=== PATIENT | female | born 1990 | race Caucasian/White ===

== ENCOUNTER 2017-02-12 23:14 | Emergency (ER) | payer OTHER, MEDICAID ==
[2017-02-12 23:24] VITALS: BP 128/87
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
[2017-02-12] MEDS ORDERED: Diphtheria,Pertussis(Acell),Tetanus Vaccine 0.5 ML SDV inactive IM ONE (23:58)
[2017-02-13] MEDS ORDERED: Acetaminophen/HYDROcodone 325-5 MG Tab PO ONE (00:57)
--- NOTE | 2017-02-13 07:22 | CT ---
Head CT Technique: Multiple axial sections through the brain were obtained. Intravenous contrast was not utilized. Comparison: No previous intracranial imaging is available. Findings: Ventricles along with basal cisterns and sulci over the convexities are within normal limits for the patient's age. Metallic piece of jewelry is seen within the left ear causing some artifact. No abnormal parenchymal densities are appreciated. No evidence of intracranial hemorrhage. No midline shift or mass effect is seen. Bone window settings were reviewed which show no discrete calvarial abnormality. Visualized sinuses are clear. Impression: 1. Mild artifact from left-sided jewelry. Within this limitation, no acute intracranial abnormality is identified. Diagnostic code #2 I agree with preliminary report issued by [facility] (preliminary report dictated on 02/13/17, 1:54 AM Central Time)
--- NOTE | 2017-02-13 09:55 | CT ---
CT cervical spine Technique: Multiple axial sections were obtained from above C1 inferiorly to the bottom of T1. Reconstructed sagittal and coronal images were reviewed. Findings: Visualized posterior skull base is intact. Vertebral body heights and disc spaces are maintained. Vertebral bodies and posterior arches are intact with no fracture being seen. No bony central or bony neural foraminal stenosis is seen. Mild kyphosis is present on the reconstructed sagittal images most likely positional. No abnormal subluxation is seen. Impression: 1. No acute abnormality is identified on CT study of the cervical spine. Diagnostic code #2 I agree with preliminary report issued by [facility] (preliminary report dictated on 02/13/17, 1:55 AM Central Time)
--- NOTE | 2017-02-13 09:55 | CR ---
Left shoulder: Three views of the left shoulder were obtained. Comparison: No previous study. Glenohumeral and acromioclavicular joint appears unremarkable. No fracture, dislocation or other bony abnormality is seen. Impression: 1. No abnormality is identified on three-view left shoulder exam. Diagnostic code #1
--- NOTE | 2017-02-13 09:55 | CR ---
Chest: Frontal view of the chest was obtained. Comparison: Previous chest x-ray of 11/25/16. Heart size and mediastinum are normal. Lungs are clear. Bony structures are grossly intact. Impression: 1. Nothing acute is identified on frontal chest x-ray. Diagnostic code #1
== END 2017-02-13 03:00 | disposition home or self-care (01) ==
LOC: JD.ED 23:14
DX: S09.8XXA Other specified injuries of head, initial encounter (principal); S80.12XA Contusion of left lower leg, initial encounter; S40.012A Contusion of left shoulder, initial encounter; V89.0XXA Person injured in unspecified motor-vehicle accident, nontraffic, initial encounter; Z88.0 Allergy status to penicillin; F17.200 Nicotine dependence, unspecified, uncomplicated
CPT/HCPCS: 70450; 71010; 72125; 73030; 81001; 81025; 90471; 99284; A9270; 90715

== ENCOUNTER 2017-05-24 23:32 | Emergency (ER) | payer MEDICAID ==
[2017-05-24 23:47] VITALS: BP 141/83
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
--- NOTE | 2017-05-26 07:53 | CR ---
Right wrist: Four views of the right wrist were obtained. Comparison: No previous right wrist exam Joint spaces are preserved. No fracture, dislocation or other bony abnormality is seen. Impression: 1. No abnormality is identified on right wrist exam. Diagnostic code #1
--- NOTE | 2017-05-26 07:53 | CR ---
Right hand: Three views of the right hand were obtained. Comparison: No previous study. Joint spaces are preserved. No fracture, dislocation or other bony abnormality is seen. Impression: 1. No abnormality is appreciated on right hand study. Diagnostic code #1
== END 2017-05-25 00:44 | disposition home or self-care (01) ==
LOC: JD.ED 23:32
DX: S63.501A Unspecified sprain of right wrist, initial encounter (principal); S60.221A Contusion of right hand, initial encounter; F17.210 Nicotine dependence, cigarettes, uncomplicated; Z88.0 Allergy status to penicillin; Z87.440 Personal history of urinary (tract) infections; Z86.2 Personal history of diseases of the blood and blood-forming organs and certain disorders involving the immune mechanism; W19.XXXA Unspecified fall, initial encounter
CPT/HCPCS: 73110-26-RT; 73110-RT; 73130-26-RT; 73130-RT; 99283; 99284

== ENCOUNTER 2017-07-14 22:29 | Emergency (ER) | payer MEDICAID ==
[2017-07-14 22:41] VITALS: BP 121/72
--- NOTE | 2017-07-14 22:53 | EDM.PDOC ---
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 Patient 8 weeks gestation developed cramping and spotting a couple hours prior to arrival. The spotting has been light she noticed it mostly when she wipes. She denies any burning or frequency with urination she has not had any abnormal vaginal discharge except for a little bit of clear discharge at times. Patient denies any fevers or chills denies any vomiting diarrhea or constipation she has some intermittent nausea. Patient is a 5 para 3 one miscarriage. Headache Pain Score (Numeric/FACES): 9 - Related Data Allergies Allergy/AdvReac Type Severity Reaction Status Date / Time Penicillins Allergy Hives Verified 05/24/17 23:38 Home Meds: Home Meds Pnv No.95/Ferrous Fum/Folic AC [ Multivitamin Tablet] 1 tab PO DAILY [History] Hydrocodone/Acetaminophen [[place] 5-325 Tablet] 1 - 2 each PO Q6H PRN #15 tablet 07/15/17 [Rx] Nitrofurantoin Monohyd/M-Cryst [Macrobid 100 mg Capsule] 100 mg PO Q12H #14 capsule 07/15/17 [Rx] Past Medical History HEENT History: Reports: None Cardiovascular History: Reports: None Respiratory History: Reports: None Genitourinary History: Reports: None, UTI, Recurrent SHADE CUTTER History: Reports: , 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 OB/BYN History: x4 Musculoskeletal History: Reports: None Other Musculoskeletal History: ankle sprain Psychiatric History: Reports: Anxiety, Depression Endocrine/Metabolic History: Reports: None Hematologic History: Reports: Anemia Dermatologic History: Reports: Other (See Below) Other Dermatologic History: Frequent abscess' to groin--MRSA swab negative x3 - Infectious Disease History 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: MRSA - Past Surgical History HEENT Surgical History: Reports: Oral Surgery Female Surgical History: Reports: Cervical Cryotherapy Social & Family History - Family History Family Medical History: Noncontributory Cardiac: Reports: [place] Endocrine/Metabolic: Reports: Diabetes, type II - Tobacco Use Smoking Status *Q: Current Every Day Smoker Years of Tobacco use: 11 Packs/Tins Daily: 0.5 Used Tobacco, but Quit: No Second Hand Smoke Exposure: Yes - Caffeine Use Caffeine Use: Reports: Soda - Alcohol Use Days Per Week of Alcohol Use: 0 Number of Drinks Per Day: 1 Total Drinks Per Week: 0 - Recreational Drug Use Recreational Drug Use: No ED ROS GENERAL - Review of Systems Review Of Systems: See Below Constitutional: Reports: No Symptoms HEENT: Reports: No Symptoms Respiratory: Reports: No Symptoms Cardiovascular: Reports: No Symptoms GI/Abdominal: Reports: Nausea. Denies: Constipation, Diarrhea, Vomiting : Reports: Pain. Denies: Discharge, Dysuria, Flank Pain, Frequency, Hematuria , Urgency ED EXAM - Physical Exam Exam: See Below Exam Limited By: No Limitations General Appearance: Alert, No Apparent Distress Respiratory/Chest: No Respiratory Distress, Lungs Clear, Normal Breath Sounds Cardiovascular: Regular Rate, Rhythm, No Edema, No Murmur GI/Abdominal Exam: Normal Bowel Sounds, Soft, Other (She has some lower abdominal suprapubic discomfort no rebound or guarding noted) (Female) Exam: Normal Bimanual Exam (This is perhaps more tender than one would expect), Normal External Exam, Other (No blood noted in the vaginal vault small amount of blood noted on the endocervical swab). No: Adnexal Mass (L), Adnexal Mass (R), Cervical Discharge, Cervical Fluid, Vaginal Bleeding Back Exam: Normal Inspection, CVA Tenderness (L). No: CVA Tenderness (R) Course - Vital Signs Last Recorded V/S: Last Vital Signs Temp 36.7 C 07/14/17 22:37 Pulse 92 07/14/17 22:37 Resp 16 07/14/17 22:37 BP 121/72 07/14/17 22:37 Pulse Ox 97 07/14/17 22:37 - Orders/Labs/Meds Orders: Active Orders 24 hr Category Date Time Status OB Transvaginal [US] Stat Exams 07/15/17 01:38 Taken CULTURE URINE [RM] Stat Lab 07/15/17 01:53 Ordered ROSINA PREP [MYC] Stat Lab 07/15/17 01:40 Results Labs: Laboratory Tests 07/14/17 07/14/17 07/14/17 Range/Units 23:27 23:41 23:41 WBC 12.79 H (3.98-10.04) K/mm3 RBC 3.94 L (3.98-5.22) M/mm3 Hgb 11.8 (11.2-15.7) gm/L Hct 35.4 (34.1-44.9) % MCV 89.8 (79.4-94.8) fl MCH 29.9 (25.6-32.2) pg MCHC 33.3 (32.2-35.5) g/dl RDW Std Deviation 47.8 H (36.4-46.3) fL Plt Count 360 (182-369) K/mm3 MPV 9.6 (9.4-12.3) fl Neutrophils % (Manual) 56 (40-60) % Band Neutrophils % 0 (0-10) % Lymphocytes % (Manual) 40 (20-40) % Atypical Lymphs % 0 % Monocytes % (Manual) 1 L (2-10) % Eosinophils % (Manual) 3 (0.7-5.8) % Basophils % (Manual) 0 L (0.1-1.2) Platelet Estimate Adequate RBC Morph Comment Normal Sodium 139 (136-145) mEq/L Potassium 3.6 (3.5-5.1) mEq/L Chloride 103 (98-107) mEq/L Carbon Dioxide 26 (21-32) mEq/L Anion Gap 13.6 (5-15) BUN 12 (7-18) mg/dL Creatinine 0.9 (0.55-1.02) mg/dL Est Cr Clr Drug Dosing 85.24 mL/min Estimated GFR (MDRD) > 60 (>60) mL/min BUN/Creatinine Ratio 13.3 L (14-18) Glucose 82 (74-106) mg/dL Calcium 9.4 (8.5-10.1) mg/dL Total Bilirubin 0.1 L (0.2-1.0) mg/dL AST 11 L (15-37) U/L ALT 22 (14-59) U/L Alkaline Phosphatase 42 L (46-116) U/L Total Protein 7.3 (6.4-8.2) g/dl Albumin 4.1 (3.4-5.0) g/dl Globulin 3.2 gm/dL Albumin/Globulin Ratio 1.3 (1-2) HCG, Quant 80313.0 mIU/mL Urine Color Yellow (Yellow) Urine Appearance Clear (Clear) Urine pH 6.5 (5.0-8.0) Ur Specific [place] 1.025 (1.005-1.030) Urine Protein Negative (Negative) Urine Glucose (UA) Negative (Negative) Urine Ketones Negative (Negative) Urine Occult Blood 2+ H (Negative) Urine Nitrite Negative (Negative) Urine Bilirubin Negative (Negative) Urine Urobilinogen 1.0 (0.2-1.0) Ur Leukocyte Esterase Negative (Negative) Urine RBC 30-40 H (0-5) /hpf Urine WBC 0-5 (0-5) /hpf Ur Epithelial Cells 10-20 H (0-5) /hpf Urine Bacteria Few (FEW) /hpf Urine Mucus Moderate H (FEW) /hpf C trachomatis DNA (PCR) N gonorrhoeae DNA (PCR) 07/15/17 Range/Units 01:40 WBC (3.98-10.04) K/mm3 RBC (3.98-5.22) M/mm3 Hgb (11.2-15.7) gm/L Hct (34.1-44.9) % MCV (79.4-94.8) fl MCH (25.6-32.2) pg MCHC (32.2-35.5) g/dl RDW Std Deviation (36.4-46.3) fL Plt Count (182-369) K/mm3 MPV (9.4-12.3) fl Neutrophils % (Manual) (40-60) % Band Neutrophils % (0-10) % Lymphocytes % (Manual) (20-40) % Atypical Lymphs % % Monocytes % (Manual) (2-10) % Eosinophils % (Manual) (0.7-5.8) % Basophils % (Manual) (0.1-1.2) Platelet Estimate RBC Morph Comment Sodium (136-145) mEq/L Potassium (3.5-5.1) mEq/L Chloride (98-107) mEq/L Carbon Dioxide (21-32) mEq/L Anion Gap (5-15) BUN (7-18) mg/dL Creatinine (0.55-1.02) mg/dL Est Cr Clr Drug Dosing mL/min Estimated GFR (MDRD) (>60) mL/min BUN/Creatinine Ratio (14-18) Glucose (74-106) mg/dL Calcium (8.5-10.1) mg/dL Total Bilirubin (0.2-1.0) mg/dL AST (15-37) U/L ALT (14-59) U/L Alkaline Phosphatase (46-116) U/L Total Protein (6.4-8.2) g/dl Albumin (3.4-5.0) g/dl Globulin gm/dL Albumin/Globulin Ratio (1-2) HCG, Quant mIU/mL Urine Color (Yellow) Urine Appearance (Clear) Urine pH (5.0-8.0) Ur Specific [place] (1.005-1.030) Urine Protein (Negative) Urine Glucose (UA) (Negative) Urine Ketones (Negative) Urine Occult Blood (Negative) Urine Nitrite (Negative) Urine Bilirubin (Negative) Urine Urobilinogen (0.2-1.0) Ur Leukocyte Esterase (Negative) Urine RBC (0-5) /hpf Urine WBC (0-5) /hpf Ur Epithelial Cells (0-5) /hpf Urine Bacteria (FEW) /hpf Urine Mucus (FEW) /hpf C trachomatis DNA (PCR) Not detected N gonorrhoeae DNA (PCR) Not detected Meds: Medications Discontinued Medications Generic Name Dose Route Start Last Admin Trade Name Freq PRN Reason Stop Dose Admin Fentanyl 50 mcg 07/15/17 01:11 07/15/17 01:22 Sublimaze IVPUSH 07/15/17 01:12 Not Given ONETIME ONE Fentanyl 50 mcg 07/15/17 01:13 07/15/17 01:21 Sublimaze IM 07/15/17 01:14 50 mcg ONETIME ONE Administration Fentanyl 50 mcg 07/15/17 02:09 07/15/17 02:21 Sublimaze IVPUSH 07/15/17 02:10 50 mcg ONETIME ONE Administration Nitrofurantoin Macrocrystals 100 mg 07/15/17 01:46 07/15/17 02:22 Macrobid PO 07/15/17 01:47 100 mg ONETIME ONE Administration Sodium Chloride 10 ml 07/15/17 02:10 07/15/17 02:26 Saline Flush FLUSH 07/15/17 02:11 10 ml ONETIME ONE Administration - Re-Assessments/Exams Free Text/Narrative Re-Assessment/Exam: 07/15/17 03:07 Labs reviewed she has microscopic hematuria in her urine. Interestingly minimal blood was found in the vaginal vault reasonable possibility of a hemorrhagic cystitis albeit negative for leukocyte esterase or nitrates urine culture has been set up and the patient has been started on Macrobid. Routine labs obtained in 2 including a quantitative hCG which is consistent with dates. ROSINA and wet mount normal awaiting GC and Chlamydia ultrasound obtained which shows a viable IUP with an age of 7 weeks 2 days blood type and screen in old records shows a negative antibody screen and the blood type of a positive on her most recent delivery in November of this year. Departure - Departure Time of Disposition: 03:23 Disposition: Home, Self-Care 01 Clinical Impression: Threatened - Discharge Information Prescriptions: Hydrocodone/Acetaminophen [[place]range 5-325 Tablet] 1 - 2 each PO Q6H PRN #15 tablet PRN Reason: Pain Nitrofurantoin Monohyd/M-Cryst [Macrobid 100 mg Capsule] 100 mg PO Q12H #14 capsule Referrals: Akin Burton MD [Primary Care Provider] - Forms: ED Department Discharge Additional Instructions: Return to the emergency room with any questions problems or worsening symptoms. Follow up with Dr. Burton on Friday, sooner if needed. You have been started on 2 medications. The first one is Lagrange, or hydrocodone take one or 2 every 6 hours as needed for discomfort. Allow 12 hours after using this medication before driving or returning to work. Second medication is Macrobid, this is an antibiotic for urinary tract infections take one twice daily until all gone. - My Orders Last 24 Hours: My Active Orders 07/15/17 01:38 OB Transvaginal [US] Stat 07/15/17 01:40 ROSINA PREP [MYC] Stat 07/15/17 01:53 CULTURE URINE [RM] Stat - Assessment/Plan Last 24 Hours: My Active Orders 07/15/17 01:38 OB Transvaginal [US] Stat 07/15/17 01:40 ROSINA PREP [MYC] Stat 07/15/17 01:53 CULTURE URINE [RM] Stat
[2017-07-15] MEDS ORDERED: fentaNYL 100 MCG/2 ML SDV IVPUSH ONE ×2 (01:11→02:09)
[2017-07-15] MEDS ORDERED: fentaNYL 100 MCG/2 ML SDV IM ONE (01:13)
[2017-07-15] MEDS ORDERED: Nitrofurantoin Monohydrate/Macrocrystalline 100 MG Cap PO ONE (01:46)
[2017-07-15] MEDS ORDERED: Sodium Chloride 0.9% 10 ML Syringe FLUSH ONE (02:10)
[2017-07-15 03:21] LABS: C. TRACHOMATIS BY PCR NOT DETECTED; N. GONORRHOEAE BY PCR NOT DETECTED
[2017-07-15] MEDS ORDERED: Acetaminophen/HYDROcodone 325-5 MG Tab PO ONE (03:32)
--- NOTE | 2017-07-15 07:19 | US ---
First trimester obstetrical ultrasound: Multiple real-time images were obtained transvaginally. Comparison: No previous study. Dates: LMP: ? Current ultrasound: ANKIT 03/01/18, gestational age 7 weeks 2 days Single intrauterine gestation is seen. Yolk sac and embryo are identified. No subchorionic hemorrhage is seen. Incidental left adnexal varicosities seen. Right ovary shows a small corpus luteum cyst. Measurements: Gestational sac: 2.59 cm - 7 weeks 4 days Strong-rump length: 1.13 cm - 7 weeks 2 days Heart rate: 127 bpm Impression: 1. Single intrauterine gestation. Dates as noted above. 2. Incidental varicosities within the maternal left adnexa. No other complicating process is identified by ultrasound at this time. Diagnostic code #2 Agree with preliminary report issued by [employer] (preliminary [employer] report dictated on 07/06/1917, 3:42 AM Central Time)
== END 2017-07-15 03:50 | disposition home or self-care (01) ==
LOC: JD.ED 22:29
DX: O20.0 Threatened abortion (principal); O99.331 Smoking (tobacco) complicating pregnancy, first trimester; F17.210 Nicotine dependence, cigarettes, uncomplicated; Z86.2 Personal history of diseases of the blood and blood-forming organs and certain disorders involving the immune mechanism; Z87.440 Personal history of urinary (tract) infections; Z98.890 Other specified postprocedural states; Z88.0 Allergy status to penicillin; Z3A.08 8 weeks gestation of pregnancy
CPT/HCPCS: 36415; 76817; 80053; 81001; 84702; 85025; 87086; 87210; 87220; 87491; 87591; 87808; 96372; 96374; 99284; A9270; J3010; J7050

== ENCOUNTER 2017-07-15 21:49 | Emergency (ER) | payer MEDICAID ==
[2017-07-15 22:09] VITALS: BP 118/91
--- NOTE | 2017-07-15 22:21 | EDM.PDOC ---
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 The patient was seen here earlier this morning diagnosed with a threatened miscarriage. Ultrasound was consistent with a viable intrauterine at 7 weeks 3 days she is Rh+ antibody screen negative urinalysis was not really suggestive of infectious process but she had a fair amount of microscopic hematuria and there was really no blood found in the vaginal vault she was treated for potential UTI with Macrobid. The patient did not follow-up in the clinic today however did call and leave a message. The patient did not get her pain pills filled until late this afternoon her pain very much escalated during the course the day she took 1 pill followed by another pill in did not get satisfactory relief from this so she came into the emergency room during the course today she did pass a small clot maroon in color. Abdominal Pain Score (Numeric/FACES): 10 - Related Data Allergies Allergy/AdvReac Type Severity Reaction Status Date / Time Penicillins Allergy Hives Verified 05/24/17 23:38 Home Meds: Home Meds Pnv No.95/Ferrous Fum/Folic AC [ Multivitamin Tablet] 1 tab PO DAILY [History] Hydrocodone/Acetaminophen [[place] 5-325 Tablet] 1 - 2 each PO Q6H PRN #15 tablet 07/15/17 [Rx] Nitrofurantoin Monohyd/M-Cryst [Macrobid 100 mg Capsule] 100 mg PO Q12H #14 capsule 07/15/17 [Rx] Past Medical History HEENT History: Reports: None Cardiovascular History: Reports: None Respiratory History: Reports: None Genitourinary History: Reports: None, UTI, Recurrent, Other (See Below) Other Genitourinary History: miscarriage RN PERINATAL History: Reports: , 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 OB/BYN History: x4 Musculoskeletal History: Reports: None Other Musculoskeletal History: ankle sprain Neurological History: Reports: Other (See Below) Other Neuro History: depression Psychiatric History: Reports: Anxiety, Depression Endocrine/Metabolic History: Reports: None Hematologic History: Reports: Anemia Dermatologic History: Reports: Other (See Below) Other Dermatologic History: Frequent abscess' to groin--MRSA swab negative x3 - Infectious Disease History 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: MRSA - Past Surgical History HEENT Surgical History: Reports: Oral Surgery Female Surgical History: Reports: Cervical Cryotherapy Social & Family History - Family History Family Medical History: Noncontributory Cardiac: Reports: [place] Endocrine/Metabolic: Reports: Diabetes, type II - Tobacco Use Smoking Status *Q: Current Every Day Smoker Years of Tobacco use: 11 Packs/Tins Daily: 1 Used Tobacco, but Quit: No Second Hand Smoke Exposure: No - Caffeine Use Caffeine Use: Reports: Soda - Alcohol Use Days Per Week of Alcohol Use: 0 Number of Drinks Per Day: 1 Total Drinks Per Week: 0 - Recreational Drug Use Recreational Drug Use: No ED ROS GENERAL - Review of Systems Review Of Systems: See Below Constitutional: Reports: No Symptoms HEENT: Reports: No Symptoms Respiratory: Reports: No Symptoms Cardiovascular: Reports: No Symptoms GI/Abdominal: Reports: Other (Lower abdominal cramping) : Denies: Discharge, Dysuria, Flank Pain, Frequency, Hematuria ED EXAM - Physical Exam Exam: See Below Exam Limited By: No Limitations General Appearance: Alert, No Apparent Distress Respiratory/Chest: No Respiratory Distress, Lungs Clear, Normal Breath Sounds Cardiovascular: Regular Rate, Rhythm, No Edema, No Murmur GI/Abdominal Exam: Normal Bowel Sounds, Soft, Other (Mild to moderate discomfort over the fundus) Back Exam: Normal Inspection. No: CVA Tenderness (L), CVA Tenderness (R) Course - Vital Signs Last Recorded V/S: Last Vital Signs Temp 36.5 C 07/15/17 22:03 Pulse 100 07/15/17 22:03 Resp 14 07/15/17 22:03 BP 118/91 H 07/15/17 22:03 Pulse Ox 98 07/15/17 22:03 - Orders/Labs/Meds Meds: Medications Discontinued Medications Generic Name Dose Route Start Last Admin Trade Name Freq PRN Reason Stop Dose Admin Hydromorphone HCl 0.5 mg 07/15/17 23:37 Dilaudid IVPUSH 07/15/17 23:38 ONETIME ONE - Re-Assessments/Exams Free Text/Narrative Re-Assessment/Exam: 07/15/17 23:[address] Anderson no further evaluation this point the patient received 0.5 mg Dilaudid and after receiving the Dilaudid the patient is doing much better. We will discharge at this point Departure - Departure Time of Disposition: 23:48 Disposition: Home, Self-Care 01 Clinical Impression: Threatened - Discharge Information Referrals: Akin Burton MD [Primary Care Provider] - Forms: ED Department Discharge Additional Instructions: Return to the emergency room with any questions or problems. Return if completely saturating more than 2 pads an hour for 2 consecutive hours. Tomorrow you must follow-up with Dr. Burton you will need a follow-up blood test. Use your pain medication as we discussed. It is okay to use Zofran if needed.
[2017-07-15] MEDS ORDERED: HYDROmorphone 0.5 MG/0.5 ML Syringe IVPUSH ONE (23:37)
== END 2017-07-16 00:11 | disposition home or self-care (01) ==
LOC: JD.ED 21:49
DX: O20.0 Threatened abortion (principal); O99.331 Smoking (tobacco) complicating pregnancy, first trimester; F17.210 Nicotine dependence, cigarettes, uncomplicated; O99.341 Other mental disorders complicating pregnancy, first trimester; F32.9 Major depressive disorder, single episode, unspecified; Z86.2 Personal history of diseases of the blood and blood-forming organs and certain disorders involving the immune mechanism; Z87.440 Personal history of urinary (tract) infections; Z88.0 Allergy status to penicillin; Z3A.01 Less than 8 weeks gestation of pregnancy
CPT/HCPCS: 99284; J1170

== ENCOUNTER 2017-08-16 22:19 | Emergency (ER) | payer MEDICAID ==
[2017-08-16 22:31] VITALS: BP 101/74
--- NOTE | 2017-08-16 22:33 | EDM.PDOC ---
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 She passed for large clots about 1600 hrs. and since that time has soaked 3 pads in the last 3 hours. She feels lightheaded and dizzy. She is 5 para 3. Last ultrasound done July 15 revealed viability with a heart rate of 127. EDC has been set at March 01, 2018. Patient is also experiencing quite significant lower bowel cramping pain radiating into her back i.e. strongly menstrual-like cramps. She is nauseated due to the intensity of pain.patient is feeling quite anxious at this time as well. Probably because she ran out of her clonazepam 2 mg twice a day about 34 days ago and was unable to get refilled is Dr. Keith is out of office. She is feeling quite anxious of course about losing the . Of note she has had one previous miscarriage. 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 (feeling quite anxious about losing the .) Abdomen Pain Score (Numeric/FACES): 9 - Related Data Allergies Allergy/AdvReac Type Severity Reaction Status Date / Time Penicillins Allergy Hives Verified 05/24/17 23:38 Home Meds: Home Meds Pnv No.95/Ferrous Fum/Folic AC [ Multivitamin Tablet] 1 tab PO DAILY [History] ClonazePAM [KlonoPIN] 1 mg PO BID 08/16/17 [History] oxyCODONE HCl/Acetaminophen [Percocet 5-325 mg Tablet] 1 - 2 each PO Q4H PRN # 18 tablet 08/17/17 [Rx] Past Medical History HEENT History: Reports: None Cardiovascular History: Reports: None Respiratory History: Reports: None Genitourinary History: Reports: None, UTI, Recurrent, Other (See Below) Other Genitourinary History: miscarriage 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: , Spontaneous : 5 Para: 3 (1 previous miscarriage.) Other OB/BYN History: x4 Musculoskeletal History: Reports: None Other Musculoskeletal History: ankle sprain Neurological History: Reports: Other (See Below) Other Neuro History: depression Psychiatric History: Reports: Anxiety, Depression Endocrine/Metabolic History: Reports: None Hematologic History: Reports: Anemia Dermatologic History: Reports: Other (See Below) Other Dermatologic History: Frequent abscess' to groin--MRSA swab negative x3 - Infectious Disease History 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: MRSA - Past Surgical History HEENT Surgical History: Reports: Oral Surgery Female Surgical History: Reports: Cervical Cryotherapy Social & Family History - Family History Family Medical History: Noncontributory Cardiac: Reports: MA Endocrine/Metabolic: Reports: Diabetes, type II - Tobacco Use Smoking Status *Q: Current Every Day Smoker Years of Tobacco use: 11 Packs/Tins Daily: 1 Used Tobacco, but Quit: No Second Hand Smoke Exposure: No - Caffeine Use Caffeine Use: Reports: Soda - Alcohol Use Days Per Week of Alcohol Use: 0 Number of Drinks Per Day: 1 Total Drinks Per Week: 0 - Recreational Drug Use Recreational Drug Use: No - Living Situation & Occupation Living situation: Reports: Occupation: Employed ED ROS GENERAL - Review of Systems Review Of Systems: See Below Constitutional: Reports: Weakness, Fatigue, Other (dizzy and lightheaded at this time). Denies: Fever, Chills, Malaise HEENT: Reports: No Symptoms Respiratory: Reports: No Symptoms Cardiovascular: Reports: No Symptoms Endocrine: Reports: No Symptoms GI/Abdominal: Reports: Abdominal Pain (see history of present illness) : Reports: Other Musculoskeletal: Reports: No Symptoms Skin: Reports: No Symptoms Neurological: Reports: Dizziness Psychiatric: Reports: Anxiety Hematologic/Lymphatic: Reports: No Symptoms Immunologic: Reports: No Symptoms ED EXAM - Physical Exam Exam: See Below Exam Limited By: No Limitations General Appearance: Alert, WD/WN, Mild Distress Eye Exam: Bilateral Eye: Normal Inspection Throat/Mouth: Normal Inspection, Normal Lips, Normal Teeth, Normal Oropharynx Head: Atraumatic, Normocephalic Neck: Normal Inspection, Supple, Non-Tender, Full Range of Motion Respiratory/Chest: No Respiratory Distress, Lungs Clear, Normal Breath Sounds, No Accessory Muscle Use Cardiovascular: Normal Peripheral Pulses, Regular Rate, Rhythm, No Edema, No Gallop, No JVD, No Murmur GI/Abdominal Exam: Normal Bowel Sounds, Soft, Non-Tender, No Organomegaly Back Exam: Normal Inspection, Full Range of Motion. No: CVA Tenderness (L), CVA Tenderness (R) Extremities: Normal Inspection, Normal Range of Motion, Non-Tender, No Pedal Edema, Normal Capillary Refill Neurological: Alert, Oriented, CN II-XII Intact, Normal Cognition, Normal Gait, Normal Reflexes Psychiatric: Normal Affect, Normal Mood Skin Exam: Warm, Dry, Intact, Normal Color, Other (patient has had MRSA in the past and has numerous small palpable papules along her but talks nuchal cleft. She recently squeezed one on the right mid buttock to relieve the pain but was concerned that it might be have become secondarily infected on my inspection the wound appears to be healing satisfactorily.) Course - Vital Signs Last Recorded V/S: Last Vital Signs Temp 36.0 C 08/16/17 22:30 Pulse 130 H 08/16/17 22:30 Resp 20 08/16/17 22:30 BP 101/74 08/16/17 22:30 Pulse Ox 100 08/16/17 22:30 Orthostatic Blood Pressure [ 125/87 Standing] Orthostatic Blood Pressure [ 114/80 Sitting] Orthostatic Blood Pressure [ 106/73 Supine] - Orders/Labs/Meds Orders: Active Orders 24 hr Category Date Time Status Admission Status [Patient Status] [ADT] Routine ADT 08/17/17 00:50 Cancelled Orthostatic Vital Signs [RC] ASDIRECTED Care 08/16/17 22:32 Active OB 1st Tri Sgl 1st Gest [US] Stat Exams 08/16/17 23:03 Taken Sodium Chloride 0.9% [Normal Saline] 1,000 ml Med 08/16/17 22:45 Active IV ASDIRECTED Medication Orders Sodium Chloride (Normal Saline) 1,000 mls @ 150 mls/hr IV ASDIRECTED LJ Last Admin: 08/16/17 22:52 Dose: 150 mls/hr Labs: Laboratory Tests 08/16/17 08/16/17 08/16/17 Range/Units 22:55 22:55 22:55 WBC 13.51 H (3.98-10.04) K/mm3 RBC 3.96 L (3.98-5.22) M/mm3 Hgb 12.1 (11.2-15.7) gm/L Hct 35.4 (34.1-44.9) % MCV 89.4 (79.4-94.8) fl MCH 30.6 (25.6-32.2) pg MCHC 34.2 (32.2-35.5) g/dl RDW Std Deviation 50.3 H (36.4-46.3) fL Plt Count 349 (182-369) K/mm3 MPV 9.9 (9.4-12.3) fl Neutrophils % (Manual) 62 H (40-60) % Band Neutrophils % 0 (0-10) % Lymphocytes % (Manual) 25 (20-40) % Atypical Lymphs % 7 % Monocytes % (Manual) 4 (2-10) % Eosinophils % (Manual) 1 (0.7-5.8) % Basophils % (Manual) 1 (0.1-1.2) Platelet Estimate Adequate Plt Morphology Comment Normal Anisocytosis 1+ slight Microcytosis 1+ slight Macrocytosis 1+ slight RBC Morph Comment Abnormal Sodium 140 (136-145) mEq/L Potassium 3.6 (3.5-5.1) mEq/L Chloride 103 (98-107) mEq/L Carbon Dioxide 24 (21-32) mEq/L Anion Gap 16.6 H (5-15) BUN 10 (7-18) mg/dL Creatinine 0.7 (0.55-1.02) mg/dL Est Cr Clr Drug Dosing TNP Estimated GFR (MDRD) > 60 (>60) mL/min BUN/Creatinine Ratio 14.3 (14-18) Glucose 94 (74-106) mg/dL Calcium 8.8 (8.5-10.1) mg/dL Total Bilirubin 0.2 (0.2-1.0) mg/dL AST 10 L (15-37) U/L ALT 16 (14-59) U/L Alkaline Phosphatase 43 L (46-116) U/L Total Protein 7.4 (6.4-8.2) g/dl Albumin 3.7 (3.4-5.0) g/dl Globulin 3.7 gm/dL Albumin/Globulin Ratio 1.0 (1-2) HCG, Qual Positive H (NEGATIVE) HCG, Quant 70063.0 mIU/mL Urine Color (Yellow) Urine Appearance (Clear) Urine pH (5.0-8.0) Ur Specific [place] (1.005-1.030) Urine Protein (Negative) Urine Glucose (UA) (Negative) Urine Ketones (Negative) Urine Occult Blood (Negative) Urine Nitrite (Negative) Urine Bilirubin (Negative) Urine Urobilinogen (0.2-1.0) Ur Leukocyte Esterase (Negative) Urine RBC (0-5) /hpf Urine WBC (0-5) /hpf Ur Epithelial Cells (0-5) /hpf Urine Bacteria (FEW) /hpf Urine Mucus (FEW) /hpf Blood Type 08/16/17 08/17/17 Range/Units 22:55 00:05 WBC (3.98-10.04) K/mm3 RBC (3.98-5.22) M/mm3 Hgb (11.2-15.7) gm/L Hct (34.1-44.9) % MCV (79.4-94.8) fl MCH (25.6-32.2) pg MCHC (32.2-35.5) g/dl RDW Std Deviation (36.4-46.3) fL Plt Count (182-369) K/mm3 MPV (9.4-12.3) fl Neutrophils % (Manual) (40-60) % Band Neutrophils % (0-10) % Lymphocytes % (Manual) (20-40) % Atypical Lymphs % % Monocytes % (Manual) (2-10) % Eosinophils % (Manual) (0.7-5.8) % Basophils % (Manual) (0.1-1.2) Platelet Estimate Plt Morphology Comment Anisocytosis Microcytosis Macrocytosis RBC Morph Comment Sodium (136-145) mEq/L Potassium (3.5-5.1) mEq/L Chloride (98-107) mEq/L Carbon Dioxide (21-32) mEq/L Anion Gap (5-15) BUN (7-18) mg/dL Creatinine (0.55-1.02) mg/dL Est Cr Clr Drug Dosing Estimated GFR (MDRD) (>60) mL/min BUN/Creatinine Ratio (14-18) Glucose (74-106) mg/dL Calcium (8.5-10.1) mg/dL Total Bilirubin (0.2-1.0) mg/dL AST (15-37) U/L ALT (14-59) U/L Alkaline Phosphatase (46-116) U/L Total Protein (6.4-8.2) g/dl Albumin (3.4-5.0) g/dl Globulin gm/dL Albumin/Globulin Ratio (1-2) HCG, Qual (NEGATIVE) HCG, Quant mIU/mL Urine Color Yellow (Yellow) Urine Appearance Slt cloudy H (Clear) Urine pH 7.0 (5.0-8.0) Ur Specific [place] 1.025 (1.005-1.030) Urine Protein Trace H (Negative) Urine Glucose (UA) Negative (Negative) Urine Ketones Negative (Negative) Urine Occult Blood 3+ H (Negative) Urine Nitrite Negative (Negative) Urine Bilirubin Negative (Negative) Urine Urobilinogen 1.0 (0.2-1.0) Ur Leukocyte Esterase Negative (Negative) Urine RBC 5-10 H (0-5) /hpf Urine WBC 0-5 (0-5) /hpf Ur Epithelial Cells 0-5 (0-5) /hpf Urine Bacteria Few (FEW) /hpf Urine Mucus Moderate H (FEW) /hpf Blood Type A POSITIVE Meds: Medications Generic Name Dose Route Start Last Admin Trade Name Freq PRN Reason Stop Dose Admin Sodium Chloride 1,000 mls @ 150 mls/hr 08/16/17 22:45 08/16/17 22:52 Normal Saline IV 150 mls/hr ASDIRECTED LJ Administration Discontinued Medications Generic Name Dose Route Start Last Admin Trade Name Freq PRN Reason Stop Dose Admin Hydromorphone HCl 0.5 mg 08/16/17 22:54 08/16/17 23:05 Dilaudid IVPUSH 08/16/17 22:55 0.5 mg ONETIME ONE Administration Hydromorphone HCl 1 mg 08/16/17 23:56 08/17/17 00:06 Dilaudid IVPUSH 08/16/17 23:57 1 mg ONETIME ONE Administration Lorazepam 0.5 mg 08/16/17 22:56 08/16/17 23:06 Ativan IVPUSH 08/16/17 22:57 0.5 mg ONETIME ONE Administration Lorazepam 1 mg 08/17/17 00:33 08/17/17 00:49 Ativan IVPUSH 08/17/17 00:34 1 mg ONETIME ONE Administration Metoclopramide HCl 7.5 mg 08/16/17 22:54 08/17/17 00:08 Reglan IVPUSH 08/16/17 22:55 7.5 mg ONETIME ONE Administration - Radiology Interpretation Free Text/Narrative:: 27-year-old female presents to the ED with the bright red bleeding per vagina with associated strong menstrual cramping pain. Pain radiates into her back. She reports that she has soaked a pad per hour for the last 3 consecutive hours. Initially started with bright red blood with 4 large clots at 1600 hrs. today. She is 5 para 3 with with one previous miscarriage. She is mildly orthostatic with a heart rate of 1:30 on standing. Diffuse lower abdominal tenderness on examination.plan she will have a transabdominal ultrasound attempted however she may be have to be converted to a trans vaginal ultrasound.labs to be done to included a quantitative beta-hCG.hip and screen ordered.given Dilaudid 0.5 mg IV with Reglan 7.5 mg IV for pain and nausea relief. Since she is kind of withdrawing from her clonazepam that she has not had for 3 days also gave her Ativan 0.5 mg at her request for something for anxiety. - Re-Assessments/Exams Free Text/Narrative Re-Assessment/Exam: 08/16/17 23:12 patient declined the Reglan as she states she had taken a Zofran at home 2 hours before coming to the ED. Reglan was therefore canceled. 08/17/17 00:21pelvic ultrasound has been completed. I believe it was done transabdominally. It shows a active fetus at 12 weeks 0 days. heart rate is 1 167/m. No obvious source of bleeding is evident.pelvic examination reveals the cervix to be closed and is posterior in position. Uterus feels 12 weeks in position and is mildly tender to palpation. This was done after she was able to empty her bladder post transabdominal ultrasound. Plan tentatively she will be admitted to the hospital for observation status due to the large amount of bleeding and persistent abdominal cramping that she's experiencing i.e. threatened miscarriage. 08/17/17 00:26 lab work is back and reveals a white count of 13.51. Hemoglobin is 12.1 with hematocrit of 35.4. Lovastatin 49,000. Chemistries essentially normal. Quantitative beta-hCG is 59,572 blood type is A+. 08/17/17 00:34patient is requesting more medication for anxiety relief. Of note she has a very high tolerance to benzodiazepines and she takes clonazepam 2 mg twice a day usually. She's been out for 3 days and therefore is going through mild withdrawal as well. Will give Ativan 1 mg IV at this time. Awaiting the radiologists report on her obstetrical ultrasound. 08/17/17 00:45:radiologist report is unchanged from what I visualized. They did not comment on any significant subchorionic hemorrhage. I spoke with Dr. Hutchins with on-call OB physician in decision made to admit her to the hospital for observation. 08/17/17 01:00 patient has decided to try things at home versus come into the hospital. She really has no one to look after her 3 children. 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 Therefore she will be discharged to home as she lives in [place]. She is close to the hospital if she starts bleeding heavily. She therefore will be followed in the clinic Tentatively on Friday or Friday with Dr. Burton. Discharged home with Percocet tabs 1-2 Q 4hrs prn for pain relief( 18) through the [employer] machine. Departure - Departure Time of Disposition: 01:06 Disposition: Home, Self-Care 01 Condition: Fair Clinical Impression: Threatened in first trimester - Discharge Information Prescriptions: oxyCODONE HCl/Acetaminophen [Percocet 5-325 mg Tablet] 1 - 2 each PO Q4H PRN # 18 tablet PRN Reason: pain relief. Instructions: Threatened Miscarriage, [id number] Referrals: Akin Burton MD [Primary Care Provider] - Forms: ED Department Discharge Additional Instructions: aeration in the emergency room tonight in regards to sudden onset of bright red vaginal bleeding with associated clotting initially. Heavy flow reported was soaking a pad per hour for 3 consecutive hours prior to coming into the ED. Associated day diffuse lower abdominal cramping pain suggestive of uterine cramping. Ultrasound was carried out and reveals a viable fetus at 12 weeks and 1 day gestation. Her tones are 1 67/m. No obvious cause for the vaginal bleeding was identified. Examination revealed the cervix to be closed. Treatment is therefore bed rest as much as possible for the next 2-3 days. No lifting carrying pushing pulling etc. and nothing that would strain the tummy muscles to contract against the uterus to cause further percentile separation. At this stage it is called a threatened miscarriage. And he can go either way it 's 50-50 as to whether or not he going to miscarriage or things settle down and go on to a term gestation.suggest follow-up with Dr. laboy in clinic on Friday or Friday. May use Percocet tabs 03/19/25 one or 2 every 4-6 hours as needed for pain relief. Zofran 4 mg every 6 hours as necessary for relief of nausea. Return to the hospital if bleeding becomes heavy enough to soak a pad per hour for 2 consecutive hours as the bleeding in the hospital has seemed to settle down. It usually would be associated with increasing lower abdominal cramping pain characteristic of labor. - My Orders Last 24 Hours: My Active Orders 08/16/17 22:32 Orthostatic Vital Signs [RC] ASDIRECTED 08/16/17 22:45 Sodium Chloride 0.9% [Normal Saline] 1,000 ml IV ASDIRECTED 08/16/17 23:03 OB 1st Tri Sgl 1st Gest [US] Stat 08/17/17 00:50 Admission Status [Patient Status] [ADT] Routine (Cancelled) - Assessment/Plan Last 24 Hours: My Active Orders 08/16/17 22:32 Orthostatic Vital Signs [RC] ASDIRECTED 08/16/17 22:45 Sodium Chloride 0.9% [Normal Saline] 1,000 ml IV ASDIRECTED 08/16/17 23:03 OB 1st Tri Sgl 1st Gest [US] Stat 08/17/17 00:50 Admission Status [Patient Status] [ADT] Routine (Cancelled)
[2017-08-16] MEDS ORDERED: Sodium Chloride 0.9% 1,000 ML IV SCH (22:45)
[2017-08-16] MEDS ORDERED: HYDROmorphone 0.5 MG/0.5 ML Syringe IVPUSH ONE (22:54)
[2017-08-16] MEDS ORDERED: LORazepam 2 MG/ML MDV IVPUSH ONE (22:56)
[2017-08-16] MEDS: Metoclopramide 10 MG/2 ML SDV IVPUSH ONE (23:04)
[2017-08-16] MEDS ORDERED: HYDROmorphone 1 MG/ML Syringe IVPUSH ONE (23:56)
[2017-08-17] MEDS: Metoclopramide 10 MG/2 ML SDV IVPUSH ONE (00:08)
[2017-08-17] MEDS ORDERED: LORazepam 2 MG/ML MDV IVPUSH ONE (00:33)
[2017-08-17] MEDS ORDERED: Acetaminophen/oxyCODONE 325-5 MG Tab ONE (01:28)
--- NOTE | 2017-08-18 12:50 | US ---
First trimester obstetrical ultrasound: Multiple real-time images were obtained transabdominally. Comparison: Previous obstetrical ultrasound of 07/16/17. Dates: LMP:? Current ultrasound: ANKIT 02/27/18, gestational age 12 weeks 1 day Earliest ultrasound (07/15/17): ANKIT 03/01/18, gestational age 11 weeks 6 days Single intrauterine gestation is seen. Amniotic fluid volume is normal. Embryo is identified. No subchorionic hemorrhage is seen. Maternal left ovary not visualized, maternal right ovary is unremarkable. Measurements: [place]-rump length: 53.5 mm - 12 weeks 1 day Heart rate: 165 bpm Cervical length: 3.0 cm Impression: 1. Single intrauterine gestation. Dates as noted above. 2. No complicating process is seen by ultrasound at this time. Diagnostic code #1
== END 2017-08-17 01:15 | disposition home or self-care (01) ==
LOC: JD.ED 22:19
DX: O20.0 Threatened abortion (principal); F17.210 Nicotine dependence, cigarettes, uncomplicated; Z88.0 Allergy status to penicillin; Z3A.12 12 weeks gestation of pregnancy
CPT/HCPCS: 36415; 76801; 80053; 81001; 84702; 84703; 85025; 86900; 86901; 96361; 96374; 96375; 96376; 99284; A9270; J1170; J2060; J2765; J7040

== ENCOUNTER 2017-08-17 21:36 | Emergency (ER) | payer MEDICAID ==
[2017-08-17] MEDS ORDERED: HYDROmorphone 1 MG/ML Syringe IM ONE (22:08)
[2017-08-17] MEDS ORDERED: Metoclopramide 10 MG/2 ML SDV IVPUSH ONE (22:25)
[2017-08-17] MEDS ORDERED: Sodium Chloride 0.9% 1,000 ML IV STA (22:25)
[2017-08-17] MEDS ORDERED: Sodium Chloride 0.9% 10 ML Syringe FLUSH PRN (22:25)
[2017-08-18] MEDS ORDERED: HYDROmorphone 0.5 MG/0.5 ML Syringe IVPUSH ONE (00:38)
--- NOTE | 2017-08-18 00:40 | EDM.PDOC ---
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 This started yesterday and she was evaluated in the ER last night. She had labs and an US. She is 12 weeks gestation. The US did not show an abnormality but she was diagnosed with a threatened . She was to follow up with Dr Burton tomorrow. She comes in because she has more low back pain and RLQ abdominal pain. The bleeding is better. Onset: Gradual Duration: Day(s): (2) Location: Reports: Abdomen, Pelvis Quality: Reports: Sharp Severity: Severe Improves with: Reports: None Worsens with: Reports: None Associated Symptoms: Reports: Nausea/Vomiting. Denies: Chest Pain, Cough, Fever /Chills, Headaches, Seizure, Shortness of Breath Lower Abdomen Pain Score (Numeric/FACES): 10 - Related Data Allergies Allergy/AdvReac Type Severity Reaction Status Date / Time Penicillins Allergy Hives Verified 05/24/17 23:38 Home Meds: Home Meds Pnv No.95/Ferrous Fum/Folic AC [ Multivitamin Tablet] 1 tab PO DAILY [History] ClonazePAM [KlonoPIN] 1 mg PO BID 08/16/17 [History] oxyCODONE HCl/Acetaminophen [Percocet 5-325 mg Tablet] 1 - 2 each PO Q4H PRN # 18 tablet 08/17/17 [Rx] oxyCODONE HCl/Acetaminophen [Percocet 5-325 mg Tablet] 1 - 2 each PO Q4H PRN #5 tablet 08/17/17 [Rx] oxyCODONE HCl/Acetaminophen [Percocet 5-325 mg Tablet] 1 - 2 each PO Q6HR PRN # 5 tablet 08/18/17 [Rx] Past Medical History HEENT History: Reports: None Cardiovascular History: Reports: None Respiratory History: Reports: None Genitourinary History: Reports: None, UTI, Recurrent, Other (See Below) Other Genitourinary History: miscarriage 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: , 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 OB/BYN History: x4 Musculoskeletal History: Reports: None Other Musculoskeletal History: ankle sprain Neurological History: Reports: Other (See Below) Other Neuro History: depression Psychiatric History: Reports: Anxiety, Depression Endocrine/Metabolic History: Reports: None Hematologic History: Reports: Anemia Dermatologic History: Reports: Other (See Below) Other Dermatologic History: Frequent abscess' to groin--MRSA swab negative x3 - Infectious Disease History 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: MRSA - Past Surgical History HEENT Surgical History: Reports: Oral Surgery Female Surgical History: Reports: Cervical Cryotherapy Social & Family History - Family History Family Medical History: Noncontributory Cardiac: Reports: [place] Endocrine/Metabolic: Reports: Diabetes, type II - Tobacco Use Smoking Status *Q: Current Every Day Smoker Years of Tobacco use: 11 Packs/Tins Daily: 1 Used Tobacco, but Quit: No Second Hand Smoke Exposure: No - Caffeine Use Caffeine Use: Reports: Soda - Alcohol Use Days Per Week of Alcohol Use: 0 Number of Drinks Per Day: 1 Total Drinks Per Week: 0 - Recreational Drug Use Recreational Drug Use: No - Living Situation & Occupation Living situation: Reports: Occupation: Employed ED ROS GENERAL - Review of Systems Review Of Systems: See Below Constitutional: Reports: No Symptoms HEENT: Reports: No Symptoms Respiratory: Reports: No Symptoms Cardiovascular: Reports: No Symptoms Endocrine: Reports: No Symptoms GI/Abdominal: Reports: Abdominal Pain, Nausea, Vomiting : Reports: Other (Pelvic pain) Musculoskeletal: Reports: No Symptoms Skin: Reports: No Symptoms ED EXAM, GI/ABD - Physical Exam Exam: See Below Exam Limited By: No Limitations General Appearance: Alert, No Apparent Distress Ears: Normal External Exam Nose: Normal Inspection Throat/Mouth: Normal Inspection Head: Atraumatic, Normocephalic Neck: Normal Inspection Respiratory/Chest: No Respiratory Distress, Lungs Clear, Normal Breath Sounds Cardiovascular: Regular Rate, Rhythm, No Edema, No Murmur GI/Abdominal Exam: Soft, No Organomegaly, No Mass, Tender (Pain upon palpation to the RLQ with some reboung) Course - Vital Signs Last Recorded V/S: Last Vital Signs Temp 97.8 F 08/17/17 21:40 Pulse 106 H 08/17/17 21:40 Resp 16 08/17/17 21:40 BP 120/84 08/17/17 21:40 Pulse Ox 100 08/17/17 21:40 - Orders/Labs/Meds Orders: Active Orders 24 hr Category Date Time Status Peripheral IV Care [RC] . DIRECTED Care 08/17/17 22:26 Active Abdomen Ltd [US] Stat Exams 08/17/17 22:25 Taken Sodium Chloride 0.9% [Saline Flush] Med 08/17/17 22:25 Active 10 ml FLUSH ASDIRECTED PRN ED Antiemetic Medication Reflex [OM.PC] Stat Oth 08/17/17 22:25 Ordered Peripheral IV Insertion Adult [OM.PC] Stat Oth 08/17/17 22:25 Ordered Medication Orders Sodium Chloride (Saline Flush) 10 ml FLUSH ASDIRECTED PRN PRN Reason: Keep Vein Open Last Admin: 08/17/17 22:58 Dose: 10 ml Labs: Laboratory Tests 08/17/17 08/17/17 Range/Units 22:40 22:40 WBC 10.60 H (3.98-10.04) K/mm3 RBC 3.81 L (3.98-5.22) M/mm3 Hgb 11.4 (11.2-15.7) gm/L Hct 34.3 (34.1-44.9) % MCV 90.0 (79.4-94.8) fl MCH 29.9 (25.6-32.2) pg MCHC 33.2 (32.2-35.5) g/dl RDW Std Deviation 50.5 H (36.4-46.3) fL Plt Count 329 (182-369) K/mm3 MPV 10.1 (9.4-12.3) fl Neut % (Auto) 59.5 (34.0-71.1) % Lymph % (Auto) 29.4 (19.3-51.7) % Jerome % (Auto) 7.2 (4.7-12.5) % Eos % (Auto) 3.3 (0.7-5.8) Baso % (Auto) 0.3 (0.1-1.2) % Neut # (Auto) 6.31 H (1.56-6.13) K/mm3 Lymph # (Auto) 3.12 (1.18-3.74) K/mm3 Jerome # (Auto) 0.76 H (0.24-0.36) K/mm3 Eos # (Auto) 0.35 (0.04-0.36) K/mm3 Baso # (Auto) 0.03 (0.01-0.08) K/mm3 Sodium 140 (136-145) mEq/L Potassium 3.3 L (3.5-5.1) mEq/L Chloride 103 (98-107) mEq/L Carbon Dioxide 26 (21-32) mEq/L Anion Gap 14.3 (5-15) BUN 10 (7-18) mg/dL Creatinine 0.5 L (0.55-1.02) mg/dL Est Cr Clr Drug Dosing TNP Estimated GFR (MDRD) > 60 (>60) mL/min BUN/Creatinine Ratio 20.0 H (14-18) Glucose 87 (74-106) mg/dL Calcium 9.1 (8.5-10.1) mg/dL Total Bilirubin 0.1 L (0.2-1.0) mg/dL AST 10 L (15-37) U/L ALT 16 (14-59) U/L Alkaline Phosphatase 42 L (46-116) U/L Total Protein 7.0 (6.4-8.2) g/dl Albumin 3.5 (3.4-5.0) g/dl Globulin 3.5 gm/dL Albumin/Globulin Ratio 1.0 (1-2) Lipase 171 (73-393) U/L Meds: Medications Generic Name Dose Route Start Last Admin Trade Name Freq PRN Reason Stop Dose Admin Sodium Chloride 10 ml 08/17/17 22:25 08/17/17 22:58 Saline Flush FLUSH 10 ml ASDIRECTED PRN Administration Keep Vein Open Discontinued Medications Generic Name Dose Route Start Last Admin Trade Name Freq PRN Reason Stop Dose Admin Hydromorphone HCl 1 mg 08/17/17 22:08 08/17/17 22:20 Dilaudid IM 08/17/17 22:09 1 mg ONETIME ONE Administration Sodium Chloride 1,000 mls @ 1,000 mls/hr 08/17/17 22:25 08/17/17 22:57 Normal Saline IV 08/17/17 23:24 1,000 mls/hr .BOLUS STA Administration Metoclopramide HCl 10 mg 08/17/17 22:25 08/17/17 22:57 Reglan IVPUSH 08/17/17 22:26 10 mg ONETIME ONE Administration - Re-Assessments/Exams Free Text/Narrative Re-Assessment/Exam: 08/18/17 00:40 I ordered an IV NS 1L bolus, reglan 10mg IV, and dilaudid. I ordered an US that shows no sonographic evidence for appendicitis. Her WBC has come down to 10.6. I feel appendicitis is less likely. I will give her something more for pain and discharge. Departure - Departure Time of Disposition: 00:45 Disposition: Home, Self-Care 01 Condition: Good Clinical Impression: Threatened - Discharge Information Prescriptions: oxyCODONE HCl/Acetaminophen [Percocet 5-325 mg Tablet] 1 - 2 each PO Q6HR PRN # 5 tablet PRN Reason: Pain Referrals: Ricardo Cuellar MD [Primary Care Provider] - Additional Instructions: Follow up with Dr Burton tomorrow. Take your medication as prescribed. - My Orders Last 24 Hours: My Active Orders 08/17/17 22:25 Abdomen Ltd [US] Stat Sodium Chloride 0.9% [Saline Flush] 10 ml FLUSH ASDIRECTED PRN ED Antiemetic Medication Reflex [OM.PC] Stat Peripheral IV Insertion Adult [OM.PC] Stat 08/17/17 22:26 Peripheral IV Care [RC] . DIRECTED - Assessment/Plan Last 24 Hours: My Active Orders 08/17/17 22:25 Abdomen Ltd [US] Stat Sodium Chloride 0.9% [Saline Flush] 10 ml FLUSH ASDIRECTED PRN ED Antiemetic Medication Reflex [OM.PC] Stat Peripheral IV Insertion Adult [OM.PC] Stat 08/17/17 22:26 Peripheral IV Care [RC] . DIRECTED
[2017-08-18 01:06] VITALS: BP 124/74
--- NOTE | 2017-08-18 12:49 | US ---
Limited abdominal ultrasound: Multiple real-time images of the right lower abdomen were obtained. Appendix not definitely visualized. No free fluid is seen. Impression: 1. Appendix not definitely visualized. No ultrasound evidence to indicate appendicitis although as mentioned in the preliminary report, ultrasound for appendicitis has a relatively low sensitivity. Diagnostic code #1 I agree with preliminary report issued by [facility] ([facility] report finalized on 08/18/17, 1:25 AM Central Time)
== END 2017-08-18 00:58 | disposition home or self-care (01) ==
LOC: JD.ED 21:36
DX: O20.0 Threatened abortion (principal); F17.210 Nicotine dependence, cigarettes, uncomplicated; Z88.0 Allergy status to penicillin; Z3A.12 12 weeks gestation of pregnancy
CPT/HCPCS: 36415; 76705; 80053; 83690; 85025; 96361; 96372; 96374; 99284; J1170; J2765; J7040; J7050

== ENCOUNTER 2017-08-23 11:35 | Emergency (ER) | payer MEDICAID ==
[2017-08-23 11:46] VITALS: BP 114/73
--- NOTE | 2017-08-23 12:30 | EDM.PDOC ---
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 Reports that the symptoms have been going on for the last 2- 3 weeks. This is the patient's fifth visit to the ER for the same problem. She is proximally 13 weeks . She is a . She has had complete workup including labs and ultrasounds. Most recent OB ultrasound was on 08-17-17. No abnormalities were found on the OB ultrasound. Patient was then seen in the next day for worsening pain. She had an ultrasound of her right lower quadrant and appendix was found to be normal. She saw Ob on 08-19-17 and started on flagyl for BV. Blood type is A+. Records show she had GC/Chlamydia testing on which was negative. Patient reports at her Ob visit on 08-19-17 she was told she was severely dehydrated. No labs other than a UA were done. I reviewed the clinic record. No mention of dehydration. Consideration that the abdominal pain is from constipation and recommended trying milk of mag. Pelvic exam during clinic showed a closed cervical os. heart tones 157-162 bpm. Patient is currently complaining of bilateral pelvic and lower abdominal pain that radiates into her back. Reports the pain is a 10 out of 10. Reports she has gone through 4 panty liners today from spotting. Reports associated symptoms of nausea and dizziness. Sates she has been drinking plenty of gatorades but does not drink water. No vomiting or syncope. Reports she takes miralax daily and her last BM was today. Patient reports she has had a miscarriage in the past. She states she knows what this feels like and feels she is having another miscarriage today. Lower Pelvic Pain Score (Numeric/FACES): 10 - Related Data Allergies Allergy/AdvReac Type Severity Reaction Status Date / Time Penicillins Allergy Hives Verified 08/23/17 11:40 Home Meds: Home Meds Pnv No.95/Ferrous Fum/Folic AC [ Multivitamin Tablet] 1 tab PO DAILY [History] ClonazePAM [KlonoPIN] 1 mg PO BID 08/16/17 [History] Antibiotic? 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 OB/BYN History: x4 Musculoskeletal History: Reports: None Other Musculoskeletal History: ankle sprain Neurological History: Reports: Other (See Below) Other Neuro History: depression Psychiatric History: Reports: Anxiety, Depression Endocrine/Metabolic History: Reports: None Hematologic History: Reports: Anemia Dermatologic History: Reports: Other (See Below) Other Dermatologic History: Frequent abscess' to groin--MRSA swab negative x3 - Infectious Disease History 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: MRSA - Past Surgical History HEENT Surgical History: Reports: Oral Surgery Female Surgical History: Reports: Cervical Cryotherapy Social & Family History - Family History Family Medical History: Noncontributory Cardiac: Reports: [place] Endocrine/Metabolic: Reports: Diabetes, type II - Tobacco Use Smoking Status *Q: Current Every Day Smoker Years of Tobacco use: 11 Packs/Tins Daily: 0.2 Used Tobacco, but Quit: No Second Hand Smoke Exposure: No - Caffeine Use Caffeine Use: Reports: Soda - Alcohol Use Days Per Week of Alcohol Use: 0 Number of Drinks Per Day: 1 Total Drinks Per Week: 0 - Recreational Drug Use Recreational Drug Use: No - Living Situation & Occupation Living situation: Reports: Occupation: Employed ED ROS GENERAL - Review of Systems Review Of Systems: See Below GI/Abdominal: Reports: Abdominal Pain (bilateral lower abdominal and pelvic pain radiates into the back), Nausea. Denies: Vomiting : Reports: Other (reprots vaginal spotting) Musculoskeletal: Reports: Back Pain Neurological: Reports: Dizziness. Denies: Syncope ED EXAM - Physical Exam Exam: See Below Exam Limited By: No Limitations General Appearance: Alert, WD/WN, No Apparent Distress Respiratory/Chest: No Respiratory Distress, Lungs Clear, Normal Breath Sounds Cardiovascular: Normal Peripheral Pulses, Regular Rate, Rhythm, No Murmur GI/Abdominal Exam: Normal Bowel Sounds, Soft, Tender (lower abdomen; question if dramatizing during examination) (Female) Exam: Other (deferred as patient has had multiple pelvic exams recently) Heart Tones per Min: 161 Neurological: Alert, Oriented, Normal Cognition Psychiatric: Normal Affect, Normal Mood Skin Exam: Warm, Dry, Normal Color Course - Vital Signs Last Recorded V/S: Last Vital Signs Temp 36.8 C 08/23/17 11:41 Pulse 114 H 08/23/17 11:41 Resp BP 114/73 08/23/17 11:41 Pulse Ox 100 08/23/17 11:41 Orthostatic Blood Pressure [ 103/78 Standing] Orthostatic Blood Pressure [ 100/67 Sitting] Orthostatic Blood Pressure [ 100/64 Supine] - Orders/Labs/Meds Orders: Active Orders 24 hr Category Date Time Status Heart Tones [RC] ASDIRECTED Care 08/23/17 12:20 Active Orthostatic Vital Signs [RC] ASDIRECTED Care 08/23/17 12:20 Active - Re-Assessments/Exams Free Text/Narrative Re-Assessment/Exam: 08/23/17 13:26 heart tones are 161. The patient is not orthostatic. Given her recent ultrasounds, labs at her most recent visits, I do not feel more of a workup is needed at this point. I do feel like she is drug-seeking. She is asking repeatedly for pain medication and anxiety medication while in the ER. I searched the patient on the prescription drug registry. She has received 10 prescriptions from 6 different prescribers in the last year. Most recently she received 60 0.5 mg clonazepam 08-19-17. She also received 18 Percocet on 08-18-17 and 20 Lockhart on 08-19-17. She reports that she is now out of the Percocet. She states that she was not able to fill the Lockhart which Dr. Reis had prescribed for her. She was also unable to fill the clonazepam prescribed by Dr. Bertrand. Given that it is Friday at around 1330, [facility] pharmacy are both closed at this time. I encouraged her to contact her pharmacy if there is a discrepancy in her record but based on what I'm seeing today I cannot give her any pain medications or any medications for anxiety. She states that she did not receive the Lockhart and the clonazepam. I told her I will not be filling these today. Discharge instructions as documented. 08/23/17 13:34 The patient has now eloped prior to discharge instructions. 08/23/17 14:14 Clinic pharmacy called. Sarah is currently at their pharmacy trying to fill a prescription for norco 5-325 #5 ambulatory order which states is to be filled from ER stock. This was written on 08-17-17. Nursing staff was able to confirm this was an ambulatory order was filled from our ER stock. She should have not received this prescription. Clinic pharmacy would not fill the prescription and called other pharmacies to notify them as well. Departure - Departure Time of Disposition: 13:28 Disposition: Home, Self-Care 01 Condition: Good Clinical Impression: , Drug-seeking behavior - Discharge Information Referrals: Ricardo Cuellar MD [Primary Care Provider] - Aikn Burton MD [Physician] - Cuong Reis MD [Physician] - Forms: ED Department Discharge Additional Instructions: Take the pain medication and the anxiety medication you have been prescribed for ear pain and anxiety symptoms. Follow-up with OB this week for recheck of your symptoms. You may use over the counter medications from the list provided as needed for constipation and pain. make sure you are drinking plenty of fluids. Drink half your body weight in ounces daily. Please return to the ER if your symptoms change or worsen. - My Orders Last 24 Hours: My Active Orders 08/23/17 12:20 Heart Tones [RC] ASDIRECTED Orthostatic Vital Signs [RC] ASDIRECTED - Assessment/Plan Last 24 Hours: My Active Orders 08/23/17 12:20 Heart Tones [RC] ASDIRECTED Orthostatic Vital Signs [RC] ASDIRECTED
== END 2017-08-23 13:45 | disposition home or self-care (01) ==
LOC: JD.ED 11:35
DX: O99.89 Other specified diseases and conditions complicating pregnancy, childbirth and the puerperium (principal); R10.2 Pelvic and perineal pain; O99.331 Smoking (tobacco) complicating pregnancy, first trimester; F17.210 Nicotine dependence, cigarettes, uncomplicated; Z88.0 Allergy status to penicillin; Z76.5 Malingerer [conscious simulation]; Z3A.13 13 weeks gestation of pregnancy
CPT/HCPCS: 99284

== ENCOUNTER 2017-09-13 00:23 | Emergency (ER) | payer MEDICAID ==
[2017-09-13 00:42] VITALS: BP 104/70
--- NOTE | 2017-09-13 00:50 | EDM.PDOC ---
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 She is a 5 para 3 abortus 1 who is been seen in the ER multiple times for this . She is approximately 15 weeks and her due date is March 01, 2018. She states she had onset of some spotting from the vagina around 4 PM today and no sex occurred today. She also complains of pain in her lower abdomen all across the abdomen. She's been in the ER multiple times for spotting as well as pain in the lower abdomen with this she had received medications for anxiety and pain as well from her physicians as well as some of the ER physicians. Her OB doctor is Dr. Burton and Dr. Anderson. She denies any urinary symptoms she denies any fever or chills. She has had some nausea but I don't think she's had any vomiting. She does not appear to be in acute distress upon entering the room. Lower Abdominal Pain Score (Numeric/FACES): 8 - Related Data Allergies Allergy/AdvReac Type Severity Reaction Status Date / Time Penicillins Allergy Hives Verified 09/13/17 00:48 Home Meds: Home Meds Pnv No.95/Ferrous Fum/Folic AC [ Multivitamin Tablet] 1 tab PO DAILY [History] ClonazePAM [KlonoPIN] 1 mg PO BID 08/16/17 [History] Cephalexin [IJD: Cephalexin] 500 mg PO TID #15 cap 09/13/17 [Rx] Iron 1 tab PO DAILY 09/13/17 [History] Promethazine [Phenergan] 25 mg PO Q6H PRN #12 tablet 09/13/17 [Rx] Past Medical History HEENT History: Reports: None Cardiovascular History: Reports: None Respiratory History: Reports: None Genitourinary History: Reports: None, UTI, Recurrent, Other (See Below) Other Genitourinary History: miscarriage 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: , 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 OB/BYN History: x4 Musculoskeletal History: Reports: None Other Musculoskeletal History: ankle sprain Neurological History: Reports: Other (See Below) Other Neuro History: depression Psychiatric History: Reports: Anxiety, Depression Endocrine/Metabolic History: Reports: None Hematologic History: Reports: Anemia Dermatologic History: Reports: Other (See Below) Other Dermatologic History: Frequent abscess' to groin--MRSA swab negative x3 - Infectious Disease History 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: MRSA - Past Surgical History HEENT Surgical History: Reports: Oral Surgery Female Surgical History: Reports: Cervical Cryotherapy Social & Family History - Family History Family Medical History: Noncontributory Cardiac: Reports: [place] Endocrine/Metabolic: Reports: Diabetes, type II - Tobacco Use Smoking Status *Q: Current Every Day Smoker Years of Tobacco use: 11 Packs/Tins Daily: 0.2 Used Tobacco, but Quit: No Second Hand Smoke Exposure: No - Caffeine Use Caffeine Use: Reports: Soda - Alcohol Use Days Per Week of Alcohol Use: 0 Number of Drinks Per Day: 1 Total Drinks Per Week: 0 - Recreational Drug Use Recreational Drug Use: No - Living Situation & Occupation Living situation: Reports: Occupation: Employed ED ROS GENERAL - Review of Systems Review Of Systems: See Below Constitutional: Denies: Fever, Chills HEENT: Reports: No Symptoms Respiratory: Reports: No Symptoms Cardiovascular: Reports: No Symptoms Endocrine: Reports: No Symptoms GI/Abdominal: Reports: Abdominal Pain, Nausea. Denies: Vomiting : Reports: Other (Complains of vaginal spotting). Denies: Dysuria Musculoskeletal: Reports: No Symptoms Skin: Reports: No Symptoms Neurological: Reports: No Symptoms Psychiatric: Reports: No Symptoms Hematologic/Lymphatic: Reports: No Symptoms Immunologic: Reports: No Symptoms ED EXAM - Physical Exam Exam: See Below Exam Limited By: No Limitations General Appearance: Alert, WD/WN, No Apparent Distress Eye Exam: Bilateral Eye: Normal Inspection Ears: Normal External Exam Nose: Normal Inspection Throat/Mouth: Normal Inspection, Normal Lips, Normal Voice, No Airway Compromise Head: Normocephalic Neck: Supple Respiratory/Chest: No Respiratory Distress, Lungs Clear, Normal Breath Sounds Cardiovascular: Regular Rate, Rhythm, No Murmur GI/Abdominal Exam: Soft, Other (She has tenderness all along her lower abdomen but there is no masses no rebound or fundal height I believe I can feel it slightly just above the pelvis area) (Female) Exam: Other (Patient would prefer not to have a pelvic exam unless necessary) Back Exam: Full Range of Motion Extremities: Normal Inspection, Normal Range of Motion Neurological: Alert, Oriented Psychiatric: Normal Affect, Normal Mood Skin Exam: Warm, Dry Course - Vital Signs Last Recorded V/S: Last Vital Signs Temp 97.7 F 09/13/17 00:27 Pulse 98 09/13/17 00:27 Resp 16 09/13/17 00:27 BP 104/70 09/13/17 00:27 Pulse Ox 99 09/13/17 00:27 - Orders/Labs/Meds Orders: Active Orders 24 hr Category Date Time Status OB Ltd 1 or More Fetus [US] Stat Exams 09/13/17 00:46 Taken Labs: Laboratory Tests 09/13/17 09/13/17 09/13/17 Range/Units 00:40 01:15 01:15 WBC 11.15 H (3.98-10.04) K/mm3 RBC 3.32 L (3.98-5.22) M/mm3 Hgb 10.2 L (11.2-15.7) gm/L Hct 30.3 L (34.1-44.9) % MCV 91.3 (79.4-94.8) fl MCH 30.7 (25.6-32.2) pg MCHC 33.7 (32.2-35.5) g/dl RDW Std Deviation 48.0 H (36.4-46.3) fL Plt Count 299 (182-369) K/mm3 MPV 9.9 (9.4-12.3) fl Neut % (Auto) 56.0 (34.0-71.1) % Lymph % (Auto) 33.5 (19.3-51.7) % Milam % (Auto) 7.4 (4.7-12.5) % Eos % (Auto) 2.7 (0.7-5.8) Baso % (Auto) 0.3 (0.1-1.2) % Neut # (Auto) 6.25 H (1.56-6.13) K/mm3 Lymph # (Auto) 3.73 (1.18-3.74) K/mm3 Milam # (Auto) 0.83 H (0.24-0.36) K/mm3 Eos # (Auto) 0.30 (0.04-0.36) K/mm3 Baso # (Auto) 0.03 (0.01-0.08) K/mm3 HCG, Quant 48364.0 mIU/mL Urine Color Yellow (Yellow) Urine Appearance Slt cloudy H (Clear) Urine pH 6.5 (5.0-8.0) Ur Specific Ripley > or = 1.030 (1.005-1.030) Urine Protein 1+ H (Negative) Urine Glucose (UA) Negative (Negative) Urine Ketones Trace H (Negative) Urine Occult Blood 2+ H (Negative) Urine Nitrite Negative (Negative) Urine Bilirubin Negative (Negative) Urine Urobilinogen 1.0 (0.2-1.0) Ur Leukocyte Esterase Negative (Negative) Urine RBC 5-10 H (0-5) /hpf Urine WBC 0-5 (0-5) /hpf Ur Epithelial Cells 5-10 H (0-5) /hpf Urine Bacteria Many H (FEW) /hpf Urine Mucus Moderate H (FEW) /hpf Meds: Medications Discontinued Medications Generic Name Dose Route Start Last Admin Trade Name Freq PRN Reason Stop Dose Admin Ceftriaxone Sodium 1 gm 09/13/17 02:16 Rocephin IM 09/13/17 02:17 ONETIME ONE - Radiology Interpretation Free Text/Narrative:: Sounds of the baby shows a heart rate of 155 her estimated gestation is 16 weeks and there is no evidence of any complications. - Re-Assessments/Exams Free Text/Narrative Re-Assessment/Exam: 09/13/17 02:22 I spoke to the patient and her significant other regarding the ultrasound that the baby is fine. She does have a urinary tract infection at which time she informed me she is on Macrobid for a bladder infection but I don't think it is helping and is causing her to have some abdominal cramps or lower abdomen cramps from the infection. I will give her some Rocephin IV 1 g and placed her on some cephalexin for her to follow up with her OB doctor this week for recheck and reevaluation of urinary tract infection Departure - Departure Time of Disposition: 02:23 Disposition: Home, Self-Care 01 Condition: Good Clinical Impression: Second trimester , Bilateral lower abdominal cramping Urinary tract infection Qualifiers: Urinary tract infection type: acute cystitis Hematuria presence: without hematuria Qualified Code(s): N30.00 - Acute cystitis without hematuria - Discharge Information Prescriptions: Cephalexin [IJD: Cephalexin] 500 mg PO TID #15 cap Promethazine [Phenergan] 25 mg PO Q6H PRN #12 tablet PRN Reason: Nausea Referrals: Akin Burton MD [Primary Care Provider] - Forms: ED Department Discharge Additional Instructions: Continue to drink lots of water to help flush out her bladder, take the new antibiotics to cephalexin and stop the Macrobid because is not helping, take the medicine for nausea which also helps the lower belly cramps, follow-up with your OB doctor this week for recheck of your urine to make sure it's clearing up , return to the ER if needed - My Orders Last 24 Hours: My Active Orders 09/13/17 00:46 OB Ltd 1 or More Fetus [US] Stat - Assessment/Plan Last 24 Hours: My Active Orders 09/13/17 00:46 OB Ltd 1 or More Fetus [US] Stat
[2017-09-13] MEDS ORDERED: cefTRIAXone 1 GM Vial IM ONE (02:16)
[2017-09-13] MEDS ORDERED: cefTRIAXone 1 GM in Sodium Chloride 0.9% 100 ML IV ONE (02:24)
--- NOTE | 2017-09-14 15:08 | US ---
Limited obstetrical ultrasound: Multiple real-time images were obtained transabdominally. Comparison: Previous obstetrical ultrasounds are available, most recent exam is 08/16/17. Dates: LMP: ? Current ultrasound: ANKIT 02/28/18, gestational age 16 weeks 0 days Earliest ultrasound (07/15/17): ANKIT 03/01/18, gestational age 15 weeks 6 days presentation: Mobile Placenta: Anterior with no findings of placenta previa Amniotic fluid: ANGELIQUE 10.6 cm Maternal adnexa: Right ovary visualized, left ovary not visualized, left adnexa shows obscuring bowel. Measurements: BPD: 3.13 cm - 15 weeks 6 days Head circumference: 11.84 cm - 15 weeks 6 days Abdominal circumference: 9.84 cm - 16 weeks 0 days Femur length: 1.97 cm - 15 weeks 6 days Estimated weight: 138 g (0 lbs. 5 oz.), estimated weight at the 33rd percentile for age by current ultrasound Heart rate: 155 bpm Impression: 1. Single intrauterine fetus mobile in presentation. Dates as noted above. 2. No complicating process identified by ultrasound at this time. No etiology identified for the patient's bleeding. Diagnostic code #1 I agree with preliminary report issued by [facility] ([facility] report finalized on 09/13/17, 3:09 AM Central Time)
== END 2017-09-13 03:25 | disposition home or self-care (01) ==
LOC: JD.ED 00:23
DX: O23.12 Infections of bladder in pregnancy, second trimester (principal); O99.332 Smoking (tobacco) complicating pregnancy, second trimester; F17.210 Nicotine dependence, cigarettes, uncomplicated; Z86.2 Personal history of diseases of the blood and blood-forming organs and certain disorders involving the immune mechanism; Z88.0 Allergy status to penicillin; Z3A.15 15 weeks gestation of pregnancy
CPT/HCPCS: 36415; 76815; 81001; 84702; 85025; 96365; 99284; J0696; J7030

== ENCOUNTER 2018-02-26 15:16 | Inpatient (IN) | payer MEDICAID ==
[2018-02-26] MEDS ORDERED: Nalbuphine 20 MG/1 ML Amp IVPUSH PRN (15:28)
[2018-02-26] MEDS ORDERED: Sodium Chloride 0.9% 10 ML Syringe FLUSH PRN (15:28)
[2018-02-26] MEDS ORDERED: Lidocaine 1% 50 ML MDV INJECT ONE (15:28)
[2018-02-26] MEDS ORDERED: Ondansetron 4 MG/2 ML SDV IVPUSH PRN (15:28)
[2018-02-26] MEDS ORDERED: Oxytocin/Lactated Ringers 10 UNIT/1,000 ML BAG IV SCH ×2 (15:30→20:00)
[2018-02-26] MEDS ORDERED: fentaNYL 100 MCG/2 ML SDV EPIDUR PRN (15:31)
[2018-02-26] MEDS ORDERED: ePHEDrine 50 MG/ML SDV IVPUSH PRN (15:31)
[2018-02-26] MEDS ORDERED: diphenhydrAMINE 50 MG/ML SDV IVPUSH PRN (15:31)
[2018-02-26] MEDS ORDERED: fentaNYL/Bupivacaine in NS PF 2.5 MCG/ML-0.1% 50 ML Syringe EPIDUR SCH (15:45)
[2018-02-26] MEDS: Lactated Ringers 1,000 ML IV SCH ×2 (15:48→16:34)
[2018-02-26] MEDS ORDERED: Bupivacaine/fentaNYL/NS 100 ML Bag EPIDUR SCH (16:00)
--- NOTE | 2018-02-26 16:18 | PCM.PREANE ---
Preanesthetic Assessment - Anesthesia/Transfusion/Family Hx Anesthesia History: Prior Anesthesia Without Reaction Family History of Anesthesia Reaction: No Transfusion History: No Prior Transfusion(s) - Review of Systems General: No Symptoms Pulmonary: No Symptoms Cardiovascular: No Symptoms Gastrointestinal: No Symptoms Neurological: No Symptoms Other: Reports: Anxiety - Physical Assessment O2 Sat by Pulse Oximetry: 97 Respiratory Rate: 18 Vital Signs: Last Vital Signs Temp 98.3 F 02/26/18 15:28 Pulse 118 H 02/26/18 15:28 Resp 18 02/26/18 15:28 BP 110/71 02/26/18 15:28 Pulse Ox 97 02/26/18 15:28 Height: 5 ft 6 in Weight: 78.471 kg ASA Class: 2 Mental Status: Alert & Oriented x3 Airway Class: Mallampati = 1 Dentition: Reports: Normal Dentition Thyro-Mental Finger Breadths: 3 (has piercing left upper lip area) Mouth Opening Finger Breadths: 3 ROM/Head Extension: Full Lungs: Clear to Auscultation, Normal Respiratory Effort Cardiovascular: Regular Rate, Regular Rhythm - Lab Values: Laboratory Last Values WBC 17.17 K/mm3 (3.98-10.04) H 02/26/18 15:41 RBC 3.60 M/mm3 (3.98-5.22) L 02/26/18 15:41 Hgb 9.7 gm/L (11.2-15.7) L 02/26/18 15:41 Hct 30.6 % (34.1-44.9) L 02/26/18 15:41 MCV 85.0 fl (79.4-94.8) 02/26/18 15:41 MCH 26.9 pg (25.6-32.2) 02/26/18 15:41 MCHC 31.7 g/dl (32.2-35.5) L 02/26/18 15:41 RDW Std Deviation 46.5 fL (36.4-46.3) H 02/26/18 15:41 Plt Count 392 K/mm3 (182-369) H 02/26/18 15:41 MPV 10.7 fl (9.4-12.3) 02/26/18 15:41 - Allergies Allergies/Adverse Reactions: Allergies Allergy/AdvReac Type Severity Reaction Status Date / Time Penicillins Allergy Hives Verified 09/13/17 00:48 - Blood Blood Available: No - Acknowledgements Anesthesia Type Planned: Epidural Pt an Appropriate Candidate for the Planned Anesthesia: Yes Alternatives and Risks of Anesthesia Discussed w Pt/Guardian: Yes Pt/Guardian Understands and Agrees with Anesthesia Plan: Yes PreAnesthesia Questionnaire HEENT History: Reports: None Cardiovascular History: Reports: None Respiratory History: Reports: None Genitourinary History: Reports: None, UTI, Recurrent, Other (See Below) Other Genitourinary History: miscarriage 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: , 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 OB/BYN History: x4 Musculoskeletal History: Reports: None Other Musculoskeletal History: ankle sprain Neurological History: Reports: Other (See Below) Other Neuro History: depression Psychiatric History: Reports: Anxiety, Depression Endocrine/Metabolic History: Reports: None Hematologic History: Reports: Anemia Dermatologic History: Reports: Other (See Below) Other Dermatologic History: Frequent abscess' to groin--MRSA swab negative x3 - Infectious Disease History 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: MRSA - Past Surgical History HEENT Surgical History: Reports: Oral Surgery Female Surgical History: Reports: Cervical Cryotherapy - SUBSTANCE USE Smoking Status *Q: Current Every Day Smoker Tobacco Use Within Last Twelve Months: Cigarettes Second Hand Smoke Exposure: Yes Days Per Week of Alcohol Use: 0 Number of Drinks Per Day: 1 Total Drinks Per Week: 0 Recreational Drug Use History: No - HOME MEDS Home Medications: Home Meds Pnv No.95/Ferrous Fum/Folic AC [ Multivitamin Tablet] 1 tab PO DAILY [History] ClonazePAM [KlonoPIN] 1 mg PO BID 08/16/17 [History] Cephalexin [IJD: Cephalexin] 500 mg PO TID #15 cap 09/13/17 [Rx] Iron 1 tab PO DAILY 09/13/17 [History] Promethazine [Phenergan] 25 mg PO Q6H PRN #12 tablet 09/13/17 [Rx] - CURRENT (IN HOUSE) MEDS Current Meds: Current Medications Diphenhydramine HCl (Benadryl) 25 mg IVPUSH Q6H PRN PRN Reason: pruritis Ephedrine Sulfate (Ephedrine Sulfate) 5 mg IVPUSH ASDIRECTED PRN PRN Reason: Hypotension Fentanyl (Sublimaze) 100 mcg EPIDUR Q3H PRN PRN Reason: Pain Last Admin: 02/26/18 16:15 Dose: 100 mcg Fentanyl/Bupivacaine HCl (Fentanyl/Bupivacaine/Ns 2.5 Mcg-0.1% 50 Ml) 50 ml EPIDUR ASDIRECTED LJ Fentanyl/Bupivacaine HCl (Fentanyl/Bupivacaine/Ns 2 Mcg-0.125% 100 Ml) 100 ml EPIDUR ASDIRECTED LJ Lactated Ringer's (Ringers, Lactated) 1,000 mls @ 100 mls/hr IV ASDIRECTED LJ Last Admin: 02/26/18 15:48 Dose: 100 mls/hr Oxytocin/Lactated Ringer's (Pitocin In Lr 10 Units/1,000 Ml) 10 unit in 1,000 mls @ 500 mls/hr IV .CONTINUOUS LJ Nalbuphine HCl (Nubain) 10 mg IVPUSH Q2H PRN PRN Reason: Pain (moderate 4-6) Ondansetron HCl (Zofran) 4 mg IVPUSH Q4H PRN PRN Reason: Nausea/Vomiting Sodium Chloride (Saline Flush) 10 ml FLUSH ASDIRECTED PRN PRN Reason: Keep Vein Open Discontinued Medications Lidocaine HCl (Xylocaine 1%) 50 ml INJECT ONETIME ONE Stop: 02/26/18 15:29
[2018-02-26] MEDS ORDERED: Bupivacaine 0.25% 10 ML SDV ONE (17:00)
--- NOTE | 2018-02-26 18:13 | PCM.LDHP ---
<Maximilian Kirk L - Last Filed: 02/26/18 18:16> L&D History of Present Illness - General Admit Problem/Dx: Admission Diagnosis/Problem Admission Diagnosis/Problem 02/26/18 18:03 DATE OF ADMISSION: 02/26/2018 ADMISSION DIAGNOSES: A 39and 4/7th week intrauterine , active labor HISTORY OF PRESENT ILLNESS: This patient is a 27 year old, 5, para 3-0-1-3 female who was admitted at 39 and 4/7ths weeks gestational age with an ANKIT of 03/01/2018 in active labor. She called the clinic stating she was feeling contractions every 3 -5 minutes lasting for about 30 seconds each. She also noted the presence of a bloody show. 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 The patient has an ANKIT of 03/01/2018 as determined by early ultrasound dating performed on 07/16/2017 demonstrating a viable intrauterine measuring 7 and 3/7ths weeks gestational age. LMP was listed as 02/26/2017, but conception date was unknown due to lack of regular menses, secondary to still at the time of conception. A second ultrasound was performed on 08/16/2017 at 12 and 1/7ths weeks and again on 10/14 at 20 and 3/7ths weeks, both of which were consistent with previously set ANKIT of 03/01/2018. The patient was first seen for care with Dr. Burton on 07/16/2017. Starting on 10/13/2017 at 20 and 1/7ths weeks gestational age, she received fairly regular care throughout the remainder of the . Her weight gain was approximately 60 pounds, starting with a pregravid weight of 120 pounds and with a recorded weight of 180 pounds at the last visit. Her vital signs have remained stable throughout the and fundal height growth has been appropriate. She plans on . She is group B Strep negative. PAST OBSTETRIC HISTORY: 1. Female born on 11/30/2007 at 42 weeks gestational age after 18 hours of labor 7 pounds, 6 ounces via normal spontaneous vaginal delivery with the use of an epidural. Marco A name is Magdaleno. 2. Male born on 05/26/2010 at 38 weeks gestational age after 6 hours of labor 6 pounds, 4 ounces via normal spontaneous vaginal delivery. Marco A name is Wisam. 3. Spontaneous at 9 weeks gestational age on 02/10/2016 4. Female born on 11/24/2015 at 39 and 3/7ths weeks gestational age - 7 pounds, 2 ounces - via normal spontaneous vaginal delivery. LABORATORY TESTING: Initial testing on 10/13/2017 shows blood to be A positive with a negative antibody screen. Hemoglobin at first visit was 10.1 g/dL and platelets at 304,000. Rubella titer showed immunity. RPR was nonreactive. HIV and Hepatitis B assays were both negative. Chlamydia and gonorrhea assays were both negative. The 1 hr GGT was declined by the patient. Third trimester testing showed hemoglobin to be 9.8 g/dL and platelets at 269,000. Group B Strep screen was negative. Urine culture was negative. ALLERGIES: 1. Penicillin resulting in hives CURRENT MEDICATIONS: 1. vitamins x1 daily 2. Odansetron Hcl 4mg q8hrs PRN 3. Zantac 75 mg q12hrs 4. Cephalexin capsule x1 q12hrs 5. Albuterol sulfate .63mg/3mL 3-4/day PRN 6. Ferrous sulfate x2/day 7. Vitamin C x2/day 8. Colace BID PRN PAST MEDICAL HISTORY: 1. Vaginal delivery x3 2. History of depression after delivery of 2nd child 3. Seasonal allergies/sinus congestion 4. 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 Hospitalization for MRSA in 2013 6. Smoker for 11 years 7. GERD 8. Yeast infection 9. Bronchitis 10. Prior GBS infected child PAST SURGICAL HISTORY: 1. Paisley teeth in 2009 FAMILY HISTORY: Mother has history of hypertension and Hepatitis C. Paternal grandfather with history of diabetes. Daughter has a kidney disorder. Brother and son with asthma. Oldest daughter born with a heart murmur. Father of the baby has 2 sons from a previous relationship with muscular dystrophy. SOCIAL HISTORY: The patient is single. Father of the babys name is Isidro. She lives in [place], [place]. She does not currently work outside the home. She denies the use of alcohol or drugs. She currently smokes about 1 pack/week of cigarettes. Prior to this , she smoked 1 pack/day and has been smoking tobacco for 11 years. REVIEW OF SYSTEMS: GENERAL: Patient is uncomfortable due to the contractions at time of admission. Baby has been active. SKIN: Negative. CARDIOVASCULAR: No chest pain or exercise intolerance. RESPIRATORY: No shortness of breath or infectious symptoms. BREASTS: Changes associated with . Patient plans to breastfeed. GASTROINTESTINAL: Negative. GENITOURINARY: Changes associated with . Presence of bloody show earlier today. MUSCULOSKELETAL: Negative. NEUROLOGIC: Negative. PHYSICAL EXAMINATION: GENERAL: Patient is a well-developed, well-nourished female who appears her stated age and in no acute distress. VITAL SIGNS: Blood pressure on last evaluation in the clinic today was 120/80, weight was 180.4 after a weight gain of 60 pounds throughout the . heart rate was 148. Height is 5 feet, 6 inches. SKIN: Warm and dry without lesions. HEENT, NECK, BACK: Within normal limits. CARDIOVASCULAR: Regular rate and rhythm without murmurs. RESPIRATORY: Clear with good breath sounds in all lung thomas. BREASTS: Deferred at this time. ABDOMEN: Protuberant with with a fundal height of 38+ cm. Baby is in vertex presentation by Porfirio maneuvers. GENITAL: Shows cervix to be 7cm, 90% effaced, very soft, -2 station, and mid position. EXTREMITIES: No edema present. NEUROLOGIC: Grossly within normal limits. ASSESSMENT: 1. A 39 and 4/7ths week intrauterine who presents to L and D in active labor. 2. Rubella titer shows immunity. 3. Group B Strep screen is negative. 4. The patient plans to breastfeed. 5. Patient desires an epidural. PLAN: 1. Artificial rupture of membranes 2. Contact anesthesia for placement of epidural as desired by the patient 3. Support decision 4. Offer support/resources for cessation of smoking 5. Anticipate vaginal delivery pending any major complications - History of Present Illness Pain Score: 10 - Related Data Allergies/Adverse Reactions: Allergies Allergy/AdvReac Type Severity Reaction Status Date / Time Penicillins Allergy Hives Verified 09/13/17 00:48 Home Medications: Home Meds Pnv No.95/Ferrous Fum/Folic AC [ Multivitamin Tablet] 1 tab PO DAILY [History] ClonazePAM [KlonoPIN] 1 mg PO BID 08/16/17 [History] Cephalexin [IJD: Cephalexin] 500 mg PO TID #15 cap 09/13/17 [Rx] Iron 1 tab PO DAILY 09/13/17 [History] Promethazine [Phenergan] 25 mg PO Q6H PRN #12 tablet 09/13/17 [Rx] Past Medical History HEENT History: Reports: None Cardiovascular History: Reports: None Respiratory History: Reports: None Genitourinary History: Reports: None, UTI, Recurrent, Other (See Below) Other Genitourinary History: miscarriage 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: Reports: , 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 OB/BYN History: x4 Musculoskeletal History: Reports: None Other Musculoskeletal History: ankle sprain Neurological History: Reports: Other (See Below) Other Neuro History: depression Psychiatric History: Reports: Anxiety, Depression Endocrine/Metabolic History: Reports: None Hematologic History: Reports: Anemia Dermatologic History: Reports: Other (See Below) Other Dermatologic History: Frequent abscess' to groin--MRSA swab negative x3 - Infectious Disease History 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: MRSA - Past Surgical History HEENT Surgical History: Reports: Oral Surgery Female Surgical History: Reports: Cervical Cryotherapy Social & Family History - Family History Family Medical History: Noncontributory Cardiac: Reports: MD Endocrine/Metabolic: Reports: Diabetes, type II - Tobacco Use Smoking Status *Q: Current Every Day Smoker Years of Tobacco use: 11 Packs/Tins Daily: 0.2 Used Tobacco, but Quit: No Second Hand Smoke Exposure: Yes - Caffeine Use Caffeine Use: Reports: Soda - Alcohol Use Days Per Week of Alcohol Use: 0 Number of Drinks Per Day: 1 Total Drinks Per Week: 0 - Recreational Drug Use Recreational Drug Use: No - Living Situation & Occupation Living situation: Reports: Occupation: Employed H&P Review of Systems - Review of Systems: Review Of Systems: See Below L&D Exam - Exam Exam: See Below - Vital Signs Vital Signs: Last Vital Signs Temp 98.3 F 02/26/18 15:28 Pulse 118 H 02/26/18 15:28 Resp 18 02/26/18 16:18 BP 110/71 02/26/18 15:28 Pulse Ox 97 02/26/18 16:18 Weight: 78.471 kg - Patient Data Lab Results Last 24 hrs: Laboratory Results - last 24 hr 02/26/18 Range/Units 15:41 WBC 17.17 H (3.98-10.04) K/mm3 RBC 3.60 L (3.98-5.22) M/mm3 Hgb 9.7 L (11.2-15.7) gm/L Hct 30.6 L (34.1-44.9) % MCV 85.0 (79.4-94.8) fl MCH 26.9 (25.6-32.2) pg MCHC 31.7 L (32.2-35.5) g/dl RDW Std Deviation 46.5 H (36.4-46.3) fL Plt Count 392 H (182-369) K/mm3 MPV 10.7 (9.4-12.3) fl Result Diagrams: 02/26/18 15:41 Problem List Initiated/Reviewed/Updated: Yes Orders Last 24hrs: Active Orders 24 hr Category Date Time Status Activity as Tolerated [RC] PFP Care 02/26/18 15:28 Active Communication Order [RC] ASDIRECTED Care 02/26/18 15:28 Active Heart Tones [RC] ASDIRECTED Care 02/26/18 15:28 Active Notify Provider [RC] ASDIRECTED Care 02/26/18 15:31 Active Notify Provider [RC] PFP Care 02/26/18 15:28 Active Notify Provider [RC] PRN Care 02/26/18 15:28 Active Peripheral IV Care [RC] . DIRECTED Care 02/26/18 15:28 Active Vital Signs [RC] PER UNIT ROUTINE Care 02/26/18 15:28 Active Regular Diet [DIET] Diet 02/26/18 Dinner Active Bupivacaine/fentaNYL/NS [fentaNYL/Bupivacaine/NS 2 MCG- Med 02/26/18 16:00 Active 0.125% 100 ML] 100 ml EPIDUR ASDIRECTED Bupivacaine/fentaNYL/NS [fentaNYL/Bupivacaine/NS 2.5 Med 02/26/18 15:45 Active MCG-0.1% 50 ML] 50 ml EPIDUR ASDIRECTED Lactated Ringers [Ringers, Lactated] 1,000 ml Med 02/26/18 15:30 Active IV ASDIRECTED Nalbuphine [Nubain] Med 02/26/18 15:28 Active 10 mg IVPUSH Q2H PRN Ondansetron [Zofran] Med 02/26/18 15:28 Active 4 mg IVPUSH Q4H PRN Oxytocin/Lactated Ringers [Pitocin in LR 10 Units/1,000 Med 02/26/18 15:30 Active ML] 10 unit in 1,000 ml IV .CONTINUOUS Sodium Chloride 0.9% [Saline Flush] Med 02/26/18 15:28 Active 10 ml FLUSH ASDIRECTED PRN diphenhydrAMINE [Benadryl] Med 02/26/18 15:31 Active 25 mg IVPUSH Q6H PRN ePHEDrine [ePHEDrine Sulfate] Med 02/26/18 15:31 Active 5 mg IVPUSH ASDIRECTED PRN fentaNYL [Sublimaze] Med 02/26/18 15:31 Active 100 mcg EPIDUR Q3H PRN Electronic Heart Tones Ext w TOCO [WOMSER] Oth 02/26/18 15:28 Ordered Routine Electronic Heart Tones Internal [WOMSER] Per Unit Oth 02/26/18 15:28 Ordered Routine Peripheral IV Insertion Adult [OM.PC] Routine Oth 02/26/18 15:28 Ordered Resuscitation Status Routine Resus Stat 02/26/18 15:28 Ordered Medication Orders Diphenhydramine HCl (Benadryl) 25 mg IVPUSH Q6H PRN PRN Reason: pruritis Ephedrine Sulfate (Ephedrine Sulfate) 5 mg IVPUSH ASDIRECTED PRN PRN Reason: Hypotension Fentanyl (Sublimaze) 100 mcg EPIDUR Q3H PRN PRN Reason: Pain Last Admin: 02/26/18 16:15 Dose: 100 mcg Fentanyl/Bupivacaine HCl (Fentanyl/Bupivacaine/Ns 2.5 Mcg-0.1% 50 Ml) 50 ml EPIDUR ASDIRECTED LJ Fentanyl/Bupivacaine HCl (Fentanyl/Bupivacaine/Ns 2 Mcg-0.125% 100 Ml) 100 ml EPIDUR ASDIRECTED PENDING SALE TO [facility] Lactated Ringer's (Ringers, Lactated) 1,000 mls @ 100 mls/hr IV ASDIRECTED LJ Last Admin: 02/26/18 16:34 Dose: 100 mls/hr Infusion: 02/26/18 16:34 Dose: 100 mls/hr Admin: 02/26/18 15:48 Dose: 100 mls/hr Oxytocin/Lactated Ringer's (Pitocin In Lr 10 Units/1,000 Ml) 10 unit in 1,000 mls @ 500 mls/hr IV .CONTINUOUS LJ Nalbuphine HCl (Nubain) 10 mg IVPUSH Q2H PRN PRN Reason: Pain (moderate 4-6) Ondansetron HCl (Zofran) 4 mg IVPUSH Q4H PRN PRN Reason: Nausea/Vomiting Last Admin: 02/26/18 17:30 Dose: 4 mg Sodium Chloride (Saline Flush) 10 ml FLUSH ASDIRECTED PRN PRN Reason: Keep Vein Open <Cuong Reis - Last Filed: 02/26/18 19:12> L&D History of Present Illness - General Date of Service: 02/26/18 Admit Problem/Dx: Patient Status Order with Admit Dx/Problem 02/26/18 18:35 Admission Status [Patient Status] [ADT] Routine Admission Diagnosis/Problem Admission Diagnosis/Problem Vaginal delivery H&P Review of Systems - Review of Systems: General: Denies: Fever, Chills HEENT: Denies: Sinus Congestion, Sore Throat, Visual Changes Pulmonary: Denies: Shortness of Breath, Wheezing, Cough Cardiovascular: Denies: Chest Pain, Palpitations Gastrointestinal: Reports: Abdominal Pain. Denies: Constipation, Diarrhea, Nausea, Vomiting Genitourinary: Denies: Dysuria, Frequency, Burning, Pain, Urgency Musculoskeletal: Reports: Back Pain Skin: Denies: Rash Psychiatric: Denies: Confusion, Anxiety Neurological: Denies: Headache L&D Exam - Exam Exam: See Below - Vital Signs Vital Signs: Last Vital Signs Temp 36.8 C 02/26/18 15:28 Pulse 118 H 02/26/18 15:28 Resp 18 02/26/18 16:18 BP 110/71 02/26/18 15:28 Pulse Ox 97 02/26/18 16:18 - OB Specific Contraction Duration (sec): 45-60 Contraction Frequency (min): 3-5 Contraction Intensity: Moderate to Strong Movement: Active Heart Tones: Present Heart Tones per Min: 130 Heart Rate (FHR) Variability: Moderate (6-25 bmp) Presentation: Vertex - El Score El Score Cervix Position: Anterior El Score Consistency: Soft El Score Effacement: >80% El Score Dilation: > 5 cm El Score 's Station: -2 El Score Total: 11 - Exam General: Alert, Oriented HEENT: EOMI Neck: Supple, Trachea Midline Lungs: Clear to Auscultation, Normal Respiratory Effort Cardiovascular: Regular Rate, Regular Rhythm GI/Abdominal Exam: Soft, Non-Tender, No Distention, Other (gravid) Back Exam: Normal Inspection Skin: Warm, Dry, Intact Psychiatric: Alert, Normal Affect, Normal Mood - Patient Data Lab Results Last 24 hrs: Laboratory Results - last 24 hr 02/26/18 Range/Units 15:41 WBC 17.17 H (3.98-10.04) K/mm3 RBC 3.60 L (3.98-5.22) M/mm3 Hgb 9.7 L (11.2-15.7) gm/L Hct 30.6 L (34.1-44.9) % MCV 85.0 (79.4-94.8) fl MCH 26.9 (25.6-32.2) pg MCHC 31.7 L (32.2-35.5) g/dl RDW Std Deviation 46.5 H (36.4-46.3) fL Plt Count 392 H (182-369) K/mm3 MPV 10.7 (9.4-12.3) fl Result Diagrams: 02/26/18 15:41 - Problem List (1) Normal labor SNOMED Code(s): 09784171 ICD Code: O80 - ENCOUNTER FOR FULL-TERM UNCOMPLICATED DELIVERY; Z37.9 - OUTCOME OF DELIVERY, UNSPECIFIED Status: Acute Current Visit: Yes (2) Smoking (tobacco) complicating , third trimester SNOMED Code(s): 710204140, 03195842, 144124808, 062297278, 622309350 ICD Code: O99.333 - SMOKING (TOBACCO) COMPLICATING , THIRD TRIMESTER Status: Acute Current Visit: Yes (3) 39 weeks gestation of SNOMED Code(s): 40619381 ICD Code: Z3A.39 - 39 WEEKS GESTATION OF Status: Acute Current Visit: No Problem List Initiated/Reviewed/Updated: Yes Orders Last 24hrs: Active Orders 24 hr Category Date Time Status Admission Status [Patient Status] [ADT] Routine ADT 02/26/18 18:35 Active Patient Status Manage Transfer [TRANSFER] Routine ADT 02/26/18 18:48 Ordered Activity as Tolerated [RC] PFP Care 02/26/18 15:28 Active Communication Order [RC] ASDIRECTED Care 02/26/18 15:28 Active Heart Tones [RC] ASDIRECTED Care 02/26/18 15:28 Active Notify Provider [RC] ASDIRECTED Care 02/26/18 15:31 Active Notify Provider [RC] PFP Care 02/26/18 15:28 Active Notify Provider [RC] PRN Care 02/26/18 15:28 Active Peripheral IV Care [RC] . DIRECTED Care 02/26/18 15:28 Active Vital Signs [RC] PER UNIT ROUTINE Care 02/26/18 15:28 Active Regular Diet [DIET] Diet 02/26/18 Dinner Active Bupivacaine/fentaNYL/NS [fentaNYL/Bupivacaine/NS 2 MCG- Med 02/26/18 16:00 Active 0.125% 100 ML] 100 ml EPIDUR ASDIRECTED Bupivacaine/fentaNYL/NS [fentaNYL/Bupivacaine/NS 2.5 Med 02/26/18 15:45 Active MCG-0.1% 50 ML] 50 ml EPIDUR ASDIRECTED Lactated Ringers [Ringers, Lactated] 1,000 ml Med 02/26/18 15:30 Active IV ASDIRECTED Nalbuphine [Nubain] Med 02/26/18 15:28 Active 10 mg IVPUSH Q2H PRN Ondansetron [Zofran] Med 02/26/18 15:28 Active 4 mg IVPUSH Q4H PRN Oxytocin/Lactated Ringers [Pitocin in LR 10 Units/1,000 Med 02/26/18 15:30 Active ML] 10 unit in 1,000 ml IV .CONTINUOUS Sodium Chloride 0.9% [Saline Flush] Med 02/26/18 15:28 Active 10 ml FLUSH ASDIRECTED PRN diphenhydrAMINE [Benadryl] Med 02/26/18 15:31 Active 25 mg IVPUSH Q6H PRN ePHEDrine [ePHEDrine Sulfate] Med 02/26/18 15:31 Active 5 mg IVPUSH ASDIRECTED PRN fentaNYL [Sublimaze] Med 02/26/18 15:31 Active 100 mcg EPIDUR Q3H PRN Electronic Heart Tones Ext w TOCO [WOMSER] Oth 02/26/18 15:28 Ordered Routine Electronic Heart Tones Internal [WOMSER] Per Unit Oth 02/26/18 15:28 Ordered Routine Peripheral IV Insertion Adult [OM.PC] Routine Oth 02/26/18 15:28 Ordered Resuscitation Status Routine Resus Stat 02/26/18 15:28 Ordered Medication Orders Diphenhydramine HCl (Benadryl) 25 mg IVPUSH Q6H PRN PRN Reason: pruritis Ephedrine Sulfate (Ephedrine Sulfate) 5 mg IVPUSH ASDIRECTED PRN PRN Reason: Hypotension Fentanyl (Sublimaze) 100 mcg EPIDUR Q3H PRN PRN Reason: Pain Last Admin: 02/26/18 16:15 Dose: 100 mcg Fentanyl/Bupivacaine HCl (Fentanyl/Bupivacaine/Ns 2.5 Mcg-0.1% 50 Ml) 50 ml EPIDUR ASDIRECTED LJ Fentanyl/Bupivacaine HCl (Fentanyl/Bupivacaine/Ns 2 Mcg-0.125% 100 Ml) 100 ml EPIDUR ASDIRECTED LJ Lactated Ringer's (Ringers, Lactated) 1,000 mls @ 100 mls/hr IV ASDIRECTED LJ Last Admin: 02/26/18 16:34 Dose: 100 mls/hr Infusion: 02/26/18 16:34 Dose: 100 mls/hr Admin: 02/26/18 15:48 Dose: 100 mls/hr Oxytocin/Lactated Ringer's (Pitocin In Lr 10 Units/1,000 Ml) 10 unit in 1,000 mls @ 500 mls/hr IV .CONTINUOUS LJ Nalbuphine HCl (Nubain) 10 mg IVPUSH Q2H PRN PRN Reason: Pain (moderate 4-6) Ondansetron HCl (Zofran) 4 mg IVPUSH Q4H PRN PRN Reason: Nausea/Vomiting Last Admin: 02/26/18 17:30 Dose: 4 mg Sodium Chloride (Saline Flush) 10 ml FLUSH ASDIRECTED PRN PRN Reason: Keep Vein Open Assessment/Plan Comment:: I have seen and evaluated the patient with the student. I agree with the above note and plan. Cuong Reis MD 7:06 PM 02/26/2018
--- NOTE | 2018-02-26 19:34 | PCM.DEL ---
L & D Note - General Info Date of Service: 02/26/18 Mother's Due Date: 03/01/18 - Delivery Note Labor: Spontaneous, Augmented by ARM Delivery Outcome: Livebirth Delivery Method: Spontaneous Vaginal Delivery-Single Presentation: Left Occiput Anterior (ARMANDO) Nuchal Cord: None Prep: Povidone-Iodine (Betadine Anesthesia Type: Epidural Amniotic Fluid Description: Meconium Stained (Moderate) Episiotomy Type: None Laceration: 1st Degree, Periurethral (Bilateral, not repaired) Placenta: Intact, Spontaneous Cord: 3 Vessels Estimated Blood Loss: 200 Resuscitation Needed: No : Suctioned, Bulb Syringe, Stimulated, Warmed, Blackburn Used, Warmer Used Provider: Akin Burton Score 1 min: 8 Score 5 min: 9 Second Stage Interventions: Reports: Pushing Effectively, Pushing, Pulls Own Legs Back Delivery Comments (Free Text/Narrative):: Stage I: Sarah Decker was admitted for active labor after being evaluated in the clinic and found to be 5-6 cm dilated. On admission to labor and delivery her cervix was dilated to 6 cm. She was GBS negative. She was given an epidural for anesthesia. She had artificial rupture membranes with moderate meconium-stained fluid. She progressed to complete and pushing. Stage II: On 02/26/2018 she had a normal vaginal delivery of a live female at 1827. Apgars of 8 & 9. Weight of 3230 g (7 lbs 2 oz). Length of 20.25 inches. There was no nuchal cord. was delivered in ARMANDO position. The cord was doubly clamped and cut by father of . Infant was handed to awaiting windows consultant, Dr. Bertrand, for resuscitation due to moderate meconium staining. Stage III: She had a spontaneous delivery of an intact placenta in Ashley presentation. Three vessel cord. She was given pitocin and fundal massage. She had bilateral first-degree periurethral lacerations that were hemostatic and not repaired. Mom and baby were stable to recovery. EBL of 200 mL. Cuong Reis MD 7:33 PM 02/26/2018 - Patient Data Vitals - Most Recent: Last Vital Signs Temp 36.8 C 02/26/18 15:28 Pulse 118 H 02/26/18 15:28 Resp 18 02/26/18 16:18 BP 110/71 02/26/18 15:28 Pulse Ox 97 02/26/18 16:18 Weight - Most Recent: 78.471 kg Lab Results Last 24 Hours: Laboratory Results - last 24 hr 02/26/18 Range/Units 15:41 WBC 17.17 H (3.98-10.04) K/mm3 RBC 3.60 L (3.98-5.22) M/mm3 Hgb 9.7 L (11.2-15.7) gm/L Hct 30.6 L (34.1-44.9) % MCV 85.0 (79.4-94.8) fl MCH 26.9 (25.6-32.2) pg MCHC 31.7 L (32.2-35.5) g/dl RDW Std Deviation 46.5 H (36.4-46.3) fL Plt Count 392 H (182-369) K/mm3 MPV 10.7 (9.4-12.3) fl Med Orders - Current: Current Medications Diphenhydramine HCl (Benadryl) 25 mg IVPUSH Q6H PRN PRN Reason: pruritis Ephedrine Sulfate (Ephedrine Sulfate) 5 mg IVPUSH ASDIRECTED PRN PRN Reason: Hypotension Fentanyl (Sublimaze) 100 mcg EPIDUR Q3H PRN PRN Reason: Pain Last Admin: 02/26/18 16:15 Dose: 100 mcg Fentanyl/Bupivacaine HCl (Fentanyl/Bupivacaine/Ns 2.5 Mcg-0.1% 50 Ml) 50 ml EPIDUR ASDIRECTED LJ Fentanyl/Bupivacaine HCl (Fentanyl/Bupivacaine/Ns 2 Mcg-0.125% 100 Ml) 100 ml EPIDUR ASDIRECTED LJ Lactated Ringer's (Ringers, Lactated) 1,000 mls @ 100 mls/hr IV ASDIRECTED LJ Last Admin: 02/26/18 16:34 Dose: 100 mls/hr Oxytocin/Lactated Ringer's (Pitocin In Lr 10 Units/1,000 Ml) 10 unit in 1,000 mls @ 500 mls/hr IV .CONTINUOUS LJ Nalbuphine HCl (Nubain) 10 mg IVPUSH Q2H PRN PRN Reason: Pain (moderate 4-6) Ondansetron HCl (Zofran) 4 mg IVPUSH Q4H PRN PRN Reason: Nausea/Vomiting Last Admin: 02/26/18 17:30 Dose: 4 mg Sodium Chloride (Saline Flush) 10 ml FLUSH ASDIRECTED PRN PRN Reason: Keep Vein Open Discontinued Medications Lidocaine HCl (Xylocaine 1%) 50 ml INJECT ONETIME ONE Stop: 02/26/18 15:29 - Problem List & Annotations (1) Normal labor SNOMED Code(s): 97082414 Code(s): O80 - ENCOUNTER FOR FULL-TERM UNCOMPLICATED DELIVERY; Z37.9 - OUTCOME OF DELIVERY, UNSPECIFIED Status: Acute Current Visit: Yes (2) Smoking (tobacco) complicating , third trimester SNOMED Code(s): 659214712, 90561812, 304019312, 542512668, 740819520 Code(s): O99.333 - SMOKING (TOBACCO) COMPLICATING , THIRD TRIMESTER Status: Acute Current Visit: Yes (3) 39 weeks gestation of SNOMED Code(s): 55057967 Code(s): Z3A.39 - 39 WEEKS GESTATION OF Status: Acute Current Visit: No (4) Vaginal delivery SNOMED Code(s): 048469613 Code(s): O80 - ENCOUNTER FOR FULL-TERM UNCOMPLICATED DELIVERY Status: Acute Current Visit: Yes (5) First degree laceration of perineum, delivered, current hospitalization SNOMED Code(s): 154411335 Code(s): O70.0 - FIRST DEGREE PERINEAL LACERATION DURING DELIVERY Status: Acute Current Visit: Yes (6) Meconium in amniotic fluid affecting management of mother in third trimester SNOMED Code(s): 78793584, 01560303 Code(s): O36.8930 - MATERNAL CARE FOR OTH PROBLEMS, THIRD TRIMESTER, UNSP Status: Acute Current Visit: No Qualifiers: Fetus number: single or unspecified fetus Qualified Code(s): O36.8930 - Maternal care for other specified problems, third trimester, not applicable or unspecified - Problem List Review Problem List Initiated/Reviewed/Updated: Yes - My Orders Last 24 Hours: My Active Orders 02/26/18 15:28 Activity as Tolerated [RC] PFP Communication Order [RC] ASDIRECTED Heart Tones [RC] ASDIRECTED Notify Provider [RC] PFP Notify Provider [RC] PRN Peripheral IV Care [RC] . DIRECTED Vital Signs [RC] PER UNIT ROUTINE Nalbuphine [Nubain] 10 mg IVPUSH Q2H PRN Ondansetron [Zofran] 4 mg IVPUSH Q4H PRN Sodium Chloride 0.9% [Saline Flush] 10 ml FLUSH ASDIRECTED PRN Electronic Heart Tones Ext w TOCO [WOMSER] Routine Electronic Heart Tones Internal [WOMSER] Per Unit Routine Peripheral IV Insertion Adult [OM.PC] Routine Resuscitation Status Routine 02/26/18 15:30 Lactated Ringers [Ringers, Lactated] 1,000 ml IV ASDIRECTED Oxytocin/Lactated Ringers [Pitocin in LR 10 Units/1,000 ML] 10 unit in 1,000 ml IV .CONTINUOUS 02/26/18 18:35 Admission Status [Patient Status] [ADT] Routine 02/26/18 18:48 Patient Status Manage Transfer [TRANSFER] Routine 02/26/18 Dinner Regular Diet [DIET] - Plan Plan:: Admitted to inpatient following spontaneous vaginal delivery Continue IV with lactated Ringer's and Pitocin per unit protocol following delivery. May discontinue IV once tolerating regular amount of fluids. Regular diet Assist with breast-feeding as needed vital signs per unit protocol continue to monitor lochia anticipate discharge home on day #1 or 2 depending on status of infant will offer smoking cessation assistance prior to discharge Cuong Reis MD 7:36 PM 02/26/2018
[2018-02-26] MEDS ORDERED: Lanolin 100% Cream 7 GM Tube TOP PRN (20:00)
[2018-02-26] MEDS ORDERED: Hydrocortisone Acetate 25 MG Supp RECTAL PRN (20:00)
[2018-02-26] MEDS ORDERED: Acetaminophen 325 MG Tab PO PRN (20:00)
[2018-02-26] MEDS ORDERED: Benzocaine/Menthol 20%-0.5% Spray 56 GM Canister TOP PRN (20:00)
[2018-02-26] MEDS ORDERED: Lactated Ringers 1,000 ML IV SCH (20:00)
[2018-02-26] MEDS ORDERED: Witch Hazel Medicated Pads 100/Jar TOP PRN (20:00)
[2018-02-26] MEDS ORDERED: Docusate Sodium 100 MG Cap PO PRN (20:00)
[2018-02-26] MEDS ORDERED: Magnesium Hydroxide 400 MG/5 ML Susp 30 ML Cup PO PRN (20:00)
[2018-02-26] MEDS: Ibuprofen 600 MG Tab PO PRN (20:55)
[2018-02-27] MEDS: Ibuprofen 600 MG Tab PO PRN ×2 (04:26→11:44)
[2018-02-27 06:27] VITALS: BP 100/51
--- NOTE | 2018-02-27 07:32 | PCM.SN ---
- Free Text/Narrative Note: Post Progress Note PPD # 1 Subjective: Doing well overall. Ambulating without difficulty. Lochia minimal. Voiding without difficulty. Tolerating regular diet without nausea or vomiting. Pain controlled with oral medications. Reports she is having some mild cramping with breast-feeding. Reports that her pain is able to be controlled with use of Motrin. Breast feeding with minimal difficulty. Objective: Vitals: Vital Signs - 24 hr 02/26/18 02/26/18 02/27/18 15:28 16:18 04:25 Temperature 36.6 C Temperature [ 36.8 C Temporal] Pulse, 76 Peripheral Pulse, 118 H Peripheral [ Pulse Oximetry] Respiratory 18 18 15 Rate Blood Pressure 100/51 L Blood Pressure 110/71 [Upper Arm] O2 Sat by Pulse 97 97 94 L Oximetry Physical Exam General: Alert and oriented, no acute distress Lungs: Clear to auscultation bilaterally Heart: Regular rate and rhythm Abdomen: Soft, minimal appropriate tenderness, non-distended, fundus midline, nontender, and below the umbilicus Extremities: No edema Laboratory Tests 02/26/18 Range/Units 15:41 WBC 17.17 H (3.98-10.04) K/mm3 RBC 3.60 L (3.98-5.22) M/mm3 Hgb 9.7 L (11.2-15.7) gm/L Hct 30.6 L (34.1-44.9) % MCV 85.0 (79.4-94.8) fl MCH 26.9 (25.6-32.2) pg MCHC 31.7 L (32.2-35.5) g/dl RDW Std Deviation 46.5 H (36.4-46.3) fL Plt Count 392 H (182-369) K/mm3 MPV 10.7 (9.4-12.3) fl ASSESSMENT: 27-year-old female G 5 P 4014 s/p normal vaginal delivery complicated by moderate meconium stained fluid PPD #1, complicated by tobacco use in PLAN: Doing well Breast feeding with minimal difficulty. Assist as needed Lochia minimal. Continue to monitor for appropriate lochia. Continue routine care Will check CBC this morning to ensure that the patient is not anemic to the point of requiring a blood transfusion following delivery. Anticipate discharge home today if infant is discharged, otherwise patient will be discharged on day #2 Cuong Reis MD 7:32 AM 02/27/2018
[2018-02-27] MEDS ORDERED: Prenatal Multivitamin with Calcium/Folic Acid/Iron Tab PO SCH (09:00)
--- NOTE | 2018-02-27 15:56 | PCM.DCSUM1 ---
Discharge Summary - Hospital Course Free Text/Narrative:: Stage I: Sarah Decker was admitted for active labor after being evaluated in the clinic and found to be 5-6 cm dilated. On admission to labor and delivery her cervix was dilated to 6 cm. She was GBS negative. She was given an epidural for anesthesia. She had artificial rupture membranes with moderate meconium-stained fluid. She progressed to complete and pushing. Stage II: On 02/26/2018 she had a normal vaginal delivery of a live female at 1827. Apgars of 8 & 9. Weight of 3230 g (7 lbs 2 oz). Length of 20.25 inches. There was no nuchal cord. Infant was delivered in ARMANDO position. The cord was doubly clamped and cut by father of infant. Infant was handed to awaiting herb counselor, Dr. Bertrand, for resuscitation due to moderate meconium staining. Stage III: She had a spontaneous delivery of an intact placenta in [place] presentation. Three vessel cord. She was given pitocin and fundal massage. She had bilateral first-degree periurethral lacerations that were hemostatic and not repaired. Mom and baby were stable to recovery. EBL of 200 mL. HPI Initial Comments: Stage I: Sarah Decker was admitted for active labor after being evaluated in the clinic and found to be 5-6 cm dilated. On admission to labor and delivery her cervix was dilated to 6 cm. She was GBS negative. She was given an epidural for anesthesia. She had artificial rupture membranes with moderate meconium-stained fluid. She progressed to complete and pushing. Stage II: On 02/26/2018 she had a normal vaginal delivery of a live female infant at 1827. Apgars of 8 & 9. Weight of 3230 g (7 lbs 2 oz). Length of 20.25 inches. There was no nuchal cord. was delivered in ARMANDO position. The cord was doubly clamped and cut by father of infant. Infant was handed to awaiting herb counselor, Dr. Bertrand, for resuscitation due to moderate meconium staining. Stage III: She had a spontaneous delivery of an intact placenta in [place] presentation. Three vessel cord. She was given pitocin and fundal massage. She had bilateral first-degree periurethral lacerations that were hemostatic and not repaired. Mom and baby were stable to recovery. EBL of 200 mL. Brief History: Stage I: Sarah Decker was admitted for active labor after being evaluated in the clinic and found to be 5-6 cm dilated. On admission to labor and delivery her cervix was dilated to 6 cm. She was GBS negative. She was given an epidural for anesthesia. She had artificial rupture membranes with moderate meconium-stained fluid. She progressed to complete and pushing. Stage II: On 02/26/2018 she had a normal vaginal delivery of a live female at 1827. Apgars of 8 & 9. Weight of 3230 g (7 lbs 2 oz). Length of 20.25 inches. There was no nuchal cord. was delivered in ARMANDO position. The cord was doubly clamped and cut by father of infant. was handed to awaiting herb counselor, Dr. Bertrand, for resuscitation due to moderate meconium staining. Stage III: She had a spontaneous delivery of an intact placenta in [place] presentation. Three vessel cord. She was given pitocin and fundal massage. She had bilateral first-degree periurethral lacerations that were hemostatic and not repaired. Mom and baby were stable to recovery. EBL of 200 mL. - Discharge Data Discharge Date: 02/27/18 Discharge Disposition: Home, Self-Care 01 Condition: Good - Discharge Diagnosis/Problem(s) (1) Normal labor SNOMED Code(s): 48368508 ICD Code: O80 - ENCOUNTER FOR FULL-TERM UNCOMPLICATED DELIVERY; Z37.9 - OUTCOME OF DELIVERY, UNSPECIFIED Status: Acute Current Visit: Yes (2) Smoking (tobacco) complicating , third trimester SNOMED Code(s): 438436784, 57159871, 591268030, 106193955, 120971579 ICD Code: O99.333 - SMOKING (TOBACCO) COMPLICATING , THIRD TRIMESTER Status: Acute Current Visit: Yes (3) 39 weeks gestation of SNOMED Code(s): 27472911 ICD Code: Z3A.39 - 39 WEEKS GESTATION OF Status: Acute Current Visit: No (4) Vaginal delivery SNOMED Code(s): 366980679 ICD Code: O80 - ENCOUNTER FOR FULL-TERM UNCOMPLICATED DELIVERY Status: Acute Current Visit: Yes (5) First degree laceration of perineum, delivered, current hospitalization SNOMED Code(s): 087676860 ICD Code: O70.0 - FIRST DEGREE PERINEAL LACERATION DURING DELIVERY Status: Acute Current Visit: Yes (6) Meconium in amniotic fluid affecting management of mother in third trimester SNOMED Code(s): 88885387, 03153375 ICD Code: O36.8930 - MATERNAL CARE FOR OTH PROBLEMS, THIRD TRIMESTER, UNSP Status: Acute Current Visit: No Qualifiers: Fetus number: single or unspecified fetus Qualified Code(s): O36.8930 - Maternal care for other specified problems, third trimester, not applicable or unspecified - Patient Summary/Data Complications: None Consults: None Hospital Course: Sarah Decker was admitted for active labor. On admission her cervix was dilated to 6 cm. She was GBS negative. She was given an epidural for anesthesia. She had artificial rupture of membranes with moderate meconium- stained fluid. She progressed to complete and began pushing. On 02/26/2018 she had a normal vaginal delivery of a live female infant at 1827. Apgars of 8 & 9. Weight of 3230 g (7 lbs. 2 oz.). Her course was uneventful. Her pain was well controlled and she had minimal lochia. She was ambulating, tolerating a regular diet and voiding normally. She was breast feeding. She was afebrile and her hematocrit was 27.5 on day #1. Her initial hematocrit on admission was 30.6. She desired to be discharged home on the afternoon of PPD # 1. Her blood type is A+. She was given a prescription for bupropion for smoking cessation due to 1 pack per week smoking habit. - Patient Instructions Diet: Regular Diet as Tolerated Activity: As Tolerated Activity, Other: Nothing in the vagina for 6 weeks Driving: May Drive Today Showering/Bathing: May Shower Notify Provider of: Fever, Increased Pain, Swelling and Redness, Drainage, Nausea and/or Vomiting Other/Special Instructions: Please call physician's office if having heavy vaginal bleeding enough septal patent less than hour for 2-3 hours. - Discharge Plan Prescriptions/Med Rec: buPROPion HCl [Wellbutrin SR] 150 mg PO BID #60 tablet.er Home Medications: Home Meds Pnv No.95/Ferrous Fum/Folic AC [ Multivitamin Tablet] 1 tab PO DAILY [History] ClonazePAM [KlonoPIN] 1 mg PO BID 08/16/17 [History] Cephalexin [IJD: Cephalexin] 500 mg PO TID #15 cap 09/13/17 [Rx] Iron 1 tab PO DAILY 09/13/17 [History] Promethazine [Phenergan] 25 mg PO Q6H PRN #12 tablet 09/13/17 [Rx] Acetaminophen [Tylenol] 650 mg PO Q6H PRN tablet 02/27/18 [Rx] Benzocaine/Menthol [Dermoplast Pain Relief Clyman] 1 spray TOP ASDIRECTED PRN canister 02/27/18 [Rx] Docusate Sodium [Colace] 100 mg PO BID PRN cap 02/27/18 [Rx] Hydrocortisone Acetate [Anucort-HC] 25 mg RECTAL BID PRN supp 02/27/18 [Rx] Ibuprofen [IJD: Ibuprofen] 600 mg PO Q6H PRN tablet 02/27/18 [Rx] Lanolin [Lansinoh HPA] 1 applic TOP ASDIRECTED PRN tube 02/27/18 [Rx] buPROPion HCl [Wellbutrin SR] 150 mg PO BID #60 tablet.er 02/27/18 [Rx] Patient Handouts: Home Care Instructions for Mom, Steps to Quit Smoking Referrals: Akin Burton MD [Physician] - (Follow-up in 2 weeks or earlier as needed. ) - Discharge Summary/Plan Comment DC Time >30 min.: No - Patient Data Vitals - Most Recent: Last Vital Signs Temp 36.7 C 02/27/18 11:38 Pulse 91 02/27/18 11:38 Resp 17 02/27/18 11:38 BP 100/51 L 02/27/18 11:38 Pulse Ox 98 02/27/18 11:38 Weight - Most Recent: 78.471 kg I&O - Last 24 hours: Intake & Output 02/27/18 02/27/18 02/27/18 06:59 14:59 22:59 Intake Total 1000 120 Balance 1000 120 Lab Results - Last 24 hrs: Laboratory Results - last 24 hr 02/27/18 Range/Units 07:45 WBC 16.08 H (3.98-10.04) K/mm3 RBC 3.21 L (3.98-5.22) M/mm3 Hgb 8.7 L (11.2-15.7) gm/L Hct 27.5 L (34.1-44.9) % MCV 85.7 (79.4-94.8) fl MCH 27.1 (25.6-32.2) pg MCHC 31.6 L (32.2-35.5) g/dl RDW Std Deviation 46.5 H (36.4-46.3) fL Plt Count 318 (182-369) K/mm3 MPV 10.9 (9.4-12.3) fl Neut % (Auto) 69.1 (34.0-71.1) % Lymph % (Auto) 19.8 (19.3-51.7) % Gilchrist % (Auto) 9.4 (4.7-12.5) % Eos % (Auto) 1.2 (0.7-5.8) Baso % (Auto) 0.3 (0.1-1.2) % Neut # (Auto) 11.09 H (1.56-6.13) K/mm3 Lymph # (Auto) 3.19 (1.18-3.74) K/mm3 Gilchrist # (Auto) 1.51 H (0.24-0.36) K/mm3 Eos # (Auto) 0.20 (0.04-0.36) K/mm3 Baso # (Auto) 0.05 (0.01-0.08) K/mm3 Manual Slide Review Abnormal smear Med Orders - Current: Current Medications Acetaminophen (Tylenol) 650 mg PO Q6H PRN PRN Reason: mild pain or fever Last Admin: 02/27/18 00:30 Dose: 650 mg Benzocaine/Menthol (Dermoplast Pain Relief Clyman) 0 gm TOP ASDIRECTED PRN PRN Reason: Perineal Comfort Measure Docusate Sodium (Colace) 100 mg PO BID PRN PRN Reason: Constipation Emollient Ointment (Lansinoh Hpa) 0 gm TOP ASDIRECTED PRN PRN Reason: Sore Nipples Hydrocortisone Acetate (Anucort-Hc) 25 mg RECTAL BID PRN PRN Reason: Hemorrhoid pain Lactated Ringer's (Ringers, Lactated) 1,000 mls @ 125 mls/hr IV ASDIRECTED LJ Oxytocin/Lactated Ringer's (Pitocin In Lr 10 Units/1,000 Ml) 10 unit in 1,000 mls @ 100 mls/hr IV TITRATE LJ; Protocol Ibuprofen (Motrin) 600 mg PO Q6H PRN PRN Reason: Mild pain or fever Last Admin: 02/27/18 11:44 Dose: 600 mg Magnesium Hydroxide (Milk Of Magnesia) 30 ml PO BEDTIME PRN PRN Reason: Constipation Prenat Multivit/[place]/Iron/Folic Ac ( Plus Iron) 1 each PO DAILY LJ Last Admin: 02/27/18 09:39 Dose: Not Given Carlos Garibay (Primocks) 1 pad TOP ASDIRECTED PRN PRN Reason: Hemorrhoid pain Discontinued Medications Bupivacaine HCl (Sensorcaine-Mpf 0.25%) 10 ml .ROUTE .STK-MED ONE Stop: 02/26/18 17:01 Diphenhydramine HCl (Benadryl) 25 mg IVPUSH Q6H PRN PRN Reason: pruritis Ephedrine Sulfate (Ephedrine Sulfate) 5 mg IVPUSH ASDIRECTED PRN PRN Reason: Hypotension Fentanyl (Sublimaze) 100 mcg EPIDUR Q3H PRN PRN Reason: Pain Last Admin: 02/26/18 16:15 Dose: 100 mcg Fentanyl/Bupivacaine HCl (Fentanyl/Bupivacaine/Ns 2.5 Mcg-0.1% 50 Ml) 50 ml EPIDUR ASDIRECTED LJ Fentanyl/Bupivacaine HCl (Fentanyl/Bupivacaine/Ns 2 Mcg-0.125% 100 Ml) 100 ml EPIDUR ASDIRECTED LJ Lactated Ringer's (Ringers, Lactated) 1,000 mls @ 100 mls/hr IV ASDIRECTED LJ Last Admin: 02/26/18 16:34 Dose: 100 mls/hr Oxytocin/Lactated Ringer's (Pitocin In Lr 10 Units/1,000 Ml) 10 unit in 1,000 mls @ 500 mls/hr IV .CONTINUOUS LJ Last Admin: 02/26/18 18:27 Dose: 500 mls/hr Lidocaine HCl (Xylocaine 1%) 50 ml INJECT ONETIME ONE Stop: 02/26/18 15:29 Nalbuphine HCl (Nubain) 10 mg IVPUSH Q2H PRN PRN Reason: Pain (moderate 4-6) Ondansetron HCl (Zofran) 4 mg IVPUSH Q4H PRN PRN Reason: Nausea/Vomiting Last Admin: 02/26/18 17:30 Dose: 4 mg Sodium Chloride (Saline Flush) 10 ml FLUSH ASDIRECTED PRN PRN Reason: Keep Vein Open
== END 2018-02-27 19:42 | disposition home or self-care (01) | DRG 775 ==
LOC: JD.OBCHECK 15:16 → JD.OB 15:19 → JD.OBCHECK 18:36 → JD.OB 18:37
PROVIDERS: ADMIT Obstetrics & Gynecology; ATTEND Obstetrics & Gynecology
PROC: 10E0XZZ Delivery of Products of Conception, External Approach (ICD-10-PCS; principal; 2018-02-26)
PROC: 10907ZC Drainage of Amniotic Fluid, Therapeutic from Products of Conception, Via Natural or Artificial Opening (ICD-10-PCS; principal; 2018-02-26)
PROC: 00HU33Z Insertion of Infusion Device into Spinal Canal, Percutaneous Approach (ICD-10-PCS; 2018-02-26)
PROC: 3E0R3BZ Introduction of Anesthetic Agent into Spinal Canal, Percutaneous Approach (ICD-10-PCS; 2018-02-26)
DX: O99.334 Smoking (tobacco) complicating childbirth (principal); F17.210 Nicotine dependence, cigarettes, uncomplicated; O99.02 Anemia complicating childbirth; D64.9 Anemia, unspecified; O77.0 Labor and delivery complicated by meconium in amniotic fluid; O71.82 Other specified trauma to perineum and vulva; Z3A.39 39 weeks gestation of pregnancy; Z37.0 Single live birth
CPT/HCPCS: 36415; 59025; 59409; 85025; 85027; A9270-GY; J2405; J2590; J3010; J7120

== ENCOUNTER 2018-04-01 20:32 | Emergency (ER) | payer MEDICAID ==
[2018-04-01 20:52] VITALS: BP 119/82
[2018-04-01] MEDS ORDERED: Dextrose 5%-0.9% NaCl 1,000 ML IV SCH (21:15)
[2018-04-01] MEDS ORDERED: HYDROmorphone 0.5 MG/0.5 ML SYRINGE IVPUSH ONE ×2 (21:44→23:13)
[2018-04-01] MEDS ORDERED: Ondansetron 4 MG/2 ML SDV IVPUSH ONE (21:44)
--- NOTE | 2018-04-01 21:44 | EDM.PDOC ---
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 She states that 3 weeks ago she did several points she test which were strongly positive. Menstrual cycles extremely irregular with oligomenorrhea. She'd Member her last trimester.. She has a [id number] at home and doesn't believe she's had a period since of that child. She's had breast tenderness and nausea in the morning which prompted her to do the tests. This morning about 9:00 she developed spotting per vagina was bright red immediately. Subsequent she's continued to have lower abdominal cramping pain radiating to her back. She has had heavy menstrual bleeding bright red in color with a few clots. Pain currently is 8 out of 10. Insert and therefore is that she may be miscarrying. She believes her blood type is a positive from last visit. Onset: Today Onset Date: 04/01/18 Onset Time: 09:00 Duration: Hour(s): Location: Reports: Abdomen (Diffuse suprapubic abdominal pain strong cramping.) Quality: Reports: Sharp, Stabbing, Other Severity: Moderate (Cramping) Improves with: Reports: None ( rates it 8 out of 10) Worsens with: Reports: None Context: Reports: Other (Possibility of with a home test +3 weeks ago on multiple testing). Denies: Activity, Exercise, Lifting, Sick Contact, Trauma Associated Symptoms: Reports: No Other Symptoms, Nausea/Vomiting. 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: Reports: Other (see below) (None.) Bilateral Lower Abdomen Pain Score (Numeric/FACES): 9 - Related Data Allergies Allergy/AdvReac Type Severity Reaction Status Date / Time Penicillins Allergy Hives Verified 09/13/17 00:48 Home Meds: Home Meds ClonazePAM [KlonoPIN] 0.5 mg PO TID PRN 08/16/17 [History] Sulfamethoxazole/Trimethoprim [Bactrim Ds Tablet] 1 each PO BID #12 tablet 04/01 [Rx] oxyCODONE HCl/Acetaminophen [Percocet 5-325 mg Tablet] 1 - 2 each PO Q4H PRN # 10 tablet 04/01/18 [Rx] Past Medical History HEENT History: Reports: None Cardiovascular History: Reports: None Respiratory History: Reports: None Genitourinary History: Reports: UTI, Recurrent, Other (See Below) Other Genitourinary History: miscarriage TRUST CLERK History: Reports: , 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 OB/BYN History: x4 Musculoskeletal History: Reports: Other (See Below) Other Musculoskeletal History: ankle sprain Neurological History: Reports: Other (See Below) Other Neuro History: depression Psychiatric History: Reports: Anxiety, Depression Endocrine/Metabolic History: Reports: None Hematologic History: Reports: Anemia Dermatologic History: Reports: Other (See Below) Other Dermatologic History: Frequent abscess' to groin--MRSA swab negative x3 - Infectious Disease History 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: MRSA - Past Surgical History HEENT Surgical History: Reports: Oral Surgery Female Surgical History: Reports: Cervical Cryotherapy Social & Family History - Family History Family Medical History: Noncontributory Cardiac: Reports: [place] Endocrine/Metabolic: Reports: Diabetes, type II - Tobacco Use Smoking Status *Q: Current Every Day Smoker Years of Tobacco use: 12 Packs/Tins Daily: 0.3 Used Tobacco, but Quit: No - Caffeine Use Caffeine Use: Reports: Soda - Recreational Drug Use Recreational Drug Use: No - Living Situation & Occupation Living situation: Reports: Occupation: Employed [employer] [facility] - Review of Systems Review Of Systems: See Below Constitutional: Reports: Malaise, Weakness, Fatigue, Decreased Appetite. Denies : Fever, Chills HEENT: Reports: No Symptoms Respiratory: Reports: No Symptoms Cardiovascular: Reports: No Symptoms Endocrine: Reports: Fatigue GI/Abdominal: Reports: Abdominal Pain, Nausea (See history of present illness) : Reports: Frequency, Irregular Menses (Oligomenorrhea. Can't sure) Musculoskeletal: Reports: Back Pain Skin: Reports: No Symptoms (Diffuse low back pain associated with the lower abdominal suprapubic pain.) Neurological: Reports: No Symptoms Psychiatric: Reports: No Symptoms Hematologic/Lymphatic: Reports: No Symptoms ED EXAM - Physical Exam Exam: See Below Exam Limited By: No Limitations General Appearance: Alert, WD/WN, Moderate Distress (Seems to be moderately uncomfortable with abdominal cramps.) Eye Exam: Bilateral Eye: Normal Inspection (No signs of anemia) Throat/Mouth: Normal Inspection, Normal Lips, Normal Teeth, Normal Oropharynx Neck: Normal Inspection, Supple, Non-Tender, Full Range of Motion. No: Lymphadenopathy (L), Lymphadenopathy (R) Respiratory/Chest: No Respiratory Distress, Lungs Clear, Normal Breath Sounds Cardiovascular: Normal Peripheral Pulses, Regular Rate, Rhythm, No Edema, No Murmur GI/Abdominal Exam: Normal Bowel Sounds, Soft, Tender (Tender suprapubically but no rebound). No: Guarding, Rigid, Rebound (Female) Exam: Normal Bimanual Exam, Other (Cervix is closed. Minimal vaginal bleeding on examination. Uterus is anteverted and essentially normal in size for a multigravida. No adnexal masses or tenderness appreciated.). No: Adnexal Tenderness, Cervix Motion Tenderness Back Exam: Normal Inspection, Full Range of Motion. No: CVA Tenderness (L), CVA Tenderness (R) Extremities: Normal Inspection, Normal Range of Motion, Non-Tender, No Pedal Edema Neurological: Alert, Oriented, CN II-XII Intact, Normal Cognition, Normal Gait Psychiatric: Normal Affect, Anxious (Mildly anxious) Skin Exam: Warm, Intact, Normal Color Course - Vital Signs Last Recorded V/S: Last Vital Signs Temp 36.8 C 04/01/18 20:47 Pulse 81 04/01/18 20:47 Resp 18 04/01/18 20:47 BP 119/82 04/01/18 20:47 Pulse Ox 97 04/01/18 20:47 - Orders/Labs/Meds Orders: Active Orders 24 hr Category Date Time Status CULTURE URINE [RM] Stat Lab 04/01/18 20:50 Received UA W/MICROSCOPIC [URIN] Stat Lab 04/01/18 20:56 Ordered Labs: Laboratory Tests 04/01/18 04/01/18 04/01/18 Range/Units 20:50 20:56 21:22 WBC 8.32 (3.98-10.04) K/mm3 RBC 3.99 (3.98-5.22) M/mm3 Hgb 11.1 L (11.2-15.7) gm/L Hct 34.3 (34.1-44.9) % MCV 86.0 (79.4-94.8) fl MCH 27.8 (25.6-32.2) pg MCHC 32.4 (32.2-35.5) g/dl RDW Std Deviation 55.8 H (36.4-46.3) fL Plt Count 360 (182-369) K/mm3 MPV 10.7 (9.4-12.3) fl Neutrophils % (Manual) 44 (40-60) % Band Neutrophils % 0 (0-10) % Lymphocytes % (Manual) 48 H (20-40) % Atypical Lymphs % 0 % Monocytes % (Manual) 5 (2-10) % Eosinophils % (Manual) 2 (0.7-5.8) % Basophils % (Manual) 1 (0.1-1.2) Platelet Estimate Adequate RBC Morph Comment Normal Sodium (136-145) mEq/L Potassium (3.5-5.1) mEq/L Chloride (98-107) mEq/L Carbon Dioxide (21-32) mEq/L Anion Gap (5-15) BUN (7-18) mg/dL Creatinine (0.55-1.02) mg/dL Est Cr Clr Drug Dosing mL/min Estimated GFR (MDRD) (>60) mL/min BUN/Creatinine Ratio (14-18) Glucose (74-106) mg/dL Calcium (8.5-10.1) mg/dL Total Bilirubin (0.2-1.0) mg/dL AST (15-37) U/L ALT (14-59) U/L Alkaline Phosphatase (46-116) U/L Total Protein (6.4-8.2) g/dl Albumin (3.4-5.0) g/dl Globulin gm/dL Albumin/Globulin Ratio (1-2) HCG, Qual (NEGATIVE) HCG, Quant mIU/mL Urine Color Yellow (Yellow) Urine Appearance Turbid H (Clear) Urine pH 7.0 (5.0-8.0) Ur Specific Walker 1.025 (1.005-1.030) Urine Protein 1+ H (Negative) Urine Glucose (UA) Negative (Negative) Urine Ketones Negative (Negative) Urine Occult Blood 3+ H (Negative) Urine Nitrite Negative (Negative) Urine Bilirubin Negative (Negative) Urine Urobilinogen 1.0 (0.2-1.0) Ur Leukocyte Esterase 2+ H (Negative) Urine RBC 5-10 H (0-5) /hpf Urine WBC 5-10 H (0-5) /hpf Ur Epithelial Cells 20-30 H (0-5) /hpf Urine Bacteria Moderate H (FEW) /hpf Urine Mucus Few (FEW) /hpf Urine HCG, Qual Negative (NEGATIVE) Blood Type Gel Antibody Screen 04/01/18 04/01/18 04/01/18 Range/Units 21:22 21:22 21:22 WBC (3.98-10.04) K/mm3 RBC (3.98-5.22) M/mm3 Hgb (11.2-15.7) gm/L Hct (34.1-44.9) % MCV (79.4-94.8) fl MCH (25.6-32.2) pg MCHC (32.2-35.5) g/dl RDW Std Deviation (36.4-46.3) fL Plt Count (182-369) K/mm3 MPV (9.4-12.3) fl Neutrophils % (Manual) (40-60) % Band Neutrophils % (0-10) % Lymphocytes % (Manual) (20-40) % Atypical Lymphs % % Monocytes % (Manual) (2-10) % Eosinophils % (Manual) (0.7-5.8) % Basophils % (Manual) (0.1-1.2) Platelet Estimate RBC Morph Comment Sodium 139 (136-145) mEq/L Potassium 3.5 (3.5-5.1) mEq/L Chloride 103 (98-107) mEq/L Carbon Dioxide 26 (21-32) mEq/L Anion Gap 13.5 (5-15) BUN 12 (7-18) mg/dL Creatinine 0.6 (0.55-1.02) mg/dL Est Cr Clr Drug Dosing 133.01 mL/min Estimated GFR (MDRD) > 60 (>60) mL/min BUN/Creatinine Ratio 20.0 H (14-18) Glucose 99 (74-106) mg/dL Calcium 8.6 (8.5-10.1) mg/dL Total Bilirubin 0.2 (0.2-1.0) mg/dL AST 28 (15-37) U/L ALT 46 (14-59) U/L Alkaline Phosphatase 57 (46-116) U/L Total Protein 6.6 (6.4-8.2) g/dl Albumin 3.4 (3.4-5.0) g/dl Globulin 3.2 gm/dL Albumin/Globulin Ratio 1.1 (1-2) HCG, Qual Negative (NEGATIVE) HCG, Quant mIU/mL Urine Color (Yellow) Urine Appearance (Clear) Urine pH (5.0-8.0) Ur Specific Walker (1.005-1.030) Urine Protein (Negative) Urine Glucose (UA) (Negative) Urine Ketones (Negative) Urine Occult Blood (Negative) Urine Nitrite (Negative) Urine Bilirubin (Negative) Urine Urobilinogen (0.2-1.0) Ur Leukocyte Esterase (Negative) Urine RBC (0-5) /hpf Urine WBC (0-5) /hpf Ur Epithelial Cells (0-5) /hpf Urine Bacteria (FEW) /hpf Urine Mucus (FEW) /hpf Urine HCG, Qual (NEGATIVE) Blood Type A POSITIVE Gel Antibody Screen Negative 04/01/18 Range/Units 21:22 WBC (3.98-10.04) K/mm3 RBC (3.98-5.22) M/mm3 Hgb (11.2-15.7) gm/L Hct (34.1-44.9) % MCV (79.4-94.8) fl MCH (25.6-32.2) pg MCHC (32.2-35.5) g/dl RDW Std Deviation (36.4-46.3) fL Plt Count (182-369) K/mm3 MPV (9.4-12.3) fl Neutrophils % (Manual) (40-60) % Band Neutrophils % (0-10) % Lymphocytes % (Manual) (20-40) % Atypical Lymphs % % Monocytes % (Manual) (2-10) % Eosinophils % (Manual) (0.7-5.8) % Basophils % (Manual) (0.1-1.2) Platelet Estimate RBC Morph Comment Sodium (136-145) mEq/L Potassium (3.5-5.1) mEq/L Chloride (98-107) mEq/L Carbon Dioxide (21-32) mEq/L Anion Gap (5-15) BUN (7-18) mg/dL Creatinine (0.55-1.02) mg/dL Est Cr Clr Drug Dosing mL/min Estimated GFR (MDRD) (>60) mL/min BUN/Creatinine Ratio (14-18) Glucose (74-106) mg/dL Calcium (8.5-10.1) mg/dL Total Bilirubin (0.2-1.0) mg/dL AST (15-37) U/L ALT (14-59) U/L Alkaline Phosphatase (46-116) U/L Total Protein (6.4-8.2) g/dl Albumin (3.4-5.0) g/dl Globulin gm/dL Albumin/Globulin Ratio (1-2) HCG, Qual (NEGATIVE) HCG, Quant 1.0 mIU/mL Urine Color (Yellow) Urine Appearance (Clear) Urine pH (5.0-8.0) Ur Specific Walker (1.005-1.030) Urine Protein (Negative) Urine Glucose (UA) (Negative) Urine Ketones (Negative) Urine Occult Blood (Negative) Urine Nitrite (Negative) Urine Bilirubin (Negative) Urine Urobilinogen (0.2-1.0) Ur Leukocyte Esterase (Negative) Urine RBC (0-5) /hpf Urine WBC (0-5) /hpf Ur Epithelial Cells (0-5) /hpf Urine Bacteria (FEW) /hpf Urine Mucus (FEW) /hpf Urine HCG, Qual (NEGATIVE) Blood Type Gel Antibody Screen Meds: Medications Discontinued Medications Generic Name Dose Route Start Last Admin Trade Name Johnathan PRN Reason Stop Dose Admin Hydromorphone HCl 1 mg 04/01/18 21:44 04/01/18 21:54 Dilaudid IVPUSH 04/01/18 21:45 1 mg ONETIME ONE Administration Hydromorphone HCl 0.5 mg 04/01/18 23:13 04/01/18 23:29 Dilaudid IVPUSH 04/01/18 23:14 0.5 mg ONETIME ONE Administration Dextrose/Sodium Chloride 1,000 mls @ 150 mls/hr 04/01/18 21:15 04/01/18 21:23 Dextrose 5%-Normal Saline IV 150 mls/hr ASDIRECTED LJ Administration Ketorolac Tromethamine 30 mg 04/01/18 22:45 04/01/18 23:28 Toradol IVPUSH 30 mg ONETIME LJ Administration Levofloxacin 500 mg 04/01/18 23:19 04/01/18 23:29 Levaquin PO 04/01/18 23:20 500 mg ONETIME ONE Administration Ondansetron HCl 4 mg 04/01/18 21:44 04/01/18 21:52 Zofran IVPUSH 04/01/18 21:45 4 mg ONETIME ONE Administration Oxycodone/Acetaminophen 2 tab 04/01/18 23:16 04/01/18 23:29 Percocet 325-5 Mg PO 04/01/18 23:17 2 tab ONETIME ONE Administration - Radiology Interpretation Free Text/Narrative:: 27-year-old female presents to the ED with diffuse lower abdominal cramping pain during this morning but not o'clock associate with bright red bleeding per vagina. The history is that of suspect as she has breast tenderness and morning nausea dating back to a month ago. She's not sure when her last normal menstrual period was. She has a 16 month at home and doesn't believe she' s had a period since delivery about child. She is known to have oligomenorrhea. Several (she tests about 3 weeks ago and they were all positive. Concern therefore is whether or not she was miscarrying. Examination here reveals that she is expressing significant abdominal cramping pain. Benign abdominal examination. Pelvic examination reveals an anteverted uterus which is 2-4 weeks in size and I suspect is normal for multigravida. No neck masses were identified. She has an IV in place and will be given Toradol 30 mg IV with Dilaudid 0.5 mg IV and Zofran 4 mg IV for pain relief. Labs are in progress as is urinalysis. I will await PEG suggesting before calling for transvaginal ultrasound. The do not believe she is . - Re-Assessments/Exams Free Text/Narrative Re-Assessment/Exam: 04/01/18 22:11 Labs reveal a normal white count at 8.32. Hemoglobin is a little low 11.1 with hematocrit of 34.3. Platelets are normal 3 or 60,000. Differential is pending. Urinalysis shows 1+ protein and 3+ occult blood 2+ leukocyte esterase 5-10 RBCs per high-power field and 5-10 WBCs per high-power field. 20-30 epithelial cells as well. Moderate bacteria urine culture will be ordered. Of note the urine hCG ordered by the nursing staff is negative. Chemistry is pending. Sodium is 139 potassium is 3.5. Chloride 103 with a bicarbonate 26. And a gap is normal 13.5 BUN is 12. Creatinine is 0.6. Glucose is 99. Calcium is 8.6. Liver function normal. 04/01/18 22:39 She reports that the initial dose of analgesia has not relieved her pain much at all. Will give her Toradol 30 mg IV in the hopes of relieving her dysmenorrhea pain. Quantitative beta-hCG returned at less than 1.0 suggesting she probably was never . 04/01/18 23:13 patient is still having significant lower abdominal cramping pain. Suspect clot within the cervical canal prior. Will repeat Dilaudid 0.5 mg IV. Plan will then be to discharge her to home. Percocet 5/325 milligram tablets 2 provided to the ED since she does not have a credit card. Prescription written for 10 further tablets for the next few days. Suggest Aleve 2 tablets every 8 hours as well to alleviate cramping and bleeding. She' ll be discharged home on Bactrim double strength 1 twice a day for the next 6 days to clear up possible urinary tract infection. She was given initial dose of Levaquin 500 mg in the ED. The nurses tell me now that the sheath they believe she is only a month . They indicate that she had a baby February 27 or so. I was led to believe that her is a 16 months at home. Therefore there is possible confusion about whether this represents her normal post . Or she in fact has oligomenorrhea and this is the first. She's had a lengthy period of time. The possibility of narcotic seeking presents itself. Departure - Departure Time of Disposition: 23:16 Disposition: Home, Self-Care 01 Condition: Fair Clinical Impression: Dysmenorrhea, Lower urinary tract infection Oligomenorrhea Qualifiers: Oligomenorrhea type: secondary Qualified Code(s): N91.4 - Secondary oligomenorrhea - Discharge Information Prescriptions: oxyCODONE HCl/Acetaminophen [Percocet 5-325 mg Tablet] 1 - 2 each PO Q4H PRN # 10 tablet PRN Reason: pain relief. Sulfamethoxazole/Trimethoprim [Bactrim Ds Tablet] 1 each PO BID #12 tablet Instructions: Dysmenorrhea, [id number] Referrals: Ana Maria Chávez NP [Primary Care Provider] - Forms: ED Department Discharge Additional Instructions: Evaluation the emergency room tonight in regards to development of severe lower abdominal cramping pain rating to your back. Home tests were +3 weeks ago on multiple occasions suggesting that she were . Associated breast tenderness with morning nausea. Bleeding started per vagina 9:00 this morning suggesting possible miscarriage. On pelvic examination however the uterus is essentially normal in size for having had a baby or 2. The cervix was closed. test proved to be negative. As you mentioned you have periods that are few and far between which we call oligomenorrhea which means you're not ovulating very often. Therefore the lining of the uterus is very thickened because of not ovulating and this. Is much heavier with associated worsening abdominal cramps than normal. Treatment is plenty of fluids continue Aleve 2 tablets every 8 hours for relief of cramping pain as well as reducing the amount of flow. Vagina. Percocet tabs 5/325 one or 2 every 4-6 hours for the next day or so until the worse part of the period is over. Follow-up with OB/ SENIOR TECHNICAL BUSINESS ANALYST or personal care physician if any further problems occur. - My Orders Last 24 Hours: My Active Orders 04/01/18 20:50 CULTURE URINE [RM] Stat 04/01/18 20:56 UA W/MICROSCOPIC [URIN] Stat - Assessment/Plan Last 24 Hours: My Active Orders 04/01/18 20:50 CULTURE URINE [RM] Stat 04/01/18 20:56 UA W/MICROSCOPIC [URIN] Stat
[2018-04-01] MEDS ORDERED: Ketorolac 30 MG/ML SDV IVPUSH SCH (22:45)
[2018-04-01] MEDS ORDERED: Acetaminophen/oxyCODONE 325-5 MG Tab PO ONE (23:16)
[2018-04-01] MEDS ORDERED: Levofloxacin 250 MG Tab PO ONE (23:19)
== END 2018-04-01 23:39 | disposition home or self-care (01) ==
LOC: JD.ED 20:32
DX: N39.0 Urinary tract infection, site not specified (principal); N91.4 Secondary oligomenorrhea; N94.6 Dysmenorrhea, unspecified; F17.210 Nicotine dependence, cigarettes, uncomplicated; Z88.0 Allergy status to penicillin
CPT/HCPCS: 36415; 80053; 81001; 81025; 84702; 84703; 85007; 85027; 86850; 86900; 86901; 87086; 96361; 96374; 96375; 96376; 99284; A9270; J1170; J1885; J2405; J7042

== ENCOUNTER 2018-04-03 01:03 | Emergency (ER) | payer MEDICAID ==
[2018-04-03 01:14] VITALS: BP 133/100
[2018-04-03] MEDS ORDERED: fentaNYL 100 MCG/2 ML SDV IVPUSH ONE (01:49)
[2018-04-03] MEDS ORDERED: Promethazine 12.5 MG in Sodium Chloride 0.9% 50 ML IV ONE (01:50)
--- NOTE | 2018-04-03 01:54 | EDM.PDOC ---
ED HPI GENERAL MEDICAL PROBLEM - General Chief Complaint: Abdominal Pain Stated Complaint: POSS MISCARRIAGE Time Seen by Provider: 04/03/18 01:49 Source of Information: Reports: Patient History Limitations: Reports: No Limitations - History of Present Illness INITIAL COMMENTS - FREE TEXT/NARRATIVE: 27-year-old female returns to the ED tonight complaining of diffuse lower abdominal cramping pain characteristic of menstrual cramps. She was seen night before with possible miscarriage. She had somewhat misled me in her history taking. She indicated that she had not had a period for 16 months and suggested that her periods were all over the place in terms of oligomenorrhea. To mention that she had a normal vaginal delivery 7 weeks prior. She states that they started having intercourse within the month of having the baby and she became concerned that she was right away. She had done 9 points he tests at home 3 and half weeks ago which were all positive. These were positive because she still had estrogen her system from having recent . On my assessment last evening the ureters had returned to near normal size for a multipara and her quantitative beta-hCG was less than 1 indicating that she was not . Therefore her current pain and dysmenorrhea is due to her first menstrual cycle . She relates today that the flow per vagina has for the most part has eased up. Where she states she woke from sleep with severe lower abdominal cramping pain. It is possible she may have a uterus full of clotted blood. She states she was quite nauseated and therefore did not take her pain medication that was prescribed last evening. I had advised her to take Aleve 2 tablets every 8 hours to reduce her: Cramping and she has not done this either. She states bowel function was normal today. I do have concerns about her possibly seeking narcotics. Onset: Today, Sudden Onset Date: 04/03/18 Onset Time: 00:30 Duration: Minutes: Location: Reports: Abdomen, Radiates to (Diffuse lower abdominal cramping pain rating into her back. Diffuse pain in her lower back) Quality: Reports: Ache, Sharp, Stabbing Severity: Severe (Her pain is rated as 9 out of 10 but she does not appear to be in that much distress.) Improves with: Reports: None Worsens with: Reports: None Context: Reports: Other (After investigations completed last night with a quantitative beta-hCG of less than 1 she is not . She is experiencing severe dysmenorrhea due to first period post ..). Denies: Activity, Exercise, Lifting, Sick Contact, Trauma Associated Symptoms: Reports: Loss of Appetite, Malaise, Nausea/Vomiting. 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) (Was prescribed Percocet tablets last evening for pain relief.) Bilateral Lower Abdomen Pain Score (Numeric/FACES): 9 - Related Data Allergies Allergy/AdvReac Type Severity Reaction Status Date / Time Penicillins Allergy Hives Verified 04/03/18 01:09 Home Meds: Home Meds ClonazePAM [KlonoPIN] 0.5 mg PO TID PRN 08/16/17 [History] Sulfamethoxazole/Trimethoprim [Bactrim Ds Tablet] 1 each PO BID #12 tablet 04/01 [Rx] oxyCODONE HCl/Acetaminophen [Percocet 5-325 mg Tablet] 1 - 2 each PO Q4H PRN # 10 tablet 04/01/18 [Rx] Ibuprofen 200 mg PO ONCALL 04/03/18 [History] Past Medical History HEENT History: Reports: None Cardiovascular History: Reports: None Respiratory History: Reports: None Genitourinary History: Reports: UTI, Recurrent, Other (See Below) Other Genitourinary History: miscarriage 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: , 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 OB/BYN History: x4 Musculoskeletal History: Reports: Other (See Below) Other Musculoskeletal History: ankle sprain Neurological History: Reports: Other (See Below) Other Neuro History: depression Psychiatric History: Reports: Anxiety, Depression Endocrine/Metabolic History: Reports: None Hematologic History: Reports: Anemia Dermatologic History: Reports: Other (See Below) Other Dermatologic History: Frequent abscess' to groin--MRSA swab negative x3 - Infectious Disease History 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: MRSA - Past Surgical History HEENT Surgical History: Reports: Oral Surgery Female Surgical History: Reports: Cervical Cryotherapy Social & Family History - Family History Family Medical History: Noncontributory Cardiac: Reports: [place] Endocrine/Metabolic: Reports: Diabetes, type II - Tobacco Use Smoking Status *Q: Current Every Day Smoker Years of Tobacco use: 10 Packs/Tins Daily: 0.5 - Caffeine Use Caffeine Use: Reports: Soda - Recreational Drug Use Recreational Drug Use: No - Living Situation & Occupation Living situation: Reports: Occupation: Employed ED ROS GENERAL - Review of Systems Review Of Systems: See Below Constitutional: Reports: Chills, Malaise, Weakness, Fatigue, Decreased Appetite , Weight Loss HEENT: Reports: No Symptoms Respiratory: Reports: No Symptoms Cardiovascular: Reports: No Symptoms Endocrine: Reports: Fatigue GI/Abdominal: Reports: Abdominal Pain (See history of present illness) : Reports: Irregular Menses, Other (By history she has a regular menses. She is 7 weeks with no period until starting yesterday. Home test done 3 weeks prior 9 were positive and she was convinced that she was once again. She therefore was convinced that menses last evening was authorization representative miscarriage. The quantitative beta-hCG was less than 1.0. She is not she is experiencing her first. Post ) Musculoskeletal: Reports: Back Pain Skin: Reports: No Symptoms Neurological: Reports: No Symptoms Psychiatric: Reports: Anxiety Hematologic/Lymphatic: Reports: No Symptoms Immunologic: Reports: No Symptoms ED EXAM, GI/ABD - Physical Exam Exam: See Below Exam Limited By: No Limitations General Appearance: Alert, Mild Distress Eyes: Bilateral: Normal Appearance Throat/Mouth: Normal Inspection, Normal Lips, Normal Oropharynx, Other Head: Atraumatic (Tongue is mildly dry and coated), Normocephalic Neck: Normal Inspection, Supple, Non-Tender, Full Range of Motion. No: Lymphadenopathy (L), Lymphadenopathy (R) Respiratory/Chest: No Respiratory Distress, Lungs Clear, Normal Breath Sounds, No Accessory Muscle Use Cardiovascular: Normal Peripheral Pulses, Regular Rate, Rhythm, No Edema, No Gallop, No Murmur, No Rub GI/Abdominal Exam: Normal Bowel Sounds, Soft, Tender. No: Guarding (Tenderness is suprapubically. No guarding or rebound tenderness), Rigid, Rebound (Female) Exam: Other (Pelvic exam deferred as it was done last evening within the last 24 hours) Back Exam: Normal Inspection. No: CVA Tenderness (L), CVA Tenderness (R) Extremities: Normal Inspection, Normal Range of Motion, Non-Tender, No Pedal Edema Neurological: Alert, Oriented, CN II-XII Intact, Normal Cognition, Normal Gait Psychiatric: Normal Affect, Normal Mood Skin Exam: Warm, Dry, Intact, Normal Color, No Rash Course - Vital Signs Last Recorded V/S: Last Vital Signs Temp 36.4 C 04/03/18 01:10 Pulse 67 04/03/18 01:10 Resp 18 04/03/18 01:10 BP 133/100 H 04/03/18 01:10 Pulse Ox 98 04/03/18 01:10 - Orders/Labs/Meds Orders: Active Orders 24 hr Category Date Time Status URINALYSIS W/MICROSCOPIC [UA W/MICROSCOPIC] [URIN] Stat Lab 04/03/18 02:27 Ordered Dextrose 5%-0.9% NaCl [Dextrose 5%-Normal Saline] 1,000 Med 04/03/18 02:00 Active ml IV ASDIRECTED Ketorolac [Toradol] Med 04/03/18 02:00 Active 30 mg IVPUSH ONETIME Medication Orders Dextrose/Sodium Chloride (Dextrose 5%-Normal Saline) 1,000 mls @ 999 mls/hr IV ASDIRECTED LJ Last Admin: 04/03/18 02:22 Dose: 999 mls/hr Ketorolac Tromethamine (Toradol) 30 mg IVPUSH ONETIME LJ Last Admin: 04/03/18 02:19 Dose: 30 mg Labs: Laboratory Tests 04/03/18 Range/Units 02:27 Urine Color Yellow (Yellow) Urine Appearance Clear (Clear) Urine pH 7.0 (5.0-8.0) Ur Specific [place] 1.020 (1.005-1.030) Urine Protein Negative (Negative) Urine Glucose (UA) Negative (Negative) Urine Ketones Negative (Negative) Urine Occult Blood Negative (Negative) Urine Nitrite Negative (Negative) Urine Bilirubin Negative (Negative) Urine Urobilinogen 0.2 (0.2-1.0) Ur Leukocyte Esterase Trace H (Negative) Urine RBC 0-5 (0-5) /hpf Urine WBC 0-5 (0-5) /hpf Ur Epithelial Cells 5-10 H (0-5) /hpf Urine Bacteria Few (FEW) /hpf Urine Mucus Few (FEW) /hpf Meds: Medications Generic Name Dose Route Start Last Admin Trade Name Freq PRN Reason Stop Dose Admin Dextrose/Sodium Chloride 1,000 mls @ 999 mls/hr 04/03/18 02:00 04/03/18 02:22 Dextrose 5%-Normal Saline IV 999 mls/hr ASDIRECTED LJ Administration Ketorolac Tromethamine 30 mg 04/03/18 02:00 04/03/18 02:19 Toradol IVPUSH 30 mg ONETIME LJ Administration Discontinued Medications Generic Name Dose Route Start Last Admin Trade Name Johnathan PRN Reason Stop Dose Admin Fentanyl 100 mcg 04/03/18 01:49 04/03/18 02:21 Sublimaze IVPUSH 04/03/18 01:50 100 mcg ONETIME ONE Administration Hydromorphone HCl 0.5 mg 04/03/18 03:11 04/03/18 03:17 Dilaudid IVPUSH 04/03/18 03:12 0.5 mg ONETIME ONE Administration Promethazine HCl 12.5 mg/ 50.5 mls @ 100 mls/hr 04/03/18 01:50 04/03/18 02:22 Sodium Chloride IV 04/03/18 02:20 100 mls/hr ONETIME ONE Administration - Radiology Interpretation Free Text/Narrative:: 27-year-old female presents once again to the ED complaining of diffuse lower abdominal cramping pain characteristic of dysmenorrhea. Patient hasn't been identified to be about 7 weeks . She was seen through the ED last evening with heavy menstrual bleeding with clots. He was convinced that she was and miscarrying. Her beta-hCG last night was less than 1, quantitative assessment. It appears that this is her first. . She states that she did have abdominal cramping pain most of the day. She awoke from sleep at about 0 030 hours with severe lower abdominal cramping pain associated with nausea but no vomiting. She states she did need much or drink much yesterday due to the pain. Examination reveals a benign abdomen with normal bowel sounds. Tenderness suprapubically. An IV D5 normal saline at open. Fentanyl 100 g IV for pain relief as Dilaudid did not seem to help much last night. Also will be given Phenergan 12.5 mg IV. This will be through minibag over 15 minutes. Also given Toradol 30 mg IV for pain relief. Will have a urinalysis were collected if possible. Last night urinalysis showed positive for blood and leukocytes and it was unclear whether or not she could have an occult urinary tract infection. She was given Levaquin 500 mg per ora last night instructed fruit or nut picker prescription for Bactrim double strength 1 twice a day today for the next 5 days. I had ordered a urine culture but I did not get done as well and look at the notes there is nothing in microbiology at this time. Therefore she will be primarily treated for pain management. - Re-Assessments/Exams Free Text/Narrative Re-Assessment/Exam: 04/03/18 03:12 patient reports that she still having significant lower abdominal discomfort although she looks much better than she did initially. Will give her a small dose of Dilaudid 0.5 mg IV for further pain relief. Plan will be then to discharge her to home. Departure - Departure Time of Disposition: 03:30 Disposition: Home, Self-Care 01 Condition: Fair Clinical Impression: Dysmenorrhea, unspecified, Lower urinary tract infection Abdominal pain Qualifiers: Abdominal location: lower abdomen, unspecified Qualified Code(s): R10.30 - Lower abdominal pain, unspecified - Discharge Information Referrals: Ana Maria Chávez NP [Primary Care Provider] - Forms: ED Department Discharge Additional Instructions: Evaluation the emergency room tonight in regards to uncontrolled lower abdominal cramping pain. Pain appears to be due to dysmenorrhea or painful.. This is her first period since you had the baby 7 weeks ago. Therefore there'll be increased flow and perhaps clotting within the uterus that is causing increased cramping and abdominal pain. Identified associated low-grade urinary tract infection on last night's examination and therefore it is important for you to continue your antibiotic Bactrim double strength twice daily. Today to retreat with IV fluids. Initial pain management was fentanyl 100 g with Phenergan 25 mg IV. Subsequently you are given Dilaudid IV as well for further pain relief before discharge to home. May continue use Percocet tablets one or 2 every 4-6 hours with Motrin 600 mg every 6 hours or Aleve 2 tablets every 8 hours to further alleviate dysmenorrhea pain. Follow-up with personal physician or NURSE'S ASSISTANT if any further problems occur. - My Orders Last 24 Hours: My Active Orders 04/03/18 02:00 Dextrose 5%-0.9% NaCl [Dextrose 5%-Normal Saline] 1,000 ml IV ASDIRECTED Ketorolac [Toradol] 30 mg IVPUSH ONETIME 04/03/18 02:27 URINALYSIS W/MICROSCOPIC [UA W/MICROSCOPIC] [URIN] Stat - Assessment/Plan Last 24 Hours: My Active Orders 04/03/18 02:00 Dextrose 5%-0.9% NaCl [Dextrose 5%-Normal Saline] 1,000 ml IV ASDIRECTED Ketorolac [Toradol] 30 mg IVPUSH ONETIME 04/03/18 02:27 URINALYSIS W/MICROSCOPIC [UA W/MICROSCOPIC] [URIN] Stat
[2018-04-03] MEDS ORDERED: Dextrose 5%-0.9% NaCl 1,000 ML IV SCH (02:00)
[2018-04-03] MEDS ORDERED: Ketorolac 30 MG/ML SDV IVPUSH SCH (02:00)
[2018-04-03] MEDS ORDERED: HYDROmorphone 0.5 MG/0.5 ML SYRINGE IVPUSH ONE (03:11)
== END 2018-04-03 03:46 | disposition home or self-care (01) ==
LOC: JD.ED 01:03
DX: N94.6 Dysmenorrhea, unspecified (principal); N39.0 Urinary tract infection, site not specified; F17.210 Nicotine dependence, cigarettes, uncomplicated; Z88.0 Allergy status to penicillin
CPT/HCPCS: 81001; 96361; 96365; 96375; 99284; J1170; J1885; J2550; J3010; J7042; J7050

== ENCOUNTER 2018-04-18 23:13 | Emergency (ER) | payer MEDICAID ==
[2018-04-18 23:44] VITALS: BP 112/72
[2018-04-19] MEDS ORDERED: HYDROmorphone 0.5 MG/0.5 ML SYRINGE IM ONE (00:24)
--- NOTE | 2018-04-19 00:26 | EDM.PDOC ---
ED HPI GENERAL MEDICAL PROBLEM - General Chief Complaint: Skin Complaint Stated Complaint: POSS STAPH INFECTION Time Seen by Provider: 04/18/18 23:44 Source of Information: Reports: Patient History Limitations: Reports: No Limitations - History of Present Illness INITIAL COMMENTS - FREE TEXT/NARRATIVE: Is a 27-year-old female. She had onset of redness and swelling down in the perineal area on the left side for the last day or so. It is gotten more painful and more swollen and she comes to the ER for evaluation. She has a history of MRSA and she's had abscesses in her skin in several places in the past. Some of these abscesses have had to be opened to resolve. He comes to the ER because of the pain and wanting some antibiotics and possibly opening the developing abscess in the perineal area. Right Groin Pain Score (Numeric/FACES): 10 - Related Data Allergies Allergy/AdvReac Type Severity Reaction Status Date / Time Penicillins Allergy Hives Verified 04/18/18 23:44 Home Meds: Home Meds Hydrocodone/Acetaminophen [Hydrocodon-Acetaminophen 5-325] 1 each PO Q8H PRN # 15 tablet 04/19/18 [Rx] Sulfamethoxazole/Trimethoprim [Septra DS] 1 each PO BID #20 tab 04/19/18 [Rx] Past Medical History HEENT History: Reports: None Cardiovascular History: Reports: None Respiratory History: Reports: None Genitourinary History: Reports: UTI, Recurrent, Other (See Below) Other Genitourinary History: miscarriage 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: , 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 OB/BYN History: x4 Musculoskeletal History: Reports: Other (See Below) Other Musculoskeletal History: ankle sprain Neurological History: Reports: Other (See Below) Other Neuro History: depression Psychiatric History: Reports: Anxiety, Depression Endocrine/Metabolic History: Reports: None Hematologic History: Reports: Anemia Dermatologic History: Reports: Other (See Below) Other Dermatologic History: Frequent abscess' to groin--MRSA swab negative x3 - Infectious Disease History 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: MRSA - Past Surgical History HEENT Surgical History: Reports: Oral Surgery Female Surgical History: Reports: Cervical Cryotherapy Social & Family History - Family History Family Medical History: Noncontributory Cardiac: Reports: [place] Endocrine/Metabolic: Reports: Diabetes, type II - Caffeine Use Caffeine Use: Reports: Soda - Living Situation & Occupation Living situation: Reports: Occupation: Employed ED ROS GENERAL - Review of Systems Review Of Systems: See Below Constitutional: Denies: Fever, Chills HEENT: Reports: No Symptoms Respiratory: Reports: No Symptoms Cardiovascular: Reports: No Symptoms Endocrine: Reports: No Symptoms GI/Abdominal: Reports: No Symptoms : Reports: Other (As per history of present illness) Musculoskeletal: Reports: No Symptoms Skin: Reports: No Symptoms Neurological: Reports: No Symptoms Psychiatric: Reports: No Symptoms Hematologic/Lymphatic: Reports: No Symptoms ED EXAM, SKIN/RASH Exam: See Below Exam Limited By: No Limitations General Appearance: Alert, WD/WN, No Apparent Distress Eye Exam: Bilateral Eye: Normal Inspection Ears: Normal External Exam Nose: Normal Inspection Throat/Mouth: Normal Inspection, Normal Lips, Normal Voice, No Airway Compromise Head: Normocephalic Neck: Supple Respiratory/Chest: No Respiratory Distress (Female) Exam: Other (The vaginal and perineal area is shaven, in the perineal area down below the vagina is a reddened area large patch probably 7 cm x 5 cm with a very indurated middle but it is not really fluctuant on palpation though it is very tender, this appears to be a developing abscess though I'm not certain it is ready for opening at this time, I am also concerned that this could be a perirectal abscess as well.) Back Exam: Full Range of Motion Extremities: Normal Inspection, Normal Range of Motion Neurological: Alert, Oriented Psychiatric: Normal Affect, Normal Mood Skin: Warm, Dry Course - Vital Signs Last Recorded V/S: Last Vital Signs Temp 98.2 F 04/18/18 23:41 Pulse 103 H 04/18/18 23:41 Resp 18 04/18/18 23:41 BP 112/72 04/18/18 23:41 Pulse Ox 100 04/18/18 23:41 - Orders/Labs/Meds Labs: Laboratory Tests 04/19/18 Range/Units 01:10 WBC 15.96 H (3.98-10.04) K/mm3 RBC 4.16 (3.98-5.22) M/mm3 Hgb 11.6 (11.2-15.7) gm/L Hct 35.9 (34.1-44.9) % MCV 86.3 (79.4-94.8) fl MCH 27.9 (25.6-32.2) pg MCHC 32.3 (32.2-35.5) g/dl RDW Std Deviation 60.0 H (36.4-46.3) fL Plt Count 423 H (182-369) K/mm3 MPV 10.0 (9.4-12.3) fl Neut % (Auto) 68.9 (34.0-71.1) % Lymph % (Auto) 22.4 (19.3-51.7) % [place] % (Auto) 5.9 (4.7-12.5) % Eos % (Auto) 2.2 (0.7-5.8) Baso % (Auto) 0.3 (0.1-1.2) % Neut # (Auto) 11.00 H (1.56-6.13) K/mm3 Lymph # (Auto) 3.58 (1.18-3.74) K/mm3 [place] # (Auto) 0.94 H (0.24-0.36) K/mm3 Eos # (Auto) 0.35 (0.04-0.36) K/mm3 Baso # (Auto) 0.05 (0.01-0.08) K/mm3 Meds: Medications Discontinued Medications Generic Name Dose Route Start Last Admin Trade Name Haimq PRN Reason Stop Dose Admin Hydromorphone HCl 0.5 mg 04/19/18 00:24 04/19/18 00:38 Dilaudid IM 04/19/18 00:25 0.5 mg ONETIME ONE Administration - Re-Assessments/Exams Free Text/Narrative Re-Assessment/Exam: 04/19/18 00:25 I am concerned that this might be a perirectal abscess since it is in the perineum. It does not appear to be developed enough at this time though it is indurated and painful that it has no fluctuance or reluctant to open it here in the ER. I will put her on something for pain and some Septra DS for the infection and refer her to the surgeon that's transportation project manager for evaluation and treatment. She needs to call the surgeon Friday morning so he can see her and determine what needs to be done. 04/19/18 01:42 Spoke to the patient regarding the elevated white count and that she needs to follow-up with the surgeon and needs to make certain she takes her antibiotics faithfully. If she starts running a fever or has nausea and vomiting she needs to return to the ER. Departure - Departure Time of Disposition: 01:42 Disposition: Home, Self-Care 01 Condition: Fair Clinical Impression: Cellulitis, perineum, Perineal abscess - Discharge Information Prescriptions: Hydrocodone/Acetaminophen [Hydrocodon-Acetaminophen 5-325] 1 each PO Q8H PRN # 15 tablet PRN Reason: Pain Sulfamethoxazole/Trimethoprim [Septra DS] 1 each PO BID #20 tab Referrals: Stuart Anne MD [Physician] - Forms: ED Department Discharge Additional Instructions: Take the antibiotics faithfully when you get them tomorrow, take the medicine as needed for pain, use very warm sitz baths at least 2-3 times a day to help that area develop so it can be opened up when you see the surgeon, return to the ER if your symptoms worsen or you develop a fever
== END 2018-04-19 01:55 | disposition home or self-care (01) ==
LOC: JD.ED 23:13
DX: L03.315 Cellulitis of perineum (principal); L02.215 Cutaneous abscess of perineum; Z88.0 Allergy status to penicillin
CPT/HCPCS: 36415; 85025; 96372; 99283; J1170

== ENCOUNTER 2018-05-12 14:33 | Emergency (ER) | payer MEDICAID ==
[2018-05-12 15:03] VITALS: BP 111/78
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
[2018-05-12] MEDS ORDERED: HYDROmorphone 0.5 MG/0.5 ML SYRINGE IM ONE (16:51)
== END 2018-05-12 17:10 | disposition home or self-care (01) ==
LOC: JD.ED 14:33
DX: L03.317 Cellulitis of buttock (principal); F17.210 Nicotine dependence, cigarettes, uncomplicated; F41.9 Anxiety disorder, unspecified; F32.9 Major depressive disorder, single episode, unspecified; Z79.899 Other long term (current) drug therapy; Z88.0 Allergy status to penicillin
CPT/HCPCS: 36415; 80053; 85025; 86140; 96372; 99283; J1170

== ENCOUNTER 2018-06-18 12:47 | Emergency (ER) | payer MEDICAID ==
[2018-06-18 13:06] VITALS: BP 110/60
[2018-06-18] MEDS ORDERED: HYDROmorphone 0.5 MG/0.5 ML SYRINGE IVPUSH ONE (13:34)
[2018-06-18] MEDS ORDERED: Sodium Chloride 0.9% 500 ML IV ONE (13:34)
[2018-06-18] MEDS ORDERED: Sodium Chloride 0.9% 10 ML Syringe FLUSH PRN (13:34)
--- NOTE | 2018-06-18 13:43 | EDM.PDOC ---
ED HPI GENERAL MEDICAL PROBLEM - General Chief Complaint: [employer]IVE [employer]ARY [employer] Problem Stated Complaint: POSSIBLE MISSCARRIGE Time Seen by Provider: 06/18/18 13:03 Source of Information: Reports: Patient, RN Notes Reviewed - History of Present Illness INITIAL COMMENTS - FREE TEXT/NARRATIVE: 28 year old female with onset of vag bleeding this AM several hrs ago, also having lower pelvid and abd pressure, cramping. Her LMP was about 6 weeks ago, believes she is . Had a positive home preg test a few wks ago. Had had morning nausea. No prior bleeding or spotting. Lower Abdomen Pain Score (Numeric/FACES): 10 - Related Data Allergies Allergy/AdvReac Type Severity Reaction Status Date / Time Penicillins Allergy Hives Verified 06/18/18 13:01 Home Meds: Home Meds Acetaminophen/HYDROcodone [[place] 325-5 MG] 1 tab PO Q6H PRN #14 tablet 06/18/18 [Rx] clonazePAM [Klonopin] 0.5 mg PO TID 06/18/18 [History] Past Medical History HEENT History: Reports: None Cardiovascular History: Reports: None Respiratory History: Reports: None Genitourinary History: Reports: UTI, Recurrent, Other (See Below) Other Genitourinary History: miscarriage [employer]EC[employer]IVE [employer]ARY [employer] History: Reports: , 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 Musculoskeletal History: Reports: Other (See Below) Other Musculoskeletal History: ankle sprain Neurological History: Reports: Other (See Below) Other Neuro History: depression Psychiatric History: Reports: Anxiety, Depression Endocrine/Metabolic History: Reports: None Hematologic History: Reports: Anemia Dermatologic History: Reports: Other (See Below) Other Dermatologic History: Frequent abscess' to groin--MRSA swab negative x3 - Infectious Disease History 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: MRSA - Past Surgical History HEENT Surgical History: Reports: Oral Surgery Female Surgical History: Reports: Cervical Cryotherapy Social & Family History - Family History Family Medical History: Noncontributory Cardiac: Reports: [place] Endocrine/Metabolic: Reports: Diabetes, type II - Tobacco Use Smoking Status *Q: Current Every Day Smoker Years of Tobacco use: 15 Packs/Tins Daily: 0.5 - Caffeine Use Caffeine Use: Reports: Soda - Recreational Drug Use Recreational Drug Use: No - Living Situation & Occupation Living situation: Reports: Occupation: Employed ED ROS GENERAL - Review of Systems Review Of Systems: See Below Constitutional: Denies: Fever, Chills, Diaphoresis HEENT: Reports: No Symptoms Respiratory: Denies: Shortness of Breath, Pleuritic Chest Pain Cardiovascular: Denies: Chest Pain GI/Abdominal: Reports: Abdominal Pain (lower mid abd and pelvic). Denies: Nausea, Vomiting Musculoskeletal: Denies: Shoulder Pain, Arm Pain, Back Pain Skin: Reports: No Symptoms Neurological: Reports: No Symptoms ED EXAM - Physical Exam Exam: See Below General Appearance: Alert, Moderate Distress Throat/Mouth: Normal Inspection Head: No: Facial Swelling Neck: Supple Respiratory/Chest: No Respiratory Distress, Lungs Clear, Normal Breath Sounds Cardiovascular: Regular Rate, Rhythm GI/Abdominal Exam: Soft, Tender (lower mid abd and pelvis) Extremities: Normal Inspection. No: Pedal Edema, Leg Pain Neurological: Alert, Oriented, No Motor/Sensory Deficits Skin Exam: Warm, Dry, Normal Color Course - Vital Signs Last Recorded V/S: Last Vital Signs Temp 99.2 F 06/18/18 13:01 Pulse 122 H 06/18/18 13:01 Resp 13 06/18/18 13:01 BP 110/60 06/18/18 13:01 Pulse Ox 99 06/18/18 13:01 - Orders/Labs/Meds Orders: Active Orders 24 hr Category Date Time Status Peripheral IV Care [RC] . DIRECTED Care 06/18/18 13:35 Active Sodium Chloride 0.9% [Saline Flush] Med 06/18/18 13:34 Active 10 ml FLUSH ASDIRECTED PRN Peripheral IV Insertion Adult [OM.PC] Stat Oth 06/18/18 13:34 Ordered Medication Orders Sodium Chloride (Saline Flush) 10 ml FLUSH ASDIRECTED PRN PRN Reason: Keep Vein Open Last Admin: 06/18/18 13:48 Dose: 10 ml Labs: Laboratory Tests 06/18/18 06/18/18 06/18/18 Range/Units 12:55 13:45 13:45 WBC 9.00 (3.98-10.04) K/mm3 RBC 4.25 (3.98-5.22) M/mm3 Hgb 12.4 (11.2-15.7) gm/L Hct 37.4 (34.1-44.9) % MCV 88.0 (79.4-94.8) fl MCH 29.2 (25.6-32.2) pg MCHC 33.2 (32.2-35.5) g/dl RDW Std Deviation 45.4 (36.4-46.3) fL Plt Count 424 H (182-369) K/mm3 MPV 9.6 (9.4-12.3) fl Neut % (Auto) 64.1 (34.0-71.1) % Lymph % (Auto) 27.6 (19.3-51.7) % Harvey % (Auto) 6.9 (4.7-12.5) % Eos % (Auto) 0.7 (0.7-5.8) Baso % (Auto) 0.4 (0.1-1.2) % Neut # (Auto) 5.77 (1.56-6.13) K/mm3 Lymph # (Auto) 2.48 (1.18-3.74) K/mm3 Harvey # (Auto) 0.62 H (0.24-0.36) K/mm3 Eos # (Auto) 0.06 (0.04-0.36) K/mm3 Baso # (Auto) 0.04 (0.01-0.08) K/mm3 HCG, Quant 82005.0 mIU/mL Urine HCG, Qual Positive (NEGATIVE) Meds: Medications Generic Name Dose Route Start Last Admin Trade Name Freq PRN Reason Stop Dose Admin Sodium Chloride 10 ml 06/18/18 13:34 06/18/18 13:48 Saline Flush FLUSH 10 ml ASDIRECTED PRN Administration Keep Vein Open Discontinued Medications Generic Name Dose Route Start Last Admin Trade Name Freq PRN Reason Stop Dose Admin Hydromorphone HCl 0.5 mg 06/18/18 13:34 06/18/18 13:48 Dilaudid IVPUSH 06/18/18 13:35 0.5 mg ONETIME ONE Administration Sodium Chloride 500 mls @ 999 mls/hr 06/18/18 13:34 06/18/18 13:48 Normal Saline IV 06/18/18 14:04 999 mls/hr .BOLUS ONE Administration Morphine Sulfate 2 mg 06/18/18 14:58 06/18/18 15:03 Morphine IVPUSH 06/18/18 14:59 2 mg ONETIME ONE Administration Morphine Sulfate 2 mg 06/18/18 15:42 06/18/18 15:51 Morphine IVPUSH 06/18/18 15:43 2 mg ONETIME ONE Administration Morphine Sulfate 2 mg 06/18/18 16:53 06/18/18 17:05 Morphine IVPUSH 06/18/18 16:54 2 mg ONETIME ONE Administration Morphine Sulfate 2 mg 06/18/18 17:32 Morphine IVPUSH 06/18/18 17:33 ONETIME ONE - Re-Assessments/Exams Free Text/Narrative Re-Assessment/Exam: 06/18/18 17:35 US shows area of subchorionic hemorrhage, single intrauterine gest. sac, 5 wks , 5 days, see report for details, also fluid R adnexa. 06/18/18 17:38 Departure - Departure Time of Disposition: 17:39 Disposition: Home, Self-Care 01 Condition: Fair Clinical Impression: Hemorrhagic cyst of right ovary, First trimester , Threatened in early - Discharge Information Prescriptions: Acetaminophen/HYDROcodone [[place] 325-5 MG] 1 tab PO Q6H PRN #14 tablet PRN Reason: Pain Referrals: Akin Burton MD [Primary Care Provider] - Forms: ED Department Discharge Additional Instructions: rest, off work for now, no exertional activity for now, drink plenty of water to maintain hydration, Try see Dr Burton in follow up early next week, call for first available appt., tylenol for mild to moderate pain or hydrocodone if needed for severe pain, Do not take tylenol and hydrocodone at the same time. Return to ED if saturating more than 2 pads per hour for more than 1 or 2 hours. - My Orders Last 24 Hours: My Active Orders 06/18/18 13:34 Sodium Chloride 0.9% [Saline Flush] 10 ml FLUSH ASDIRECTED PRN Peripheral IV Insertion Adult [OM.PC] Stat 06/18/18 13:35 Peripheral IV Care [RC] . DIRECTED - Assessment/Plan Last 24 Hours: My Active Orders 06/18/18 13:34 Sodium Chloride 0.9% [Saline Flush] 10 ml FLUSH ASDIRECTED PRN Peripheral IV Insertion Adult [OM.PC] Stat 06/18/18 13:35 Peripheral IV Care [RC] . DIRECTED
[2018-06-18] MEDS ORDERED: Morphine 2 MG/ML Syringe IVPUSH ONE ×4 (14:58→17:32)
--- NOTE | 2018-06-18 17:04 | US ---
First trimester obstetrical ultrasound: Multiple real-time images were obtained transvaginally. Comparison: No prior study for current . Findings: Single intrauterine gestational sac is seen. Yolk sac is identified but no pole is seen at this time. Heterogeneous area is seen next to the gestational sac which is felt compatible with fairly large subchorionic hemorrhage. There is some free fluid being seen within the right adnexa which is slightly echogenic raising the possibility of a mild amount of blood from nonvisualized hemorrhagic cyst rupture. Ovaries otherwise are felt to be within normal limits. Measurements: Gestational sac: 1.11 cm - 5 weeks 5 days Impression: 1. Single intrauterine gestational sac. Sac size correlates to 5 weeks and 5 days. 2. Fairly large subchorionic hemorrhage. 3. Mild amount of echogenic fluid within the right adnexa suspicious for blood from nonvisualized hemorrhagic cyst rupture. Note: Recommend follow-up study in 11 days to confirm normal development being . Diagnostic code #3
== END 2018-06-18 17:48 | disposition home or self-care (01) ==
LOC: JD.ED 12:47 → SUPCPDRO 12:47 → JD.ED 17:48
DX: O20.0 Threatened abortion (principal); O99.331 Smoking (tobacco) complicating pregnancy, first trimester; F17.210 Nicotine dependence, cigarettes, uncomplicated; Z88.0 Allergy status to penicillin; Z3A.01 Less than 8 weeks gestation of pregnancy
CPT/HCPCS: 36415; 76817; 81025; 84702; 85025; 96361; 96374; 96375; 96376; 99284; J1170; J2270; J7040; J7050

== ENCOUNTER 2018-07-14 19:03 | Emergency (ER) | payer MEDICAID ==
[2018-07-14 19:16] VITALS: BP 121/86
[2018-07-14] MEDS ORDERED: Sodium Chloride 0.9% 10 ML Syringe FLUSH PRN (19:40)
[2018-07-14] MEDS ORDERED: Sodium Chloride 0.9% 1,000 ML IV ONE (19:45)
[2018-07-14] MEDS ORDERED: Acetaminophen 325 MG Tab PO STA (21:33)
--- NOTE | 2018-07-14 21:55 | EDM.PDOC ---
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 Patient was in [place] approximately one week ago, last July 08. She states that she had an there. This was an elective . She reports she has not had any bleeding and had only minor cramping since the . She reports today around 1400 she developed severe pain to her lower abdomen and has been bleeding. Reports that she's been passing clots. She states that she is changing a pad about every hour. She reports associated symptoms of severe back pain, lightheadedness and dizziness. No syncope. No urinary symptoms. patient is a . Patient reports her [employer]AFF OFFICER provider is Dr. Anderson, however she has not yet seen him. She did contact the clinic today and spoke with Dr. Burton's nurse. She is scheduled to have labs and ultrasound tomorrow for her symptoms. He did call some Keflex into the pharmacy which she has not yet picked up. Reviewed the patient's records show that she is blood type A positive. 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: x4 Musculoskeletal History: Reports: Other (See Below) Other Musculoskeletal History: ankle sprain Neurological History: Reports: Other (See Below) Other Neuro History: depression Psychiatric History: Reports: Anxiety, Depression Endocrine/Metabolic History: Reports: None Hematologic History: Reports: Anemia Dermatologic History: Reports: Other (See Below) Other Dermatologic History: Frequent abscess' to groin--MRSA swab negative x3 - Infectious Disease History 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: MRSA - Past Surgical History HEENT Surgical History: Reports: Oral Surgery Social & Family History - Family History Family Medical History: Noncontributory Cardiac: Reports: ID Endocrine/Metabolic: Reports: Diabetes, type II - Tobacco Use Smoking Status *Q: Current Every Day Smoker Years of Tobacco use: 13 Packs/Tins Daily: 1 - Caffeine Use Caffeine Use: Reports: None - Recreational Drug Use Recreational Drug Use: No - Living Situation & Occupation Living situation: Reports: Occupation: Employed ED ROS GENERAL - Review of Systems Review Of Systems: See Below : Reports: Pain, Other (vaginal bleeding, changing a pad every hour). Denies : Dysuria Musculoskeletal: Reports: Back Pain (low back) Neurological: Reports: Dizziness. Denies: Syncope ED EXAM - Physical Exam Exam: See Below Exam Limited By: No Limitations General Appearance: Alert, WD/WN, No Apparent Distress Ears: Normal External Exam Nose: Normal Inspection Throat/Mouth: Normal Inspection, Normal Voice, No Airway Compromise Respiratory/Chest: No Respiratory Distress, Lungs Clear, Normal Breath Sounds Cardiovascular: Normal Peripheral Pulses, Regular Rate, Rhythm, No Murmur GI/Abdominal Exam: Normal Bowel Sounds, Tender (lower abdomen, suprapubic) (Female) Exam: Vaginal Bleeding (clots present). No: Cervical Dilatation, Products of Conception Neurological: Alert, Oriented, Normal Cognition Psychiatric: Normal Affect, Normal Mood Skin Exam: Warm, Dry, Normal Color Course - Vital Signs Last Recorded V/S: Last Vital Signs Temp 97.8 F 07/14/18 19:08 Pulse 83 07/14/18 19:08 Resp 15 07/14/18 19:08 BP 121/86 07/14/18 19:08 Pulse Ox 100 07/14/18 19:08 - Orders/Labs/Meds Orders: Active Orders 24 hr Category Date Time Status Orthostatic Vital Signs [RC] ASDIRECTED Care 07/14/18 19:45 Active Pelvic Exam, Set Up [RC] ASDIRECTED Care 07/14/18 21:50 Active Peripheral IV Care [RC] . DIRECTED Care 07/14/18 19:43 Active Transvaginal Non OB [US] Stat Exams 07/14/18 19:40 Taken UA W/MICROSCOPIC [URIN] Stat Lab 07/14/18 17:15 Ordered Peripheral IV Insertion Adult [OM.PC] Routine Oth 07/14/18 19:40 Ordered Labs: Laboratory Tests 07/14/18 07/14/18 07/14/18 Range/Units 17:15 20:20 20:20 WBC 14.50 H (3.98-10.04) K/mm3 RBC 3.37 L (3.98-5.22) M/mm3 Hgb 10.2 L (11.2-15.7) gm/L Hct 31.6 L (34.1-44.9) % MCV 93.8 (79.4-94.8) fl MCH 30.3 (25.6-32.2) pg MCHC 32.3 (32.2-35.5) g/dl RDW Std Deviation 49.0 H (36.4-46.3) fL Plt Count 428 H (182-369) K/mm3 MPV 9.7 (9.4-12.3) fl Neut % (Auto) 69.3 (34.0-71.1) % Lymph % (Auto) 22.3 (19.3-51.7) % Motley % (Auto) 5.2 (4.7-12.5) % Eos % (Auto) 2.6 (0.7-5.8) Baso % (Auto) 0.4 (0.1-1.2) % Neut # (Auto) 10.04 H (1.56-6.13) K/mm3 Lymph # (Auto) 3.23 (1.18-3.74) K/mm3 Motley # (Auto) 0.76 H (0.24-0.36) K/mm3 Eos # (Auto) 0.38 H (0.04-0.36) K/mm3 Baso # (Auto) 0.06 (0.01-0.08) K/mm3 HCG, Quant 1204.0 mIU/mL Urine Color Light magda (Yellow) Urine Appearance Cloudy H (Clear) Urine pH 6.5 (5.0-8.0) Ur Specific [place] 1.025 (1.005-1.030) Urine Protein 1+ H (Negative) Urine Glucose (UA) Negative (Negative) Urine Ketones Negative (Negative) Urine Occult Blood 3+ H (Negative) Urine Nitrite Negative (Negative) Urine Bilirubin Negative (Negative) Urine Urobilinogen 1.0 (0.2-1.0) Ur Leukocyte Esterase Negative (Negative) Urine RBC >100 H (0-5) /hpf Urine WBC 0-5 (0-5) /hpf Ur Epithelial Cells 0-5 (0-5) /hpf Urine Bacteria Few (FEW) /hpf Urine Mucus Moderate H (FEW) /hpf Meds: Medications Discontinued Medications Generic Name Dose Route Start Last Admin Trade Name Freq PRN Reason Stop Dose Admin Acetaminophen 975 mg 07/14/18 21:33 07/14/18 21:41 Tylenol PO 07/14/18 21:34 975 mg NOW STA Administration Sodium Chloride 1,000 mls @ 999 mls/hr 07/14/18 19:45 07/14/18 21:01 Normal Saline IV 07/14/18 20:45 999 mls/hr ONETIME ONE Administration Ketorolac Tromethamine 30 mg 07/14/18 22:13 07/14/18 22:26 Toradol IVPUSH 07/14/18 22:14 30 mg ONETIME ONE Administration Sodium Chloride 10 ml 07/14/18 19:40 07/14/18 21:02 Saline Flush FLUSH 10 ml ASDIRECTED PRN Administration Keep Vein Open - Radiology Interpretation Free Text/Narrative:: transvaginal ultrasound non ob impression per vrad: Endometrium is heterogeneous and thickened, measuring 17 mm. No associated vascularity to suggest retained products of conception. This most likely represents hematoma. - Re-Assessments/Exams Free Text/Narrative Re-Assessment/Exam: 07/14/18 22:52 I reviewed the labs and imaging with the patient. She does have some blood in the vagina on exam as well some clots. Her cervix appears closed and she is not hemorrhaging a large amount of blood. She states she has changed her pad about 3 times since entering the ED, she is changing her pad about once every hour. Discussed the case with Dr. Cruz, OB on-call. Does not feel that any additional workup tonight is indicated. Recommend follow-up with OB as planed. Patient has asked for pain medication. She is given Tylenol and once the was confirmed to the terminated, she was given Toradol. I did search on the prescription drug registry she has received 30 prescriptions in the last year for controlled substances. Last prescription was for hydrocodone 5-325 # 100 filled on 06/25/18. I Do feel that she is drug seeking tonight. I will not be prescribing her any narcotics for her pain tonight. She may utilize Tylenol and Motrin. Reviewed this with the patient. Will discharge home at this time. Discharge instructions as documented. Departure - Departure Time of Disposition: 22:52 Disposition: Home, Self-Care 01 Condition: Fair Clinical Impression: Vaginal bleeding, , elective or therapeutic - Discharge Information *PRESCRIPTION DRUG MONITORING PROGRAM REVIEWED*: Yes *COPY OF PRESCRIPTION DRUG MONITORING REPORT IN PATIENT CHUCK: No Referrals: Krystin Evans PA-C [Primary Care Provider] - Akin Burton MD [Physician] - Forms: ED Department Discharge Additional Instructions: OTC tylenol or motrin as needed for pain. Follow-up in clinic tomorrow as planned. Make sure you are drinking plenty of fluids. Please return to the ER should your symptoms change or worsen. - My Orders Last 24 Hours: My Active Orders 07/14/18 17:15 UA W/MICROSCOPIC [URIN] Stat 07/14/18 19:40 Transvaginal Non OB [US] Stat Peripheral IV Insertion Adult [OM.PC] Routine 07/14/18 19:43 Peripheral IV Care [RC] . DIRECTED 07/14/18 19:45 Orthostatic Vital Signs [RC] ASDIRECTED 07/14/18 21:50 Pelvic Exam, Set Up [RC] ASDIRECTED - Assessment/Plan Last 24 Hours: My Active Orders 07/14/18 17:15 UA W/MICROSCOPIC [URIN] Stat 07/14/18 19:40 Transvaginal Non OB [US] Stat Peripheral IV Insertion Adult [OM.PC] Routine 07/14/18 19:43 Peripheral IV Care [RC] . DIRECTED 07/14/18 19:45 Orthostatic Vital Signs [RC] ASDIRECTED 07/14/18 21:50 Pelvic Exam, Set Up [RC] ASDIRECTED
[2018-07-14] MEDS ORDERED: Ketorolac 30 MG/ML SDV IVPUSH ONE (22:13)
--- NOTE | 2018-07-17 12:09 | US ---
Pelvic ultrasound: Multiple real-time images were obtained transvaginally. Comparison: No prior pelvic ultrasound is available. Heterogeneous material seen within the endometrial cavity most likely representing blood clot. Endometrial thickness is about 1.7 cm. Uterus is anteverted. No myometrial abnormality is seen. Ovaries appear within normal limits. No free fluid is seen. Measurements: Uterus: Length 10.4 cm, AP height 5.1 cm, transverse width 6.8 cm Right ovary: 2.6 x 1.6 x 1.9 cm Left ovary: 3.3 x 1.3 x 1.7 cm Impression: 1. Heterogeneous material within the endometrial cavity most likely representing blood clot. 2. Pelvic ultrasound is otherwise unremarkable. Diagnostic code #3 Agree with preliminary report issued by [facility], report finalized on 07/14/18, 10:38 PM Central Time)
== END 2018-07-14 22:48 | disposition home or self-care (01) ==
LOC: JD.ED 19:03
DX: O04.80 (Induced) termination of pregnancy with unspecified complications (principal); F17.210 Nicotine dependence, cigarettes, uncomplicated; Z88.0 Allergy status to penicillin
CPT/HCPCS: 36415; 76830; 81001; 84702; 85025; 96361; 96374; 99284; A9270; J1885; J7040; J7050

== ENCOUNTER 2018-12-22 22:46 | Emergency (ER) | payer MEDICAID ==
[2018-12-22 22:59] VITALS: BP 126/76
--- NOTE | 2018-12-22 23:14 | EDM.PDOC ---
ED HPI GENERAL MEDICAL PROBLEM - General Chief Complaint: Neck Problem Stated Complaint: fell on ice back and neck pain Time Seen by Provider: 12/22/18 23:14 - History of Present Illness INITIAL COMMENTS - FREE TEXT/NARRATIVE: 28-year-old female comes in complaining of wrist neck and upper back pain. Patient slid down the steps of bottom. Shortly after this she developed neck discomfort she had immediate right ankle discomfort she landed on her right wrist and this hurt and her hand was somewhat uncomfortable to to a lesser degree she landed on her left wrist which is also uncomfortable she did not hit her head there is no loss of consciousness she is developing a little bit of a headache in the base of her skull. She's not any fevers or chills no nausea or vomiting. No numbness or tingling down her arms other symptoms. No loss of bowel or bladder control Back Pain Score (Numeric/FACES): 10 - Related Data Allergies Allergy/AdvReac Type Severity Reaction Status Date / Time Penicillins Allergy Hives Verified 07/14/18 19:16 Home Meds: Home Meds clonazePAM [Klonopin] 1 mg PO TID 06/18/18 [History] Acetaminophen/HYDROcodone [Gaylord 325-5 MG] 1 tab PO Q6H PRN #6 tablet 12/23/18 [ Rx] Ibuprofen [Motrin] 600 mg PO Q8H #30 tab 12/23/18 [Rx] Past Medical History HEENT History: Reports: None Cardiovascular History: Reports: None Respiratory History: Reports: None Genitourinary History: Reports: UTI, Recurrent Other Genitourinary History: miscarriage [employer] 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: , 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 Musculoskeletal History: Reports: Other (See Below) Other Musculoskeletal History: ankle sprain Neurological History: Reports: Other (See Below) Other Neuro History: depression Psychiatric History: Reports: Anxiety, Depression Endocrine/Metabolic History: Reports: None Hematologic History: Reports: Anemia Dermatologic History: Reports: Other (See Below) Other Dermatologic History: Frequent abscess' to groin--MRSA swab negative x3 - Infectious Disease History 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: MRSA - Past Surgical History HEENT Surgical History: Reports: Oral Surgery Social & Family History - Family History Family Medical History: Noncontributory Cardiac: Reports: [place] Endocrine/Metabolic: Reports: Diabetes, type II - Tobacco Use Smoking Status *Q: Current Every Day Smoker Years of Tobacco use: 12 Packs/Tins Daily: 0.5 - Caffeine Use Caffeine Use: Reports: Soda - Recreational Drug Use Recreational Drug Use: No - Living Situation & Occupation Living situation: Reports: Occupation: Employed ED ROS GENERAL - Review of Systems Review Of Systems: See Below Constitutional: Reports: No Symptoms HEENT: Reports: No Symptoms Respiratory: Reports: No Symptoms Cardiovascular: Reports: No Symptoms Endocrine: Reports: No Symptoms GI/Abdominal: Reports: No Symptoms : Reports: No Symptoms ED EXAM,LOWER BACK PAIN/INJURY - Physical Exam Exam: See Below Exam Limited By: No Limitations General Appearance: Alert, No Apparent Distress Eye Exam: Bilateral Eye: EOMI, Normal Inspection, PERRL Ears: Normal External Exam, Normal Canal, Hearing Grossly Normal, Normal TMs Nose: Normal Inspection, Normal Mucosa, No Blood Throat/Mouth: Normal Inspection, Normal Lips, Normal Teeth, Normal Gums, Normal Oropharynx, Normal Voice, No Airway Compromise Head: Atraumatic, Normocephalic Neck: Normal Inspection, Supple, Non-Tender, Full Range of Motion, Other (She has some muscle tightness and discomfort). No: Lymphadenopathy (L), Lymphadenopathy (R), Tender Midline Respiratory/Chest: No Respiratory Distress, Lungs Clear, Normal Breath Sounds Cardiovascular: Regular Rate, Rhythm, No Edema, No Murmur GI/Abdominal: Normal Bowel Sounds, Soft, Non-Tender Back Exam: Normal Inspection, CVA Tenderness (L), Muscle Spasm (In the upper thoracic back she has some muscle tightness). No: Vertebral Tenderness ( in the paraspinous muscles) Extremities: Other (She has some tenderness in the right ankle and left ankle more so the right ankle no obvious deformity some right foot discomfort is noted as well) Neurological: Alert, Normal Mood/Affect, Normal Dorsiflexion, CN II-XII Intact, Normal Plantar Flexion, Normal Gait, Normal Reflexes, No Motor/Sensory Deficits , Oriented x 3, Straight Leg Raise (L) Course - Vital Signs Last Recorded V/S: Last Vital Signs Temp 36.4 C 12/22/18 22:55 Pulse 103 H 12/22/18 22:55 Resp 16 12/22/18 22:55 BP 126/76 12/22/18 22:55 Pulse Ox 98 12/22/18 22:55 - Orders/Labs/Meds Orders: Active Orders 24 hr Category Date Time Status Ankle Min 3V Rt [CR] Stat Exams 12/22/18 23:21 Taken Cervical Spine 2V or 3V [CR] Stat Exams 12/22/18 23:24 Taken Wrist Comp Min 3V Lt [CR] Stat Exams 12/22/18 23:21 Taken Wrist Comp Min 3V Rt [CR] Stat Exams 12/22/18 23:21 Taken Durable Medical Equipment for Discharge [DME for Oth 12/23/18 00:42 Ordered Discharge] [COMM] Stat Meds: Medications Discontinued Medications Generic Name Dose Route Start Last Admin Trade Name Freq PRN Reason Stop Dose Admin Ketorolac Tromethamine 30 mg 12/22/18 23:35 12/22/18 23:40 Toradol IM 12/22/18 23:36 30 mg ONETIME ONE Administration - Re-Assessments/Exams Free Text/Narrative Re-Assessment/Exam: 12/23/18 00:43 Excision of the C-spine are negative both wrists are negative right ankle show some soft tissue swelling the lateral area otherwise no acute changes patient be placed in a walking boot on the right encourage encouraged to use ibuprofen but the Toradol is not helping she'll be henrique shultz Gaylord Departure - Departure Time of Disposition: 00:44 Disposition: Home, Self-Care 01 Clinical Impression: Right ankle sprain, Wrist injuries, Cervical strain, acute - Discharge Information Prescriptions: Acetaminophen/HYDROcodone [Gaylord 325-5 MG] 1 tab PO Q6H PRN #6 tablet PRN Reason: Pain Ibuprofen [Motrin] 600 mg PO Q8H #30 tab Referrals: Ana Maria Chávez NP [Primary Care Provider] - Forms: ED Department Discharge Additional Instructions: Current emergency room with any questions problems worsening symptoms. Follow- up with your regular provider to the week for recheck. Use medications as directed. Wear the splint until advised not needed any longer from a healthcare professional. Keep your right foot elevated as much is in tolerate use ice to the area. - My Orders Last 24 Hours: My Active Orders 12/22/18 23:21 Ankle Min 3V Rt [CR] Stat Wrist Comp Min 3V Lt [CR] Stat Wrist Comp Min 3V Rt [CR] Stat 12/22/18 23:24 Cervical Spine 2V or 3V [CR] Stat 12/23/18 00:42 Durable Medical Equipment for Discharge [DME for Discharge] [COMM] Stat - Assessment/Plan Last 24 Hours: My Active Orders 12/22/18 23:21 Ankle Min 3V Rt [CR] Stat Wrist Comp Min 3V Lt [CR] Stat Wrist Comp Min 3V Rt [CR] Stat 12/22/18 23:24 Cervical Spine 2V or 3V [CR] Stat 12/23/18 00:42 Durable Medical Equipment for Discharge [DME for Discharge] [COMM] Stat
[2018-12-22] MEDS ORDERED: Ketorolac 30 MG/ML SDV IM ONE (23:35)
[2018-12-23] MEDS ORDERED: Acetaminophen/HYDROcodone 325-5 MG Tab PO ONE (00:44)
--- NOTE | 2018-12-23 10:00 | CR ---
Cervical spine: AP, lateral, odontoid and swimmer's views of the cervical spine were obtained. Comparison: Prior cervical spine CT exam of 02/13/17. Vertebral body heights and disc spaces are maintained. Prevertebral soft tissues are normal. No subluxation or fracture is seen. Impression: 1. No abnormality is identified on four-view cervical spine exam. Diagnostic code #1
--- NOTE | 2018-12-23 10:00 | CR ---
Right wrist: Four views of the right wrist were obtained. Comparison: Previous right wrist exam of 12/23/18. Joint spaces are preserved. No fracture, dislocation or other bony abnormality is seen. Impression: 1. No abnormality is identified on right wrist exam. Diagnostic code #1
--- NOTE | 2018-12-23 10:00 | CR ---
Right ankle: Four views of the right ankle were obtained. Comparison: Previous right ankle exam of 06/22/18. Ankle mortise is symmetric. No acute fracture, dislocation or other bony abnormality is identified. Impression: 1. No abnormality is identified on right ankle exam. Diagnostic code #1
--- NOTE | 2018-12-23 10:00 | CR ---
Left wrist: Four views of the left wrist were obtained. Comparison: No prior wrist exam. Joint spaces are maintained. No fracture, dislocation or other bony abnormality is seen. Impression: 1. No abnormality is identified on left wrist exam. Diagnostic code #1
== END 2018-12-23 01:10 | disposition home or self-care (01) ==
LOC: JD.ED 22:46
DX: S93.401A Sprain of unspecified ligament of right ankle, initial encounter (principal); W10.9XXA Fall (on) (from) unspecified stairs and steps, initial encounter; F17.210 Nicotine dependence, cigarettes, uncomplicated; Z88.0 Allergy status to penicillin; Z79.899 Other long term (current) drug therapy
CPT/HCPCS: 72040; 73110; 73610; 96372; 99283; A9270; J1885

== ENCOUNTER 2019-03-30 17:33 | Emergency (ER) | payer MEDICAID ==
[2019-03-30 17:44] VITALS: BP 123/90
[2019-03-30] MEDS ORDERED: Acetaminophen/HYDROcodone 325-5 MG Tab PO ONE (18:51)
[2019-03-30] MEDS ORDERED: Lidocaine 1% 30 ML SDV ONE (19:30)
[2019-03-30] MEDS ORDERED: Lidocaine 1% 10 ML MDV INJECT ONE (19:30)
--- NOTE | 2019-03-30 19:38 | EDM.PDOC ---
ED HPI GENERAL MEDICAL PROBLEM - General Chief Complaint: Skin Complaint Stated Complaint: SKIN COMPLAINT Time Seen by Provider: 03/30/19 17:39 Source of Information: Reports: Patient History Limitations: Reports: No Limitations - History of Present Illness INITIAL COMMENTS - FREE TEXT/NARRATIVE: 28 y/o female presents to ER with cc left labia pain and swelling for the past 6 days. She reports seeing her PCP Linnette Chávez and started on 2 different antibiotics. She states the area is not getting better. She states she has a history of "staph infections in the past and has had to have surgery April 2018. " She denies any fever or chills. She denies any vaginal discharge or odor. 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 Left Vaginal Pain Score (Numeric/FACES): 10 - Related Data Allergies Allergy/AdvReac Type Severity Reaction Status Date / Time Penicillins Allergy Hives Verified 07/14/18 19:16 Home Meds: Home Meds clonazePAM [Klonopin] 1 mg PO TID 06/18/18 [History] Acetaminophen/HYDROcodone [[place] 325-5 MG] 1 tab PO Q6H PRN #6 tablet 12/23/18 [ Rx] Ibuprofen [Motrin] 600 mg PO Q8H #30 tab 12/23/18 [Rx] Past Medical History HEENT History: Reports: None Cardiovascular History: Reports: None Respiratory History: Reports: None Genitourinary History: Reports: UTI, Recurrent Other Genitourinary History: miscarriage 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: , 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: x4 Musculoskeletal History: Reports: Other (See Below) Other Musculoskeletal History: ankle sprain Neurological History: Reports: Other (See Below) Other Neuro History: depression Psychiatric History: Reports: Anxiety, Depression Endocrine/Metabolic History: Reports: None Hematologic History: Reports: Anemia Dermatologic History: Reports: Other (See Below) Other Dermatologic History: Frequent abscess' to groin--MRSA swab negative x3 - Infectious Disease History 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: MRSA - Past Surgical History HEENT Surgical History: Reports: Oral Surgery Social & Family History - Family History Family Medical History: Noncontributory Cardiac: Reports: [place] Endocrine/Metabolic: Reports: Diabetes, type II - Tobacco Use Smoking Status *Q: Current Every Day Smoker Years of Tobacco use: 14 Packs/Tins Daily: 0.2 Used Tobacco, but Quit: No - Caffeine Use Caffeine Use: Reports: Coffee - Recreational Drug Use Recreational Drug Use: No - Living Situation & Occupation Living situation: Reports: Occupation: Employed ED ROS GENERAL - Review of Systems Review Of Systems: See Below Constitutional: Denies: Fever, Chills HEENT: Reports: No Symptoms Respiratory: Reports: No Symptoms Cardiovascular: Reports: No Symptoms Endocrine: Reports: No Symptoms GI/Abdominal: Reports: No Symptoms : Reports: Other (left labia pain and swelling. ) Musculoskeletal: Reports: No Symptoms Skin: Reports: Other (left labia abscess) Neurological: Reports: No Symptoms Psychiatric: Reports: No Symptoms Hematologic/Lymphatic: Reports: No Symptoms Immunologic: Reports: No Symptoms ED EXAM, SKIN/RASH Exam: See Below Exam Limited By: No Limitations General Appearance: Alert, WD/WN, No Apparent Distress (Female) Exam: Normal External Exam, Other (left labia folliculitis vs abscess. ). No: Vaginal Discharge Back Exam: Normal Inspection, Full Range of Motion Neurological: Alert, Oriented, CN II-XII Intact, Normal Cognition, Normal Gait Psychiatric: Normal Affect, Normal Mood Skin: Warm, Dry, Intact, Normal Color, No Rash Location, Skin: Other (left labia fluid filleds sac the size of a pea, no fluctuation noted. ) Lymphatic: No Adenopathy ED SKIN PROCEDURES - I&D Site: left labia Skin Prep: Providone-Iodine (Betadine) Local Anesthesia: Lidocaine: 1% Plain Local Anesthetic Volume: 1cc Area Incised With: 11 Blade Drainage: Purulent, Small Amount Probed to Break Up Loculations: No Complications: No Course - Vital Signs Last Recorded V/S: Last Vital Signs Temp 97.9 F 03/30/19 17:40 Pulse 103 H 03/30/19 17:40 Resp 18 03/30/19 17:40 BP 123/90 03/30/19 17:40 Pulse Ox 97 03/30/19 17:40 - Orders/Labs/Meds Orders: Active Orders 24 hr Category Date Time Status Lidocaine 1% [Xylocaine 1%] Med 03/30/19 19:30 Once 10 ml INJECT ONETIME ONE Medication Orders Lidocaine HCl (Xylocaine 1%) 10 ml INJECT ONETIME ONE Stop: 03/30/19 19:31 Meds: Medications Generic Name Dose Route Start Last Admin Trade Name Johnathan PRN Reason Stop Dose Admin Lidocaine HCl 10 ml 03/30/19 19:30 Xylocaine 1% INJECT 03/30/19 19:31 ONETIME ONE Discontinued Medications Generic Name Dose Route Start Last Admin Trade Name Freq PRN Reason Stop Dose Admin Hydrocodone Bitart/Acetaminophen 1 tab 03/30/19 18:51 03/30/19 18:55 [place] 325-5 Mg PO 03/30/19 18:52 1 tab ONETIME ONE Administration - Re-Assessments/Exams Free Text/Narrative Re-Assessment/Exam: 03/30/19 19:45 28 y/o female presented to ER with cc left labia sore. I feel this is due to folliculitis vs abscess. I performed I & D and she got immediate relief. I will discharge with instructions to stop shaving her vagina. Instructed to continue taking her antibiotics as prescribed. Instructed to follow up with her PCP. Instructed to return to the ER for any new or acute worsening symptoms. She verbalized understanding and is comfortable with plan for discharge. She is stable at time of discharge. Departure - Departure Time of Disposition: 19:47 Disposition: Home, Self-Care 01 Clinical Impression: Abscess, Folliculitis, Labial abscess - Discharge Information Instructions: Incision and Drainage, Care After, Folliculitis Referrals: Ana Maria Chávez NP [Primary Care Provider] - Additional Instructions: You have been diagnosis with labia folliculitis vs abscess. Continue taking your antibiotic as prescribed. Follow up with your PCP. Return to the ER for any new or acute worsening symptoms. - My Orders Last 24 Hours: My Active Orders 03/30/19 19:30 Lidocaine 1% [Xylocaine 1%] 10 ml INJECT ONETIME ONE - Assessment/Plan Last 24 Hours: My Active Orders 03/30/19 19:30 Lidocaine 1% [Xylocaine 1%] 10 ml INJECT ONETIME ONE
== END 2019-03-30 19:58 | disposition home or self-care (01) ==
LOC: JD.ED 17:33
DX: N76.4 Abscess of vulva (principal); L73.9 Follicular disorder, unspecified; F17.210 Nicotine dependence, cigarettes, uncomplicated; F41.9 Anxiety disorder, unspecified; F32.9 Major depressive disorder, single episode, unspecified; Z79.899 Other long term (current) drug therapy; Z88.0 Allergy status to penicillin
CPT/HCPCS: 56405; 99283; A9270

== ENCOUNTER 2019-04-21 18:56 | Emergency (ER) | payer MEDICAID ==
[2019-04-21 21:17] VITALS: BP 112/83
--- NOTE | 2019-04-21 21:50 | EDM.PDOC ---
ED HPI GENERAL MEDICAL PROBLEM - General Chief Complaint: ENT Problem Stated Complaint: broke a tooth Time Seen by Provider: 04/21/19 21:49 - History of Present Illness INITIAL COMMENTS - FREE TEXT/NARRATIVE: 28-year-old female presents emergency room with dental pain She was eating [place] rancher and broke her left rear lower molar yesterday. It is been hurting and getting worse since that time she has not contacted a dentist yet. - Related Data Allergies Allergy/AdvReac Type Severity Reaction Status Date / Time clarithromycin [From Biaxin] Allergy Hives Verified 04/21/19 21:17 Penicillins Allergy Hives Verified 07/14/18 19:16 Home Meds: Home Meds clonazePAM [Klonopin] 1 mg PO TID 06/18/18 [History] Ibuprofen [Motrin] 600 mg PO Q8H #30 tab 12/23/18 [Rx] Acetaminophen/HYDROcodone [[place] 325-5 MG] 1 tab PO Q6H #8 tablet 04/21/19 [Rx] Clindamycin HCl [Cleocin] 450 mg PO Q6H #40 cap 04/21/19 [Rx] Past Medical History HEENT History: Reports: None Cardiovascular History: Reports: None Respiratory History: Reports: Asthma Gastrointestinal History: Reports: None Genitourinary History: Reports: UTI, Recurrent Other Genitourinary History: miscarriage 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: , 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 COMPRESSOR STATIONS History: x4 Musculoskeletal History: Reports: Other (See Below) Other Musculoskeletal History: ankle sprain Neurological History: Reports: None Other Neuro History: depression Psychiatric History: Reports: Anxiety, Depression Endocrine/Metabolic History: Reports: None Hematologic History: Reports: Anemia Immunologic History: Reports: None Oncologic (Cancer) History: Reports: None Dermatologic History: Reports: Other (See Below) Other Dermatologic History: Frequent abscess' to groin--MRSA swab negative x3 - Infectious Disease History 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: MRSA - Past Surgical History HEENT Surgical History: Reports: Oral Surgery Social & Family History - Family History Family Medical History: Noncontributory Cardiac: Reports: [place] Endocrine/Metabolic: Reports: Diabetes, type II - Tobacco Use Smoking Status *Q: Never Smoker - Caffeine Use Caffeine Use: Reports: Soda - Recreational Drug Use Recreational Drug Use: No - Living Situation & Occupation Living situation: Reports: Occupation: Employed ED ROS ENT - Review of Systems Review Of Systems: See Below Constitutional: Reports: No Symptoms Respiratory: Reports: No Symptoms Cardiovascular: Reports: No Symptoms GI/Abdominal: Reports: No Symptoms ED EXAM, ENT - Physical Exam Exam: See Below Exam Limited By: No Limitations General Appearance: Alert, No Apparent Distress Ears: Normal External Exam, Normal Canal, Hearing Grossly Normal, Normal TMs Nose: Normal Inspection, Normal Mucousa, No Blood Mouth/Throat: Normal Inspection, Normal Gums, Normal Lips, Normal Oropharynx, Other (Is mild irritation around her left her lower molar) Neck: Normal Inspection, Supple, Non-Tender. No: Lymphadenopathy (L), Lymphadenopathy (R) Respiratory/Chest: No Respiratory Distress, Lungs Clear, Normal Breath Sounds Cardiovascular: Regular Rate, Rhythm, No Edema, No Murmur Course - Vital Signs Last Recorded V/S: Last Vital Signs Temp 36.8 C 04/21/19 21:15 Pulse 92 04/21/19 21:15 Resp 16 04/21/19 21:15 BP 112/83 04/21/19 21:15 Pulse Ox 99 04/21/19 21:15 - Orders/Labs/Meds Meds: Medications Discontinued Medications Generic Name Dose Route Start Last Admin Trade Name Johnathan PRN Reason Stop Dose Admin Clindamycin HCl 300 mg 04/21/19 21:56 Cleocin PO 04/21/19 21:57 ONETIME ONE - Re-Assessments/Exams Free Text/Narrative Re-Assessment/Exam: 04/21/19 22:00 Patient is advised no uncertain terms she is to follow-up with the dentist will start her on clindamycin and give her a few pain pills Departure - Departure Time of Disposition: 22:00 Disposition: Home, Self-Care 01 Clinical Impression: Pain, dental - Discharge Information Prescriptions: Acetaminophen/HYDROcodone [[place] 325-5 MG] 1 tab PO Q6H #8 tablet Clindamycin HCl [Cleocin] 450 mg PO Q6H #40 cap Referrals: Ana Maria Chávez NP [Primary Care Provider] - Forms: ED Department Discharge Additional Instructions: Follow-up with your dentist as soon as you can that is how this is getting it fixed. Return to the emergency room if needed. Take medications as directed.
[2019-04-21] MEDS ORDERED: Clindamycin HCl 150 MG Cap PO ONE (21:56)
[2019-04-21] MEDS ORDERED: Acetaminophen/HYDROcodone 325-5 MG Tab PO ONE (22:13)
== END 2019-04-21 22:20 | disposition home or self-care (01) ==
LOC: JD.ED 18:56
DX: K08.89 Other specified disorders of teeth and supporting structures (principal); J45.909 Unspecified asthma, uncomplicated; F41.9 Anxiety disorder, unspecified; F32.9 Major depressive disorder, single episode, unspecified; Z88.1 Allergy status to other antibiotic agents; Z88.0 Allergy status to penicillin; Z79.899 Other long term (current) drug therapy
CPT/HCPCS: 99282; A9270

== ENCOUNTER 2019-05-11 01:20 | Emergency (ER) | payer MEDICAID ==
[2019-05-11 01:32] VITALS: BP 125/84
[2019-05-11] MEDS ORDERED: Sodium Chloride 0.9% 1,000 ML IV SCH (02:15)
--- NOTE | 2019-05-11 02:18 | EDM.PDOC ---
ED HPI GENERAL MEDICAL PROBLEM - General Chief Complaint: Abdominal Pain Stated Complaint: POSSIBLE MISCARRIAGE Time Seen by Provider: 05/11/19 01:33 Source of Information: Reports: Patient, RN Notes Reviewed History Limitations: Reports: No Limitations - History of Present Illness INITIAL COMMENTS - FREE TEXT/NARRATIVE: The patient states that she had 3 positive home test about 2 weeks ago , but that she does not know how far along she is, because her periods are irregular. She states that she was seen by her PARKING MANAGER on 04/28/2019, at which time her quantitative hCG was 216. The patient is . The patient now presents to the ED stating that she passed a quarter-sized blood clot around 23:00, but that the bleeding has tapered to nothing since then. She states that she developed severe abdominal cramps and low back pain at 23:00, as well. The patient did not take any vhey-orz-yatywlm or home medications prior to coming to the ED. No recent illnesses, such as fever, chills, cough, chest pain, palpitations, nausea, vomiting, constipation, diarrhea, or urinary symptoms. The patient's PCP is Ana Maria Chávez. The patient's PARKING MANAGER is Dr. Cuong Reis. - Related Data Allergies Allergy/AdvReac Type Severity Reaction Status Date / Time clarithromycin [From Biaxin] Allergy Hives Verified 05/12/19 01:47 Penicillins Allergy Hives Verified 05/12/19 01:47 Home Meds: Home Meds clonazePAM [Klonopin] 1 mg PO TID 06/18/18 [History] Pnv No.122/Iron/Folic Acid [ Multi Tablet] 1 each PO DAILY 05/11/19 [ History] Cyclobenzaprine [Flexeril] 10 mg PO DAILY 05/12/19 [History] Past Medical History PARKING 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: (), 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), Therapeutic (x 1) Psychiatric History: Reports: Anxiety, Depression (untreated), Other (See Below ) (Insomnia) Hematologic History: Reports: Anemia - Past Surgical History HEENT Surgical History: Reports: Oral Surgery (wisdom teeth extraction) Dermatological Surgical History: Reports: Other (See Below) (I & D to staph infection left thigh) Social & Family History - Family History Family Medical History: Noncontributory Cardiac: Reports: [place] Endocrine/Metabolic: Reports: Diabetes, type II - Tobacco Use Smoking Status *Q: Current Every Day Smoker Years of Tobacco use: 12 Packs/Tins Daily: 0.2 Packs/Tins Daily Comment: Down from 1.5 ppd - Caffeine Use Caffeine Use: Reports: Soda - Alcohol Use Alcohol Use History: Yes Alcohol Use Frequency: Socially (when not ) - Recreational Drug Use Recreational Drug Use: No - Living Situation & Occupation Living situation: Reports: Single, with Significant Other (Fiance), with Family (4 kids) Occupation: Unemployed ED ROS GENERAL - Review of Systems Review Of Systems: ROS reveals no pertinent complaints other than HPI. ED EXAM, GI/ABD - Physical Exam Exam: See Below Exam Limited By: No Limitations General Appearance: Alert, WD/WN, No Apparent Distress Eyes: Bilateral: Normal Appearance, EOMI Ears: Normal External Exam, Hearing Grossly Normal Nose: Normal Inspection Throat/Mouth: Normal Inspection, Normal Lips, Normal Voice, No Airway Compromise Head: Atraumatic, Normocephalic Neck: Normal Inspection, Full Range of Motion Respiratory/Chest: No Respiratory Distress, Lungs Clear, Normal Breath Sounds, No Accessory Muscle Use Cardiovascular: Normal Peripheral Pulses, No Edema, No Gallop, No JVD, No Murmur , No Rub, Tachycardia (regular) GI/Abdominal Exam: Soft, No Organomegaly, No Distention, No Abnormal Bruit, No Mass, Tender (Extreme tenderness - the patient would not allow me to continue to palpate her abdomen following an initial light palpation in the LUQ), Abnormal Bowel Sounds (decreased) (Female) Exam: Deferred Rectal (Female) Exam: Deferred Back Exam: Normal Inspection, Full Range of Motion, NT Extremities: Normal Inspection, Normal Range of Motion, No Pedal Edema, Normal Capillary Refill Neurological: Alert, Oriented, Normal Cognition, No Motor/Sensory Deficits Psychiatric: Normal Affect Skin Exam: Warm, Dry, Intact, Normal Color, No Rash Course - Vital Signs Last Recorded V/S: Last Vital Signs Temp 36.0 C 05/11/19 01:28 Pulse 130 H 05/11/19 01:28 Resp 18 05/11/19 01:28 BP 125/84 05/11/19 01:28 Pulse Ox 100 05/11/19 01:28 Orthostatic Blood Pressure [ 118/93 Standing] Orthostatic Blood Pressure [ 120/90 Sitting] Orthostatic Blood Pressure [ 110/72 Supine] - Orders/Labs/Meds Labs: Laboratory Tests 05/11/19 05/11/19 05/11/19 Range/Units 01:55 01:55 01:55 WBC 14.11 H (3.98-10.04) K/mm3 RBC 4.11 (3.98-5.22) M/mm3 Hgb 12.4 (11.2-15.7) gm/L Hct 37.2 (34.1-44.9) % MCV 90.5 (79.4-94.8) fl MCH 30.2 (25.6-32.2) pg MCHC 33.3 (32.2-35.5) g/dl RDW Std Deviation 49.9 H (36.4-46.3) fL Plt Count 387 H (182-369) K/mm3 MPV 10.1 (9.4-12.3) fl Neutrophils % (Manual) 57 (40-60) % Band Neutrophils % 0 (0-10) % Lymphocytes % (Manual) 36 (20-40) % Atypical Lymphs % 0 % Monocytes % (Manual) 2 (2-10) % Eosinophils % (Manual) 4 (0.7-5.8) % Basophils % (Manual) 1 (0.1-1.2) Toxic Granulation 1+ slight Platelet Estimate Adequate Plt Morphology Comment Normal RBC Morph Comment Normal Sodium 139 (136-145) mEq/L Potassium 3.1 L (3.5-5.1) mEq/L Chloride 104 (98-107) mEq/L Carbon Dioxide 24 (21-32) mEq/L Anion Gap 14.1 (5-15) BUN 14 (7-18) mg/dL Creatinine 0.8 (0.55-1.02) mg/dL Est Cr Clr Drug Dosing 98.01 mL/min Estimated GFR (MDRD) > 60 (>60) mL/min BUN/Creatinine Ratio 17.5 (14-18) Glucose 88 (74-106) mg/dL Calcium 9.0 (8.5-10.1) mg/dL Total Bilirubin 0.2 (0.2-1.0) mg/dL AST 11 L (15-37) U/L ALT 26 (14-59) U/L Alkaline Phosphatase 47 (46-116) U/L Total Protein 6.9 (6.4-8.2) g/dl Albumin 3.8 (3.4-5.0) g/dl Globulin 3.1 gm/dL Albumin/Globulin Ratio 1.2 (1-2) HCG, Quant 93528.0 mIU/mL Meds: Medications Discontinued Medications Generic Name Dose Route Start Last Admin Trade Name Johnathan PRN Reason Stop Dose Admin Sodium Chloride 1,000 mls @ 150 mls/hr 05/11/19 02:15 Normal Saline IV ASDIRECTED LJ - Re-Assessments/Exams Free Text/Narrative Re-Assessment/Exam: 05/11/19 02:13 While the patient appeared to be comfortable during my interview, on examination , her abdomen was so tender that she did not allow me to continue to palpate it after the first press. I explained that this puts me into a difficult position, because the role of the emergency department is to rule out medical emergencies , and if the patient's abdomen is so tender that she cannot tolerate even minimal palpation, then an intra-abdominal catastrophe must be considered. I am therefore obliged to offer a CT scan of the abdomen and pelvis to evaluate for such an intra-abdominal catastrophe. Because the patient is , I certainly do not want to order a CT scan, however, no other reliable modalities are available to me at this time. I asked the patient to consider if she wanted me to order a CT scan of the abdomen and pelvis, being aware of the risk of radiation to the fetus, and she said that she did. In addition to a CT scan, I have also ordered a CBC, CMP, orthostatics, and IV fluid. 05/11/19 02:34 Notified by Shahrzad AWAD that, somewhat as anticipated, the patient has changed her mind and does not want to have the CT scan performed. I suspect that the patient was exaggerating the degree of her pain and tenderness. We will continue with the blood work and orthostatics and treat with IV fluid, if necessary. 05/11/19 02:36 The patient is not orthostatic. 05/11/19 03:30 Test results discussed with the patient. Her CBC is remarkable for a WBC count modestly elevated at 14.11, but with 0% bandemia. Her platelets are mildly elevated at 387,000. The remainder of her CBC is unremarkable. Her CMP is remarkable for potassium mildly depressed at 3.1, with the remainder of the CMP being unremarkable. Her quantitative hCG is 14,711. It was 13,923 yesterday, 05/10/2019. I explained to the patient that with a rising quantitative hCG, it is unlikely that she is suffering from a miscarriage. I offered to have the patient undergo a pelvic ultrasound at the 7:30 AM time slot reserved for nonemergent patients seen in the ED overnight, but the patient declined, preferring to follow-up with Dr. Reis. The patient states that she is in excruciating pain. The etiology of this is unclear, but as above, there may be some exaggeration. I explained to the patient that since she is , I can only offer Tylenol. She stated that she took Tylenol at home, and that it did nothing. Please recall that she had told me earlier that she had not taken any [id number]-[id number] or home medications prior to coming to the ED. Review of the [place] PMPi finds that the patient has received 50 prescriptions for controlled substances, 27 for opioids, by 12 different prescribers. With the patient's history of passing a blood clot earlier, but having no bleeding at this time, her exaggerated tenderness on physical exam, but refusal of both the CT scan here in the ED and a pelvic ultrasound in a few hours, and her repeated claims of excruciating pain that are considerably out of context to her presentation, it appears that the patient is drug-seeking. Departure - Departure Time of Disposition: 03:34 Disposition: Home, Self-Care 01 Condition: Good Clinical Impression: Threatened in first trimester, Drug-seeking behavior - Discharge Information *PRESCRIPTION DRUG MONITORING PROGRAM REVIEWED*: Not Applicable *COPY OF PRESCRIPTION DRUG MONITORING REPORT IN PATIENT CHUCK: Not Applicable Instructions: Threatened Miscarriage, [id number] Referrals: Cuong Reis MD [Primary Care Provider] - Ana Maria Chávez NP [Ordering Only Provider] - Forms: ED Department Discharge Additional Instructions: You were seen in the emergency room after passing a blood clot and experiencing pelvic cramps and lower back pain, while . Workup in the ER included blood work and positional blood pressure checks. Due to extreme abdominal tenderness, a CT scan of the abdomen and pelvis with oral and IV contrast was offered, but declined. Your quantitative hCG ( hormone) returned at 14,711, up from 13,923 yesterday. This indicates that it is unlikely that you are experiencing a miscarriage. You were offered a pelvic ultrasound at 7:30 this morning, but declined, preferring to follow-up with your PARKING MANAGER, Dr. Reis. As discussed, because you are , the only pain medication you can safely take is acetaminophen (Tylenol). If any other problems, please do not hesitate to return to the ER.
== END 2019-05-11 03:47 | disposition home or self-care (01) ==
LOC: JD.ED 01:20
DX: O20.0 Threatened abortion (principal); O99.341 Other mental disorders complicating pregnancy, first trimester; F41.9 Anxiety disorder, unspecified; O99.331 Smoking (tobacco) complicating pregnancy, first trimester; F17.210 Nicotine dependence, cigarettes, uncomplicated; Z88.0 Allergy status to penicillin; Z88.1 Allergy status to other antibiotic agents; Z79.899 Other long term (current) drug therapy; Z3A.00 Weeks of gestation of pregnancy not specified; Z76.5 Malingerer [conscious simulation]
CPT/HCPCS: 36415; 80053; 84702; 85007; 85027; 99283; 99284

== ENCOUNTER 2019-05-12 01:36 | Emergency (ER) | payer MEDICAID ==
[2019-05-12 01:45] VITALS: BP 122/87
--- NOTE | 2019-05-12 04:06 | EDM.PDOC ---
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 She stated that she was , but did not know how far along, as her menstrual periods are irregular. She stated that by the time she saw me, her bleeding had resolved. On examination, her abdominal tenderness was so severe that the patient did not allow me to palpate her abdomen more than 1 press. Her vital signs were stable, and she was not orthostatic. A CBC found her WBC count to be slightly elevated at 14.11, but with 0% bandemia, and she was not anemic. Her CMP was completely normal. A quantitative hCG was 14,711, up from 13,923 the day before. Based on the severity of her abdominal pain, I had to recommend a CT scan of the abdomen and pelvis, despite her . The patient initially agreed to undergo the CT scan, then changed her mind. I offered to schedule her for an ultrasound at 7 :30 this morning, but the patient declined, preferring to follow-up with her OB/ VICE PRESIDENT PLANNING. The patient did, in fact, follow-up with her SOFTWARE SOLUTIONS ARCHITECT yesterday. We do not have access to his office notes. The patient tells me that he performed a pelvic ultrasound, which found a SLIUP with no other abnormalities, such as placenta previa, although, the patient states, that the fetus' heart rate was low. A urinalysis was unremarkable, but a urine drug screen was found to be positive for opiates, tricyclic antidepressants, and benzodiazepines (the patient is prescribed clonazepam, and review of the [place] PMPi indicates that the patient filled a prescription for 8 tablets of Pickens on 04/22/2019). The patient states that she was diagnosed with a yeast infection per a vaginal swab, and she was prescribed both Flagyl (does she mean fluconazole?) and Flexeril. The patient cannot say what the Flexeril was prescribed for. She states that she has not started the Flagyl (or fluconazole?) thus far. She states that her SOFTWARE SOLUTIONS ARCHITECT did not say what the cause of her suprapubic cramps is. She states that she is to follow-up with her SOFTWARE SOLUTIONS ARCHITECT in 2 weeks. Her SOFTWARE SOLUTIONS ARCHITECT did not prescribe any pain medications, but, according to the patient, she was instructed to come to the ED if her pain got any worse. The patient now presents the ED stating that she continues to have severe suprapubic cramping, and that she redeveloped vaginal bleeding around 22:30. She states that she has soaked 1 pad so far. The patient's PCP is Ana Maria Chávez. Her SOFTWARE SOLUTIONS ARCHITECT is Dr. Cuong Reis. Suprapubic Pain Score (Numeric/FACES): 10 - Related Data Allergies Allergy/AdvReac Type Severity Reaction Status Date / Time clarithromycin [From Biaxin] Allergy Hives Verified 05/12/19 01:47 Penicillins Allergy Hives Verified 05/12/19 01:47 Home Meds: Home Meds clonazePAM [Klonopin] 1 mg PO TID 06/18/18 [History] Pnv No.122/Iron/Folic Acid [ Multi Tablet] 1 each PO DAILY 05/11/19 [ History] Cyclobenzaprine [Flexeril] 10 mg PO DAILY 05/12/19 [History] Past Medical History SOFTWARE SOLUTIONS ARCHITECT History: Reports: (), 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), Therapeutic (x 1) Psychiatric History: Reports: Anxiety (untreated), Depression (untreated), Other (See Below) (Insomnia) Hematologic History: Reports: Anemia - Past Surgical History HEENT Surgical History: Reports: Oral Surgery (wisdom teeth extraction) Dermatological Surgical History: Reports: Other (See Below) (I & D to staph infection left thigh) Social & Family History - Family History Family Medical History: Noncontributory Cardiac: Reports: [place] Endocrine/Metabolic: Reports: Diabetes, type II - Tobacco Use Smoking Status *Q: Current Every Day Smoker Years of Tobacco use: 12 Packs/Tins Daily: 0.2 Packs/Tins Daily Comment: Down from 1.5 ppd - Caffeine Use Caffeine Use: Reports: Soda - Alcohol Use Alcohol Use History: Yes Alcohol Use Frequency: Socially (when not ) - Recreational Drug Use Recreational Drug Use: No - Living Situation & Occupation Living situation: Reports: Single, with Significant Other (Fiance), with Family (4 kids) Occupation: Unemployed ED ROS GENERAL - Review of Systems Review Of Systems: ROS reveals no pertinent complaints other than HPI. ED EXAM - Physical Exam Exam: See Below Exam Limited By: No Limitations General Appearance: Alert, WD/WN, No Apparent Distress Eye Exam: Bilateral Eye: EOMI, Normal Inspection Ears: Normal External Exam, Hearing Grossly Normal Nose: Normal Inspection Throat/Mouth: Normal Inspection, Normal Lips, Normal Voice, No Airway Compromise Head: Atraumatic, Normocephalic Neck: Normal Inspection, Full Range of Motion Respiratory/Chest: No Respiratory Distress, Lungs Clear, Normal Breath Sounds, No Accessory Muscle Use Cardiovascular: Normal Peripheral Pulses, Regular Rate, Rhythm, No Edema, No Gallop, No JVD, No Murmur, No Rub GI/Abdominal Exam: Normal Bowel Sounds, Soft, No Organomegaly, No Distention, No Abnormal Bruit, No Mass, Tender (Generalized, with increased tenderness suprapubically) (Female) Exam: Normal External Exam, Vaginal Discharge (Thick, white, adherent, consistent with Cele vulvovaginitis). No: Cervical Dilatation, Cervical Discharge, Vaginal Bleeding Back Exam: Normal Inspection, Full Range of Motion. No: CVA Tenderness (L), CVA Tenderness (R) Extremities: Normal Inspection, Normal Range of Motion, No Pedal Edema, Normal Capillary Refill Neurological: Alert, Oriented, Normal Cognition, No Motor/Sensory Deficits Psychiatric: Normal Affect Skin Exam: Warm, Dry, Intact, Normal Color, No Rash Course - Vital Signs Last Recorded V/S: Last Vital Signs Temp 36.6 C 05/12/19 01:42 Pulse 125 H 05/12/19 01:42 Resp 16 05/12/19 01:42 BP 122/87 05/12/19 01:42 Pulse Ox 100 05/12/19 01:42 Orthostatic Blood Pressure [ 112/89 Standing] Orthostatic Blood Pressure [ 129/94 Supine] - Orders/Labs/Meds Orders: Active Orders 24 hr Category Date Time Status Orthostatic Vital Signs [RC] STAT Care 05/12/19 01:47 Active Pelvic Exam, Set Up [RC] ASDIRECTED Care 05/12/19 03:57 Active - Re-Assessments/Exams Free Text/Narrative Re-Assessment/Exam: 05/12/19 04:11 On pelvic examination, I saw a thick, white discharge that is adherent to the vaginal tejada, consistent with a yeast infection, although I see no vulvar or vaginal erythema or other signs of inflammation. There is no sign of either new or old (brown) blood in the vagina or cervix. The cervix is multiparous, closed , with mucus in the os. In light of the positive urine drug screen, I asked patient about her current medications. She replied that she takes a vitamin, clonazepam, and Flexeril. I asked her about the opiates and tricyclic antidepressants that were found in her drug screen. The patient became flustered. I don't think she was aware that Dr. Reis had ordered a urine drug screen. She stated that she has a prescription for Pickens, and that she took one tablet yesterday. I pointed out that she should have mentioned that on her medication list. She replied that the prescription is about a month and half old. As for the tricyclic antidepressant, the patient stated that did not know anything about that. I tried to clarify whether it was Flagyl or fluconazole that she was prescribed yesterday. The patient believes it was Flagyl, however, this does not really make sense, since Flagyl is an antibiotic, not an antifungal. Fluconazole is an excellent treatment for Cele vulvovaginitis, however, not in women, especially in the first trimester, as it can increase the risk of miscarriage and could increase defects, however, these are based on guidelines, and it does not mean that Dr. Reis did not prescribe fluconazole. Current guidelines recommend an intravaginal imidazole, such as clotrimazole or miconazole, for 7 days. I asked the patient whether an intravaginal cream had been discussed, and she said that it was, but when I asked her how she was then prescribed an oral agent, she again became flustered and said that maybe it was on her previous visit that she had been diagnosed with a yeast infection and prescribed some pill. I felt yesterday that the patient's report of excruciating pain and tenderness was due to exaggeration. [facility] found that the patient had received 50 prescriptions for controlled substances, 27 of them for opioids, by 12 different prescribers. Her most recent prescription for an opioid was for 8 tablets of Pickens filled on 04/22/2019. Based on her history and exaggerated physical exam, along with refusal of imaging studies, I felt that the patient was drug-seeking. This morning's evaluation, with finding no evidence of vaginal bleeding, and her claim that Dr. Reis told her to go to the ER if her pain got any worse, has only increased that suspicion, and I suspect that Dr. Reis felt the same way, which is why he did not prescribe any opioids. I will discharge the patient home with the recommendation that she start either the antifungal medication prescribed by Dr. Reis, or an [id number]-[id number] intravaginal antifungal agent, as soon as possible. Departure - Departure Time of Disposition: 04:31 Disposition: Home, Self-Care 01 Condition: Good Clinical Impression: Candidal vulvovaginitis, and not yet delivered in first trimester, Drug-seeking behavior - Discharge Information *PRESCRIPTION DRUG MONITORING PROGRAM REVIEWED*: Not Applicable *COPY OF PRESCRIPTION DRUG MONITORING REPORT IN PATIENT CHUCK: Not Applicable Instructions: Vaginal Yeast Infection, Adult Referrals: Cuong Reis MD [Primary Care Provider] - Ana Maria Chávez NP [Ordering Only Provider] - Forms: ED Department Discharge Additional Instructions: You were seen in the emergency room for continued suprapubic cramping and vaginal bleeding. Workup in the ER included positional blood pressure checks, which returned as normal. You are not intravascularly depleted. On pelvic examination, you almost certainly have a yeast infection, however, there is no evidence of either recent or previous vaginal bleeding, and your cervix is closed. We recommend that you begin treatment for a yeast infection, with either the medicine prescribed by Dr. Reis, or an [id number] antifungal medicine, such as 7 days of intravaginal clotrimazole or miconazole, as soon as possible. If any other problems, either follow-up with your SOFTWARE SOLUTIONS ARCHITECT, Dr. Cuong Reis, or return to the ER for reevaluation. - My Orders Last 24 Hours: My Active Orders 05/12/19 01:47 Orthostatic Vital Signs [RC] STAT 05/12/19 03:57 Pelvic Exam, Set Up [RC] ASDIRECTED - Assessment/Plan Last 24 Hours: My Active Orders 05/12/19 01:47 Orthostatic Vital Signs [RC] STAT 05/12/19 03:57 Pelvic Exam, Set Up [RC] ASDIRECTED
== END 2019-05-12 04:42 | disposition home or self-care (01) ==
LOC: JD.ED 01:36
DX: O98.811 Other maternal infectious and parasitic diseases complicating pregnancy, first trimester (principal); B37.3 Candidiasis of vulva and vagina; Z76.5 Malingerer [conscious simulation]; O99.341 Other mental disorders complicating pregnancy, first trimester; F41.9 Anxiety disorder, unspecified; Z88.0 Allergy status to penicillin; Z88.1 Allergy status to other antibiotic agents; Z79.899 Other long term (current) drug therapy
CPT/HCPCS: 99284

== ENCOUNTER 2019-08-31 06:48 | Emergency (ER) | payer MEDICAID | END 2019-08-31 07:50 | LOC: JD.ED 06:48 | DX: Z53.21 Procedure and treatment not carried out due to patient leaving prior to being seen by health care provider (principal) ==

== ENCOUNTER 2019-12-29 15:49 | Inpatient (IN) | payer MEDICAID ==
[~2019-12-29 15:49] MED LIST: Bupivacaine 0.25% 10 ML SDV ONE
[2019-12-29] MEDS ORDERED: Sodium Chloride 0.9% 10 ML Syringe FLUSH PRN (16:11)
[2019-12-29] MEDS ORDERED: Nalbuphine 10 MG/ML Syringe IVPUSH PRN (16:11)
[2019-12-29] MEDS ORDERED: Ondansetron 4 MG/2 ML SDV IVPUSH PRN ×2 (16:11→18:34)
[2019-12-29] MEDS ORDERED: ceFAZolin 2 GM in Premix Bag 1 BAG IV ONE (16:11)
[2019-12-29] MEDS ORDERED: Oxytocin/Lactated Ringers 10 UNIT/1,000 ML BAG IV SCH ×2 (16:15)
--- NOTE | 2019-12-29 16:23 | PCM.LDHP ---
L&D History of Present Illness - General Date of Service: 12/29/19 Admit Problem/Dx: Patient Status Order with Admit Dx/Problem 12/29/19 16:12 Patient Status [ADT] Routine Admission Diagnosis/Problem Admission Diagnosis/Problem Source of Information: Patient History Limitations: Reports: No Limitations - History of Present Illness Introduction:: Role 0-4 ANKIT 01/06/2020 at estimated gestational age of 38 weeks and 6 days presented to labor and delivery complaining of contractions since 1300 hrs. no leakage of fluid no gush of fluid. Patient is GBS positive. She has had a history of MRSA in the past but MRSA evaluation was negative. A shunt was late entry to care and did not keep her appointments only had 3 appointments during this . blood type A positive, antibody screen negative, hemoglobin/ hematocrit 10.2/31.6, white was 408,000, rubella immune, RPR nonreactive, urine culture mixed jerry, hepatitis B surface antigen negative. HIV negative group B strep positive Patient did not collect her 28 week labs. Plan delivery. Patient had been scheduled for induction tomorrow. Improves with: Reports: None Worsens with: Reports: None Associated Symptoms: Reports: N - Related Data Allergies/Adverse Reactions: Allergies Allergy/AdvReac Type Severity Reaction Status Date / Time clarithromycin [From Biaxin] Allergy Hives Verified 08/31/19 04:28 Penicillins Allergy Hives Verified 08/31/19 04:28 Home Medications: Home Meds clonazePAM [Klonopin] 1 mg PO TID 06/18/18 [History] No122/Iron/Folic Acid [ Multi Tablet] 1 each PO DAILY 05/11/19 [History] Cyclobenzaprine [Flexeril] 10 mg PO DAILY 05/12/19 [History] Past Medical History HEENT History: Reports: None Cardiovascular History: Reports: None Respiratory History: Reports: Asthma Gastrointestinal History: Reports: None Genitourinary History: Reports: UTI, Recurrent Other Genitourinary History: miscarriage 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: (), 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), Therapeutic (x 1) Other OB/BYN History: x4 Musculoskeletal History: Reports: Other (See Below) Other Musculoskeletal History: ankle sprain Neurological History: Reports: None Other Neuro History: depression Psychiatric History: Reports: Anxiety, Depression (untreated), Other (See Below ) (Insomnia) Endocrine/Metabolic History: Reports: None Hematologic History: Reports: Anemia Immunologic History: Reports: None Oncologic (Cancer) History: Reports: None Dermatologic History: Reports: Other (See Below) Other Dermatologic History: Frequent abscess' to groin--MRSA swab negative x3 - Infectious Disease History 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: MRSA - Past Surgical History HEENT Surgical History: Reports: Oral Surgery (wisdom teeth extraction) Dermatological Surgical History: Reports: Other (See Below) (I & D to staph infection left thigh) Social & Family History - Family History Family Medical History: Noncontributory Cardiac: Reports: [place] Endocrine/Metabolic: Reports: Diabetes, type II - Caffeine Use Caffeine Use: Reports: Soda - Living Situation & Occupation Living situation: Reports: Single, with Significant Other (Fiance), with Family (4 kids) Occupation: Unemployed H&P Review of Systems - Review of Systems: Review Of Systems: See Below General: Reports: No Symptoms HEENT: Reports: No Symptoms Pulmonary: Reports: No Symptoms Cardiovascular: Reports: No Symptoms Gastrointestinal: Reports: No Symptoms Genitourinary: Reports: No Symptoms Musculoskeletal: Reports: No Symptoms Skin: Reports: No Symptoms Psychiatric: Reports: No Symptoms Neurological: Reports: No Symptoms Hematologic/Lymphatic: Reports: No Symptoms Immunologic: Reports: No Symptoms L&D Exam - Exam Exam: See Below - Vital Signs Weight: 180 lb - OB Specific Fundal Height In cm: 38 Contraction Duration (sec): 60 Contraction Frequency (min): 4 Contraction Intensity: Mild to Moderate Movement: Active Heart Tones: Present Heart Tones per Min: 140 Heart Rate (FHR) Variability: Moderate (6-25 bmp) Presentation: Vertex - El Score El Score Cervix Position: Posterior El Score Consistency: Soft El Score Effacement: 31-50% El Score Dilation: 1-2 cm El Score 's Station: -1 ,0 El Score Total: 6 - Exam General: Alert, Oriented HEENT: Conjunctiva Clear, Mucosa Moist & [place], Pupils Equal Neck: Supple, Trachea Midline Lungs: Clear to Auscultation, Normal Respiratory Effort Cardiovascular: Regular Rate, Regular Rhythm GI/Abdominal Exam: Normal Bowel Sounds, Soft, Non-Tender Genitourinary: Normal external exam Extremities: Normal Inspection, Non-Tender, No Pedal Edema, Normal Capillary Refill Skin: Warm, Dry, Intact Psychiatric: Alert, Normal Affect, Normal Mood - Problem List (1) 38 weeks gestation of SNOMED Code(s): 58670503 ICD Code: Z3A.38 - 38 WEEKS GESTATION OF Status: Acute Current Visit: Yes (2) GBS carrier SNOMED Code(s): 0907408779822 ICD Code: Z22.330 - CARRIER OF GROUP B STREPTOCOCCUS Status: Acute Current Visit: Yes Problem List Initiated/Reviewed/Updated: No Orders Last 24hrs: Active Orders 24 hr Category Date Time Status Patient Status [ADT] Routine ADT 12/29/19 16:12 Ordered Activity as Tolerated [RC] PFP Care 12/29/19 16:11 Ordered Communication Order [RC] ASDIRECTED Care 12/29/19 16:11 Ordered Heart Tones [RC] ASDIRECTED Care 12/29/19 16:11 Ordered Non Stress Test [RC] PER UNIT ROUTINE Care 12/29/19 16:11 Ordered Notify Provider [RC] PFP Care 12/29/19 16:11 Ordered Notify Provider [RC] PRN Care 12/29/19 16:11 Ordered Peripheral IV Care [RC] . DIRECTED Care 12/29/19 16:11 Ordered Pump Management, Intrathecal [RC] ASDIRECTED Care 12/29/19 16:13 Ordered Urinary Catheter Assessment [RC] ASDIRECTED Care 12/29/19 16:11 Ordered Vital Signs [RC] PER UNIT ROUTINE Care 12/29/19 16:11 Ordered Regular Diet [DIET] Diet 12/29/19 Dinner Ordered CBC WITH AUTO DIFF [HEME] Stat Lab 12/29/19 16:11 Ordered RAPID PLASMA REAGIN,RPR [CHEM] Routine Lab 12/29/19 16:11 Ordered TYPE AND SCREEN [BBK] Stat Lab 12/29/19 16:11 Ordered Lactated Ringers [Ringers, Lactated] 1,000 ml Med 12/29/19 16:15 Ordered IV ASDIRECTED Lidocaine 1% [Xylocaine 1%] Med 12/29/19 16:11 Once 50 ml INJECT ONETIME ONE Nalbuphine [Nubain] Med 12/29/19 16:11 Ordered 10 mg IVPUSH Q2H PRN Ondansetron [Zofran] Med 12/29/19 16:11 Ordered 4 mg IVPUSH Q4H PRN Oxytocin/Lactated Ringers [Pitocin in LR 10 Units/1,000 Med 12/29/19 16:15 Ordered ML] 10 unit in 1,000 ml IV .CONTINUOUS Oxytocin/Lactated Ringers [Pitocin in LR 10 Units/1,000 Med 12/29/19 16:15 Ordered ML] 10 unit in 1,000 ml IV TITRATE Sodium Chloride 0.9% [Saline Flush] Med 12/29/19 16:11 Ordered 10 ml FLUSH ASDIRECTED PRN ceFAZolin [Ancef] 1 gm Med 12/29/19 22:00 Ordered Premix Bag 1 bag IV Q8HR ceFAZolin [Ancef] 2 gm Med 12/29/19 16:11 Ordered Premix Bag 1 bag IV ONETIME Electronic Heart Tones Ext w TOCO [WOMSER] Oth 12/29/19 16:11 Ordered Routine Electronic Heart Tones Internal [WOMSER] Per Unit Ot 12/29/19 16:11 Ordered Routine Peripheral IV Insertion Adult [OM.PC] Routine Oth 12/29/19 16:11 Ordered Resuscitation Status Routine Resus Stat 12/29/19 16:11 Ordered Assessment/Plan Comment:: Plan delivery
[2019-12-29] MEDS: Clindamycin Phosphate in D5W 900 MG in Premix Bag 1 BAG IV SCH ×2 (16:57)
[2019-12-29] MEDS: Lactated Ringers 1,000 ML IV SCH ×3 (18:08→22:33)
[2019-12-29] MEDS ORDERED: fentaNYL 100 MCG/2 ML SDV EPIDUR PRN (18:34)
[2019-12-29] MEDS ORDERED: ePHEDrine 50 MG/ML SDV IVPUSH PRN (18:34)
--- NOTE | 2019-12-29 18:38 | PCM.PREANE ---
Preanesthetic Assessment - Anesthesia/Transfusion/Family Hx Anesthesia History: Prior Anesthesia Without Reaction Family History of Anesthesia Reaction: No Transfusion History: No Prior Transfusion(s) Intubation History: Unknown - Review of Systems General: No Symptoms Pulmonary: No Symptoms (Asthma-seasonal allergies/1/2 pack/day times 12 years.) Cardiovascular: No Symptoms Gastrointestinal: No Symptoms (GERD) Neurological: No Symptoms Other: Reports: Depression, Anxiety - Physical Assessment NPO Status Date: 12/29/19 NPO Status Time: 12:00 Vital Signs: HR:90 BP:123/75 Resp:20 Temp:98.3 Sat:100% Height: 1.63 m Weight: 81.647 kg ASA Class: 2 Mental Status: Alert & Oriented x3 Airway Class: Mallampati = 2 Dentition: Reports: Normal Dentition, Caries Thyro-Mental Finger Breadths: 3 Mouth Opening Finger Breadths: 3 ROM/Head Extension: Full Lungs: Clear to Auscultation Cardiovascular: Regular Rate, Regular Rhythm, No Murmurs - Lab Values: Laboratory Last Values WBC 17.16 K/mm3 (3.98-10.04) H 12/29/19 16:30 RBC 3.65 M/mm3 (3.98-5.22) L 12/29/19 16:30 Hgb 10.5 gm/dl (11.2-15.7) L 12/29/19 16:30 Hct 33.5 % (34.1-44.9) L 12/29/19 16:30 MCV 91.8 fl (79.4-94.8) 12/29/19 16:30 MCH 28.8 pg (25.6-32.2) 12/29/19 16:30 MCHC 31.3 g/dl (32.2-35.5) L 12/29/19 16:30 RDW Std Deviation 54.1 fL (36.4-46.3) H 12/29/19 16:30 Plt Count 331 K/mm3 (182-369) D 12/29/19 16:30 MPV 10.7 fl (9.4-12.3) 12/29/19 16:30 Neut % (Auto) 76.3 % (34.0-71.1) H 12/29/19 16:30 Lymph % (Auto) 14.6 % (19.3-51.7) L 12/29/19 16:30 [place] % (Auto) 7.3 % (4.7-12.5) 12/29/19 16:30 Eos % (Auto) 0.8 (0.7-5.8) 12/29/19 16:30 Baso % (Auto) 0.3 % (0.1-1.2) 12/29/19 16:30 Neut # (Auto) 13.11 K/mm3 (1.56-6.13) H 12/29/19 16:30 Lymph # (Auto) 2.50 K/mm3 (1.18-3.74) 12/29/19 16:30 [place] # (Auto) 1.25 K/mm3 (0.24-0.36) H 12/29/19 16:30 Eos # (Auto) 0.13 K/mm3 (0.04-0.36) 12/29/19 16:30 Baso # (Auto) 0.05 K/mm3 (0.01-0.08) 12/29/19 16:30 Manual Slide Review Abnormal smear 12/29/19 16:30 Blood Type A POSITIVE 12/29/19 16:30 Gel Antibody Screen Negative 12/29/19 16:30 All labs reviewed and noted and within acceptable ranges to proceed with epidural if desired. - Allergies Allergies/Adverse Reactions: Allergies Allergy/AdvReac Type Severity Reaction Status Date / Time clarithromycin [From Biaxin] Allergy Hives Verified 08/31/19 04:28 Penicillins Allergy Hives Verified 08/31/19 04:28 - Anesthesia Plan Pre-Op Medication Ordered: None - Acknowledgements Anesthesia Type Planned: Epidural Pt an Appropriate Candidate for the Planned Anesthesia: Yes Alternatives and Risks of Anesthesia Discussed w Pt/Guardian: Yes Pt/Guardian Understands and Agrees with Anesthesia Plan: Yes PreAnesthesia Questionnaire HEENT History: Reports: None Cardiovascular History: Reports: None Respiratory History: Reports: Asthma Gastrointestinal History: Reports: None Genitourinary History: Reports: UTI, Recurrent Other Genitourinary History: miscarriage 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: (), 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), 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 (x 1) Other OB/BYN History: x4 Musculoskeletal History: Reports: Other (See Below) Other Musculoskeletal History: ankle sprain Neurological History: Reports: None Other Neuro History: depression Psychiatric History: Reports: Anxiety, Depression (untreated), Other (See Below ) (Insomnia) Endocrine/Metabolic History: Reports: None Hematologic History: Reports: Anemia Immunologic History: Reports: None Oncologic (Cancer) History: Reports: None Dermatologic History: Reports: Other (See Below) Other Dermatologic History: Frequent abscess' to groin--MRSA swab negative x3 - Infectious Disease History 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: MRSA - Past Surgical History HEENT Surgical History: Reports: Oral Surgery (wisdom teeth extraction) Dermatological Surgical History: Reports: Other (See Below) (I & D to staph infection left thigh) - SUBSTANCE USE Smoking Status *Q: Current Every Day Smoker Tobacco Use Within Last Twelve Months: Cigarettes Second Hand Smoke Exposure: Yes Recreational Drug Use History: No - HOME MEDS Home Medications: Home Meds clonazePAM [Klonopin] 1 mg PO TID 06/18/18 [History] No122/Iron/Folic Acid [ Multi Tablet] 1 each PO DAILY 05/11/19 [History] Cyclobenzaprine [Flexeril] 10 mg PO DAILY 05/12/19 [History] - CURRENT (IN HOUSE) MEDS Current Meds: Current Medications Ephedrine Sulfate (Ephedrine Sulfate) 5 mg IVPUSH ASDIRECTED PRN PRN Reason: Hypotension Fentanyl (Sublimaze) 100 mcg EPIDUR Q3H PRN PRN Reason: Pain Fentanyl/Bupivacaine HCl (Fentanyl/Bupivacaine/Ns 2 Mcg-0.125% 100 Ml) 100 ml EPIDUR ASDIRECTED LJ Lactated Ringer's (Ringers, Lactated) 1,000 mls @ 100 mls/hr IV ASDIRECTED LJ Last Admin: 12/29/19 18:08 Dose: 100 mls/hr Oxytocin/Lactated Ringer's (Pitocin In Lr 10 Units/1,000 Ml) 10 unit in 1,000 mls @ 100 mls/hr IV .CONTINUOUS LJ; Protocol Oxytocin/Lactated Ringer's (Pitocin In Lr 10 Units/1,000 Ml) 10 unit in 1,000 mls @ 12 mls/hr IV TITRATE LJ; Protocol Clindamycin Phosphate 900 mg/ (Premix) 50 mls @ 100 mls/hr IV Q8H LJ Last Admin: 12/29/19 16:57 Dose: 100 mls/hr Lidocaine HCl (Xylocaine 1%) 50 ml INJECT ONETIME ONE Stop: 12/29/19 20:01 Nalbuphine HCl (Nubain) 10 mg IVPUSH Q2H PRN PRN Reason: Pain Ondansetron HCl (Zofran) 4 mg IVPUSH Q4H PRN PRN Reason: Nausea/Vomiting Ondansetron HCl (Zofran) 4 mg IVPUSH ONETIME PRN PRN Reason: Nausea/Vomiting Sodium Chloride (Saline Flush) 10 ml FLUSH ASDIRECTED PRN PRN Reason: Keep Vein Open Discontinued Medications Cefazolin Sodium/Dextrose 2 gm (/ Premix) 50 mls @ 100 mls/hr IV ONETIME ONE Stop: 12/29/19 16:40 Cefazolin Sodium/Dextrose 1 gm (/ Premix) 50 mls @ 100 mls/hr IV Q8H LJ
[2019-12-29] MEDS: Bupivacaine/fentaNYL/NS 100 ML Bag EPIDUR SCH (18:58)
[2019-12-29] MEDS ORDERED: Lidocaine 1% 50 ML MDV INJECT ONE (20:00)
[2019-12-30] MEDS ORDERED: ceFAZolin 1 GM in Premix Bag 1 BAG IV SCH ×2
[2019-12-30] MEDS: Clindamycin Phosphate in D5W 900 MG in Premix Bag 1 BAG IV SCH ×2 (00:48)
[2019-12-30] MEDS: Lactated Ringers 1,000 ML IV SCH (02:10)
[2019-12-30] MEDS: Bupivacaine/fentaNYL/NS 100 ML Bag EPIDUR SCH (02:11)
--- NOTE | 2019-12-30 03:44 | PCM.DEL ---
L & D Note - General Info Date of Service: 12/30/19 Mother's Due Date: 01/[birth year]20 - Delivery Note Labor: Spontaneous Delivery Outcome: Livebirth (Male liveborn 01/06/2019 at 0321 hrs. Apgars 8/9 meconium-stained amniotic fluid no nuchal cord ARMANDO weight 30/3/30 grams/7 pounds 5.5 ounces) Delivery Method: Spontaneous Vaginal Delivery-Single Delivery Mode: Spontaneous Presentation: Left Occiput Anterior (ARMANDO) Nuchal Cord: None Prep: Povidone-Iodine (Betadine Anesthesia Type: Epidural Amniotic Fluid Description: Meconium Stained Episiotomy Type: None Laceration: None Placenta: Intact, Spontaneous (0328 hrs. 12/30/2019 marginal insertion of the cord intact examined discarded) Cord: 3 Vessels Estimated Blood Loss: 250 Resuscitation Needed: No [place]: Suctioned, Bulb Syringe, Stimulated, Warmed, [place] Used, Warmer Used Provider: Akin Burton Score 1 min: 8 Score 5 min: 9 - General Info Date of Service: 12/30/19 Functional Status: Reports: Pain Controlled - Review of Systems General: Reports: No Symptoms HEENT: Reports: No Symptoms Pulmonary: Reports: No Symptoms Cardiovascular: Reports: No Symptoms Gastrointestinal: Reports: No Symptoms Genitourinary: Reports: No Symptoms Musculoskeletal: Reports: No Symptoms Skin: Reports: No Symptoms Neurological: Reports: No Symptoms Psychiatric: Reports: No Symptoms - Patient Data Vitals - Most Recent: Last Vital Signs Temp 98.3 F 12/29/19 16:11 Pulse 98 12/29/19 16:11 Resp 18 12/29/19 16:11 BP 123/75 12/29/19 16:11 Pulse Ox Weight - Most Recent: 180 lb Lab Results Last 24 Hours: Laboratory Results - last 24 hr 12/29/19 12/29/19 12/29/19 Range/Units 16:30 16:30 16:30 WBC 17.16 H (3.98-10.04) K/mm3 RBC 3.65 L (3.98-5.22) M/mm3 Hgb 10.5 L (11.2-15.7) gm/dl Hct 33.5 L (34.1-44.9) % MCV 91.8 (79.4-94.8) fl MCH 28.8 (25.6-32.2) pg MCHC 31.3 L (32.2-35.5) g/dl RDW Std Deviation 54.1 H (36.4-46.3) fL Plt Count 331 D (182-369) K/mm3 MPV 10.7 (9.4-12.3) fl Neut % (Auto) 76.3 H (34.0-71.1) % Lymph % (Auto) 14.6 L (19.3-51.7) % [place] % (Auto) 7.3 (4.7-12.5) % Eos % (Auto) 0.8 (0.7-5.8) Baso % (Auto) 0.3 (0.1-1.2) % Neut # (Auto) 13.11 H (1.56-6.13) K/mm3 Lymph # (Auto) 2.50 (1.18-3.74) K/mm3 [place] # (Auto) 1.25 H (0.24-0.36) K/mm3 Eos # (Auto) 0.13 (0.04-0.36) K/mm3 Baso # (Auto) 0.05 (0.01-0.08) K/mm3 Manual Slide Review Abnormal smear Urine Opiates Screen (GHEBFI=024) Ur Buprenorphine Scrn (CUTOFF=10) Ur Oxycodone Screen (JAT3XC=441) Urine Methadone Screen (MAFIAT=631) Ur Propoxyphene Screen (EVCIOB=561) Ur Barbiturates Screen (NSQDNZ=036) Ur Tricyclics Screen (NESOJN=514) Ur Phencyclidine Scrn (CUTOFF=25) Ur Amphetamine Screen (BVSEQC=709) U Methamphetamines Scrn (PPGYOK=853) U Benzodiazepines Scrn (ECDNRD=813) U Cocaine Metab Screen (MSYZKL=226) U Marijuana (THC) Screen (CUTOFF=50) RPR Non-reactive (NONREACTIVE) Blood Type A POSITIVE Gel Antibody Screen Negative 12/29/19 Range/Units 20:00 WBC (3.98-10.04) K/mm3 RBC (3.98-5.22) M/mm3 Hgb (11.2-15.7) gm/dl Hct (34.1-44.9) % MCV (79.4-94.8) fl MCH (25.6-32.2) pg MCHC (32.2-35.5) g/dl RDW Std Deviation (36.4-46.3) fL Plt Count (182-369) K/mm3 MPV (9.4-12.3) fl Neut % (Auto) (34.0-71.1) % Lymph % (Auto) (19.3-51.7) % [place] % (Auto) (4.7-12.5) % Eos % (Auto) (0.7-5.8) Baso % (Auto) (0.1-1.2) % Neut # (Auto) (1.56-6.13) K/mm3 Lymph # (Auto) (1.18-3.74) K/mm3 [place] # (Auto) (0.24-0.36) K/mm3 Eos # (Auto) (0.04-0.36) K/mm3 Baso # (Auto) (0.01-0.08) K/mm3 Manual Slide Review Urine Opiates Screen Negative (IMQNNM=691) Ur Buprenorphine Scrn Negative (CUTOFF=10) Ur Oxycodone Screen Negative (PGE1QU=683) Urine Methadone Screen Negative (ARPVTZ=566) Ur Propoxyphene Screen Negative (TIWFUJ=578) Ur Barbiturates Screen Negative (INGDVE=266) Ur Tricyclics Screen Negative (LEWLYN=103) Ur Phencyclidine Scrn Negative (CUTOFF=25) Ur Amphetamine Screen Negative (VAPXQC=667) U Methamphetamines Scrn Negative (HVKVGG=192) U Benzodiazepines Scrn Negative (NCNTSD=840) U Cocaine Metab Screen Negative (OBUSRX=821) U Marijuana (THC) Screen Negative (CUTOFF=50) RPR (NONREACTIVE) Blood Type Gel Antibody Screen Med Orders - Current: Current Medications Ephedrine Sulfate (Ephedrine Sulfate) 5 mg IVPUSH ASDIRECTED PRN PRN Reason: Hypotension Fentanyl (Sublimaze) 100 mcg EPIDUR Q3H PRN PRN Reason: Pain Last Admin: 12/29/19 18:57 Dose: 100 mcg Fentanyl/Bupivacaine HCl (Fentanyl/Bupivacaine/Ns 2 Mcg-0.125% 100 Ml) 100 ml EPIDUR ASDIRECTED LJ Last Admin: 12/30/19 02:11 Dose: 100 ml Lactated Ringer's (Ringers, Lactated) 1,000 mls @ 100 mls/hr IV ASDIRECTED LJ Last Admin: 12/30/19 02:10 Dose: 100 mls/hr Oxytocin/Lactated Ringer's (Pitocin In Lr 10 Units/1,000 Ml) 10 unit in 1,000 mls @ 100 mls/hr IV .CONTINUOUS LJ; Protocol Oxytocin/Lactated Ringer's (Pitocin In Lr 10 Units/1,000 Ml) 10 unit in 1,000 mls @ 12 mls/hr IV TITRATE LJ; Protocol Clindamycin Phosphate 900 mg/ (Premix) 50 mls @ 100 mls/hr IV Q8H LJ Last Admin: 12/30/19 00:48 Dose: 100 mls/hr Nalbuphine HCl (Nubain) 10 mg IVPUSH Q2H PRN PRN Reason: Pain Ondansetron HCl (Zofran) 4 mg IVPUSH Q4H PRN PRN Reason: Nausea/Vomiting Ondansetron HCl (Zofran) 4 mg IVPUSH ONETIME PRN PRN Reason: Nausea/Vomiting Sodium Chloride (Saline Flush) 10 ml FLUSH ASDIRECTED PRN PRN Reason: Keep Vein Open Discontinued Medications Cefazolin Sodium/Dextrose 2 gm (/ Premix) 50 mls @ 100 mls/hr IV ONETIME ONE Stop: 12/29/19 16:40 Cefazolin Sodium/Dextrose 1 gm (/ Premix) 50 mls @ 100 mls/hr IV Q8H [facility] Lidocaine HCl (Xylocaine 1%) 50 ml INJECT ONETIME ONE Stop: 12/29/19 20:01 - Exam General: Alert, Oriented (Female) Exam: Normal External Exam Extremities: Normal Inspection, Non-Tender, No Pedal Edema, Normal Capillary Refill Skin: Warm, Dry, Intact Psy/Mental Status: Alert, Normal Affect, Normal Mood - Problem List & Annotations (1) 38 weeks gestation of SNOMED Code(s): 48017173 Code(s): Z3A.38 - 38 WEEKS GESTATION OF Status: Acute Current Visit: Yes (2) GBS carrier SNOMED Code(s): 6432991500638 Code(s): Z22.330 - CARRIER OF GROUP B STREPTOCOCCUS Status: Acute Current Visit: Yes (3) Labor and delivery complicated by meconium in amniotic fluid SNOMED Code(s): 660579604 Code(s): O77.0 - LABOR AND DELIVERY COMPLICATED BY MECONIUM IN AMNIOTIC FLUID Status: Acute Current Visit: Yes (4) Born by normal vaginal delivery SNOMED Code(s): 690763762 Code(s): O80 - ENCOUNTER FOR FULL-TERM UNCOMPLICATED DELIVERY Status: Acute Current Visit: Yes - Problem List Review Problem List Initiated/Reviewed/Updated: No - My Orders Last 24 Hours: My Active Orders 12/29/19 16:11 Activity as Tolerated [RC] PFP Communication Order [RC] ASDIRECTED Heart Tones [RC] ASDIRECTED Notify Provider [RC] PFP Notify Provider [RC] PRN Peripheral IV Care [RC] Q2HR Urinary Catheter Assessment [RC] ASDIRECTED Vital Signs [RC] 21,03,09,15 Nalbuphine [Nubain] 10 mg IVPUSH Q2H PRN Ondansetron [Zofran] 4 mg IVPUSH Q4H PRN Sodium Chloride 0.9% [Saline Flush] 10 ml FLUSH ASDIRECTED PRN Electronic Heart Tones Ext w TOCO [WOMSER] Routine Electronic Heart Tones Internal [WOMSER] Per Unit Routine Peripheral IV Insertion Adult [OM.PC] Routine Resuscitation Status Routine 12/29/19 16:12 Patient Status [ADT] Routine 12/29/19 16:13 Pump Management, Intrathecal [RC] ASDIRECTED 12/29/19 16:15 Lactated Ringers [Ringers, Lactated] 1,000 ml IV ASDIRECTED Oxytocin/Lactated Ringers [Pitocin in LR 10 Units/1,000 ML] 10 unit in 1,000 ml IV .CONTINUOUS Oxytocin/Lactated Ringers [Pitocin in LR 10 Units/1,000 ML] 10 unit in 1,000 ml IV TITRATE 12/29/19 17:00 Clindamycin Phosphate in D5W [Cleocin in D5W] 900 mg Premix Bag 1 bag IV Q8H 12/29/19 20:00 DRUG SCREEN, URINE [URCHEM] Stat 12/29/19 Dinner Regular Diet [DIET] - Plan Plan:: Plan delivery
[2019-12-30] MEDS ORDERED: Docusate Sodium 100 MG Cap PO PRN (04:16)
[2019-12-30] MEDS ORDERED: Acetaminophen 325 MG Tab PO PRN (04:16)
[2019-12-30] MEDS ORDERED: Benzocaine/Menthol 20%-0.5% Spray 56 GM Canister TOP PRN (04:16)
[2019-12-30] MEDS ORDERED: Witch Hazel Medicated Pads 40/Jar TOP PRN (04:16)
[2019-12-30] MEDS: Ibuprofen 600 MG Tab PO PRN ×3 (04:27→15:14)
--- NOTE | 2019-12-30 08:13 | PCM48HPAN ---
Post Anesthesia Note - EVALUATION WITHIN 48HRS OF ANESTHETIC Vital Signs in Normal Range: Yes Patient Participated in Evaluation: Yes Respiratory Function Stable: Yes Airway Patent: Yes Cardiovascular Function Stable: Yes Hydration Status Stable: Yes Pain Control Satisfactory: Yes Nausea and Vomiting Control Satisfactory: Yes Mental Status Recovered: Yes Vital Signs: Last Vital Signs Temp 36.8 C 12/29/19 16:11 Pulse 98 12/29/19 16:11 Resp 18 12/29/19 16:11 BP 123/75 12/29/19 16:11 Pulse Ox
[2019-12-31] MEDS: Ibuprofen 600 MG Tab PO PRN ×2 (03:49→09:18)
--- NOTE | 2019-12-31 12:01 | PCM.DCSUM1 ---
Discharge Summary - Hospital Course Free Text/Narrative:: [facility] LIVE L/D Delivery Note Patient Name: ROGELIO SADLER Date of : 89 Patient Status: Inpatient Attending Provider: Akin Burton Date: 12/30/19 03:39 Initialization Date: 12/30/19 03:39 L & D Note - General Info Date of Service: 12/30/19 Mother's Due Date: 01/06/20 - Delivery Note Labor: Spontaneous Delivery Outcome: Livebirth (Male liveborn 01/06/2019 at 0321 hrs. Apgars 8/9 meconium-stained amniotic fluid no nuchal cord ARMANDO weight 30/3/30 grams/7 pounds 5.5 ounces) Infant Delivery Method: Spontaneous Vaginal Delivery-Single Delivery Mode: Spontaneous Presentation: Left Occiput Anterior (ARMANDO) Nuchal Cord: None Prep: Povidone-Iodine (Betadine Anesthesia Type: Epidural Amniotic Fluid Description: Meconium Stained Episiotomy Type: None Laceration: None Placenta: Intact, Spontaneous (0328 hrs. 12/30/2019 marginal insertion of the cord intact examined discarded) Cord: 3 Vessels Estimated Blood Loss: 250 Resuscitation Needed: No : Suctioned, Bulb Syringe, Stimulated, Warmed, [place] Used, Warmer Used Provider: Akin Burton Score 1 min: 8 Score 5 min: 9 - General Info Date of Service: 12/30/19 Functional Status: Reports: Pain Controlled - Review of Systems General: Reports: No Symptoms HEENT: Reports: No Symptoms Pulmonary: Reports: No Symptoms Cardiovascular: Reports: No Symptoms Gastrointestinal: Reports: No Symptoms Genitourinary: Reports: No Symptoms Musculoskeletal: Reports: No Symptoms Skin: Reports: No Symptoms Neurological: Reports: No Symptoms Psychiatric: Reports: No Symptoms - Patient Data Vitals - Most Recent: Last Vital Signs Temp 98.3 F 12/29/19 16:11 Pulse 98 12/29/19 16:11 Resp 18 12/29/19 16:11 BP 123/75 12/29/19 16:11 Pulse Ox Weight - Most Recent: 180 lb Lab Results Last 24 Hours: Laboratory Results - last 24 hr 12/29/19 12/29/19 12/29/19 Range/Units 16:30 16:30 16:30 WBC 17.16 H (3.98-10.04) K/mm3 RBC 3.65 L (3.98-5.22) M/mm3 Hgb 10.5 L (11.2-15.7) gm/dl Hct 33.5 L (34.1-44.9) % MCV 91.8 (79.4-94.8) fl MCH 28.8 (25.6-32.2) pg MCHC 31.3 L (32.2-35.5) g/dl RDW Std Deviation 54.1 H (36.4-46.3) fL Plt Count 331 D (182-369) K/mm3 MPV 10.7 (9.4-12.3) fl Neut % (Auto) 76.3 H (34.0-71.1) % Lymph % (Auto) 14.6 L (19.3-51.7) % Ferry % (Auto) 7.3 (4.7-12.5) % Eos % (Auto) 0.8 (0.7-5.8) Baso % (Auto) 0.3 (0.1-1.2) % Neut # (Auto) 13.11 H (1.56-6.13) K/mm3 Lymph # (Auto) 2.50 (1.18-3.74) K/mm3 Ferry # (Auto) 1.25 H (0.24-0.36) K/mm3 Eos # (Auto) 0.13 (0.04-0.36) K/mm3 Baso # (Auto) 0.05 (0.01-0.08) K/mm3 Manual Slide Review Abnormal smear Urine Opiates Screen (SDJUTH=802) Ur Buprenorphine Scrn (CUTOFF=10) Ur Oxycodone Screen (KIZ1MF=987) Urine Methadone Screen (RADQMJ=298) Ur Propoxyphene Screen (POJPJL=261) Ur Barbiturates Screen (WRRHFH=099) Ur Tricyclics Screen (XXNJAJ=110) Ur Phencyclidine Scrn (CUTOFF=25) Ur Amphetamine Screen (PDXVJO=270) U Methamphetamines Scrn (LJDRZJ=870) U Benzodiazepines Scrn (WIBZOE=242) U Cocaine Metab Screen (OSSMHQ=493) U Marijuana (THC) Screen (CUTOFF=50) RPR Non-reactive (NONREACTIVE) Blood Type A POSITIVE Gel Antibody Screen Negative 12/29/19 Range/Units 20:00 WBC (3.98-10.04) K/mm3 RBC (3.98-5.22) M/mm3 Hgb (11.2-15.7) gm/dl Hct (34.1-44.9) % MCV (79.4-94.8) fl MCH (25.6-32.2) pg MCHC (32.2-35.5) g/dl RDW Std Deviation (36.4-46.3) fL Plt Count (182-369) K/mm3 MPV (9.4-12.3) fl Neut % (Auto) (34.0-71.1) % Lymph % (Auto) (19.3-51.7) % [place]erry % (Auto) (4.7-12.5) % Eos % (Auto) (0.7-5.8) Baso % (Auto) (0.1-1.2) % Neut # (Auto) (1.56-6.13) K/mm3 Lymph # (Auto) (1.18-3.74) K/mm3 Ferry # (Auto) (0.24-0.36) K/mm3 Eos # (Auto) (0.04-0.36) K/mm3 Baso # (Auto) (0.01-0.08) K/mm3 Manual Slide Review Urine Opiates Screen Negative (TSXAEP=733) Ur Buprenorphine Scrn Negative (CUTOFF=10) Ur Oxycodone Screen Negative (NDA9HS=894) Urine Methadone Screen Negative (PANKWN=814) Ur Propoxyphene Screen Negative (EPDBBQ=483) Ur Barbiturates Screen Negative (NFDEOX=192) Ur Tricyclics Screen Negative (HRHHVH=026) Ur Phencyclidine Scrn Negative (CUTOFF=25) Ur Amphetamine Screen Negative (WPOJGM=004) U Methamphetamines Scrn Negative (RZFDHF=686) U Benzodiazepines Scrn Negative (MHXQTR=903) U Cocaine Metab Screen Negative (WTKITV=580) U Marijuana (THC) Screen Negative (CUTOFF=50) RPR (NONREACTIVE) Blood Type Gel Antibody Screen Med Orders - Current: Current Medications Ephedrine Sulfate (Ephedrine Sulfate) 5 mg IVPUSH ASDIRECTED PRN PRN Reason: Hypotension Fentanyl (Sublimaze) 100 mcg EPIDUR Q3H PRN PRN Reason: Pain Last Admin: 12/29/19 18:57 Dose: 100 mcg Fentanyl/Bupivacaine HCl (Fentanyl/Bupivacaine/Ns 2 Mcg-0.125% 100 Ml) 100 ml EPIDUR ASDIRECTED LJ Last Admin: 12/30/19 02:11 Dose: 100 ml Lactated Ringer's (Ringers, Lactated) 1,000 mls @ 100 mls/hr IV ASDIRECTED JL Last Admin: 12/30/19 02:10 Dose: 100 mls/hr Oxytocin/Lactated Ringer's (Pitocin In Lr 10 Units/1,000 Ml) 10 unit in 1,000 mls @ 100 mls/hr IV .CONTINUOUS LJ; Protocol Oxytocin/Lactated Ringer's (Pitocin In Lr 10 Units/1,000 Ml) 10 unit in 1,000 mls @ 12 mls/hr IV TITRATE LJ; Protocol Clindamycin Phosphate 900 mg/ (Premix) 50 mls @ 100 mls/hr IV Q8H [facility] Last Admin: 12/30/19 00:48 Dose: 100 mls/hr Nalbuphine HCl (Nubain) 10 mg IVPUSH Q2H PRN PRN Reason: Pain Ondansetron HCl (Zofran) 4 mg IVPUSH Q4H PRN PRN Reason: Nausea/Vomiting Ondansetron HCl (Zofran) 4 mg IVPUSH ONETIME PRN PRN Reason: Nausea/Vomiting Sodium Chloride (Saline Flush) 10 ml FLUSH ASDIRECTED PRN PRN Reason: Keep Vein Open Discontinued Medications Cefazolin Sodium/Dextrose 2 gm (/ Premix) 50 mls @ 100 mls/hr IV ONETIME ONE Stop: 12/29/19 16:40 Cefazolin Sodium/Dextrose 1 gm (/ Premix) 50 mls @ 100 mls/hr IV Q8H [facility] Lidocaine HCl (Xylocaine 1%) 50 ml INJECT ONETIME ONE Stop: 12/29/19 20:01 - Exam General: Alert, Oriented (Female) Exam: Normal External Exam Extremities: Normal Inspection, Non-Tender, No Pedal Edema, Normal Capillary Refill Skin: Warm, Dry, Intact Psy/Mental Status: Alert, Normal Affect, Normal Mood - Problem List & Annotations (1) 38 weeks gestation of SNOMED Code(s): 16267836 Code(s): Z3A.38 - 38 WEEKS GESTATION OF Status: Acute Current Visit: Yes (2) GBS carrier SNOMED Code(s): 2221854262769 Code(s): Z22.330 - CARRIER OF GROUP B STREPTOCOCCUS Status: Acute Current Visit: Yes (3) Labor and delivery complicated by meconium in amniotic fluid SNOMED Code(s): 625216424 Code(s): O77.0 - LABOR AND DELIVERY COMPLICATED BY MECONIUM IN AMNIOTIC FLUID Status: Acute Current Visit: Yes (4) Born by normal vaginal delivery SNOMED Code(s): 299156475 Code(s): O80 - ENCOUNTER FOR FULL-TERM UNCOMPLICATED DELIVERY Status: Acute Current Visit: Yes - Problem List Review Problem List Initiated/Reviewed/Updated: No - My Orders Last 24 Hours: My Active Orders 12/29/19 16:11 Activity as Tolerated [RC] PFP Communication Order [RC] ASDIRECTED Heart Tones [RC] ASDIRECTED Notify Provider [RC] PFP Notify Provider [RC] PRN Peripheral IV Care [RC] Q2HR Urinary Catheter Assessment [RC] ASDIRECTED Vital Signs [RC] 21,03,09,15 Nalbuphine [Nubain] 10 mg IVPUSH Q2H PRN Ondansetron [Zofran] 4 mg IVPUSH Q4H PRN Sodium Chloride 0.9% [Saline Flush] 10 ml FLUSH ASDIRECTED PRN Electronic Heart Tones Ext w TOCO [WOMSER] Routine Electronic Heart Tones Internal [WOMSER] Per Unit Routine Peripheral IV Insertion Adult [OM.PC] Routine Resuscitation Status Routine 12/29/19 16:12 Patient Status [ADT] Routine 12/29/19 16:13 Pump Management, Intrathecal [RC] ASDIRECTED 12/29/19 16:15 Lactated Ringers [Ringers, Lactated] 1,000 ml IV ASDIRECTED Oxytocin/Lactated Ringers [Pitocin in LR 10 Units/1,000 ML] 10 unit in 1,000 ml IV .CONTINUOUS Oxytocin/Lactated Ringers [Pitocin in LR 10 Units/1,000 ML] 10 unit in 1,000 ml IV TITRATE 12/29/19 17:00 Clindamycin Phosphate in D5W [Cleocin in D5W] 900 mg Premix Bag 1 bag IV Q8H 12/29/19 20:00 DRUG SCREEN, URINE [URCHEM] Stat 12/29/19 Dinner Regular Diet [DIET] - Plan Plan:: Plan delivery HPI Initial Comments: [facility] LIVE L/D Delivery Note Patient Name: ROGELIO SADLER Date of : 89 Patient Status: Inpatient Attending Provider: Akin Burton Date: 12/30/19 03:39 Initialization Date: 12/30/19 03:39 L & D Note - General Info Date of Service: 12/30/19 Mother's Due Date: 01/06/20 - Delivery Note Labor: Spontaneous Delivery Outcome: Livebirth (Male liveborn 01/06/2019 at 0321 hrs. Apgars 8/9 meconium-stained amniotic fluid no nuchal cord ARMANDO weight 30/3/30 grams/7 pounds 5.5 ounces) Infant Delivery Method: Spontaneous Vaginal Delivery-Single Infant Delivery Mode: Spontaneous Presentation: Left Occiput Anterior (ARMANDO) Nuchal Cord: None Prep: Povidone-Iodine (Betadine Anesthesia Type: Epidural Amniotic Fluid Description: Meconium Stained Episiotomy Type: None Laceration: None Placenta: Intact, Spontaneous (0328 hrs. 12/30/2019 marginal insertion of the cord intact examined discarded) Cord: 3 Vessels Estimated Blood Loss: 250 Resuscitation Needed: No : Suctioned, Bulb Syringe, Stimulated, Warmed, [place] Used, Warmer Used Provider: Akin Burton Score 1 min: 8 Score 5 min: 9 - General Info Date of Service: 12/30/19 Functional Status: Reports: Pain Controlled - Review of Systems General: Reports: No Symptoms HEENT: Reports: No Symptoms Pulmonary: Reports: No Symptoms Cardiovascular: Reports: No Symptoms Gastrointestinal: Reports: No Symptoms Genitourinary: Reports: No Symptoms Musculoskeletal: Reports: No Symptoms Skin: Reports: No Symptoms Neurological: Reports: No Symptoms Psychiatric: Reports: No Symptoms - Patient Data Vitals - Most Recent: Last Vital Signs Temp 98.3 F 12/29/19 16:11 Pulse 98 12/29/19 16:11 Resp 18 12/29/19 16:11 BP 123/75 12/29/19 16:11 Pulse Ox Weight - Most Recent: 180 lb Lab Results Last 24 Hours: Laboratory Results - last 24 hr 12/29/19 12/29/19 12/29/19 Range/Units 16:30 16:30 16:30 WBC 17.16 H (3.98-10.04) K/mm3 RBC 3.65 L (3.98-5.22) M/mm3 Hgb 10.5 L (11.2-15.7) gm/dl Hct 33.5 L (34.1-44.9) % MCV 91.8 (79.4-94.8) fl MCH 28.8 (25.6-32.2) pg MCHC 31.3 L (32.2-35.5) g/dl RDW Std Deviation 54.1 H (36.4-46.3) fL Plt Count 331 D (182-369) K/mm3 MPV 10.7 (9.4-12.3) fl Neut % (Auto) 76.3 H (34.0-71.1) % Lymph % (Auto) 14.6 L (19.3-51.7) % Ferry % (Auto) 7.3 (4.7-12.5) % Eos % (Auto) 0.8 (0.7-5.8) Baso % (Auto) 0.3 (0.1-1.2) % Neut # (Auto) 13.11 H (1.56-6.13) K/mm3 Lymph # (Auto) 2.50 (1.18-3.74) K/mm3 Ferry # (Auto) 1.25 H (0.24-0.36) K/mm3 Eos # (Auto) 0.13 (0.04-0.36) K/mm3 Baso # (Auto) 0.05 (0.01-0.08) K/mm3 Manual Slide Review Abnormal smear Urine Opiates Screen (PAZGOO=436) Ur Buprenorphine Scrn (CUTOFF=10) Ur Oxycodone Screen (XSY3PF=291) Urine Methadone Screen (YXHSJT=520) Ur Propoxyphene Screen (DYGXHZ=781) Ur Barbiturates Screen (PWAMQT=222) Ur Tricyclics Screen (AFXBYF=936) Ur Phencyclidine Scrn (CUTOFF=25) Ur Amphetamine Screen (OTRXHY=317) U Methamphetamines Scrn (FDWJZF=678) U Benzodiazepines Scrn (HHANCV=629) U Cocaine Metab Screen (LIBKRM=710) U Marijuana (THC) Screen (CUTOFF=50) RPR Non-reactive (NONREACTIVE) Blood Type A POSITIVE Gel Antibody Screen Negative 12/29/19 Range/Units 20:00 WBC (3.98-10.04) K/mm3 RBC (3.98-5.22) M/mm3 Hgb (11.2-15.7) gm/dl Hct (34.1-44.9) % MCV (79.4-94.8) fl MCH (25.6-32.2) pg MCHC (32.2-35.5) g/dl RDW Std Deviation (36.4-46.3) fL Plt Count (182-369) K/mm3 MPV (9.4-12.3) fl Neut % (Auto) (34.0-71.1) % Lymph % (Auto) (19.3-51.7) % [place]erry % (Auto) (4.7-12.5) % Eos % (Auto) (0.7-5.8) Baso % (Auto) (0.1-1.2) % Neut # (Auto) (1.56-6.13) K/mm3 Lymph # (Auto) (1.18-3.74) K/mm3 Ferry # (Auto) (0.24-0.36) K/mm3 Eos # (Auto) (0.04-0.36) K/mm3 Baso # (Auto) (0.01-0.08) K/mm3 Manual Slide Review Urine Opiates Screen Negative (NHJPFG=109) Ur Buprenorphine Scrn Negative (CUTOFF=10) Ur Oxycodone Screen Negative (ZDD3QG=397) Urine Methadone Screen Negative (VGGBVX=436) Ur Propoxyphene Screen Negative (MODXDX=161) Ur Barbiturates Screen Negative (BKYKMZ=893) Ur Tricyclics Screen Negative (ZDIGZP=281) Ur Phencyclidine Scrn Negative (CUTOFF=25) Ur Amphetamine Screen Negative (ORQKRH=261) U Methamphetamines Scrn Negative (TFCCQP=678) U Benzodiazepines Scrn Negative (BTGRVB=193) U Cocaine Metab Screen Negative (LFTKRV=168) U Marijuana (THC) Screen Negative (CUTOFF=50) RPR (NONREACTIVE) Blood Type Gel Antibody Screen Med Orders - Current: Current Medications Ephedrine Sulfate (Ephedrine Sulfate) 5 mg IVPUSH ASDIRECTED PRN PRN Reason: Hypotension Fentanyl (Sublimaze) 100 mcg EPIDUR Q3H PRN PRN Reason: Pain Last Admin: 12/29/19 18:57 Dose: 100 mcg Fentanyl/Bupivacaine HCl (Fentanyl/Bupivacaine/Ns 2 Mcg-0.125% 100 Ml) 100 ml EPIDUR ASDIRECTED LJ Last Admin: 12/30/19 02:11 Dose: 100 ml Lactated Ringer's (Ringers, Lactated) 1,000 mls @ 100 mls/hr IV ASDIRECTED LJ Last Admin: 12/30/19 02:10 Dose: 100 mls/hr Oxytocin/Lactated Ringer's (Pitocin In Lr 10 Units/1,000 Ml) 10 unit in 1,000 mls @ 100 mls/hr IV .CONTINUOUS LJ; Protocol Oxytocin/Lactated Ringer's (Pitocin In Lr 10 Units/1,000 Ml) 10 unit in 1,000 mls @ 12 mls/hr IV TITRATE LJ; Protocol Clindamycin Phosphate 900 mg/ (Premix) 50 mls @ 100 mls/hr IV Q8H LJ Last Admin: 12/30/19 00:48 Dose: 100 mls/hr Nalbuphine HCl (Nubain) 10 mg IVPUSH Q2H PRN PRN Reason: Pain Ondansetron HCl (Zofran) 4 mg IVPUSH Q4H PRN PRN Reason: Nausea/Vomiting Ondansetron HCl (Zofran) 4 mg IVPUSH ONETIME PRN PRN Reason: Nausea/Vomiting Sodium Chloride (Saline Flush) 10 ml FLUSH ASDIRECTED PRN PRN Reason: Keep Vein Open Discontinued Medications Cefazolin Sodium/Dextrose 2 gm (/ Premix) 50 mls @ 100 mls/hr IV ONETIME ONE Stop: 12/29/19 16:40 Cefazolin Sodium/Dextrose 1 gm (/ Premix) 50 mls @ 100 mls/hr IV Q8H [facility] Lidocaine HCl (Xylocaine 1%) 50 ml INJECT ONETIME ONE Stop: 12/29/19 20:01 - Exam General: Alert, Oriented (Female) Exam: Normal External Exam Extremities: Normal Inspection, Non-Tender, No Pedal Edema, Normal Capillary Refill Skin: Warm, Dry, Intact Psy/Mental Status: Alert, Normal Affect, Normal Mood - Problem List & Annotations (1) 38 weeks gestation of SNOMED Code(s): 78928114 Code(s): Z3A.38 - 38 WEEKS GESTATION OF Status: Acute Current Visit: Yes (2) GBS carrier SNOMED Code(s): 9404372793949 Code(s): Z22.330 - CARRIER OF GROUP B STREPTOCOCCUS Status: Acute Current Visit: Yes (3) Labor and delivery complicated by meconium in amniotic fluid SNOMED Code(s): 509539090 Code(s): O77.0 - LABOR AND DELIVERY COMPLICATED BY MECONIUM IN AMNIOTIC FLUID Status: Acute Current Visit: Yes (4) Born by normal vaginal delivery SNOMED Code(s): 290688968 Code(s): O80 - ENCOUNTER FOR FULL-TERM UNCOMPLICATED DELIVERY Status: Acute Current Visit: Yes - Problem List Review Problem List Initiated/Reviewed/Updated: No - My Orders Last 24 Hours: My Active Orders 12/29/19 16:11 Activity as Tolerated [RC] PFP Communication Order [RC] ASDIRECTED Heart Tones [RC] ASDIRECTED Notify Provider [RC] PFP Notify Provider [RC] PRN Peripheral IV Care [RC] Q2HR Urinary Catheter Assessment [RC] ASDIRECTED Vital Signs [RC] 21,03,09,15 Nalbuphine [Nubain] 10 mg IVPUSH Q2H PRN Ondansetron [Zofran] 4 mg IVPUSH Q4H PRN Sodium Chloride 0.9% [Saline Flush] 10 ml FLUSH ASDIRECTED PRN Electronic Heart Tones Ext w TOCO [WOMSER] Routine Electronic Heart Tones Internal [WOMSER] Per Unit Routine Peripheral IV Insertion Adult [OM.PC] Routine Resuscitation Status Routine 12/29/19 16:12 Patient Status [ADT] Routine 12/29/19 16:13 Pump Management, Intrathecal [RC] ASDIRECTED 12/29/19 16:15 Lactated Ringers [Ringers, Lactated] 1,000 ml IV ASDIRECTED Oxytocin/Lactated Ringers [Pitocin in LR 10 Units/1,000 ML] 10 unit in 1,000 ml IV .CONTINUOUS Oxytocin/Lactated Ringers [Pitocin in LR 10 Units/1,000 ML] 10 unit in 1,000 ml IV TITRATE 12/29/19 17:00 Clindamycin Phosphate in D5W [Cleocin in D5W] 900 mg Premix Bag 1 bag IV Q8H 12/29/19 20:00 DRUG SCREEN, URINE [URCHEM] Stat 12/29/19 Dinner Regular Diet [DIET] - Plan Plan:: Plan delivery Brief History: [facility] L[facility] . L/D Delivery [facility]. [id number] Date of : Patient Status: Inpatient. Attending Provider: Akin Burton Number: [id number]. Date: 12/30/19 03:39Initialization Date: 12/30/19 03:39. L & D Note. - General Info. Date of Service: 12/30/19. Mother's Due Date: 01/06/20. - Delivery Note. Labor: Spontaneous. Delivery Outcome: Livebirth ( Male liveborn 01/06/2019 at 0321 hrs. Apgars 8/9 meconium-stained amniotic fluid no nuchal cord ARMANDO weight 30/3/30 grams/7 pounds 5.5 ounces). Delivery Method: Spontaneous Vaginal Delivery-Single. Infant Delivery Mode: Spontaneous. Presentation: Left Occiput Anterior (ARMANDO). Nuchal Cord: None. Prep: Povidone-Iodine (Betadine. Anesthesia Type: Epidural. Amniotic Fluid Description: Meconium Stained. Episiotomy Type: None. Laceration: None. Placenta: Intact, Spontaneous (0328 hrs. 12/30/2019 marginal insertion of the cord intact examined discarded). Cord: 3 Vessels. Estimated Blood Loss: 250. Resuscitation Needed: No. [place]: Suctioned, Bulb Syringe, Stimulated, Warmed, [place] Used, Warmer Used. Provider: Akin Burton. Score 1 min: 8. Score 5 min: 9. - General Info. Date of Service: 12/30/19. Functional Status: Reports: Pain Controlled. - Review of Systems. General: Reports: No Symptoms. HEENT: Reports: No Symptoms. Pulmonary: Reports: No Symptoms. Cardiovascular: Reports: No Symptoms. Gastrointestinal: Reports: No Symptoms. Genitourinary: Reports: No Symptoms. Musculoskeletal: Reports: No Symptoms. Skin: Reports: No Symptoms. Neurological: Reports: No Symptoms. Psychiatric: Reports: No Symptoms. - Patient Data. Vitals - Most Recent: Last Vital Signs. Temp 98.3 F 12/29/19 16:11. Pulse 98 12/29/19 16:11. Resp 18 12/29/19 16:11. BP 123/75 16:11. Pulse Ox. Weight - Most Recent: 180 lb. Lab Results Last 24 Hours: Laboratory Results - last 24 hr. 12/29/2001/10/2002Range/Units. 16: 3016:3016:30. WBC 17.16 H (3.98-10.04) K/mm3. RBC 3.65 L (3.98-5.22) M/mm3. Hgb 10.5 L (11.2-15.7) gm/dl. Hct 33.5 L (34.1-44.9) %. MCV 91.8 (79.4- 94.8) fl. MCH 28.8 (25.6-32.2) pg. MCHC 31.3 L (32.2-35.5) g/dl. RDW Std Deviation 54.1 H (36.4-46.3) fL. Plt Count 331 D (182-369) K/mm3. MPV 10.7 (9.4-12.3) fl. Neut % (Auto) 76.3 H (34.0-71.1) %. Lymph % (Auto) 14.6 L ( 19.3-51.7) %. Ferry % (Auto) 7.3 (4.7-12.5) %. Eos % (Auto) 0.8 (0.7-5.8). Baso % (Auto) 0.3 (0.1-1.2) %. Neut # (Auto) 13.11 H (1.56-6.13) K/mm3. Lymph # (Auto) 2.50 (1.18-3.74) K/mm3. Ferry # (Auto) 1.25 H (0.24-0.36) K/ mm3. Eos # (Auto) 0.13 (0.04-0.36) K/mm3. Baso # (Auto) 0.05 (0.01-0.08) K/ mm3. Manual Slide Review Abnormal smear. Urine Opiates Screen (AKWPMY=959). Ur Buprenorphine Scrn (CUTOFF=10). Ur Oxycodone Screen (CAN9AS=123). Urine Methadone Screen (CDJSUL=588). Ur Propoxyphene Screen (BEMUPE=169). Ur Barbiturates Screen (MPQGVO=456). Ur Tricyclics Screen (SGYPMB=304). Ur Phencyclidine Scrn (CUTOFF=25). Ur Amphetamine Screen (ZCSUKY=192). U Methamphetamines Scrn (AXHVWY=303). U Benzodiazepines Scrn (BTAZKV=396). U Cocaine Metab Screen (EPBILN=179). U Marijuana (THC) Screen (CUTOFF=50). RPR Non-reactive (NONREACTIVE). Blood Type A POSITIVE. Gel Antibody Screen Negative. 12/29/19Range/Units. 20:00. WBC (3.98-10.04) K/mm3. RBC (3.98- 5.22) M/mm3. Hgb (11.2-15.7) gm/dl. Hct (34.1-44.9) %. MCV (79.4-94.8) fl. MCH (25.6-32.2) pg. MCHC (32.2-35.5) g/dl. RDW Std Deviation (36.4-46.3 ) fL. Plt Count (182-369) K/mm3. MPV (9.4-12.3) fl. Neut % (Auto) (34.0- 71.1) %. Lymph % (Auto) (19.3-51.7) %. Ferry % (Auto) (4.7-12.5) %. Eos % ( Auto) (0.7-5.8). Baso % (Auto) (0.1-1.2) %. Neut # (Auto) (1.56-6.13) K/ mm3. Lymph # (Auto) (1.18-3.74) K/mm3. Ferry # (Auto) (0.24-0.36) K/mm3. Eos # (Auto) (0.04-0.36) K/mm3. Baso # (Auto) (0.01-0.08) K/mm3. Manual Slide Review. Urine Opiates Screen Negative (ODBUAJ=805). Ur Buprenorphine Scrn Negative (CUTOFF=10). Ur Oxycodone Screen Negative (TUT1FS=075). Urine Methadone Screen Negative (VRGUMR=981). Ur Propoxyphene Screen Negative (CUTOFF =300). Ur Barbiturates Screen Negative (WZDKOA=793). Ur Tricyclics Screen Negative (APSMRS=046). Ur Phencyclidine Scrn Negative (CUTOFF=25). Ur Amphetamine Screen Negative (IHQHHT=797). U Methamphetamines Scrn Negative ( TOHPMC=805). U Benzodiazepines Scrn Negative (IJSLBT=322). U Cocaine Metab Screen Negative (DJERQH=552). U Marijuana (THC) Screen Negative (CUTOFF=50). RPR (NONREACTIVE). Blood Type. Gel Antibody Screen. Med Orders - Current: Current Medications. Ephedrine Sulfate (Ephedrine Sulfate) 5 mg IVPUSH ASDIRECTED PRN. PRN Reason: Hypotension. Fentanyl (Sublimaze) 100 mcg EPIDUR Q3H PRN. PRN Reason: Pain. Last Admin: 12/29/19 18:57 Dose: 100 mcg. Fentanyl/Bupivacaine HCl (Fentanyl/Bupivacaine/Ns 2 Mcg-0.125% 100 Ml) 100 ml EPIDUR ASDIRECTED LJ. Last Admin: 12/30/19 02:11 Dose: 100 ml. Lactated Ringer's (Ringers, Lactated) 1,000 mls @ 100 mls/hr IV ASDIRECTED LJ. Last Admin: 12/30/19 02:10 Dose: 100 mls/hr. Oxytocin/Lactated Ringer's (Pitocin In Lr 10 Units/1,000 Ml) 10 unit in 1,000 mls @ 100 mls/hr IV .CONTINUOUS LJ; Protocol. Oxytocin/Lactated Ringer's (Pitocin In Lr 10 Units/1,000 Ml) 10 unit in 1,000 mls @ 12 mls/hr IV TITRATE LJ; Protocol. Clindamycin Phosphate 900 mg/ (Premix) 50 mls @ 100 mls/hr IV Q8H LJ. Last Admin: 12/30/19 00:48 Dose: 100 mls/hr. Nalbuphine HCl (Nubain) 10 mg IVPUSH Q2H PRN. PRN Reason: Pain. Ondansetron HCl (Zofran) 4 mg IVPUSH Q4H PRN. PRN Reason: Nausea/ Vomiting. Ondansetron HCl (Zofran) 4 mg IVPUSH ONETIME PRN. PRN Reason: Nausea/Vomiting. Sodium Chloride (Saline Flush) 10 ml FLUSH ASDIRECTED PRN. PRN Reason: Keep Vein Open. Discontinued Medications. Cefazolin Sodium/ Dextrose 2 gm (/ Premix) 50 mls @ 100 mls/hr IV ONETIME ONE. Stop: 12/29/19 16 :40. Cefazolin Sodium/Dextrose 1 gm (/ Premix) 50 mls @ 100 mls/hr IV Q8H LJ. Lidocaine HCl (Xylocaine 1%) 50 ml INJECT ONETIME ONE. Stop: 12/29/19 20 :01. - Exam. General: Alert, Oriented. (Female) Exam: Normal External Exam. Extremities: Normal Inspection, Non-Tender, No Pedal Edema, Normal Capillary Refill. Skin: Warm, Dry, Intact. Psy/Mental Status: Alert, Normal Affect, Normal Mood. - Problem List & Annotations. (1) 38 weeks gestation of . SNOMED Code(s): 01399773. Code(s): Z3A.38 - 38 WEEKS GESTATION OF Status: Acute Current Visit: Yes. (2) GBS carrier. SNOMED Code(s ): 0862016506587. Code(s): Z22.330 - CARRIER OF GROUP B STREPTOCOCCUS Status : Acute Current Visit: Yes. (3) Labor and delivery complicated by meconium in amniotic fluid. SNOMED Code(s): 280055474. Code(s): O77.0 - LABOR AND DELIVERY COMPLICATED BY MECONIUM IN AMNIOTIC FLUID Status: Acute Current Visit: Yes. (4) Born by normal vaginal delivery. SNOMED Code(s): 828095666. Code(s): O80 - ENCOUNTER FOR FULL-TERM UNCOMPLICATED DELIVERY Status: Acute Current Visit: Yes. - Problem List Review. Problem List Initiated/Reviewed/ Updated: No. - My Orders. Last 24 Hours: My Active Orders. 12/29/19 16:11. Activity as Tolerated [RC] PFP. Communication Order [RC] ASDIRECTED. Heart Tones [RC] ASDIRECTED. Notify Provider [RC] PFP. Notify Provider [RC] PRN. Peripheral IV Care [RC] Q2HR. Urinary Catheter Assessment [RC] ASDIRECTED. Vital Signs [RC] 21,03,09,15. Nalbuphine [Nubain] 10 mg IVPUSH Q2H PRN. Ondansetron [Zofran] 4 mg IVPUSH Q4H PRN. Sodium Chloride 0.9% [ Saline Flush] 10 ml FLUSH ASDIRECTED PRN. Electronic Heart Tones Ext w TOCO [WOMSER] Routine. Electronic Heart Tones Internal [WOMSER] Per Unit Routine. Peripheral IV Insertion Adult [OM.PC] Routine. Resuscitation Status Routine. 12/29/19 16:12. Patient Status [ADT] Routine. 12/29/19 16:13. Pump Management, Intrathecal [RC] ASDIRECTED. 12/29/19 16:15. Lactated Ringers [ Ringers, Lactated] 1,000 ml IV ASDIRECTED. Oxytocin/Lactated Ringers [Pitocin in LR 10 Units/1,000 ML] 10 unit in 1,000 ml IV .CONTINUOUS. Oxytocin/Lactated Ringers [Pitocin in LR 10 Units/1,000 ML] 10 unit in 1,000 ml IV TITRATE. 12/29 17:00. Clindamycin Phosphate in D5W [Cleocin in D5W] 900 mg Premix Bag 1 bag IV Q8H. 12/29/19 20:00. DRUG SCREEN, URINE [URCHEM] Stat. 12/29/19 Dinner. Regular Diet [DIET]. - Plan. Plan:: Plan delivery Diagnosis: Stroke: No - Discharge Data Discharge Date: 12/31/19 Discharge Disposition: Home, Self-Care 01 Condition: Good - Referral to Home Health Primary Care Physician: Akin Burton MD - Discharge Diagnosis/Problem(s) (1) 38 weeks gestation of SNOMED Code(s): 82616295 ICD Code: Z3A.38 - 38 WEEKS GESTATION OF Status: Acute Current Visit: Yes (2) GBS carrier SNOMED Code(s): 8964736935187 ICD Code: Z22.330 - CARRIER OF GROUP B STREPTOCOCCUS Status: Acute Current Visit: Yes (3) Labor and delivery complicated by meconium in amniotic fluid SNOMED Code(s): 957362540 ICD Code: O77.0 - LABOR AND DELIVERY COMPLICATED BY MECONIUM IN AMNIOTIC FLUID Status: Acute Current Visit: Yes (4) Born by normal vaginal delivery SNOMED Code(s): 109569991 ICD Code: O80 - ENCOUNTER FOR FULL-TERM UNCOMPLICATED DELIVERY Status: Acute Current Visit: Yes (5) anemia SNOMED Code(s): 041793344 ICD Code: O90.81 - ANEMIA OF THE PUERPERIUM Status: Acute Current Visit: Yes - Patient Summary/Data Complications: none Hospital Course: uneventful but EPDS 09/15 declined medication. No suicidal plans, ideations, desire to hurt self or others. Will call it condition chnages - Patient Instructions Diet: Usual Diet as Tolerated Driving: Do Not Drive (x48 hrs) Showering/Bathing: May Shower Notify Provider of: Fever, Increased Pain, Swelling and Redness, Drainage, Nausea and/or Vomiting - Discharge Plan *PRESCRIPTION DRUG MONITORING PROGRAM REVIEWED*: Not Applicable *COPY OF PRESCRIPTION DRUG MONITORING REPORT IN PATIENT CHUCK: Not Applicable Home Medications: Home Meds No122/Iron/Folic Acid [ Multi Tablet] 1 each PO DAILY 05/11/19 [History] Acetaminophen [Tylenol] 650 mg PO Q6H PRN tablet 12/31/19 [Rx] Benzocaine/Menthol [Dermoplast Pain Relief [place]] 1 spray TOP ASDIRECTED PRN canister 12/31/19 [Rx] Docusate Sodium [Colace] 100 mg PO BID PRN cap 12/31/19 [Rx] Ibuprofen [Motrin] 600 mg PO Q6H PRN tablet 12/31/19 [Rx] Witch Lani [Tucks] 1 pad TOP ASDIRECTED PRN pad 12/31/19 [Rx] Patient Handouts: Steps to Quit Smoking - Discharge Summary/Plan Comment DC Time >30 min.: No - Patient Data Vitals - Most Recent: Last Vital Signs Temp 207.9 F H 12/31/19 09:18 Pulse 77 12/31/19 03:45 Resp 16 12/31/19 03:45 BP 112/78 12/31/19 03:45 Pulse Ox 96 12/31/19 03:45 Weight - Most Recent: 180 lb Lab Results - Last 24 hrs: Laboratory Results - last 24 hr 12/30/19 Range/Units 15:37 WBC 18.74 H (3.98-10.04) K/mm3 RBC 3.27 L (3.98-5.22) M/mm3 Hgb 9.4 L (11.2-15.7) gm/dl Hct 30.2 L (34.1-44.9) % MCV 92.4 (79.4-94.8) fl MCH 28.7 (25.6-32.2) pg MCHC 31.1 L (32.2-35.5) g/dl RDW Std Deviation 53.5 H (36.4-46.3) fL Plt Count 291 (182-369) K/mm3 MPV 10.7 (9.4-12.3) fl Neut % (Auto) 76.8 H (34.0-71.1) % Lymph % (Auto) 14.4 L (19.3-51.7) % [place] % (Auto) 7.4 (4.7-12.5) % Eos % (Auto) 0.8 (0.7-5.8) Baso % (Auto) 0.2 (0.1-1.2) % Neut # (Auto) 14.38 H (1.56-6.13) K/mm3 Lymph # (Auto) 2.70 (1.18-3.74) K/mm3 [place] # (Auto) 1.39 H (0.24-0.36) K/mm3 Eos # (Auto) 0.15 (0.04-0.36) K/mm3 Baso # (Auto) 0.04 (0.01-0.08) K/mm3 Med Orders - Current: Current Medications Acetaminophen (Tylenol) 650 mg PO Q4H PRN PRN Reason: mild pain or fever Last Admin: 12/30/19 04:28 Dose: 650 mg Benzocaine/Menthol (Dermoplast Pain Relief [place]) 0 gm TOP ASDIRECTED PRN PRN Reason: Perineal Comfort Measure Last Admin: 12/30/19 04:30 Dose: 1 can Docusate Sodium (Colace) 100 mg PO BID PRN PRN Reason: Constipation Ibuprofen (Motrin) 600 mg PO Q4H PRN PRN Reason: Mild pain or fever Last Admin: 12/31/19 09:18 Dose: 600 mg Witch Lani (Tucks) 1 pad TOP ASDIRECTED PRN PRN Reason: Perineal Comfort Measure Last Admin: 12/30/19 04:29 Dose: 1 tub Discontinued Medications Bupivacaine HCl (Sensorcaine-Mpf 0.25%) 10 ml .ROUTE .STK-MED ONE Stop: 12/29/19 00:01 Ephedrine Sulfate (Ephedrine Sulfate) 5 mg IVPUSH ASDIRECTED PRN PRN Reason: Hypotension Fentanyl (Sublimaze) 100 mcg EPIDUR Q3H PRN PRN Reason: Pain Last Admin: 12/29/19 18:57 Dose: 100 mcg Fentanyl/Bupivacaine HCl (Fentanyl/Bupivacaine/Ns 2 Mcg-0.125% 100 Ml) 100 ml EPIDUR ASDIRECTED LJ Last Admin: 12/30/19 02:11 Dose: 100 ml Cefazolin Sodium/Dextrose 2 gm (/ Premix) 50 mls @ 100 mls/hr IV ONETIME ONE Stop: 12/29/19 16:40 Last Admin: 12/30/19 07:56 Dose: Not Given Cefazolin Sodium/Dextrose 1 gm (/ Premix) 50 mls @ 100 mls/hr IV Q8H LJ Lactated Ringer's (Ringers, Lactated) 1,000 mls @ 100 mls/hr IV ASDIRECTED LJ Last Admin: 12/30/19 02:10 Dose: 100 mls/hr Oxytocin/Lactated Ringer's (Pitocin In Lr 10 Units/1,000 Ml) 10 unit in 1,000 mls @ 100 mls/hr IV .CONTINUOUS LJ; Protocol Last Admin: 12/30/19 04:26 Dose: 100 mls/hr Oxytocin/Lactated Ringer's (Pitocin In Lr 10 Units/1,000 Ml) 10 unit in 1,000 mls @ 12 mls/hr IV TITRATE LJ; Protocol Clindamycin Phosphate 900 mg/ (Premix) 50 mls @ 100 mls/hr IV Q8H LJ Last Admin: 12/30/19 00:48 Dose: 100 mls/hr Lidocaine HCl (Xylocaine 1%) 50 ml INJECT ONETIME ONE Stop: 12/29/19 20:01 Nalbuphine HCl (Nubain) 10 mg IVPUSH Q2H PRN PRN Reason: Pain Ondansetron HCl (Zofran) 4 mg IVPUSH Q4H PRN PRN Reason: Nausea/Vomiting Ondansetron HCl (Zofran) 4 mg IVPUSH ONETIME PRN PRN Reason: Nausea/Vomiting Sodium Chloride (Saline Flush) 10 ml FLUSH ASDIRECTED PRN PRN Reason: Keep Vein Open
[2019-12-31 12:08] VITALS: BP 107/83; PULSE 79
== END 2019-12-31 12:30 | disposition home or self-care (01) | DRG 807 ==
LOC: JD.OBCHECK 15:49 → JD.OB 15:50 → JD.OBCHECK 16:12 → JD.OB 16:12 → OBSVTOIN 12-30 03:21 → JD.OB 12-30 03:21
PROVIDERS: ADMIT Obstetrics & Gynecology; ATTEND Obstetrics & Gynecology
PROC: 10E0XZZ Delivery of Products of Conception, External Approach (ICD-10-PCS; principal; 2019-12-30)
PROC: 3E0R3BZ Introduction of Anesthetic Agent into Spinal Canal, Percutaneous Approach (ICD-10-PCS; 2019-12-30)
DX: O99.824 Streptococcus B carrier state complicating childbirth (principal); O77.0 Labor and delivery complicated by meconium in amniotic fluid; O99.334 Smoking (tobacco) complicating childbirth; F17.210 Nicotine dependence, cigarettes, uncomplicated; Z37.0 Single live birth; Z88.0 Allergy status to penicillin; Z88.1 Allergy status to other antibiotic agents; Z79.899 Other long term (current) drug therapy; Z3A.38 38 weeks gestation of pregnancy
CPT/HCPCS: 36415; 51702; 59025; 59409; 80306; 85025; 86592; 86850; 86900; 86901; A9270-GY; J2590; J3010; J3490; J7120

== ENCOUNTER 2020-10-04 03:07 | Emergency (ER) | payer MEDICAID ==
[2020-10-04 04:57] VITALS: BP 131/94; PULSE 92
--- NOTE | 2020-10-04 05:03 | EDM.PDOC ---
ED HPI GENERAL MEDICAL PROBLEM - General Chief Complaint: General Stated Complaint: SEIZURES Time Seen by Provider: 10/04/20 05:01 - History of Present Illness INITIAL COMMENTS - FREE TEXT/NARRATIVE: 30-year-old female presents the emergency room after having multiple episodes. The patient has had 8 or 9 episodes this evening where she would drop to the ground violently shake her extremities these episodes last up to a minute and then after this she would awaken and everything would be okay she complains of tailbone pain from landing on her bottom during these episodes. Patient gives a history of having epilepsy her last seizure was when she was 4 years old she has not had anything since that time. During tonight's episodes she has not had any loss of bowel or bladder control no tongue biting, and nothing like a postictal phase. The patient is insistent that one of her symptoms started after she witnessed diagnosed with MRSA for 5 years ago. She has a lesion on her bottom that seems to be more inflamed than normal according to the patient and she thinks this is what is causing her symptoms. Back Pain Score (Numeric/FACES): 10 - Related Data Allergies Allergy/AdvReac Type Severity Reaction Status Date / Time Penicillins Allergy Hives Verified 10/04/20 04:58 Home Meds: Home Meds No122/Iron/Folic Acid [ Multi Tablet] 1 each PO DAILY 05/11/19 [History] Acetaminophen [Tylenol] 650 mg PO Q6H PRN tablet 12/31/19 [Rx] Benzocaine/Menthol [Dermoplast Pain Relief [place]] 1 spray TOP ASDIRECTED PRN canister 12/31/19 [Rx] Docusate Sodium [Colace] 100 mg PO BID PRN cap 12/31/19 [Rx] Ibuprofen [Motrin] 600 mg PO Q6H PRN tablet 12/31/19 [Rx] witch Lazara [Tucks] 1 pad TOP ASDIRECTED PRN pad 12/31/19 [Rx] Past Medical History HEENT History: Reports: None Cardiovascular History: Reports: None Respiratory History: Reports: Asthma Gastrointestinal History: Reports: None Genitourinary History: Reports: UTI, Recurrent Other Genitourinary History: miscarriage TYPE INSPECTOR History: Reports: (), 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), Therapeutic (x 1) Other TYPE INSPECTOR History: x4 Musculoskeletal History: Reports: Other (See Below) Other Musculoskeletal History: ankle sprain Neurological History: Reports: None Other Neuro History: depression Psychiatric History: Reports: Anxiety, Depression (untreated), Other (See Below) (Insomnia) Endocrine/Metabolic History: Reports: None Hematologic History: Reports: Anemia Immunologic History: Reports: None Oncologic (Cancer) History: Reports: None Dermatologic History: Reports: Other (See Below) Other Dermatologic History: Frequent abscess' to groin--MRSA swab negative x3 - Infectious Disease History 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: MRSA - Past Surgical History HEENT Surgical History: Reports: Oral Surgery (wisdom teeth extraction) Dermatological Surgical History: Reports: Other (See Below) (I & D to staph infection left thigh) Social & Family History - Family History Family Medical History: No Pertinent Family History Cardiac: Reports: [place] Endocrine/Metabolic: Reports: Diabetes, type II - Caffeine Use Caffeine Use: Reports: Soda - Living Situation & Occupation Living situation: Reports: Single, with Significant Other (Fiance), with Family (4 kids) Occupation: Unemployed ED ROS GENERAL - Review of Systems Review Of Systems: Unable To Obtain Reason Not Obtained: Review of systems was unobtainable due to lack of patient coopera Constitutional: Reports: Fever (Claims of had a fever of 204 last evening I question this and she insisted it was 204 after the fourth questioning she said it was 104), Weakness, Fatigue ED EXAM, GENERAL - Physical Exam Exam: See Below Exam Limited By: Other (Patient appears to be under the influence of something perhaps a stimulant type drug) General Appearance: Anxious, Moderate Distress (From the anxiety), Other (No other exam done at this point as the patient refused) Course - Vital Signs Last Recorded V/S: Last Vital Signs Temp 36.6 C 10/04/20 04:53 Pulse 92 10/04/20 04:53 Resp 16 10/04/20 04:53 BP 131/94 H 10/04/20 04:53 Pulse Ox 98 10/04/20 04:53 - Re-Assessments/Exams Free Text/Narrative Re-Assessment/Exam: 10/04/20 05:23 I explained to the patient that she needs to be worked up for these episodes that she is having. This includes lab work including a urinalysis EKG and possible imaging. At this point she stopped me short and said she will make an appointment with her regular doctor got up walked out without any difficulty and left the department she did not immediately leave she refused exam and work-up. She complained that the trash can was mostly full and during the pandemic this was not appropriate and started digging through the trash. According to nursing she removed some gauze and other material from the room. Ultimately the patient had to be escorted off the premises by the police. Departure - Departure Time of Disposition: 05:30 Disposition: Against Medical Advice 07 Clinical Impression: Nonspecific paroxysmal spell - Discharge Information Referrals: Ana Maria Chávez NP [Primary Care Provider] - Forms: ED Department Discharge Sepsis Event Note (ED) - Evaluation Sepsis Screening Result: No Definite Risk - Focused Exam Vital Signs: Vital Signs Temp Pulse Resp BP Pulse Ox 10/04/20 04:53 36.6 C 92 16 131/94 H 98
== END 2020-10-04 05:57 | disposition left against medical advice (07) ==
LOC: JD.ED 03:07
DX: R25.9 Unspecified abnormal involuntary movements (principal); J45.909 Unspecified asthma, uncomplicated; Z88.0 Allergy status to penicillin
CPT/HCPCS: 99282; 99284

== ENCOUNTER 2020-12-12 05:28 | Emergency (ER) | payer MEDICAID ==
[2020-12-12] MEDS ORDERED: Sodium Chloride 0.9% 1,000 ML IV ONE (06:21)
--- NOTE | 2020-12-12 06:30 | EDM.PDOCBH ---
<Jacob De La Rosa - Last Filed: 12/12/20 06:57> ED HPI GENERAL MEDICAL PROBLEM - General Chief Complaint: Drug or Alcohol Abuse Stated Complaint: MENTAL HEALTH CHECK Time Seen by Provider: 12/12/20 05:40 Source of Information: Reports: Patient, Police (Jimmy SCHREIBER) History Limitations: Reports: Intoxication (High on methamphetamine) - History of Present Illness INITIAL COMMENTS - FREE TEXT/NARRATIVE: Ms. Decker is a pleasant 30-year-old woman who is now brought to the ED by the [place] [employer]. One of the police officers told me that the patient called them with a delusion that she had murdered 2 people. She acknowledged that she has been doing methamphetamine for the past 2 or 3 days, and they found her to be quite high, anxious, and shaky. The police searched the residents and did not find any people. She later told the police that her fianc had forced her to take the methamphetamine. The patient is not under arrest. When I spoke to the patient directly, she told me that she orally ingested methamphetamine once each this past Friday, Friday, and yesterday, Friday. She stated that she previously used methamphetamine, but has been clean since approximately 2012. Her mother recently , however, which may have been one of the precipitants for her relapse. She is on clear if she may have drunk some alcohol recently, but states that she did not knowingly ingest any other drugs. She states that the reason she called the police is because she got into an argument with her exfianc, who was also ingesting methamphetamine. Here in the ED, the patient's initial BP is found to be slightly elevated at 133/100, with slight tachycardia of 105 bpm. She is afebrile, saturating 97% on room air. Other than symptoms from her methamphetamine ingestion, the patient denies having a recent fever, chills, sore throat, ear pain, nasal or sinus congestion, cough, dyspnea, chest pain, palpitations, nausea, vomiting, constipation, diarrhea, abdominal pain, urinary symptoms, recent weight gain or weight loss, recent bloody bowel movements or black bowel movements, recent joint aches, headaches, or rashes. The patient's PCP is Ana Maria Chávez NP. Her Pilot is Dr. Cuong Reis. She has not received an influenza vaccine this season, but agreed to receive one here in the ED. - Related Data Allergies Allergy/AdvReac Type Severity Reaction Status Date / Time Penicillins Allergy Hives Verified 12/12/20 05:49 Home Meds: Home Meds No122/Iron/Folic Acid [ Multi Tablet] 1 each PO DAILY 05/11/19 [History] Acetaminophen [Tylenol] 650 mg PO Q6H PRN tablet 12/31/19 [Rx] Benzocaine/Menthol [Dermoplast Pain Relief [place]] 1 spray TOP ASDIRECTED PRN canister 12/31/19 [Rx] Docusate Sodium [Colace] 100 mg PO BID PRN cap 12/31/19 [Rx] Ibuprofen [Motrin] 600 mg PO Q6H PRN tablet 12/31/19 [Rx] witch Lazara [Tucks] 1 pad TOP ASDIRECTED PRN pad 12/31/19 [Rx] Past Medical History Gastrointestinal History: Reports: GERD MANAGER FIELD INVESTIGATIONS History: Reports: Spontaneous (x 2), Therapeutic (x 1) : 8 Para: 5 Psychiatric History: Reports: Addiction (methamphetamine), Anxiety, Depression, Other (See Below) (Fibromyalgia. Insomnia.) - Infectious Disease History 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: MRSA - Past Surgical History HEENT Surgical History: Reports: Oral Surgery (dental extractions) Dermatological Surgical History: Reports: Other (See Below) (I & D left groin staph infecton) Social & Family History - Tobacco Use Tobacco Use Status *Q: Current Every Day Tobacco User Years of Tobacco use: 13 Packs/Tins Daily: 0.5 Packs/Tins Daily Comment: Down from 1.5 ppd - Caffeine Use Caffeine Use: Reports: Soda - Alcohol Use Alcohol Use History: Yes Alcohol Use Frequency: Socially - Recreational Drug Use Recreational Drug Use: Yes Drug Use in Last 12 Months: Yes Recreational Drug Type: Reports: Marijuana/Hashish (last smoked around 2004), Methamphetamine (last ate 12/11/2020) - Living Situation & Occupation Living situation: Reports: Single, with Significant Other (Fiance), with Family (5 kids + her grandmother) Occupation: Unemployed ED ROS GENERAL - Review of Systems Review Of Systems: Comprehensive ROS is negative, except as noted in HPI. ED EXAM, BEHAVIORAL HEALTH - Physical Exam Exam: See Below Exam Limited By: No Limitations General Appearance: Alert, No Apparent Distress, Anxious, Thin Eye Exam: Bilateral Eye: EOMI, Normal Inspection Ears: Normal External Exam, Hearing Grossly Normal Nose: Normal Inspection Throat/Mouth: Normal Inspection, Normal Lips, Normal Voice, No Airway Compromise Head: Atraumatic, Normocephalic Neck: Normal Inspection, Full Range of Motion Respiratory/Chest: No Respiratory Distress, Lungs Clear, Normal Breath Sounds, No Accessory Muscle Use Cardiovascular: Normal Peripheral Pulses, Regular Rate, Rhythm, No Edema, No Gallop, No JVD, No Murmur, No Rub GI/Abdominal: Normal Bowel Sounds, Soft, Non-Tender, No Organomegaly, No Distention, No Abnormal Bruit, No Mass Back Exam: Normal Inspection, Full Range of Motion, NT Extremities: Normal Inspection, Normal Range of Motion, No Pedal Edema, Normal Capillary Refill Neurological: Alert, No Motor/Sensory Deficits, Oriented x 3 Psychiatric: Restless Skin Exam: Warm, Dry, Intact, Normal color, No rash COURSE, BEHAVIORAL HEALTH COMP - Course Medical Clearance: 12/12/20 06:23 As above, the patient was brought to the ED by the Jimmy SCHREIBER after they were contacted by the patient, who is delusional after ingesting methamphetamine for the past few days. She is very mildly hypertensive and tachycardic. A urine drug screen, obtained at triage, is positive for opiates, amphetamine/methamphetamine, and benzodiazepines. The source of the benzodiazepines is likely the clonazepam that she is prescribed, but we do not have explanation for the source of the opiates. I have ordered a work-up that includes several blood tests, urine test, and a swab for the SARS-CoV-2 virus. In the meantime, the patient will be given IV fluid. I do not see an indication for lorazepam or other benzodiazepines at this time. 12/12/20 07:[address] Bedolla, and care of the patient turned over to him at this time, for change of shift. Departure - Departure Disposition: Home, Self-Care 01 Clinical Impression: Drug abuse - Discharge Information Instructions: Chemical Dependency Referrals: Ana Maria Chávez NP [Primary Care Provider] - Forms: ED Department Discharge Additional Instructions: Try avoid further meth. Drink plenty of water to maintain hydration. Your potassium was moderately low at 3.0, normal 3.5 to 5. Try eat 1 or w bananas a day. Potatoes are also a good source of potassium. Sepsis Event Note (ED) - Evaluation Sepsis Screening Result: No Definite Risk <Flakito Bedolla - Last Filed: 12/12/20 19:12> COURSE, BEHAVIORAL HEALTH COMP - Course Vital Signs: Last Vital Signs Temp 96.9 F 12/12/20 05:46 Pulse 101 H 12/12/20 08:59 Resp 16 12/12/20 08:59 BP 128/98 H 12/12/20 08:59 Pulse Ox 99 12/12/20 08:59 Orders, Labs, Meds: Laboratory Tests 12/12/20 12/12/20 12/12/20 Range/Units 05:49 05:49 06:40 WBC 11.23 H (3.98-10.04) K/mm3 RBC 4.09 (3.98-5.22) M/mm3 Hgb 11.9 D (11.2-15.7) gm/dl Hct 36.8 (34.1-44.9) % MCV 90.0 (79.4-94.8) fl MCH 29.1 (25.6-32.2) pg MCHC 32.3 (32.2-35.5) g/dl RDW Std Deviation 53.5 H (36.4-46.3) fL Plt Count 537 H D (182-369) K/mm3 MPV 9.5 (9.4-12.3) fl Neutrophils % (Manual) 76 H (40-60) % Band Neutrophils % 0 (0-10) % Lymphocytes % (Manual) 14 L (20-40) % Atypical Lymphs % 0 % Monocytes % (Manual) 8 (2-10) % Eosinophils % (Manual) 1 (0.7-5.8) % Basophils % (Manual) 1 (0.1-1.2) Platelet Estimate Increased Anisocytosis 1+ RBC Morph Comment Normal Sodium (136-145) mEq/L Potassium (3.5-5.1) mEq/L Chloride (98-107) mEq/L Carbon Dioxide (21-32) mEq/L Anion Gap (5-15) BUN (7-18) mg/dL Creatinine (0.55-1.02) mg/dL Est Cr Clr Drug Dosing Estimated GFR (MDRD) (>60) mL/min BUN/Creatinine Ratio (14-18) Glucose (74-106) mg/dL Calcium (8.5-10.1) mg/dL Magnesium (1.8-2.4) mg/dl Total Bilirubin (0.2-1.0) mg/dL AST (15-37) U/L ALT (14-59) U/L Alkaline Phosphatase (46-116) U/L Total Protein (6.4-8.2) g/dl Albumin (3.4-5.0) g/dl Globulin gm/dL Albumin/Globulin Ratio (1-2) Urine HCG, Qual Negative (NEGATIVE) Urine Opiates Screen Presumptive positive H (PFCNVW=948) Ur Buprenorphine Scrn Negative (CUTOFF=10) Ur Oxycodone Screen Negative (KBV8EI=060) Urine Methadone Screen Negative (FDREXM=854) Ur Propoxyphene Screen Negative (TQNLRF=887) Ur Barbiturates Screen Negative (GLMSLG=658) Ur Tricyclics Screen Negative (DPFSYF=720) Ur Phencyclidine Scrn Negative (CUTOFF=25) Ur Amphetamine Screen Presumptive positive H (KTRTFK=963) U Methamphetamines Scrn Presumptive positive H (HKUNJA=483) U Benzodiazepines Scrn Presumptive positive H (NOKTIZ=919) U Cocaine Metab Screen Negative (AJFGKZ=128) U Marijuana (THC) Screen Negative (CUTOFF=50) Ethyl Alcohol (0.00) gm% SARS-CoV-2 RNA (CRISTIAN) (NEGATIVE) 12/12/20 12/12/20 Range/Units 06:40 06:45 WBC (3.98-10.04) K/mm3 RBC (3.98-5.22) M/mm3 Hgb (11.2-15.7) gm/dl Hct (34.1-44.9) % MCV (79.4-94.8) fl MCH (25.6-32.2) pg MCHC (32.2-35.5) g/dl RDW Std Deviation (36.4-46.3) fL Plt Count (182-369) K/mm3 MPV (9.4-12.3) fl Neutrophils % (Manual) (40-60) % Band Neutrophils % (0-10) % Lymphocytes % (Manual) (20-40) % Atypical Lymphs % % Monocytes % (Manual) (2-10) % Eosinophils % (Manual) (0.7-5.8) % Basophils % (Manual) (0.1-1.2) Platelet Estimate Anisocytosis RBC Morph Comment Sodium 142 (136-145) mEq/L Potassium 3.0 L (3.5-5.1) mEq/L Chloride 103 (98-107) mEq/L Carbon Dioxide 25 (21-32) mEq/L Anion Gap 17.0 H (5-15) BUN 18 (7-18) mg/dL Creatinine 1.0 (0.55-1.02) mg/dL Est Cr Clr Drug Dosing TNP Estimated GFR (MDRD) > 60 (>60) mL/min BUN/Creatinine Ratio 18.0 (14-18) Glucose 130 H (74-106) mg/dL Calcium 9.1 (8.5-10.1) mg/dL Magnesium 2.3 (1.8-2.4) mg/dl Total Bilirubin 0.8 (0.2-1.0) mg/dL AST 14 L (15-37) U/L ALT 24 (14-59) U/L Alkaline Phosphatase 49 (46-116) U/L Total Protein 7.8 (6.4-8.2) g/dl Albumin 4.6 (3.4-5.0) g/dl Globulin 3.2 gm/dL Albumin/Globulin Ratio 1.4 (1-2) Urine HCG, Qual (NEGATIVE) Urine Opiates Screen (RMUABX=770) Ur Buprenorphine Scrn (CUTOFF=10) Ur Oxycodone Screen (BYK3DW=571) Urine Methadone Screen (TNBZPW=890) Ur Propoxyphene Screen (XXXFGZ=844) Ur Barbiturates Screen (ZZUCEV=943) Ur Tricyclics Screen (NMFZUY=820) Ur Phencyclidine Scrn (CUTOFF=25) Ur Amphetamine Screen (GTTPJX=683) U Methamphetamines Scrn (OFORWW=335) U Benzodiazepines Scrn (XVDUYI=016) U Cocaine Metab Screen (RUIYYM=043) U Marijuana (THC) Screen (CUTOFF=50) Ethyl Alcohol 0.00 (0.00) gm% SARS-CoV-2 RNA (CRISTIAN) Negative (NEGATIVE) Medications Discontinued Medications Generic Name Dose Route Start Last Admin Trade Name Freq PRN Reason Stop Dose Admin Sodium Chloride 1,000 mls @ 999 mls/hr 12/12/20 06:21 12/12/20 06:45 Normal Saline IV 01/26/21 07:21 999 mls/hr ONETIME ONE Administration Influenza Virus Vaccine 60 mcg 12/12/20 07:00 Fluzone Quad [id number] Syringe IM 12/12/20 07:01 .ONCE ONE Potassium Chloride 20 meq 12/12/20 07:58 12/12/20 08:15 Klor-Con M20 PO 12/12/20 07:59 20 meq ONETIME ONE Administration Re-Assessment/Re-Exam: 08:05. Have assumed care from Dr De La Rosa after change of shift., I agree with his hx and exam as documented. She feels up to going home. Will get her some thing to eat and give some oral K+. Departure - Departure Time of Disposition: 08:19 Condition: Fair Sepsis Event Note (ED) - Focused Exam Vital Signs: Vital Signs Pulse Resp BP Pulse Ox 12/12/20 08:59 101 H 16 128/98 H 99
[2020-12-12] MEDS ORDERED: FLU VACC QS2020-21(6MOS UP)/PF 60 MCG/0.5 ML SYRINGE IM ONE (07:00)
[2020-12-12] MEDS ORDERED: Potassium Chloride 20 MEQ Tab.ER PO ONE (07:58)
[2020-12-12 09:02] VITALS: BP 128/98; PULSE 101
== END 2020-12-12 08:59 | disposition home or self-care (01) ==
LOC: JD.ED 05:28
DX: F15.10 Other stimulant abuse, uncomplicated (principal); F11.10 Opioid abuse, uncomplicated; Z88.0 Allergy status to penicillin; Z72.0 Tobacco use; Z20.822 Contact with and (suspected) exposure to COVID-19
CPT/HCPCS: 36415; 80053; 80179; 80306; 81025; 83735; 85007; 85027; 99283; 99285; A9270-GY; J7030; U0002

== ENCOUNTER 2021-06-13 09:19 | Emergency (ER) | payer MEDICAID ==
[2021-06-13 09:32] VITALS: BP 130/87; PULSE 105
[2021-06-13] MEDS ORDERED: LORazepam 2 MG/ML SDV IVPUSH ONE (10:05)
[2021-06-13] MEDS ORDERED: Haloperidol Lactate 5 MG/ML SDV IVPUSH ONE (10:06)
--- NOTE | 2021-06-13 10:13 | EDM.PDOCBH ---
<Cisco Garner - Last Filed: 06/13/21 19:58> ED HPI GENERAL MEDICAL PROBLEM - General Chief Complaint: Behavioral/Psych Stated Complaint: UNABLE TO SLEEP POSS COVID POS Time Seen by Provider: 06/13/21 10:05 - Related Data Allergies Allergy/AdvReac Type Severity Reaction Status Date / Time Penicillins Allergy Severe Hives Verified 06/13/21 09:32 Home Meds: Home Meds No122/Iron/Folic Acid [ Multi Tablet] 1 each PO DAILY 05/11/19 [History] Acetaminophen [Tylenol] 650 mg PO Q6H PRN tablet 12/31/19 [Rx] Benzocaine/Menthol [Dermoplast Pain Relief [place]] 1 spray TOP ASDIRECTED PRN canister 12/31/19 [Rx] Docusate Sodium [Colace] 100 mg PO BID PRN cap 12/31/19 [Rx] Ibuprofen [Motrin] 600 mg PO Q6H PRN tablet 12/31/19 [Rx] lisa Lazara [Tucks] 1 pad TOP ASDIRECTED PRN pad 12/31/19 [Rx] Cefdinir [Omnicef] 300 mg PO BID #14 cap 06/13/21 [Rx] COURSE, BEHAVIORAL HEALTH COMP - Course Medical Clearance: 06/13/21 19:56 Patient is awake and conversant she would like to go home at this point she is acting appropriate. We will discharge her home Departure - Departure Time of Disposition: 19:56 Disposition: Home, Self-Care 01 Clinical Impression: Methamphetamine abuse, Lower urinary tract infection, acute - Discharge Information Prescriptions: Cefdinir [Omnicef] 300 mg PO BID #14 cap Instructions: Recovering From Addiction Referrals: PCP,None [Primary Care Provider] - Forms: ED Department Discharge Additional Instructions: Return to the emergency room with any questions problems or worsening symptoms. Avoid methamphetamine use. You have a urinary tract infection you have been started on antibiotics take these as directed and take them until gone. Be sure and drink plenty of water. Follow-up in the hospital clinic early this next week for recheck. [phone] <Mac Vega - Last Filed: 06/14/21 06:58> ED HPI GENERAL MEDICAL PROBLEM - General Source of Information: Reports: Patient History Limitations: Reports: Altered Mental Status (Psychotic behavior) - History of Present Illness INITIAL COMMENTS - FREE TEXT/NARRATIVE: 31-year-old female presents once again to the ED per [facility] personnel. She was out screaming on the street at 2:00 in the morning and neighbors called police twice. She admits to using methamphetamines within the last 3 days. She is acutely psychotic and not able to provide any useful history at this time. She claims that she is Covid positive but we have no proof of this. She claims she has a cough. No fever no chills no appetite. Unclear when she last ate. Weeks often about her mother dying which is not true. She denies alcohol use. She uses methamphetamines by smoking. Onset: Unknown/Unsure (Fairly psychotic symptoms for the last 48 hours) Onset Date: 06/11/21 Duration: Day(s):, Constant Location: Reports: Other (Psychotic behaviors running around outside on the street yelling and screaming that provoke neighbors to call police last 2 nights. Barefoot.) Severity: Moderate Improves with: Reports: None Worsens with: Reports: None Context: Reports: Other (History of chronic substance abuse particular methamphetamines.). Denies: Activity, Exercise, Lifting, Sick Contact, Trauma Associated Symptoms: Reports: Loss of Appetite, Malaise. Denies: Confusion, Chest Pain, Cough, cough w sputum, Diaphoresis, Fever/Chills, Headaches, Nausea/Vomiting, Rash, Seizure (Clear when she may have eaten last.), Shortness of Breath, Syncope, Weakness Treatments HOSTED SERVICES ANALYST: Reports: Other (see below) (Denies taking any medications) Past Medical History HEENT History: Reports: None Cardiovascular History: Reports: None Respiratory History: Reports: Asthma Gastrointestinal History: Reports: GERD Genitourinary History: Reports: UTI, Recurrent Other Genitourinary History: miscarriage MANAGER CHANGE History: Reports: Spontaneous , Therapeutic Other MANAGER CHANGE History: x4 Musculoskeletal History: Reports: Other (See Below) Other Musculoskeletal History: ankle sprain Neurological History: Reports: None Other Neuro History: depression Psychiatric History: Reports: Addiction, Anxiety, Depression, Other (See Below) Endocrine/Metabolic History: Reports: None Hematologic History: Reports: Anemia Immunologic History: Reports: None Oncologic (Cancer) History: Reports: Prostate (Prostate cancer treated with cesium seed implants.) Dermatologic History: Reports: Other (See Below) Other Dermatologic History: Frequent abscess' to groin--MRSA swab negative x3 - Infectious Disease History 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: MRSA Other Infectious Disease History: hx of MRSA but has had 3 negative nito - Past Surgical History HEENT Surgical History: Reports: Oral Surgery Female Surgical History: Reports: Cervical Cryotherapy Social & Family History - Family History Family Medical History: No Pertinent Family History Cardiac: Reports: ME Endocrine/Metabolic: Reports: Diabetes, type II - Tobacco Use Tobacco Use Status *Q: Current Every Day Tobacco User Years of Tobacco use: 16 Packs/Tins Daily: 1 - Caffeine Use Caffeine Use: Reports: Soda - Recreational Drug Use Recreational Drug Use: Yes Recreational Drug Type: Reports: Methamphetamine - Living Situation & Occupation Living situation: Reports: Single, with Significant Other (Fiance), with Family (5 kids + her grandmother) Occupation: Unemployed ED ROS GENERAL - Review of Systems Review Of Systems: See Below Constitutional: Reports: Fatigue, Decreased Appetite. Denies: Fever, Chills, Weight Loss HEENT: Reports: No Symptoms Respiratory: Reports: Shortness of Breath, Cough, Sputum. Denies: Hemoptysis (Not sure what color it is.) Cardiovascular: Reports: Chest Pain. Denies: Blood Pressure Problem, Claudication, Dyspnea on Exertion, Edema, Lightheadedness, Orthopnea Endocrine: Reports: Fatigue GI/Abdominal: Reports: Constipation : Reports: Frequency Musculoskeletal: Reports: No Symptoms Skin: Reports: Other Neurological: Reports: Confusion. Denies: Headache, Numbness, Paresthesia, Pre- Existing Deficit, Seizure, Syncope, Tingling, Tremors, Trouble Speaking, Difficulty Walking, Weakness, Change in Speech Psychiatric: Reports: Agitation (Mildly agitated), Hallucinations (Psychotic behaviors), Mood Lability, Other (Is our behaviors by being out of the middle of the street at 2:00 in the morning yelling and screaming and ranting and raving and police were summoned and taken [place] this morning.) Hematologic/Lymphatic: Denies: Anemia Immunologic: Reports: No Symptoms ED EXAM, BEHAVIORAL HEALTH - Physical Exam Exam: See Below Exam Limited By: Altered Mental Status (Patient is acutely psychotic.) General Appearance: Alert, Mild Distress, Other (More recent than that.) Eye Exam: Right Eye: Nystagmus (No nystagmus), Bilateral Eye: Normal Inspection (No blepharal pallor or scleral icterus), PERRL Throat/Mouth: Normal Inspection, Normal Oropharynx, Other (His dry lips are cracked.) Head: Atraumatic, Normocephalic, Other Neck: Normal Inspection (No outward signs of head or facial trauma), Supple, Non-Tender, Full Range of Motion. No: Lymphadenopathy (L), Lymphadenopathy (R) Respiratory/Chest: No Respiratory Distress, Lungs Clear, Normal Breath Sounds, No Accessory Muscle Use Cardiovascular: Normal Peripheral Pulses, Regular Rate, Rhythm, No Edema, No Gallop, No Murmur, No Rub GI/Abdominal: Normal Bowel Sounds, Soft, Non-Tender, No Organomegaly, No Abnormal Bruit, Other Back Exam: Normal Inspection (Scaphoid abdomen.), Full Range of Motion, Other (Apparent injuries to the thoracic or lumbar spine) Extremities: Other (She is not missing any skin from the soles of her feet. They are extremely dirty however. No injuries to her hands wrists shoulders knees or hips identified) Neurological: CN II-XII Intact, No Motor/Sensory Deficits, Disoriented to Place, Disoriented to Time. No: Normal Mood/Affect, Normal Cognition, Oriented x 3 (Is oriented to time and place) Psychiatric: Alert, Restless, Agitated, Disoriented ([address].), Inattentive, Flight of Ideas, Tangential Thoughts, Visual Hallucinations. No: Homicidal Thoughts, Suicidal Thoughts, Pressured Speech, Paranoid Thoughts, Threatening Behavior Skin Exam: Warm, Intact, Normal color, No rash #1 Interpretation EKG Date: 06/13/21 Time: 10:18 Rhythm: NSR Rate (Beats/Min): 96 [place]: Normal P-Wave: Enlarged (Left atrial hypertrophy) QRS: Other (Near Q-wave V1 V2 poor initial R wave progression likely due to lead placement.) ST-T: Other (Nonspecific T wave changes most notable in leads III and aVF) QT: Prolonged (Moderately prolonged) EKG Interpretation Comments: Abnormal ECG COURSE, BEHAVIORAL HEALTH COMP - Course Vital Signs: Last Vital Signs Temp 35.9 C L 06/13/21 09:27 Pulse 105 H 06/13/21 09:27 Resp 20 06/13/21 09:27 BP 130/87 06/13/21 09:27 Pulse Ox 97 06/13/21 09:27 Orders, Labs, Meds: Active Orders 24 hr Category Date Time Status CULTURE URINE [MREF] Stat Lab 06/13/21 12:40 Received Laboratory Tests 06/13/21 06/13/21 06/13/21 Range/Units 10:05 10:05 10:05 WBC 10.34 H (3.98-10.04) K/mm3 RBC 3.94 L (3.98-5.22) M/mm3 Hgb 11.8 (11.2-15.7) gm/dl Hct 35.7 (34.1-44.9) % MCV 90.6 (79.4-94.8) fl MCH 29.9 (25.6-32.2) pg MCHC 33.1 (32.2-35.5) g/dl RDW Std Deviation 47.4 H (36.4-46.3) fL Plt Count 447 H D (182-369) K/mm3 MPV 9.9 (9.4-12.3) fl Neut % (Auto) 68.5 (34.0-71.1) % Lymph % (Auto) 21.1 (19.3-51.7) % Levy % (Auto) 9.6 (4.7-12.5) % Eos % (Auto) 0.2 L (0.7-5.8) Baso % (Auto) 0.4 (0.1-1.2) % Neut # (Auto) 7.09 H (1.56-6.13) K/mm3 Lymph # (Auto) 2.18 (1.18-3.74) K/mm3 Levy # (Auto) 0.99 H (0.24-0.36) K/mm3 Eos # (Auto) 0.02 L (0.04-0.36) K/mm3 Baso # (Auto) 0.04 (0.01-0.08) K/mm3 Sodium 142 (136-145) mEq/L Potassium 3.0 L (3.5-5.1) mEq/L Chloride 104 (98-107) mEq/L Carbon Dioxide 22 (21-32) mEq/L Anion Gap 19.0 H (5-15) BUN 16 (7-18) mg/dL Creatinine 1.1 H (0.55-1.02) mg/dL Est Cr Clr Drug Dosing 69.02 mL/min Estimated GFR (MDRD) 58 (>60) mL/min BUN/Creatinine Ratio 14.5 (14-18) Glucose 98 (70-99) mg/dL Calcium 9.0 (8.5-10.1) mg/dL Magnesium 2.1 (1.8-2.4) mg/dL Total Bilirubin 0.7 (0.2-1.0) mg/dL AST 34 (15-37) U/L ALT 52 (14-59) U/L Alkaline Phosphatase 42 L (46-116) U/L Lactate Dehydrogenase 419 H (81-234) U/L Troponin I < 0.017 (0.00-0.056) ng/mL C-Reactive Protein <0.2 (<1.0) mg/dL Total Protein 7.2 (6.4-8.2) g/dl Albumin 4.4 (3.4-5.0) g/dl Globulin 2.8 gm/dL Albumin/Globulin Ratio 1.6 (1-2) HCG, Qual Negative (NEGATIVE) Urine Color Urine Appearance Urine pH Ur Specific [place] Urine Protein Urine Glucose (UA) Urine Ketones Urine Occult Blood Urine Nitrite Urine Bilirubin Urine Urobilinogen Ur Leukocyte Esterase Urine RBC (0-5) /hpf Urine WBC (0-5) /hpf Ur Epithelial Cells (0-5) /hpf Urine Bacteria (FEW) /hpf Urine Mucus (FEW) /hpf Salicylates (2.8-20) mg/dL Urine Opiates Screen Ur Buprenorphine Scrn Ur Oxycodone Screen Urine Methadone Screen Ur Propoxyphene Screen Acetaminophen 0 L (10-30) ug/mL Ur Barbiturates Screen Ur Tricyclics Screen Ur Phencyclidine Scrn Ur Amphetamine Screen U Methamphetamines Scrn U Benzodiazepines Scrn U Cocaine Metab Screen U Marijuana (THC) Screen Ethyl Alcohol 0.00 (0.00) gm% SARS-CoV-2 RNA (CRISTIAN) (NEGATIVE) 06/13/21 06/13/21 06/13/21 Range/Units 10:05 10:10 10:10 WBC (3.98-10.04) K/mm3 RBC (3.98-5.22) M/mm3 Hgb (11.2-15.7) gm/dl Hct (34.1-44.9) % MCV (79.4-94.8) fl MCH (25.6-32.2) pg MCHC (32.2-35.5) g/dl RDW Std Deviation (36.4-46.3) fL Plt Count (182-369) K/mm3 MPV (9.4-12.3) fl Neut % (Auto) (34.0-71.1) % Lymph % (Auto) (19.3-51.7) % Levy % (Auto) (4.7-12.5) % Eos % (Auto) (0.7-5.8) Baso % (Auto) (0.1-1.2) % Neut # (Auto) (1.56-6.13) K/mm3 Lymph # (Auto) (1.18-3.74) K/mm3 Levy # (Auto) (0.24-0.36) K/mm3 Eos # (Auto) (0.04-0.36) K/mm3 Baso # (Auto) (0.01-0.08) K/mm3 Sodium (136-145) mEq/L Potassium (3.5-5.1) mEq/L Chloride (98-107) mEq/L Carbon Dioxide (21-32) mEq/L Anion Gap (5-15) BUN (7-18) mg/dL Creatinine (0.55-1.02) mg/dL Est Cr Clr Drug Dosing mL/min Estimated GFR (MDRD) (>60) mL/min BUN/Creatinine Ratio (14-18) Glucose (70-99) mg/dL Calcium (8.5-10.1) mg/dL Magnesium (1.8-2.4) mg/dL Total Bilirubin (0.2-1.0) mg/dL AST (15-37) U/L ALT (14-59) U/L Alkaline Phosphatase (46-116) U/L Lactate Dehydrogenase (81-234) U/L Troponin I (0.00-0.056) ng/mL C-Reactive Protein (<1.0) mg/dL Total Protein (6.4-8.2) g/dl Albumin (3.4-5.0) g/dl Globulin gm/dL Albumin/Globulin Ratio (1-2) HCG, Qual (NEGATIVE) Urine Color Cancelled Urine Appearance Cancelled Urine pH Cancelled Ur Specific [place] Cancelled Urine Protein Cancelled Urine Glucose (UA) Cancelled Urine Ketones Cancelled Urine Occult Blood Cancelled Urine Nitrite Cancelled Urine Bilirubin Cancelled Urine Urobilinogen Cancelled Ur Leukocyte Esterase Cancelled Urine RBC (0-5) /hpf Urine WBC (0-5) /hpf Ur Epithelial Cells (0-5) /hpf Urine Bacteria (FEW) /hpf Urine Mucus (FEW) /hpf Salicylates 4.6 (2.8-20) mg/dL Urine Opiates Screen Cancelled Ur Buprenorphine Scrn Cancelled Ur Oxycodone Screen Cancelled Urine Methadone Screen Cancelled Ur Propoxyphene Screen Cancelled Acetaminophen (10-30) ug/mL Ur Barbiturates Screen Cancelled Ur Tricyclics Screen Cancelled Ur Phencyclidine Scrn Cancelled Ur Amphetamine Screen Cancelled U Methamphetamines Scrn Cancelled U Benzodiazepines Scrn Cancelled U Cocaine Metab Screen Cancelled U Marijuana (THC) Screen Cancelled Ethyl Alcohol (0.00) gm% SARS-CoV-2 RNA (CRISTIAN) (NEGATIVE) 06/13/21 06/13/21 06/13/21 Range/Units 10:25 10:25 12:40 WBC (3.98-10.04) K/mm3 RBC (3.98-5.22) M/mm3 Hgb (11.2-15.7) gm/dl Hct (34.1-44.9) % MCV (79.4-94.8) fl MCH (25.6-32.2) pg MCHC (32.2-35.5) g/dl RDW Std Deviation (36.4-46.3) fL Plt Count (182-369) K/mm3 MPV (9.4-12.3) fl Neut % (Auto) (34.0-71.1) % Lymph % (Auto) (19.3-51.7) % Levy % (Auto) (4.7-12.5) % Eos % (Auto) (0.7-5.8) Baso % (Auto) (0.1-1.2) % Neut # (Auto) (1.56-6.13) K/mm3 Lymph # (Auto) (1.18-3.74) K/mm3 Levy # (Auto) (0.24-0.36) K/mm3 Eos # (Auto) (0.04-0.36) K/mm3 Baso # (Auto) (0.01-0.08) K/mm3 Sodium (136-145) mEq/L Potassium (3.5-5.1) mEq/L Chloride (98-107) mEq/L Carbon Dioxide (21-32) mEq/L Anion Gap (5-15) BUN (7-18) mg/dL Creatinine (0.55-1.02) mg/dL Est Cr Clr Drug Dosing mL/min Estimated GFR (MDRD) (>60) mL/min BUN/Creatinine Ratio (14-18) Glucose (70-99) mg/dL Calcium (8.5-10.1) mg/dL Magnesium (1.8-2.4) mg/dL Total Bilirubin (0.2-1.0) mg/dL AST (15-37) U/L ALT (14-59) U/L Alkaline Phosphatase (46-116) U/L Lactate Dehydrogenase (81-234) U/L Troponin I (0.00-0.056) ng/mL C-Reactive Protein (<1.0) mg/dL Total Protein (6.4-8.2) g/dl Albumin (3.4-5.0) g/dl Globulin gm/dL Albumin/Globulin Ratio (1-2) HCG, Qual (NEGATIVE) Urine Color Dark yellow Urine Appearance Cloudy H Urine pH 6.5 Ur Specific [place] 1.025 Urine Protein 1+ H Urine Glucose (UA) Negative Urine Ketones Trace H Urine Occult Blood 2+ H Urine Nitrite Positive H Urine Bilirubin 1+ H Urine Urobilinogen 1.0 Ur Leukocyte Esterase 2+ H Urine RBC 10-20 H (0-5) /hpf Urine WBC 50-75 H (0-5) /hpf Ur Epithelial Cells 0-5 (0-5) /hpf Urine Bacteria Many H (FEW) /hpf Urine Mucus Not seen (FEW) /hpf Salicylates (2.8-20) mg/dL Urine Opiates Screen Presumptive positive H Ur Buprenorphine Scrn Negative Ur Oxycodone Screen Negative Urine Methadone Screen Negative Ur Propoxyphene Screen Negative Acetaminophen (10-30) ug/mL Ur Barbiturates Screen Negative Ur Tricyclics Screen Negative Ur Phencyclidine Scrn Negative Ur Amphetamine Screen Presumptive positive H U Methamphetamines Scrn Presumptive positive H U Benzodiazepines Scrn Presumptive positive H U Cocaine Metab Screen Negative U Marijuana (THC) Screen Negative Ethyl Alcohol (0.00) gm% SARS-CoV-2 RNA (CRISTIAN) Negative (NEGATIVE) Medications Discontinued Medications Generic Name Dose Route Start Last Admin Trade Name Johnathan PRN Reason Stop Dose Admin Haloperidol Lactate 5 mg 06/13/21 10:06 06/13/21 10:16 Haloperidol Lactate 5 Mg/Ml Sdv IVPUSH 06/13/21 10:07 5 mg ONETIME ONE Administration Dextrose/Lactated Ringer's 1,000 mls @ 999 mls/hr 06/13/21 10:15 06/13/21 10:20 Dextrose 5%-Lactated Ringers IV 999 mls/hr ASDIRECTED LJ Administration Potassium Chloride 10 meq/ 100 mls @ 100 mls/hr 06/13/21 11:30 06/13/21 13:55 Premix IV 06/13/21 14:29 100 mls/hr Q1H LJ Administration Lactated Ringer's 1,000 mls @ 250 mls/hr 06/13/21 11:30 06/13/21 11:50 Ringers, Lactated IV 250 mls/hr ASDIRECTED LJ Administration Ceftriaxone Sodium 2 gm/ 100 mls @ 200 mls/hr 06/13/21 12:37 06/13/21 15:04 Sodium Chloride IV 06/13/21 13:06 200 mls/hr ONETIME ONE Administration Sodium Chloride 1,000 mls @ 250 mls/hr 06/13/21 12:45 06/13/21 15:00 Normal Saline IV 250 mls/hr ASDIRECTED LJ Administration Dextrose/Lactated Ringer's 1,000 mls @ 100 mls/hr 06/13/21 18:15 06/13/21 19:34 Dextrose 5%-Lactated Ringers IV 100 mls/hr ASDIRECTED LJ Administration Lorazepam 2 mg 06/13/21 10:05 06/13/21 10:18 Lorazepam 2 Mg/Ml Sdv IVPUSH 06/13/21 10:06 2 mg ONETIME ONE Administration Re-Assessment/Re-Exam: 31-year-old female presents to the ED for evaluation of bizarre behavior after she was found outside yelling and screaming and ranting rib 200 hours this morning. Neighbors called police. She was taken to [facility] this morning where she was brought to the emergency department for evaluation. Patient has a history of recurrent use of methamphetamines and appears to be exhibiting psychotic behavior secondary to methamphetamine and substance abuse. She appears to be volume depleted. Tongue is very dry. She claims she has Covid but we cannot confirm this. Covid screen will be repeated. Patient will be given IV fluids D5 Ringer's lactate at open. Routine labs to be collected to include a beta hCG. She will be given Haldol 5 mg IV with 2 mg of Ativan IV for psychotic behavior. Urine drug screen will be obtained as well as serum acetaminophen and salicylate. Re-Assessment/Re-Exam Date: 06/13/21 (. Patient has been sleeping since receiv ing IV Haldol and Ativan.) Re-Assessment/Re-Exam Time: 11:51 (Covid 19 screen is negative. Chest x-ray done portably reveals heart size and mediastinum to be normal. Lungs are clear with no acute parenchymal changes nothing to suggest Covid pneumonia. No acute osseous abnormalities appreciated.) Medical Clearance: 06/13/21 12:36 Urinalysis is dark yellow and cloudy. It contains 1+ proteinuria trace of ketones 2+ occult blood and positive nitrate. 1+ bilirubin and 2+ leukocyte esterase.Her urinalysis is cloudy and contains 1+ proteinuria trace of ketones 2+ occult blood positive nitrate 1+ bilirubin 2+ leukocyte esterase 10- 20 RBCs per high-power field and 50-75 white blood cells per high-power field with many bacteria appreciated. A urine culture has been ordered. The urine drug screen which is now accurate because it is her urine is presumptively positive for opioids. Presumptively positive for amphetamines methamphetamines and benzodiazepines. COVID-19 screen is negative. Urine culture will be ordered. She will be given Rocephin 2 g IV 06/13/21 18:16 the plan was to send her to the residential crisis center where she has been many times in the past due to substance abuse issues. However she remains deeply asleep after receiving the initial dose of Ativan and Haldol IV. It is likely that she will be able to go home when she awakens. She will continue IV fluids with D5 Ringer's lactate at 100 mils an hour overnight. Care will be transferred to who will be over working the overnight shift. If the patient happens to awaken within the next 6 hours and has an adequate disposition she could be discharged to home. Is unclear at this point time where she has been living. Departure - Departure Condition: Fair - Discharge Information *PRESCRIPTION DRUG MONITORING PROGRAM REVIEWED*: Not Applicable *COPY OF PRESCRIPTION DRUG MONITORING REPORT IN PATIENT CHUCK: Not Applicable Sepsis Event Note (ED) - Evaluation Sepsis Screening Result: No Definite Risk - My Orders Last 24 Hours: My Active Orders 06/13/21 12:40 CULTURE URINE [MREF] Stat - Assessment/Plan Last 24 Hours: My Active Orders 06/13/21 12:40 CULTURE URINE [MREF] Stat
[2021-06-13] MEDS ORDERED: Dextrose 5%-Lactated Ringers 1,000 ML IV SCH ×2 (10:15→18:15)
[2021-06-13 10:48] LABS: ACETAMINOPHEN 0 ug/mL (10-30)
[2021-06-13] MEDS ORDERED: Lactated Ringers 1,000 ML IV SCH (11:30)
[2021-06-13] MEDS: Potassium Chloride 10 MEQ in Premix Bag 1 BAG IV SCH ×3 (11:52→13:55)
--- NOTE | 2021-06-13 12:15 | CR ---
Chest: Portable view of the chest was obtained. Comparison: Prior chest x-ray of 02/12/17. Heart size and mediastinum are normal. Lungs are clear with no acute parenchymal change. No acute osseous abnormality is appreciated. Impression: 1. Nothing acute is seen on portable chest x-ray. Diagnostic code #1
[2021-06-13] MEDS ORDERED: cefTRIAXone 2 GM in Sodium Chloride 0.9% 100 ML IV ONE (12:37)
[2021-06-13] MEDS ORDERED: Sodium Chloride 0.9% 1,000 ML IV SCH (12:45)
== END 2021-06-13 20:15 | disposition home or self-care (01) ==
LOC: JD.ED 09:19
DX: F15.10 Other stimulant abuse, uncomplicated (principal); N39.0 Urinary tract infection, site not specified; J45.909 Unspecified asthma, uncomplicated; R94.31 Abnormal electrocardiogram [ECG] [EKG]; Z72.0 Tobacco use; Z88.0 Allergy status to penicillin; Z20.822 Contact with and (suspected) exposure to COVID-19
CPT/HCPCS: 36415; 71045; 80053; 80143; 80179; 80306; 80307; 81001; 83615; 83735; 84484; 84703; 85025; 86140; 87086; 87088; 87186; 87635; 93005; 96365; 96367; 96375; 99284; J0696; J1630; J2060; J3480; J7030; J7120; J7121; 93010; U0002

== ENCOUNTER 2021-08-18 23:12 | Emergency (ER) | payer SELFPAY ==
[2021-08-18 23:21] VITALS: BP 139/122; PULSE 68
[2021-08-19] MEDS ORDERED: LORazepam 1 MG Tab PO ONE (00:17)
--- NOTE | 2021-08-19 00:23 | EDM.PDOCBH ---
ED HPI GENERAL MEDICAL PROBLEM - General Chief Complaint: Drug or Alcohol Abuse Stated Complaint: LAW ENFORCEMENT Time Seen by Provider: 08/19/21 00:17 Source of Information: Reports: Patient, Police, RN Notes Reviewed History Limitations: Reports: No Limitations - History of Present Illness INITIAL COMMENTS - FREE TEXT/NARRATIVE: Patient is a 31-year-old female brought in by to law enforcement officers for medical clearance to be incarcerated. Patient did admit to using methamphetamines, and states that she smoked it. Patient states that she has a history of using methamphetamines. Patient is visibly high on meth. She is not really sure how much she took. She is very anxious, and very suspicious/paranoid of providers that walk in the room. The policeman stat es that she was complaining about her right foot hurting, but she was walking on it just fine" running around on it" prior to her coming to the ER. Patient is not having any obvious shortness of breath, or any other sick-like symptoms. The policeman state that she supposed to be on some sort of psychiatric medications but were told that she has not been taking them. They also state that she has been seeing things that are not there. This very well could be a side effect of the methamphetamine she used today. - Related Data Allergies Allergy/AdvReac Type Severity Reaction Status Date / Time Penicillins Allergy Severe Hives Verified 08/18/21 23:19 Home Meds: Home Meds No122/Iron/Folic Acid [ Multi Tablet] 1 each PO DAILY 05/11/19 [History] Acetaminophen [Tylenol] 650 mg PO Q6H PRN tablet 12/31/19 [Rx] Benzocaine/Menthol [Dermoplast Pain Relief [place]] 1 spray TOP ASDIRECTED PRN canister 12/31/19 [Rx] Docusate Sodium [Colace] 100 mg PO BID PRN cap 12/31/19 [Rx] Ibuprofen [Motrin] 600 mg PO Q6H PRN tablet 12/31/19 [Rx] witch Lazara [Tucks] 1 pad TOP ASDIRECTED PRN pad 12/31/19 [Rx] Cefdinir [Omnicef] 300 mg PO BID #14 cap 06/13/21 [Rx] Past Medical History Respiratory History: Reports: Asthma Gastrointestinal History: Reports: GERD Genitourinary History: Reports: UTI, Recurrent RUN LEAD History: Reports: , Spontaneous , Therapeutic Other RUN LEAD History: x4 Musculoskeletal History: Reports: Other (See Below) Other Musculoskeletal History: ankle sprain Psychiatric History: Reports: Addiction, Anxiety, Depression, Other (See Below) Hematologic History: Reports: Anemia Dermatologic History: Reports: Other (See Below) Other Dermatologic History: Frequent abscess' to groin--MRSA swab negative x3 - Infectious Disease History 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: MRSA Other Infectious Disease History: hx of MRSA but has had 3 negative tests - Past Surgical History HEENT Surgical History: Reports: Oral Surgery Female Surgical History: Reports: Cervical Cryotherapy Social & Family History - Family History Family Medical History: No Pertinent Family History Cardiac: Reports: MD Endocrine/Metabolic: Reports: Diabetes, type II - Tobacco Use Tobacco Use Status *Q: Unknown Ever Used Tobacco - Caffeine Use Caffeine Use: Reports: Soda - Living Situation & Occupation Living situation: Reports: Single, with Significant Other (Fiance), with Family (5 kids + her grandmother) Occupation: Unemployed ED ROS GENERAL - Review of Systems Review Of Systems: Comprehensive ROS is negative, except as noted in HPI. ED EXAM, BEHAVIORAL HEALTH - Physical Exam Exam: See Below Exam Limited By: No Limitations General Appearance: Alert, WD/WN, No Apparent Distress, Anxious (pt is severly anxious and does appear to be high on meth) Respiratory/Chest: No Respiratory Distress, Lungs Clear, Normal Breath Sounds, No Accessory Muscle Use, Chest Non-Tender Cardiovascular: Normal Peripheral Pulses, Regular Rate, Rhythm, No Edema Extremities: Normal Inspection, Normal Capillary Refill Neurological: Alert Psychiatric: Restless, Poor Eye Contact, Paranoid Thoughts (pt seems fairly paranoid when any medical provider goes into the room). No: Threatening Behavior Skin Exam: Warm, Dry, Intact, Normal color, No rash COURSE, BEHAVIORAL HEALTH COMP - Course Vital Signs: Last Vital Signs Temp 98.1 F 08/18/21 23:19 Pulse 68 08/18/21 23:19 Resp 15 08/18/21 23:19 BP 139/122 H 08/18/21 23:19 Pulse Ox 94 L 08/18/21 23:19 Orders, Labs, Meds: Active Orders 24 hr Category Date Time Status LORazepam [Ativan] Med 08/19/21 00:17 Once 2 mg PO ONETIME ONE Medication Orders Lorazepam (Lorazepam 1 Mg Tab) 2 mg PO ONETIME ONE Stop: 08/19/21 00:18 Medications Generic Name Dose Route Start Last Admin Trade Name Johnathan KWAN Reason Stop Dose Admin Lorazepam 2 mg 08/19/21 00:17 Lorazepam 1 Mg Tab PO 08/19/21 00:18 ONETIME ONE Discharge vs Psych Eval/Treatment:: 08/19/21 00:23 Patient presents to the ED via [place] police department for medical clearance. Patient was evaluated and does appear to be under the influence of methamphetamines; however, they are able to walk and talk appropriately and there were no emergency conditions noted at today's visit. They are deemed to not be a harm to themselves or others at this time. It is my opinion that they are medically cleared to go to the local law enforcement center to get sober overnight. The patient was given 2 mg oral Ativan to help calm her nerves at this time, to help facilitate her going to halfway Departure - Departure Time of Disposition: 00:25 Disposition: Home, Self-Care 01 Condition: Good Clinical Impression: Medical clearance for incarceration - Discharge Information *PRESCRIPTION DRUG MONITORING PROGRAM REVIEWED*: No *COPY OF PRESCRIPTION DRUG MONITORING REPORT IN PATIENT CHUCK: No Instructions: Medical Screening Exam Additional Instructions: You were evaluated in the ER tonight for your methamphetamine abuse. You had a thorough medical exam performed, and although you are quite high on methamphetamines, no emergent medical needs were identified on today's exam, and you are deemed fit to go to halfway. You have been given 2 mg Ativan to help calm your nerves, and help to try to counteract the effects of the amphetamines. Please return to the ER at any time if symptoms change or worsen. Sepsis Event Note (ED) - Evaluation Sepsis Screening Result: No Definite Risk - Focused Exam Vital Signs: Vital Signs Temp Pulse Resp BP Pulse Ox 08/18/21 23:19 98.1 F 68 15 139/122 H 94 L - My Orders Last 24 Hours: My Active Orders 08/19/21 00:17 LORazepam [Ativan] 2 mg PO ONETIME ONE - Assessment/Plan Last 24 Hours: My Active Orders 08/19/21 00:17 LORazepam [Ativan] 2 mg PO ONETIME ONE
== END 2021-08-19 01:06 | disposition home or self-care (01) ==
LOC: JD.ED 23:12
DX: Z02.89 Encounter for other administrative examinations (principal); F22 Delusional disorders; Z88.0 Allergy status to penicillin
CPT/HCPCS: 99283; A9270

== ENCOUNTER 2021-12-01 23:07 | Emergency (ER) | payer BC ==
[2021-12-01 23:27] VITALS: BP 105/75; PULSE 97
[2021-12-01] MEDS ORDERED: Acetaminophen 325 MG Tab PO ONE (23:32)
[2021-12-02] MEDS ORDERED: Ketorolac 15 MG/ML SDV IM ONE (00:01)
== END 2021-12-02 00:52 | disposition home or self-care (01) ==
LOC: JD.ED 23:07
DX: S06.0X0A Concussion without loss of consciousness, initial encounter (principal); S93.401A Sprain of unspecified ligament of right ankle, initial encounter; Z88.0 Allergy status to penicillin; W00.0XXA Fall on same level due to ice and snow, initial encounter
CPT/HCPCS: 70450; 73130; 73610; 96372; 99283; J1885

== ENCOUNTER 2022-01-30 16:21 | Emergency (ER) | payer BC, MEDICAID ==
[2022-01-30 16:58] VITALS: BP 142/112; PULSE 116
[2022-01-30] MEDS ORDERED: LORazepam 2 MG/ML SDV IM ONE (17:25)
[2022-01-30] MEDS ORDERED: Ondansetron 4 MG Tab.DIS PO ONE (17:25)
== END 2022-01-30 17:30 | disposition left against medical advice (07) ==
LOC: JD.ED 16:21
DX: F11.23 Opioid dependence with withdrawal (principal); T40.411A Poisoning by fentanyl or fentanyl analogs, accidental (unintentional), initial encounter; Z88.0 Allergy status to penicillin; Z72.0 Tobacco use
CPT/HCPCS: 96372; 99283; A9270; J2060; 99284

== ENCOUNTER 2022-01-30 23:47 | Emergency (ER) | payer BC | END 2022-01-31 00:06 | LOC: JD.ED 23:47 | DX: Z53.21 Procedure and treatment not carried out due to patient leaving prior to being seen by health care provider (principal) ==

== ENCOUNTER 2022-06-05 11:45 | Emergency (ER) | payer BC, MEDICAID ==
[2022-06-05 11:57] VITALS: BP 141/97; PULSE 74
[2022-06-05] MEDS ORDERED: Sodium Chloride 0.9% 10 ML Syringe FLUSH PRN (12:14)
[2022-06-05] MEDS ORDERED: Potassium Chloride 20 MEQ Tab.ER PO ONE (13:34)
[2022-06-05 13:55] LABS: C. TRACHOMATIS BY PCR NOT DETECTED; N. GONORRHOEAE BY PCR NOT DETECTED
[2022-06-05] MEDS ORDERED: Acetaminophen 325 MG Tab PO ONE (14:12)
== END 2022-06-05 16:10 | disposition home or self-care (01) ==
LOC: JD.ED 11:45
DX: S09.90XA Unspecified injury of head, initial encounter (principal); F17.210 Nicotine dependence, cigarettes, uncomplicated; Z88.0 Allergy status to penicillin; Z79.899 Other long term (current) drug therapy; W22.8XXA Striking against or struck by other objects, initial encounter
CPT/HCPCS: 36415; 70450; 80053; 81001; 83735; 84703; 85025; 86803; 87210; 87449; 87491; 87591; 87808; 99284; A9270; J3490; G0433

== ENCOUNTER 2022-07-11 06:40 | Emergency (ER) | payer BC, MEDICAID ==
[2022-07-11 06:49] VITALS: BP 155/114
[2022-07-11 06:57] VITALS: PULSE 102
== END 2022-07-11 07:30 ==
LOC: JD.ED 06:40
DX: Z02.89 Encounter for other administrative examinations (principal); Z88.0 Allergy status to penicillin; Z79.899 Other long term (current) drug therapy
CPT/HCPCS: 99282; 99283

== ENCOUNTER 2022-08-11 22:14 | Emergency (ER) | payer OTHER, MEDICAID ==
[2022-08-11 22:50] VITALS: BP 116/77; PULSE 90
[2022-08-11] MEDS ORDERED: Ketorolac 15 MG/ML SDV IM ONE (23:07)
[2022-08-11] MEDS ORDERED: Ketorolac 30 MG/ML SDV ONE (23:12)
== END 2022-08-12 00:20 | disposition home or self-care (01) ==
LOC: JD.ED 22:14
DX: S93.401A Sprain of unspecified ligament of right ankle, initial encounter (principal); S63.501A Unspecified sprain of right wrist, initial encounter; F17.210 Nicotine dependence, cigarettes, uncomplicated; F41.9 Anxiety disorder, unspecified; F32.A Depression, unspecified; Z79.899 Other long term (current) drug therapy; Z88.0 Allergy status to penicillin; Z88.6 Allergy status to analgesic agent; W10.8XXA Fall (on) (from) other stairs and steps, initial encounter
CPT/HCPCS: 73110-26-RT; 73110-RT; 73610-26-RT; 73610-RT; 73630-26-RT; 73630-RT; 99283

== ENCOUNTER 2022-08-13 20:29 | Emergency (ER) | payer OTHER, MEDICAID ==
[2022-08-13 21:48] VITALS: BP 121/87; PULSE 97
[2022-08-13] MEDS ORDERED: Ketorolac 15 MG/ML SDV IM STA (22:40)
== END 2022-08-13 23:00 | disposition home or self-care (01) ==
LOC: JD.ED 20:29
DX: S93.491D Sprain of other ligament of right ankle, subsequent encounter (principal); W18.40XA Slipping, tripping and stumbling without falling, unspecified, initial encounter
CPT/HCPCS: 73610; 96372; 99283; J1885; 99282

== ENCOUNTER 2022-09-25 23:15 | Emergency (ER) | payer OTHER, MEDICAID ==
[2022-09-25 23:32] VITALS: BP 132/89; PULSE 120
[2022-09-25] MEDS ORDERED: Acetaminophen/HYDROcodone 325-5 MG Tab PO ONE (23:36)
== END 2022-09-26 00:53 | disposition home or self-care (01) ==
LOC: JD.ED 23:15
DX: S63.502A Unspecified sprain of left wrist, initial encounter (principal); S33.8XXA Sprain of other parts of lumbar spine and pelvis, initial encounter; S40.021A Contusion of right upper arm, initial encounter; J45.909 Unspecified asthma, uncomplicated; Z88.0 Allergy status to penicillin; Z88.5 Allergy status to narcotic agent; Z79.899 Other long term (current) drug therapy; W00.9XXA Unspecified fall due to ice and snow, initial encounter
CPT/HCPCS: 72220; 72220-26; 73060-26-RT; 73060-RT; 73090-26-RT; 73090-RT; 73110-26-LT; 73110-LT; 73610-26-RT; 73610-RT; 99283; A9270-GY

== ENCOUNTER 2022-10-02 22:43 | Emergency (ER) | payer OTHER ==
[2022-10-03 01:50] VITALS: BP 135/98; PULSE 95
== END 2022-10-03 03:29 | disposition home or self-care (01) ==
LOC: JD.ED 22:43
DX: S43.401A Unspecified sprain of right shoulder joint, initial encounter (principal); S33.5XXA Sprain of ligaments of lumbar spine, initial encounter; F17.210 Nicotine dependence, cigarettes, uncomplicated; Z88.0 Allergy status to penicillin; Z88.5 Allergy status to narcotic agent; Z79.899 Other long term (current) drug therapy; Z23 Encounter for immunization; V49.40XA Driver injured in collision with unspecified motor vehicles in traffic accident, initial encounter; Y92.410 Unspecified street and highway as the place of occurrence of the external cause
CPT/HCPCS: 72100; 72100-26; 73030-26-RT; 73030-RT; 99284; G0008

== ENCOUNTER 2022-10-04 01:27 | Emergency (ER) | payer OTHER ==
[2022-10-04 01:44] VITALS: BP 130/83; PULSE 98
== END 2022-10-04 04:40 | disposition home or self-care (01) ==
LOC: JD.ED 01:27
DX: O26.851 Spotting complicating pregnancy, first trimester (principal); F17.210 Nicotine dependence, cigarettes, uncomplicated; Z88.0 Allergy status to penicillin; Z88.5 Allergy status to narcotic agent; Z3A.01 Less than 8 weeks gestation of pregnancy
CPT/HCPCS: 36415; 81003; 84702; 85025; 86850; 86900; 86901; 99284

== ENCOUNTER 2022-11-08 09:13 | Emergency (ER) | payer MEDICAID, OTHER ==
[2022-11-08 09:42] VITALS: BP 127/91; PULSE 112
== END 2022-11-08 10:20 | disposition home or self-care (01) ==
LOC: JD.ED 09:13
DX: S02.5XXA Fracture of tooth (traumatic), initial encounter for closed fracture (principal); K21.9 Gastro-esophageal reflux disease without esophagitis; F17.210 Nicotine dependence, cigarettes, uncomplicated; Z88.0 Allergy status to penicillin; Z88.5 Allergy status to narcotic agent; Z91.041 Radiographic dye allergy status; W22.8XXA Striking against or struck by other objects, initial encounter
CPT/HCPCS: 99282

== ENCOUNTER 2022-11-09 12:27 | Emergency (ER) | payer OTHER | END 2022-11-09 19:16 | LOC: JD.ED 12:27 | DX: Z53.21 Procedure and treatment not carried out due to patient leaving prior to being seen by health care provider (principal) ==

== ENCOUNTER 2022-11-09 22:19 | Emergency (ER) | payer OTHER ==
[2022-11-10 01:04] VITALS: BP 111/77; PULSE 108
[2022-11-10] MEDS ORDERED: Ketorolac 30 MG/ML SDV IVPUSH ONE (04:20)
[2022-11-10] MEDS ORDERED: Ketorolac 30 MG/ML SDV IM ONE (04:28)
== END 2022-11-10 05:10 | disposition home or self-care (01) ==
LOC: JD.ED 22:19
DX: K02.9 Dental caries, unspecified (principal); J45.909 Unspecified asthma, uncomplicated; Z88.0 Allergy status to penicillin; Z88.5 Allergy status to narcotic agent; Z91.041 Radiographic dye allergy status; Z79.899 Other long term (current) drug therapy
CPT/HCPCS: 96372; 99282; J1885

== ENCOUNTER 2022-12-22 20:58 | Emergency (ER) | payer OTHER ==
[2022-12-22 21:16] VITALS: BP 133/92; PULSE 86
[2022-12-22] MEDS ORDERED: Ondansetron 4 MG Tab.DIS PO ONE (21:52)
== END 2022-12-22 22:12 | disposition home or self-care (01) ==
LOC: JD.ED 20:58
DX: U07.1 COVID-19 (principal); J45.909 Unspecified asthma, uncomplicated; K21.9 Gastro-esophageal reflux disease without esophagitis; Z88.0 Allergy status to penicillin; Z88.5 Allergy status to narcotic agent; Z91.041 Radiographic dye allergy status
CPT/HCPCS: 99284; A9270; 99283

== ENCOUNTER 2022-12-25 01:16 | Emergency (ER) | payer OTHER ==
[2022-12-25 01:27] VITALS: BP 121/72; PULSE 104
[2022-12-25] MEDS ORDERED: Metoclopramide 10 MG Tab PO ONE (03:56)
== END 2022-12-25 04:19 | disposition home or self-care (01) ==
LOC: JD.ED 01:16
DX: U07.1 COVID-19 (principal); J45.909 Unspecified asthma, uncomplicated; F17.210 Nicotine dependence, cigarettes, uncomplicated; Z88.0 Allergy status to penicillin; Z88.5 Allergy status to narcotic agent; Z91.041 Radiographic dye allergy status; Z79.899 Other long term (current) drug therapy
CPT/HCPCS: 99283; A9270; 99282

== ENCOUNTER 2023-02-11 16:19 | Emergency (ER) | payer BC, OTHER ==
[2023-02-11] MEDS ORDERED: Ketorolac 30 MG/ML SDV IVPUSH ONE (18:00)
[2023-02-11 18:41] VITALS: BP 106/73; PULSE 80
== END 2023-02-11 18:44 | disposition home or self-care (01) ==
LOC: JD.ED 16:19
DX: S93.402A Sprain of unspecified ligament of left ankle, initial encounter (principal); S00.03XA Contusion of scalp, initial encounter; M62.838 Other muscle spasm; J45.909 Unspecified asthma, uncomplicated; Z88.0 Allergy status to penicillin; Z88.5 Allergy status to narcotic agent; Z91.041 Radiographic dye allergy status; W17.89XA Other fall from one level to another, initial encounter
CPT/HCPCS: 70450; 71250; 72125; 73610; 96374; 99284; J1885

== ENCOUNTER 2023-02-12 20:40 | Emergency (ER) | payer OTHER ==
[2023-02-12 20:58] VITALS: BP 111/70; PULSE 105
[2023-02-12] MEDS ORDERED: Ketorolac 60 MG/2 ML SDV IM ONE (21:38)
[2023-02-12] MEDS ORDERED: Ondansetron 4 MG Tab.DIS PO ONE (21:39)
== END 2023-02-12 22:33 | disposition home or self-care (01) ==
LOC: JD.ED 20:40
DX: S20.211A Contusion of right front wall of thorax, initial encounter (principal); J45.909 Unspecified asthma, uncomplicated; Z86.16 Personal history of COVID-19; Z72.0 Tobacco use; Z88.0 Allergy status to penicillin; Z88.5 Allergy status to narcotic agent; Z91.041 Radiographic dye allergy status; W18.30XA Fall on same level, unspecified, initial encounter; Y92.009 Unspecified place in unspecified non-institutional (private) residence as the place of occurrence of the external cause
CPT/HCPCS: 96372; 99283; A9270; J1885

== ENCOUNTER 2023-03-13 18:41 | Emergency (ER) | payer OTHER ==
[2023-03-13] MEDS ORDERED: Ondansetron 4 MG/2 ML SDV IVPUSH ONE ×2 (19:27→23:28)
[2023-03-13] MEDS ORDERED: Sodium Chloride 0.9% 1,000 ML IV SCH (19:30)
[2023-03-13] MEDS ORDERED: Acetaminophen 325 MG Tab PO ONE (21:29)
[2023-03-13 22:34] LABS: CORONAVIRUS COVID-19 NAA NEGATIVE (NEGATIVE)
[2023-03-14] MEDS ORDERED: Ondansetron 4 MG/2 ML SDV IVPUSH ONE (04:48)
[2023-03-14] MEDS ORDERED: LORazepam 1 MG Tab PO ONE (08:39)
[2023-03-14 09:57] VITALS: BP 125/93; PULSE 116
== END 2023-03-14 10:30 | disposition home or self-care (01) ==
LOC: JD.ED 18:41
DX: F10.129 Alcohol abuse with intoxication, unspecified (principal); R45.851 Suicidal ideations; J45.909 Unspecified asthma, uncomplicated; F17.210 Nicotine dependence, cigarettes, uncomplicated; Z88.0 Allergy status to penicillin; Z88.5 Allergy status to narcotic agent; Z91.041 Radiographic dye allergy status; Z86.16 Personal history of COVID-19; Y90.1 Blood alcohol level of 20-39 mg/100 ml; Z20.822 Contact with and (suspected) exposure to COVID-19
CPT/HCPCS: 0241U; 36415; 74177; 80053; 80143; 80179; 80306; 80307; 81001; 81025; 83690; 84443; 85007; 85027; 87086; 87088; 87186; 93005; 96361; 96374; 96376; 99284; A9270; J2405; J7030; 93010; 99285

== ENCOUNTER 2023-06-04 19:47 | Emergency (ER) | payer OTHER, MEDICAID ==
[2023-06-04 20:01] VITALS: PULSE 95
== END 2023-06-04 21:01 | disposition left against medical advice (07) ==
LOC: JD.ED 19:47
DX: Z53.21 Procedure and treatment not carried out due to patient leaving prior to being seen by health care provider (principal)
CPT/HCPCS: 73600-RT

== ENCOUNTER 2023-06-09 15:33 | Emergency (ER) | payer OTHER | END 2023-06-09 15:49 | disposition left against medical advice (07) | LOC: JD.ED 15:33 | DX: Z53.21 Procedure and treatment not carried out due to patient leaving prior to being seen by health care provider (principal) ==

== ENCOUNTER 2023-07-03 09:49 | Emergency (ER) | payer OTHER, MEDICAID ==
[2023-07-03] MEDS ORDERED: Sodium Chloride 0.9% 1,000 ML IV STA ×2 (10:05→11:17)
[2023-07-03] MEDS ORDERED: Ondansetron 4 MG/2 ML SDV IVPUSH ONE (10:06)
[2023-07-03 10:41] LABS: HEMATOCRIT 40.2 % (34.1-44.9); HEMOGLOBIN 14.1 gm/dl (11.2-15.7); MEAN CORPUSCULAR HEMOGLOBIN 34.1 pg (25.6-32.2); MEAN CORPUSCULAR HGB CONC 35.1 g/dl (32.2-35.5); MEAN CORPUSCULAR VOLUME 97.1 fl (79.4-94.8); MEAN PLATELET VOLUME 9.8 fl (9.4-12.3); PLATELET COUNT,PLT 202 K/mm3 (182-369); RED BLOOD CELL COUNT 4.14 M/mm3 (3.98-5.22); WHITE BLOOD CELL COUNT,WBC 4.84 K/mm3 (3.98-10.04)
[2023-07-03 11:13] LABS: ALBUMIN 3.4 g/dl (3.4-5.0); ANION GAP 22.7 (5-15); BILIRUBIN TOTAL 0.4 mg/dL (0.2-1.0); BUN/CREATININE RATIO 5.7 (14-18); CALCIUM 7.9 mg/dL (8.5-10.1); CREATININE 0.7 mg/dL (0.55-1.02); EST CRCL DRUG DOSING (CG) 99.63 mL/min; ETHANOL BLOOD MEDICAL 0.32 gm% (0.00); POTASSIUM,K 2.7 mEq/L (3.5-5.1); PROTEIN TOTAL,TP 6.9 g/dl (6.4-8.2); TSH 2.146 uIU/mL (0.358-3.74)
[2023-07-03] MEDS ORDERED: Potassium Chloride 20 MEQ Tab.ER PO ONE ×2 (11:17→15:23)
[2023-07-03 11:28] LABS: BAND PERCENT MAN 0 % (0-10); BASOPHILS PERCENT MAN 0 (0.1-1.2); EOSINOPHILS PERCENT MAN 1 % (0.7-5.8); LYMPHOCYTES % ATYPICAL MANUAL 0 %; LYMPHOCYTES PERCENT MAN 24 % (20-40); MONOCYTES PERCENT MAN 0 % (2-10)
[2023-07-03 12:21] LABS: BARBITURATE SCREEN,URINE NEGATIVE (CUTOFF=200); BENZODIAZEPINES SCREEN,URINE NEGATIVE (CUTOFF=150); BUPRENORPHINE SCREEN,URINE NEGATIVE (CUTOFF=10); METHADONE SCREEN, URINE NEGATIVE (CUTOFF=200); METHAMPHETAMINES SCREEN, URINE NEGATIVE (CUTOFF=500); OXYCODONE SCREEN,URINE NEGATIVE (CUT0FF=100); PROPOXYPHENE SCREEN,URINE NEGATIVE (CUTOFF=300); THC SCREEN,URINE 20 NG/ML NEGATIVE (CUTOFF=50)
[2023-07-03 12:25] LABS: AMPHETAMINES SCREEN, URINE NEGATIVE (CUTOFF=500)
[2023-07-03 12:26] LABS: PLATELET COUNT ESTIMATE ADEQUATE
[2023-07-03] MEDS ORDERED: LORazepam 2 MG/ML SDV IVPUSH ONE (15:23)
[2023-07-03] MEDS ORDERED: cloNIDine 0.1 MG Tab PO ONE (16:50)
[2023-07-03 17:12] VITALS: BP 143/90
[2023-07-03 18:39] VITALS: PULSE 128
== END 2023-07-03 17:17 | disposition home or self-care (01) ==
LOC: JD.ED 09:49
DX: F10.10 Alcohol abuse, uncomplicated (principal); J45.909 Unspecified asthma, uncomplicated; K21.9 Gastro-esophageal reflux disease without esophagitis; E66.9 Obesity, unspecified; Z68.36 Body mass index [BMI] 36.0-36.9, adult; Z86.16 Personal history of COVID-19; Z88.0 Allergy status to penicillin; Z91.041 Radiographic dye allergy status; Z88.5 Allergy status to narcotic agent
CPT/HCPCS: 36415; 80053; 80143; 80179; 80306; 80307; 81025; 84443; 85007; 85027; 93005; 96361; 96374; 96375; 99283-25; 99284; A9270-GY; J2060; J2405; J7030

== ENCOUNTER 2023-07-03 20:36 | Inpatient (IN) | payer OTHER, MEDICAID ==
[2023-07-03] MEDS ORDERED: Lactated Ringers 1,000 ML IV ONE ×2 (20:38→23:20)
[2023-07-03] MEDS ORDERED: Sodium Chloride 0.9% 10 ML Syringe FLUSH PRN (20:38)
[2023-07-03] MEDS ORDERED: Promethazine 25 MG in Sodium Chloride 0.9% 50 ML IV ONE (20:39)
[2023-07-03] MEDS ORDERED: LORazepam 2 MG/ML SDV IVPUSH ONE (20:48)
[2023-07-03] MEDS ORDERED: Metoclopramide 10 MG/2 ML SDV IVPUSH PRN (23:21)
[2023-07-03] MEDS: LORazepam 2 MG/ML SDV IVPUSH SCH (23:55)
[2023-07-04] MEDS: LORazepam 2 MG/ML SDV IVPUSH SCH (03:19)
[2023-07-04] MEDS: Ondansetron 4 MG/2 ML SDV IVPUSH PRN ×3 (03:22→19:13)
[2023-07-04] MEDS ORDERED: LORazepam 2 MG/ML SDV IVPUSH ONE ×2 (05:12→05:30)
[2023-07-04] MEDS ORDERED: LORazepam 2 MG/ML SDV IVPUSH SCH ×2 (05:45→06:00)
[2023-07-04] MEDS: LORazepam 2 MG/ML SDV IVPUSH PRN ×8 (06:18→21:52)
[2023-07-04] MEDS ORDERED: Thiamine 200 MG/2 ML MDV IM ONE (06:54)
[2023-07-04] MEDS ORDERED: Potassium Chloride 20 MEQ Tab.ER PO SCH (09:00)
[2023-07-04] MEDS ORDERED: Magnesium Sulfate/Water 4 GM in Premix Bag 1 BAG IV ONE (11:13)
[2023-07-04] MEDS ORDERED: Loperamide 2 MG Cap PO STA (11:30)
[2023-07-04] MEDS: Lactated Ringers 1,000 ML IV SCH ×2 (11:40→19:13)
[2023-07-04 12:04] LABS: BASOPHILS ABSOLUTE AUTO 0.02 K/mm3 (0.01-0.08); BASOPHILS PERCENT AUTO 0.3 % (0.1-1.2); EOSINOPHILS ABSOLUTE AUTO 0.02 K/mm3 (0.04-0.36); EOSINOPHILS PERCENT AUTO 0.3 (0.7-5.8); HEMATOCRIT 38.9 % (34.1-44.9); HEMOGLOBIN 13.5 gm/dl (11.2-15.7); IMMATURE GRAN ABSOLUTE AUTO 0.02 K/mm3 (0.00-0.10); IMMATURE GRAN PERCENT AUTO 0.3 % (<=1.0); LYMPHOCYTES ABSOLUTE AUTO 1.15 K/mm3 (1.18-3.74); LYMPHOCYTES PERCENT AUTO 16.1 % (19.3-51.7); MEAN CORPUSCULAR HEMOGLOBIN 34.1 pg (25.6-32.2); MEAN CORPUSCULAR HGB CONC 34.7 g/dl (32.2-35.5); MEAN CORPUSCULAR VOLUME 98.2 fl (79.4-94.8); MEAN PLATELET VOLUME 10.5 fl (9.4-12.3); MONOCYTES ABSOLUTE AUTO 0.34 K/mm3 (0.24-0.36); MONOCYTES PERCENT AUTO 4.8 % (4.7-12.5); NEUTROPHILS PERCENT AUTO 78.2 % (34.0-71.1); PLATELET COUNT,PLT 171 K/mm3 (182-369); RED BLOOD CELL COUNT 3.96 M/mm3 (3.98-5.22); WHITE BLOOD CELL COUNT,WBC 7.15 K/mm3 (3.98-10.04)
[2023-07-04 12:53] LABS: A/G RATIO 1.1 (1-2); ALBUMIN 3.4 g/dl (3.4-5.0); ANION GAP 16.9 (5-15); BILIRUBIN TOTAL 4.2 mg/dL (0.2-1.0); BUN/CREATININE RATIO 8.8 (14-18); CALCIUM 8.2 mg/dL (8.5-10.1); CREATININE 0.8 mg/dL (0.55-1.02); EST CRCL DRUG DOSING (CG) 87.18 mL/min; POTASSIUM,K 2.9 mEq/L (3.5-5.1); PROTEIN TOTAL,TP 6.6 g/dl (6.4-8.2)
[2023-07-04] MEDS ORDERED: Ibuprofen 400 MG Tab PO PRN (13:11)
[2023-07-04] MEDS ORDERED: Magnesium Sulfate/Water 2 GM in Premix Bag 1 BAG IV ONE (13:11)
[2023-07-04] MEDS ORDERED: Thiamine 100 MG Tab PO ONE (14:00)
[2023-07-04] MEDS ORDERED: Folic Acid 1 MG Tab PO SCH (14:00)
[2023-07-04] MEDS ORDERED: Promethazine 12.5 MG in Sodium Chloride 0.9% 50 ML IV PRN (15:05)
[2023-07-04] MEDS: Potassium Chloride 10 MEQ in Premix Bag 1 BAG IV SCH ×4 (15:34→20:24)
[2023-07-04] MEDS ORDERED: Albuterol 6.7 GM Inhaler INH PRN (15:49)
[2023-07-04] MEDS ORDERED: Pantoprazole 40 MG Tab.CR PO SCH (16:00)
[2023-07-04] MEDS ORDERED: Citalopram 20 MG Tab PO SCH (16:00)
[2023-07-04] MEDS ORDERED: Sodium Phosphate 15 MMOLE in Sodium Chloride 0.9% 250 ML IV ONE ×2 (16:00→18:00)
[2023-07-04] MEDS ORDERED: Nicotine 21 MG/24 Hr Patch TRDERM SCH (16:00)
[2023-07-04] MEDS ORDERED: ClonazePAM 1 MG Tab PO SCH (16:00)
[2023-07-04] MEDS ORDERED: cloNIDine 0.1 MG Tab PO ONE (16:26)
[2023-07-04] MEDS: Potassium Chloride 20 MEQ Tab.ER PO SCH ×2 (17:05→20:26)
[2023-07-04 19:34] VITALS: BP 129/91; PULSE 134
[2023-07-04] MEDS ORDERED: Mirtazapine 15 MG Tab PO SCH (21:00)
[2023-07-04] MEDS ORDERED: cloNIDine 0.1 MG Tab PO SCH (21:00)
[2023-07-05] MEDS ORDERED: Thiamine 100 MG Tab PO SCH (09:00)
== END 2023-07-04 23:06 | disposition left against medical advice (07) | DRG 894 ==
LOC: JD.ED 20:36 → JD.MS 07-04 12:20
PROVIDERS: ADMIT Internal Medicine; ATTEND Internal Medicine
DX: F10.232 Alcohol dependence with withdrawal with perceptual disturbance (principal); F10.220 Alcohol dependence with intoxication, uncomplicated; J45.909 Unspecified asthma, uncomplicated; K21.9 Gastro-esophageal reflux disease without esophagitis; F41.9 Anxiety disorder, unspecified; E66.9 Obesity, unspecified; E83.42 Hypomagnesemia; I10 Essential (primary) hypertension; F32.89 Other specified depressive episodes; D64.9 Anemia, unspecified; D69.6 Thrombocytopenia, unspecified; R74.01 Elevation of levels of liver transaminase levels; E87.6 Hypokalemia; E83.39 Other disorders of phosphorus metabolism; E80.6 Other disorders of bilirubin metabolism; Z68.36 Body mass index [BMI] 36.0-36.9, adult; Z88.0 Allergy status to penicillin; Z88.1 Allergy status to other antibiotic agents; Z88.8 Allergy status to other drugs, medicaments and biological substances; Z79.899 Other long term (current) drug therapy; Z87.440 Personal history of urinary (tract) infections; Z87.81 Personal history of (healed) traumatic fracture; Z85.3 Personal history of malignant neoplasm of breast; Z86.16 Personal history of COVID-19; Z98.890 Other specified postprocedural states
CPT/HCPCS: 36415; 80053; 83735; 84100; 85025; 96361; 96365; 96367; 96372; 96375; 96376; 99285-25; A9270-GY; J2060; J2405; J2550; J2765; J3411; J3475; J3480; J3490; J7050; J7120

== ENCOUNTER 2023-07-06 15:58 | Emergency (ER) | payer OTHER, MEDICAID ==
[2023-07-06] MEDS ORDERED: Sodium Chloride 0.9% 10 ML Syringe FLUSH PRN (16:29)
[2023-07-06] MEDS ORDERED: Ondansetron 4 MG/2 ML SDV IVPUSH ONE (16:29)
[2023-07-06] MEDS ORDERED: Sodium Chloride 0.9% 1,000 ML IV SCH (16:30)
[2023-07-06] MEDS ORDERED: LORazepam 2 MG/ML SDV IVPUSH ONE ×2 (16:31→18:02)
[2023-07-06 17:15] LABS: BASOPHILS ABSOLUTE AUTO 0.06 K/mm3 (0.01-0.08); BASOPHILS PERCENT AUTO 0.7 % (0.1-1.2); EOSINOPHILS ABSOLUTE AUTO 0.15 K/mm3 (0.04-0.36); EOSINOPHILS PERCENT AUTO 1.7 (0.7-5.8); HEMATOCRIT 38.1 % (34.1-44.9); HEMOGLOBIN 12.8 gm/dl (11.2-15.7); IMMATURE GRAN ABSOLUTE AUTO 0.02 K/mm3 (0.00-0.10); IMMATURE GRAN PERCENT AUTO 0.2 % (<=1.0); LYMPHOCYTES ABSOLUTE AUTO 1.59 K/mm3 (1.18-3.74); MEAN CORPUSCULAR HEMOGLOBIN 34.3 pg (25.6-32.2); MEAN CORPUSCULAR HGB CONC 33.6 g/dl (32.2-35.5); MEAN CORPUSCULAR VOLUME 102.1 fl (79.4-94.8); MEAN PLATELET VOLUME 11.2 fl (9.4-12.3); MONOCYTES ABSOLUTE AUTO 0.74 K/mm3 (0.24-0.36); MONOCYTES PERCENT AUTO 8.4 % (4.7-12.5); NEUTROPHILS ABSOLUTE AUTO 6.27 K/mm3 (1.56-6.13); PLATELET COUNT,PLT 165 K/mm3 (182-369); RED BLOOD CELL COUNT 3.73 M/mm3 (3.98-5.22); WHITE BLOOD CELL COUNT,WBC 8.83 K/mm3 (3.98-10.04)
[2023-07-06 17:26] LABS: BARBITURATE SCREEN,URINE NEGATIVE (CUTOFF=200); BENZODIAZEPINES SCREEN,URINE PRESUMPTIVE POSITIVE (CUTOFF=150); BUPRENORPHINE SCREEN,URINE NEGATIVE (CUTOFF=10); METHADONE SCREEN, URINE NEGATIVE (CUTOFF=200); METHAMPHETAMINES SCREEN, URINE NEGATIVE (CUTOFF=500); OXYCODONE SCREEN,URINE NEGATIVE (CUT0FF=100); PROPOXYPHENE SCREEN,URINE NEGATIVE (CUTOFF=300); THC SCREEN,URINE 20 NG/ML NEGATIVE (CUTOFF=50)
[2023-07-06 17:30] LABS: AMPHETAMINES SCREEN, URINE NEGATIVE (CUTOFF=500)
[2023-07-06 17:52] LABS: ALBUMIN 3.5 g/dl (3.4-5.0); ANION GAP 16.8 (5-15); BILIRUBIN TOTAL 3.7 mg/dL (0.2-1.0); CREATININE 0.9 mg/dL (0.55-1.02); EST CRCL DRUG DOSING (CG) 77.49 mL/min; MAGNESIUM 1.4 mg/dL (1.8-2.4); POTASSIUM,K 2.8 mEq/L (3.5-5.1); PROTEIN TOTAL,TP 6.9 g/dl (6.4-8.2); TSH 2.38 uIU/mL (0.358-3.74)
[2023-07-06] MEDS ORDERED: Promethazine 25 MG/ML SDV IM ONE (18:10)
[2023-07-06 18:46] VITALS: BP 126/79; PULSE 116
== END 2023-07-06 18:46 | disposition home or self-care (01) ==
LOC: JD.ED 15:58
DX: S02.5XXA Fracture of tooth (traumatic), initial encounter for closed fracture (principal); E87.6 Hypokalemia; F10.930 Alcohol use, unspecified with withdrawal, uncomplicated; J45.909 Unspecified asthma, uncomplicated; K21.9 Gastro-esophageal reflux disease without esophagitis; E66.9 Obesity, unspecified; Z79.51 Long term (current) use of inhaled steroids; Z88.0 Allergy status to penicillin; Z88.5 Allergy status to narcotic agent; Z91.041 Radiographic dye allergy status; Z86.16 Personal history of COVID-19
CPT/HCPCS: 36415; 80053; 80143; 80179; 80306; 80307; 83735; 84443; 84703; 85025; 96361; 96374; 96375; 96376; 99284; J2060; J2405; J3490; J7030

== ENCOUNTER 2023-10-14 18:51 | Emergency (ER) | payer OTHER, MEDICAID ==
[2023-10-14 22:41] LABS: CORONAVIRUS COVID-19 NAA NEGATIVE (NEGATIVE); INFLUENZA A NAA NEGATIVE (NEGATIVE); RESPIRATORY SYNCYTIAL VIR NAA NEGATIVE (NEGATIVE)
[2023-10-14 23:07] LABS: BASOPHILS ABSOLUTE AUTO 0.1 K/mm3 (0.0-0.2); BASOPHILS PERCENT AUTO 0.7 % (0.0-1.0); EOSINOPHILS ABSOLUTE AUTO 0.2 K/mm3 (0.0-0.4); EOSINOPHILS PERCENT AUTO 1.9 % (0.0-6.0); HEMATOCRIT 37.8 % (37.0-47.0); IMMATURE GRAN ABSOLUTE AUTO 0.06 K/mm3 (0.00-0.05); IMMATURE GRAN PERCENT AUTO 0.5 % (0.0-0.4); LYMPHOCYTES ABSOLUTE AUTO 2.8 K/mm3 (1.0-4.8); LYMPHOCYTES PERCENT AUTO 23.4 % (24.0-44.0); MEAN CORPUSCULAR HEMOGLOBIN 33.5 pg (28.0-32.0); MEAN CORPUSCULAR HGB CONC 34.4 g/dl (32.0-36.0); MEAN CORPUSCULAR VOLUME 97.4 fl (83.0-99.0); MEAN PLATELET VOLUME 9.7 fl (9.4-12.3); MONOCYTES ABSOLUTE AUTO 0.9 K/mm3 (0.0-0.8); MONOCYTES PERCENT AUTO 7.7 % (0.0-8.0); NEUTROPHILS ABSOLUTE AUTO 7.8 K/mm3 (1.8-7.7); NEUTROPHILS PERCENT AUTO 65.8 % (41.0-71.0); PLATELET COUNT,PLT 295 K/mm3 (150-400); RED BLOOD CELL COUNT 3.88 M/mm3 (4.10-5.30); WHITE BLOOD CELL COUNT,WBC 11.86 K/mm3 (3.9-11.3)
[2023-10-14] MEDS ORDERED: Lactated Ringers 1,000 ML IV ONE (23:10)
[2023-10-14] MEDS ORDERED: Prochlorperazine 10 MG/2 ML SDV IVPUSH ONE (23:10)
[2023-10-14] MEDS ORDERED: diphenhydrAMINE 50 MG/ML SDV IVPUSH ONE (23:10)
[2023-10-14 23:25] LABS: A/G RATIO 0.9 (1-2); ALBUMIN 3.4 g/dl (3.4-5.0); ANION GAP 17.1 (5-15); BILIRUBIN TOTAL 0.3 mg/dL (0.2-1.0); BUN/CREATININE RATIO 4.3 (14-18); CALCIUM 8.2 mg/dL (8.5-10.1); CREATININE 0.7 mg/dL (0.55-1.02); EST CRCL DRUG DOSING (CG) 99.63 mL/min; ETHANOL BLOOD MEDICAL 0.14 gm% (0.00); POTASSIUM,K 3.1 mEq/L (3.5-5.1); PROTEIN TOTAL,TP 7.1 g/dl (6.4-8.2)
[2023-10-15] MEDS ORDERED: Potassium Chloride 20 MEQ Tab.ER PO ONE (01:29)
[2023-10-15 01:50] VITALS: BP 135/75; PULSE 80
== END 2023-10-15 01:51 | disposition home or self-care (01) ==
LOC: JD.ED 18:51
DX: B34.9 Viral infection, unspecified (principal); R51.9 Headache, unspecified; F10.929 Alcohol use, unspecified with intoxication, unspecified; J45.909 Unspecified asthma, uncomplicated; K21.9 Gastro-esophageal reflux disease without esophagitis; F10.920 Alcohol use, unspecified with intoxication, uncomplicated; Z86.16 Personal history of COVID-19; Z20.822 Contact with and (suspected) exposure to COVID-19; E66.9 Obesity, unspecified; Z68.39 Body mass index [BMI] 39.0-39.9, adult; Z88.0 Allergy status to penicillin; Z91.041 Radiographic dye allergy status; Z88.8 Allergy status to other drugs, medicaments and biological substances
CPT/HCPCS: 0241U; 36415; 71045; 80053; 80307; 85025; 96361; 96374; 96375; 99284; A9270; J0780; J1200; J7120